=== PATIENT | male | born 1945 | race Caucasian/White ===

== ENCOUNTER 2016-03-19 14:47 | Inpatient (IN) | payer MEDICARE ==
[~2016-03-19] VITALS: Ht 170.2 cm; Wt 91.6 kg
[~2016-03-19 14:47] MED LIST: BACL10TA PO; HYDR-3580 PO; IOHEXOL 350 MG/ML 10 ML VIAL (for RAD DIAG) IV ONE; NEUR600T PO; SIMV40TA PO; TEMA15CA PO; TOPR50TA PO
[2016-03-19 14:50] VITALS: BP 150/86; PULSE 94; RESP 24; TEMP 97.9; O2SAT 87
[2016-03-19] MEDS ORDERED: RESP: ALBUTEROL 2.5 MG/IPRATROPIUM 0.5 MG NEB (SCH) INH ONE (15:00)
[2016-03-19] MEDS ORDERED: methylPREDNISolone SOD SUCC 125 MG/2 ML VIAL IVP ONE (15:00)
[2016-03-19] MEDS ORDERED: SODIUM CHLORIDE 0.9% FLUSH 5 ML FLUSH IVF PRN (15:00)
[2016-03-19] MEDS ORDERED: SIMV40TA PO (15:03)
[2016-03-19] MEDS ORDERED: TEMA30CA PO (15:03)
[2016-03-19] MEDS ORDERED: GABA600T PO (15:03)
[2016-03-19] MEDS ORDERED: LORA-373 PO (15:03)
[2016-03-19] MEDS ORDERED: HYDR-3583 PO (15:03)
[2016-03-19] MEDS ORDERED: BACL10TA PO (15:03)
[2016-03-19] MEDS ORDERED: MORPHINE PUMP (15:03)
[2016-03-19] MEDS ORDERED: METO50TA11 PO (15:03)
[2016-03-19 15:20] LABS: BLOOD GAS BASE EXCESS 3.5 mmol/L (-2-2); BLOOD GAS CARBOXYHEMOGLOBIN 2.3 % (0-4); BLOOD GAS HCO3 28 mmol/L (22-26); BLOOD GAS METHEMOGLOBIN 1.9 % (0-2); BLOOD GAS O2 HGB SATURATION 87 % (90-100); BLOOD GAS OXYGEN CONTENT 16.1 Vol % (12.0-20.0); BLOOD GAS PCO2 42 mmHg (38-42); BLOOD GAS PO2 58 mmHG (61-120); BLOOD GAS TOTAL HGB 13.2 G/DL (12.0-16.0); CRITICAL VALUE YES; DRAW SITE LT RADIAL; LITER FLOW 2 L/M; NUMBER OF ARTERIAL PUNCTURES 1; OXYGEN DEVICE NASAL CANNULA; STAT YES; TEMP CORR TO 98.6; ULNAR PULSE PRESENT
[2016-03-19] MEDS ORDERED: AZITHROMYCIN INJ 500 MG in SODIUM CHLOR 0.9% 250 ML INJ 250 ML IV STA (15:26)
[2016-03-19] MEDS ORDERED: cefTRIAXone INJ 2,000 MG in SODIUM CHLORIDE 0.9% INJ 100 ML IV STA (15:26)
--- NOTE | 2016-03-19 15:29 | PD ---
HPI Chief Complaint: Cold / Flu Symptoms Time Seen by Provider: 15:00 Travel History International Travel<30 days: No Contact w/Intl Traveler<30days: No Traveled to known affect area: No History of Present Illness HPI Patient is a 71-year-old male who presents to the emergency department for evaluation of fatigue, sore throat, cough. Patient states that his symptoms have been ongoing since . Patient denies any chest pain, shortness of breath, fever, nausea, vomiting, abdominal pain. Additionally patient reports decreased appetite. Family also states that patient's is in the hospital due to the same complaints. Patient has a past medical history of hypertension, chronic pain with a morphine pump, insomnia, hyperlipidemia, anxiety, depression. He is on furosemide home but has not been taking this medication. Patient quit smoking tobacco on he has a 10 year history of tobacco use. 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 HERNIA REP. (X2)) Body Medical Devices: MORPHINE PUMP, HARDWARE LUMBAR & CERVICAL Cholecystectomy: Yes Genitourinary Surgery: Yes (PENILE IMPLANT) Joint Replacement: Yes (NICOLE. KNEES) Pacemaker: No Tonsillectomy: Yes Other Surgery: Yes (HERNIA) Social History Alcohol Use: No Tobacco Use: Yes (QUIT A WEEK AGO ) Substance Use: No Allergies-Medications (Allergen,Severity, Reaction): Coded Allergies: No Known Allergies (Verified , 03/19/16) Reported Meds & Prescriptions Reported Meds & Active Scripts Active Reported [Morphine Pump] 15 Mg DAILY Hydrocodone-Acetaminophen 10-325 mg Tab 1 Tab PO Q6H PRN Baclofen 10 Mg Tab 10 Mg PO Q8HR PRN Temazepam 30 Mg Cap 30 Mg PO HS PRN Simvastatin 40 Mg Tab 40 Mg PO HS Gabapentin 600 Mg Tab 600 Mg PO TID Metoprolol Succinate ER 24 HR (Metoprolol Succinate) 50 Mg Tab 75 Mg PO DAILY Lorazepam 0.5 Mg Tab 0.5 Mg PO BID PRN Review of Systems Except as stated in HPI: all other systems reviewed are Neg General / Constitutional: Positive: Chills, Other (fatigue), No: Fever HENT: Positive: Sore Throat, No: Headaches, Lightheadedness, Congestion Cardiovascular: No: Chest Pain or Discomfort Respiratory: Positive: Cough, Wheezing, No: Shortness of Breath Gastrointestinal: Positive: Loss of Appetite, No: Nausea, Vomiting, Diarrhea, Abdominal Pain Musculoskeletal: No: Myalgias Neurologic: Positive: Weakness, No: Dizziness, Syncope, Focal Abnormalities Physical Exam Narrative GENERAL: Overweight, well-developed, elderly male. Resting comfortably in no acute distress. SKIN: Warm and dry. HEAD: Atraumatic. Normocephalic. EYES: Pupils equal and round. No scleral icterus. No injection or drainage. ENT: No nasal bleeding or discharge. Mucous membranes pink and moist. NECK: Trachea midline. No JVD. CARDIOVASCULAR: Regular rate and rhythm. No murmur appreciated. RESPIRATORY: No accessory muscle use. Scattered expiratory wheezing, lung sounds diminished in bases. GASTROINTESTINAL: Abdomen soft, non-tender, nondistended. Hepatic and splenic margins not palpable. MUSCULOSKELETAL: Right upper arm deformity, chronic. No clubbing. No cyanosis. No edema. NEUROLOGICAL: Awake and alert. No obvious cranial nerve deficits. Motor grossly within normal limits. Normal speech. PSYCHIATRIC: Appropriate mood and affect; insight and judgment normal. Data Data Last Documented VS Vital Signs Date Time Temp Pulse Resp B/P Pulse Ox O2 Delivery O2 Flow Rate FiO2 03/19/16 15:26 98 Nasal Cannula 2 03/19/16 14:50 97.9 94 24 150/86 Orders Complete Blood Count With Diff (03/19/16 15:00) Comprehensive Metabolic Panel (03/19/16 15:00) B-Type Natriuretic Peptide (03/19/16 15:00) D-Dimer (03/19/16 15:00) Magnesium (Mg) (03/19/16 15:00) Arterial Blood Gas (Abg) (03/19/16 15:00) Urinalysis - C+S If Indicated (03/19/16 15:00) Blood Culture (03/19/16 15:00) Iv Access Insert/Monitor (03/19/16 15:00) Electrocardiogram (03/19/16 15:00) Ecg Monitoring (03/19/16 15:00) Oxygen Administration (03/19/16 15:00) Chest, Single Ap (03/19/16 15:00) Sodium Chloride 0.9% Flush (Ns Flush) (03/19/16 15:00) Methylprednisolone So Succ Inj (Solumedr (03/19/16 15:00) Albuterol-Ipratropium Neb (Duoneb Neb) (03/19/16 15:00) Lactic Acid (03/19/16 15:00) Ceftriaxone Inj (Rocephin Inj) (03/19/16 15:26) Azithromycin Inj (Zithromax Inj) (03/19/16 15:26) Ct Pulmonary Angiogram (03/19/16 16:35) Act Partial Throm Time (Ptt) (03/19/16 17:47) Prothrombin Time / Inr (Pt) (03/19/16 17:47) Heparin Infusion EDWIN.Q1H (03/19/16 17:53) Heparin Inj (Heparin Inj) (03/19/16 18:00) Heparin Inj (Heparin Inj) (03/20/16 00:00) Heparin Inj (Heparin Inj) (03/20/16 00:00) Heparin-D5w Inj (Heparin-D5w Inj) (03/19/16 18:00) Cbc No Diff, Includes Plts (03/22/16 06:00) Act Partial Throm Time (Ptt) (03/20/16 00:53) Occult Blood (Hemoccult) Stool (03/19/16 17:53) Admit Order (Ed Use Only) (03/19/16 18:08) Labs Laboratory Tests Test 03/19/16 03/19/16 15:15 15:20 Blood Gas Puncture Site LT RADIAL Blood Gas Patient Temperature 98.6 Blood Gas HCO3 28 mmol/L Blood Gas Base Excess 3.5 mmol/L Blood Gas Oxygen Saturation 87 % Arterial Blood pH 7.43 Arterial Blood Partial 42 mmHg Pressure CO2 Arterial Blood Partial 58 mmHG Pressure O2 Arterial Blood Oxygen Content 16.1 Vol % Arterial Blood 2.3 % Carboxyhemoglobin Arterial Blood Methemoglobin 1.9 % Blood Gas Hemoglobin 13.2 G/DL Oxygen Delivery Device NASAL CANNULA Blood Gas Liter Flow 2 L/M White Blood Count 5.2 TH/MM3 Red Blood Count 5.25 MIL/MM3 Hemoglobin 13.1 GM/DL Hematocrit 39.8 % Mean Corpuscular Volume 75.7 FL Mean Corpuscular Hemoglobin 25.0 PG Mean Corpuscular Hemoglobin 33.0 % Concent Red Cell Distribution Width 18.8 % Platelet Count 176 TH/MM3 Mean Platelet Volume 7.4 FL Neutrophils (%) (Auto) 70.4 % Lymphocytes (%) (Auto) 19.4 % Monocytes (%) (Auto) 8.6 % Eosinophils (%) (Auto) 1.1 % Basophils (%) (Auto) 0.5 % Neutrophils # (Auto) 3.6 TH/MM3 Lymphocytes # (Auto) 1.0 TH/MM3 Monocytes # (Auto) 0.4 TH/MM3 Eosinophils # (Auto) 0.1 TH/MM3 Basophils # (Auto) 0.0 TH/MM3 CBC Comment DIFF FINAL Differential Comment Prothrombin Time 11.7 SEC Prothromb Time International 1.1 RATIO Ratio Activated Partial 25.6 SEC Thromboplast Time D-Dimer Quantitative (PE/DVT) 12.90 MG/L FEU Sodium Level 140 MEQ/L Potassium Level 3.6 MEQ/L Chloride Level 104 MEQ/L Carbon Dioxide Level 28.0 MEQ/L Anion Gap 8 MEQ/L Blood Urea Nitrogen 12 MG/DL Creatinine 0.74 MG/DL Estimat Glomerular Filtration 104 ML/MIN Rate Random Glucose 119 MG/DL Lactic Acid Level 1.0 mmol/L Calcium Level 8.6 MG/DL Magnesium Level 1.7 MG/DL Total Bilirubin 0.6 MG/DL Aspartate Amino Transf 31 U/L (AST/SGOT) Alanine Aminotransferase 59 U/L (ALT/SGPT) Alkaline Phosphatase 58 U/L B-Type Natriuretic Peptide 94 PG/ML Total Protein 6.8 GM/DL Albumin 3.5 GM/DL MDM Medical Decision Making Medical Screen Exam Complete: Yes Emergency Medical Condition: Yes Interpretation(s) Laboratory Tests Test 03/19/16 03/19/16 15:15 15:20 Blood Gas Puncture Site LT RADIAL Blood Gas Patient Temperature 98.6 Blood Gas HCO3 28 mmol/L Blood Gas Base Excess 3.5 mmol/L Blood Gas Oxygen Saturation 87 % Arterial Blood pH 7.43 Arterial Blood Partial 42 mmHg Pressure CO2 Arterial Blood Partial 58 mmHG Pressure O2 Arterial Blood Oxygen Content 16.1 Vol % Arterial Blood 2.3 % Carboxyhemoglobin Arterial Blood Methemoglobin 1.9 % Blood Gas Hemoglobin 13.2 G/DL Oxygen Delivery Device NASAL CANNULA Blood Gas Liter Flow 2 L/M White Blood Count 5.2 TH/MM3 Red Blood Count 5.25 MIL/MM3 Hemoglobin 13.1 GM/DL Hematocrit 39.8 % Mean Corpuscular Volume 75.7 FL Mean Corpuscular Hemoglobin 25.0 PG Mean Corpuscular Hemoglobin 33.0 % Concent Red Cell Distribution Width 18.8 % Platelet Count 176 TH/MM3 Mean Platelet Volume 7.4 FL Neutrophils (%) (Auto) 70.4 % Lymphocytes (%) (Auto) 19.4 % Monocytes (%) (Auto) 8.6 % Eosinophils (%) (Auto) 1.1 % Basophils (%) (Auto) 0.5 % Neutrophils # (Auto) 3.6 TH/MM3 Lymphocytes # (Auto) 1.0 TH/MM3 Monocytes # (Auto) 0.4 TH/MM3 Eosinophils # (Auto) 0.1 TH/MM3 Basophils # (Auto) 0.0 TH/MM3 CBC Comment DIFF FINAL Differential Comment D-Dimer Quantitative (PE/DVT) 12.90 MG/L FEU Sodium Level 140 MEQ/L Potassium Level 3.6 MEQ/L Chloride Level 104 MEQ/L Carbon Dioxide Level 28.0 MEQ/L Anion Gap 8 MEQ/L Blood Urea Nitrogen 12 MG/DL Creatinine 0.74 MG/DL Estimat Glomerular Filtration 104 ML/MIN Rate Random Glucose 119 MG/DL Lactic Acid Level 1.0 mmol/L Calcium Level 8.6 MG/DL Magnesium Level 1.7 MG/DL Total Bilirubin 0.6 MG/DL Aspartate Amino Transf 31 U/L (AST/SGOT) Alanine Aminotransferase 59 U/L (ALT/SGPT) Alkaline Phosphatase 58 U/L B-Type Natriuretic Peptide 94 PG/ML Total Protein 6.8 GM/DL Albumin 3.5 GM/DL Vital Signs Date Time Temp Pulse Resp B/P Pulse Ox O2 Delivery O2 Flow Rate FiO2 03/19/16 15:26 98 Nasal Cannula 2 03/19/16 14:50 97.9 94 24 150/86 87 Room Air Differential Diagnosis Pneumonia versus bronchitis versus COPD versus pulmonary embolism versus congestive heart failure Narrative Course Patient is a 71-year-old male who presented to emergency for evaluation of approximately 2 weeks of fatigue, sore throat, coughing. Upon initial presentation patient's saturation was 86% on room air, he was placed on 2 L nasal cannula. His vital signs are otherwise stable. Labs and imaging ordered and pending. ABG, and nebulizer, IV steroids ordered. Family at bedside. Patient placed on telemetry monitoring, continuous pulse oximetry, IV access initiated. Chest x-ray shows no acute disease EKG shows sinus rhythm with a left bundle branch block, this is stable compared to prior EKG on record. Reviewed by my attending physician. ABG shows mixed respiratory acidosis, metabolic alkalosis. Oxygen was increased to 4 L via nasal cannula. D-dimer is elevated at 12.9 CT pulmonary angiogram ordered. Chemistry is unremarkable, BNP is normal, lactic acid is normal. Coags are normal CT pulmonary pulmonary angiogram is positive for PE involving multiple segments of the right lower lobe in the anterior segment of the left upper lobe. Heparin drip orders initiated by my attending physician. Hospitalist paged for admission. Dr. Jones accepted admission. Diagnosis Primary Impression: Pulmonary embolism Qualified Code: I26.99 - Other acute pulmonary embolism without acute cor pulmonale Additional Impression: Hypoxia Condition: Stable Paulina Soria Mar 19, 2016 15:29
--- NOTE | 2016-03-19 15:35 | RADRPT ---
EXAM DATE/TIME: 03/19/2016 15:11 [facility] COMPARISON: No previous studies available for comparison. INDICATIONS : Short of Breath, Weakness. MEDICAL HISTORY : None. SURGICAL HISTORY : None. ENCOUNTER: Initial ACUITY: 1 day PAIN SCORE: 0/10 LOCATION: Bilateral chest FINDINGS: A single view of the chest demonstrates the lungs to be symmetrically aerated without evidence of mas s, infiltrate or effusion. The cardiomediastinal contours are unremarkable. Osseous structures are intact with a history of cervical fusion plate in place. Degenerative changes of the right u will guzman nt.. CONCLUSION: No acute disease. Norman Santos MD on March 19, 2016 at 15:33 Board Certified Radiologist. This report was verified electronically.
[2016-03-19 16:01] LABS: AUTOMATED NEUTROPHIL # 3.6 TH/MM3 (1.8-7.7); BASOPHIL % 0.5 % (0.0-2.0); EOSINOPHIL # 0.1 TH/MM3 (0-0.4); EOSINOPHIL % 1.1 % (0.0-4.0); HEMATOCRIT 39.8 % (39.0-51.0); LYMPH % 19.4 % (9.0-44.0); MEAN CELL VOLUME 75.7 FL (80.0-100.0); MONO % 8.6 % (0.0-8.0); NEUT % 70.4 % (16.0-70.0); PLATELET COUNT 176 TH/MM3 (150-450); RED BLOOD COUNT 5.25 MIL/MM3 (4.50-5.90); RED CELL DISTRIBUTION WIDTH 18.8 % (11.6-17.2); WHITE BLOOD COUNT 5.2 TH/MM3 (4.0-11.0)
[2016-03-19 16:03] LABS: HEMO FLAGS DIFF FINAL
[2016-03-19 16:25] LABS: ALT (GPT) 59 U/L (12-78); ANION GAP 8 MEQ/L (5-15); AST (GOT) 31 U/L (15-37); BLOOD UREA NITROGEN 12 MG/DL (7-18); CHLORIDE 104 MEQ/L (98-107); GLOMERULAR FILTRATION RATE 104 ML/MIN (>89); MAGNESIUM 1.7 MG/DL (1.5-2.5); POTASSIUM 3.6 MEQ/L (3.5-5.1); SODIUM (NA) 140 MEQ/L (136-145)
[2016-03-19 16:27] LABS: ALKALINE PHOSPHATASE 58 U/L (45-117); TOTAL BILIRUBIN ADULT 0.6 MG/DL (0.2-1.0)
--- NOTE | 2016-03-19 16:57 | PD ---
Data Data Last Documented VS Vital Signs Date Time Temp Pulse Resp B/P Pulse Ox O2 Delivery O2 Flow Rate FiO2 03/19/16 15:26 98 Nasal Cannula 2 03/19/16 14:50 97.9 94 24 150/86 Orders Complete Blood Count With Diff (03/19/16 15:00) Comprehensive Metabolic Panel (03/19/16 15:00) B-Type Natriuretic Peptide (03/19/16 15:00) D-Dimer (03/19/16 15:00) Magnesium (Mg) (03/19/16 15:00) Arterial Blood Gas (Abg) (03/19/16 15:00) Urinalysis - C+S If Indicated (03/19/16 15:00) Blood Culture (03/19/16 15:00) Iv Access Insert/Monitor (03/19/16 15:00) Electrocardiogram (03/19/16 15:00) Ecg Monitoring (03/19/16 15:00) Oxygen Administration (03/19/16 15:00) Chest, Single Ap (03/19/16 15:00) Sodium Chloride 0.9% Flush (Ns Flush) (03/19/16 15:00) Methylprednisolone So Succ Inj (Solumedr (03/19/16 15:00) Albuterol-Ipratropium Neb (Duoneb Neb) (03/19/16 15:00) Lactic Acid (03/19/16 15:00) Ceftriaxone Inj (Rocephin Inj) (03/19/16 15:26) Azithromycin Inj (Zithromax Inj) (03/19/16 15:26) Ct Pulmonary Angiogram (03/19/16 16:35) Act Partial Throm Time (Ptt) (03/19/16 17:47) Prothrombin Time / Inr (Pt) (03/19/16 17:47) Heparin Infusion EDWIN.Q1H (03/19/16 17:53) Heparin Inj (Heparin Inj) (03/19/16 18:00) Heparin Inj (Heparin Inj) (03/20/16 00:00) Heparin Inj (Heparin Inj) (03/20/16 00:00) Heparin-D5w Inj (Heparin-D5w Inj) (03/19/16 18:00) Cbc No Diff, Includes Plts (03/22/16 06:00) Act Partial Throm Time (Ptt) (03/20/16 00:53) Occult Blood (Hemoccult) Stool (03/19/16 17:53) Labs Laboratory Tests Test 03/19/16 03/19/16 15:15 15:20 Blood Gas Puncture Site LT RADIAL Blood Gas Patient Temperature 98.6 Blood Gas HCO3 28 mmol/L Blood Gas Base Excess 3.5 mmol/L Blood Gas Oxygen Saturation 87 % Arterial Blood pH 7.43 Arterial Blood Partial 42 mmHg Pressure CO2 Arterial Blood Partial 58 mmHG Pressure O2 Arterial Blood Oxygen Content 16.1 Vol % Arterial Blood 2.3 % Carboxyhemoglobin Arterial Blood Methemoglobin 1.9 % Blood Gas Hemoglobin 13.2 G/DL Oxygen Delivery Device NASAL CANNULA Blood Gas Liter Flow 2 L/M White Blood Count 5.2 TH/MM3 Red Blood Count 5.25 MIL/MM3 Hemoglobin 13.1 GM/DL Hematocrit 39.8 % Mean Corpuscular Volume 75.7 FL Mean Corpuscular Hemoglobin 25.0 PG Mean Corpuscular Hemoglobin 33.0 % Concent Red Cell Distribution Width 18.8 % Platelet Count 176 TH/MM3 Mean Platelet Volume 7.4 FL Neutrophils (%) (Auto) 70.4 % Lymphocytes (%) (Auto) 19.4 % Monocytes (%) (Auto) 8.6 % Eosinophils (%) (Auto) 1.1 % Basophils (%) (Auto) 0.5 % Neutrophils # (Auto) 3.6 TH/MM3 Lymphocytes # (Auto) 1.0 TH/MM3 Monocytes # (Auto) 0.4 TH/MM3 Eosinophils # (Auto) 0.1 TH/MM3 Basophils # (Auto) 0.0 TH/MM3 CBC Comment DIFF FINAL Differential Comment D-Dimer Quantitative (PE/DVT) 12.90 MG/L FEU Sodium Level 140 MEQ/L Potassium Level 3.6 MEQ/L Chloride Level 104 MEQ/L Carbon Dioxide Level 28.0 MEQ/L Anion Gap 8 MEQ/L Blood Urea Nitrogen 12 MG/DL Creatinine 0.74 MG/DL Estimat Glomerular Filtration 104 ML/MIN Rate Random Glucose 119 MG/DL Lactic Acid Level 1.0 mmol/L Calcium Level 8.6 MG/DL Magnesium Level 1.7 MG/DL Total Bilirubin 0.6 MG/DL Aspartate Amino Transf 31 U/L (AST/SGOT) Alanine Aminotransferase 59 U/L (ALT/SGPT) Alkaline Phosphatase 58 U/L B-Type Natriuretic Peptide 94 PG/ML Total Protein 6.8 GM/DL Albumin 3.5 GM/DL [facility] Supervised Visit with NAT: Yes Narrative Course I, Dr. Rice, have reviewed the advance practice practioner's documentation and am in agreement, met with the patient face to face, made the diagnosis, and the medical decision making was done by me. *My assessment and Findings: 71-year-old male with history of HTN, HLD, CHF here with complaint of generalized fatigue, weakness, sore throat and dry cough with shortness of breath that is been present for the last 2 weeks since . States that multiple members in his family were ill with similar symptoms, his is currently hospitalized for similar complaints. Patient has not had any chest pain or documented fevers. He does not weigh himself regularly and has not been taking his home Lasix. Patient notable hypoxia 87% on room air. He does not have any history of underlying lung pathology, is only a 10 year pack smoker, now no longer smoking. Decreased breath sounds throughout, no wheezing or rhonchi. Regular rate and rhythm. Differential includes bronchitis, pneumonia, influenza, pulmonary embolism, symptomatic anemia, sepsis. Patient was given Solu-Medrol, DuoNeb. Portal chest x-ray by my read shows no obvious infiltrate. Patient was empirically treated with Rocephin and azithromycin for possible underlying pneumonia. Laboratory workup notable for significantly elevated d-dimer and therefore CT pulmonary injury gram was obtained and showed bilateral PE. Patient was placed on heparin and will be admitted for further management. Critical Care Narrative Aggregate critical care time was 40 minutes. Time to perform other separately billable procedures was not included in the critical care time. My time did not include minutes spent treating any other patients simultaneously or on activities that did not directly contribute to the patient's treatment. The services I provided to this patient were to treat and/or prevent clinically significant deterioration that could result in: Cardiopulmonary decompensation, hypoxia, , disability I provided critical care services requiring my management, as noted below: Chart data review, documentation time, medication orders and management, vital sign assessments/reviewing monitor data, ordering and reviewing lab tests, ordering and interpreting/reviewing x-rays and diagnostic studies, care of the patient and discussion of the patient with the admitting physicians. Ivelisse Rice MD Mar 19, 2016 16:57
[2016-03-19] MEDS ORDERED: IOHEXOL 350 MG/ML 10 ML VIAL (for RAD DIAG) IV ONE (17:30)
--- NOTE | 2016-03-19 17:50 | RADRPT ---
EXAM DATE/TIME: 03/19/2016 17:30 [facility] COMPARISON: CHEST SINGLE AP, March 19, 2016, 15:11. INDICATIONS : Evaluate for emboli. IV CONTRAST: 80 cc Omnipaque 350 (iohexol) IV RADIATION DOSE: 17.61 CTDIvol (mGy) MEDICAL HISTORY : Cardiovascular disease. Hypertension. SURGICAL HISTORY : Cholecystectomy. ENCOUNTER: Initial ACUITY: 1 day PAIN SCALE: 3/10 LOCATION: Bilateral chest TECHNIQUE: Volumetric scanning of the chest was performed using a pulmonary embolism protocol MIP images were re constructed. Using automated exposure control and adjustment of the mA and/or kV according to patien t size, radiation dose was kept as low as reasonably achievable to obtain optimal diagnostic quality images. FINDINGS: PULMONARY ARTERIES: There are multiple right lower lobe segmental pulmonary artery filling defects consistent with pulmon maryan emboli. There is a question as to the anterior segment right upper lobe having a small pulmonary embolism thrombus defects.. LUNGS: There is no consolidation or pneumothorax . No concerning pulmonary nodule is visualized. PLEURAE: There is no pleural thickening or pleural effusion. MEDIASTINUM: There is good visualization of the great vessels of the middle mediastinum. No evidence of mediastin al or hilar adenopathy/mass. MUSCULOSKELETAL: Within normal limits for patient age. MISCELLANEOUS: The visualized upper abdominal organs demonstrate no acute abnormality. CONCLUSION: Positive for pulmonary embolism primarily involving multiple segments of the right lower lobe especia lly minimal area in the anterior segment of the left upper lobe Norman Santos MD on March 19, 2016 at 17:44 Board Certified Radiologist. This report was verified electronically.
[2016-03-19] MEDS ORDERED: HEPARIN SODIUM - IV 10,000 UNITS/10 ML VIAL IV ONE (18:00)
[2016-03-19 18:08] LABS: APTT (PATIENT) 25.6 SEC (24.3-30.1); INTERNATIONAL NORMALIZED RATIO 1.1 RATIO; PROTHROMBIN TIME - PATIENT 11.7 SEC (9.8-11.6)
--- NOTE | 2016-03-19 18:29 | HHI.HP ---
[facility] Primary Care Physician Nikunj Jernigan M.D. Admission Diagnosis PULMONARY EMBOLISM Diagnoses: (1) Pulmonary embolism Diagnosis: Principal (2) Hypoxia Diagnosis: Principal (3) Acute respiratory failure Diagnosis: Principal Chief Complaint: generalized weakness Travel History International Travel<30 Days: No Contact w/Intl Traveler <30 Da: No Traveled to Known Affected Are: No History of Present Illness patient is a 71 y/o male with chronic back pain who presented to ER with generalized weakness. he says that over the past few days he and his have had flu-like symptoms. he had some fever at home and feels very weak. he says that he's so weak that he can't take care of himself. he denies any sob or cough. he has some back pain. he denies any recent trauma to the legs, recent surgery or long trips.he was found hypoxemic at the time of arrival to ER. Review of Systems Constitutional: COMPLAINS OF: Fatigue, Fever, DENIES: Weight loss, Chills, Night Sweats Eyes: DENIES: Blurred vision, Diplopia, Vision loss, Double Vision Ears, nose, mouth, throat: DENIES: Tinnitus, Vertigo, Throat pain, Epistaxis Respiratory: DENIES: Apneas, Cough, Snoring, Wheezing, Hemoptysis, Sputum production, Shortness of breath Cardiovascular: DENIES: Chest pain, Palpitations, Syncope, Dyspnea on Exertion , PND, Lower Extremity Edema, Orthopnea, Claudication Gastrointestinal: DENIES: Abdominal pain, Black stools, Bloody stools, Constipation, Diarrhea, Nausea, Vomiting, Difficulty Swallowing, Anorexia Genitourinary: DENIES: Urinary frequency, Urgency, Hematuria, Dysuria Musculoskeletal: DENIES: Joint pain, Muscle aches, Stiffness, Joint Swelling Integumentary: DENIES: Rash Neurologic: DENIES: Abnormal gait, Headache, Localized weakness, Paresthesias, Seizures, Speech Problems, Tremor, Poor Balance Psychiatric: DENIES: Anxiety, Confusion, Mood changes, Depression, Hallucinations, Agitation, Suicidal Ideation, Homicidal Ideation, Delusions Past Family Social History Past Medical History chronic back pain hypertension Past Surgical History back surgeries Reported Medications [Morphine Pump] 15 Mg DAILY Hydrocodone-Acetaminophen 10-325 mg Tab 1 Tab PO Q6H PRN Baclofen 10 Mg Tab 10 Mg PO Q8HR PRN Temazepam 30 Mg Cap 30 Mg PO HS PRN Simvastatin 40 Mg Tab 40 Mg PO HS Gabapentin 600 Mg Tab 600 Mg PO TID Metoprolol Succinate ER 24 HR (Metoprolol Succinate) 50 Mg Tab 75 Mg PO DAILY Lorazepam 0.5 Mg Tab 0.5 Mg PO BID PRN Allergies: Coded Allergies: No Known Allergies (Verified , 03/19/16) Active Ordered Medications Current Medications IV Flush (NS Flush) 2 ml UNSCH PRN IVF FLUSH AFTER USING IV ACCESS; Start at 15:00 Methylprednisolone Sodium Succinate (SoluMEDROL INJ) 125 mg ONCE ONCE IVP Last administered on 03/19/16 15:58; Start 03/19/16 at 15:00; Stop 03/19/16 at 15: 03; Status DC Albuterol/ Ipratropium 1 ampule 1 ampule ONCE ONCE INH Last administered on 15:15; Start 03/19/16 at 15:00; Stop 03/19/16 at 15:03; Status DC Ceftriaxone Sodium 2000 mg/ Sodium Chloride 100 ml @ 200 mls/hr ONCE STAT IV Last administered on 03/19/16 16:15; Start 03/19/16 at 15:26; Stop 03/19/16 at 15: 55; Status DC Azithromycin/ Sodium Chloride (Zithromax Inj/ NS 250 ml Inj) 250 ml @ 250 mls/ hr ONCE STAT IV Last administered on 03/19/16 17:29; Start 03/19/16 at 15:26; Stop 03/19/16 at 16:25; Status DC Heparin Sodium (Porcine) (Heparin Inj) 8,000 units ONCE ONCE IV ; Start at 18:00; Stop 03/19/16 at 18:01; Status DC Heparin Sodium (Porcine) (Heparin Inj) 5,000 units UNSCH PRN IV APTT LESS THAN 25; Start 03/20/16 at 00:00 Heparin Sodium (Porcine) 2500 units 2,500 units UNSCH PRN IV APTT 25 TO 39; Start 03/20/16 at 00:00 Heparin Sodium/ Dextrose (Heparin-D5W Inj) 250 ml @ 0 mls/hr TITRATE IV ; Start 03/19/16 at 18:00 Family History not significant. Social History quit smoking about a month ago. lives with his . Physical Exam Vital Signs Vital Signs Date Time Temp Pulse Resp B/P Pulse Ox O2 Delivery O2 Flow Rate FiO2 03/19/16 15:26 98 Nasal Cannula 2 03/19/16 14:50 97.9 94 24 150/86 87 Room Air Physical Exam GENERAL: This is a well-nourished, well-developed patient, in no apparent distress. SKIN: No rashes, ecchymoses or lesions. Cool and dry. HEAD: Atraumatic. Normocephalic. No temporal or scalp tenderness. EYES: Pupils equal round and reactive. Extraocular motions intact. No scleral icterus. No injection or drainage. ENT: Nose without bleeding, purulent drainage or septal hematoma. Throat without erythema, tonsillar hypertrophy or exudate. Uvula midline. Airway patent. NECK: Trachea midline. No JVD or lymphadenopathy. Supple, nontender, no meningeal signs. CARDIOVASCULAR: Regular rate and rhythm without murmurs, gallops, or rubs. RESPIRATORY: Clear to auscultation. Breath sounds equal bilaterally. No wheezes , rales, or rhonchi. GASTROINTESTINAL: Abdomen soft, non-tender, nondistended. No hepato-splenomegaly , or palpable masses. No guarding. MUSCULOSKELETAL: Extremities without clubbing, cyanosis, or edema. No joint tenderness, effusion, or edema noted. No calf tenderness. Negative Homans sign bilaterally. NEUROLOGICAL: Awake and alert. Cranial nerves II through XII intact. Motor and sensory grossly within normal limits. Five out of 5 muscle strength in all muscle groups. Normal speech. Laboratory Laboratory Tests Test 03/19/16 03/19/16 15:15 15:20 Blood Gas Puncture Site LT RADIAL Blood Gas Patient Temperature 98.6 Blood Gas HCO3 28 Blood Gas Base Excess 3.5 Blood Gas Oxygen Saturation 87 Arterial Blood pH 7.43 Arterial Blood Partial 42 Pressure CO2 Arterial Blood Partial 58 Pressure O2 Arterial Blood Oxygen Content 16.1 Arterial Blood 2.3 Carboxyhemoglobin Arterial Blood Methemoglobin 1.9 Blood Gas Hemoglobin 13.2 Oxygen Delivery Device NASAL CANNULA Blood Gas Liter Flow 2 White Blood Count 5.2 Red Blood Count 5.25 Hemoglobin 13.1 Hematocrit 39.8 Mean Corpuscular Volume 75.7 Mean Corpuscular Hemoglobin 25.0 Mean Corpuscular Hemoglobin 33.0 Concent Red Cell Distribution Width 18.8 Platelet Count 176 Mean Platelet Volume 7.4 Neutrophils (%) (Auto) 70.4 Lymphocytes (%) (Auto) 19.4 Monocytes (%) (Auto) 8.6 Eosinophils (%) (Auto) 1.1 Basophils (%) (Auto) 0.5 Neutrophils # (Auto) 3.6 Lymphocytes # (Auto) 1.0 Monocytes # (Auto) 0.4 Eosinophils # (Auto) 0.1 Basophils # (Auto) 0.0 CBC Comment DIFF FINAL Differential Comment Prothrombin Time 11.7 Prothromb Time International 1.1 Ratio Activated Partial 25.6 Thromboplast Time D-Dimer Quantitative (PE/DVT) 12.90 Sodium Level 140 Potassium Level 3.6 Chloride Level 104 Carbon Dioxide Level 28.0 Anion Gap 8 Blood Urea Nitrogen 12 Creatinine 0.74 Estimat Glomerular Filtration 104 Rate Random Glucose 119 Lactic Acid Level 1.0 Calcium Level 8.6 Magnesium Level 1.7 Total Bilirubin 0.6 Aspartate Amino Transf 31 (AST/SGOT) Alanine Aminotransferase 59 (ALT/SGPT) Alkaline Phosphatase 58 B-Type Natriuretic Peptide 94 Total Protein 6.8 Albumin 3.5 Date/Time Procedure Status Source Growth 03/19/16 15:20 Aerobic Blood Culture Received Blood Peripheral Pending 03/19/16 15:20 Anaerobic Blood Culture Received Blood Peripheral Pending Result Diagram: 03/19/16 1520 03/19/16 [address] Angiography 03/19/16 1635 Signed Impressions: Service Date/Time: Saturday, March 19, 2016 17:30 - CONCLUSION: Positive for pulmonary embolism primarily involving multiple segments of the right lower lobe especially minimal area in the anterior segment of the left upper lobe Norman Santos MD Chest X-Ray 03/19/16 1500 Signed Impressions: Service Date/Time: Saturday, March 19, 2016 15:11 - CONCLUSION: No acute disease. Norman Santos MD Assessment and Plan Assessment and Plan A/P - acute hypoxemic respiratory failure due to pulmonary embolism keep on oxygen to keep O2 sat > 90%- neb treatment as needed. continue with heparin drip- consult hematology venous doppler of lower extremities. - chronic back pain/ hypertension- resume home meds- patient has morphine pump Discussed Condition With ER physician and the patient. Physician Certification 2 Midnight Certification Type: Admission for Inpatient Services Order for Inpatient Services The services are ordered in accordance with Medicare regulations or non- Medicare payer requirements, as applicable. In the case of services not specified as inpatient-only, they are appropriately provided as inpatient services in accordance with the 2-midnight benchmark. Estimated LOS (days): 2 days is the estimated time the patient will need to remain in the hospital, assuming treatment plan goals are met and no additional complications. Post-Hospital Plan: Not yet determined Problem Qualifiers (1) Pulmonary embolism: Qualified Code: I26.99 - Other acute pulmonary embolism without acute cor pulmonale Tato Solo MD Mar 19, 2016 18:29
[2016-03-19] MEDS ORDERED: LORazepam 0.5 MG TAB PO PRN (18:30)
[2016-03-19] MEDS ORDERED: ONDANSETRON HCL 4 MG/2 ML VIAL IV PUSH PRN (18:30)
[2016-03-19] MEDS ORDERED: ACETAMINOPHEN 325 MG TAB PO PRN (18:30)
[2016-03-19] MEDS ORDERED: BACLOFEN 10 MG TAB PO PRN (18:30)
[2016-03-19] MEDS ORDERED: RESP: ALBUTEROL 2.5 MG/IPRATROPIUM 0.5 MG NEB (PRN) NEB (18:30)
[2016-03-19 18:48] VITALS: BP 163/82; PULSE 84; RESP 18; O2SAT 89
[2016-03-19] MEDS: HEPARIN-D5W INJ 250 ML IV SCH (19:31)
--- NOTE | 2016-03-19 19:37 | EKG ---
Date Performed: 03/19/2016 Time Performed: 15:42:51 PTAGE: 71 years EKG: Sinus rhythm LEFT BUNDLE BRANCH BLOCK WITH SECONDARY ST/T WAVE CHANGES ABNORMAL ECG PREVIOUS TRACING : 10/19/2011 18.58 Since previous tracing, no significant change noted DOCTOR: Carlos Mcconnell Interpretating Date/Time 03/19/2016 19:36:17
[2016-03-19 20:00] VITALS: O2SAT 93
[2016-03-19] MEDS: PRAVASTATIN SOD 80 MG TAB PO SCH (20:03)
[2016-03-19 20:06] LABS: BLOOD, URINE TRACE (NEG); COMMENT (UR) CULT NOT INDICATED; CULTURE IF INDICATED CULT NOT INDICATED; GLUCOSE,URINE NEG (NEG); KETONE, URINE 40 mg/dL (NEG); MUCUS URINE FEW /lpf (OCC); NITRITE,URINE NEG (NEG); PH, URINE 6.5 (5.0-8.5); URINE COLOR YELLOW (YELLW/STRAW)
--- NOTE | 2016-03-19 21:08 | RADRPT ---
EXAM DATE/TIME: 03/19/2016 19:54 [place] COMPARISON: CT PULMONARY ANGIOGRAM, March 19, 2016, 17:30. INDICATIONS : Bilateral lower extremity swelling. MEDICAL HISTORY : Myocardial infarction. Hypercholesterolemia. Hernia, hiatal. Chronic back pain. Right upper arm contr acture. Tacharrhythmia. HTN. Arthritis. Insomnia. SURGICAL HISTORY : Tonsillectomy.Inguinal hernia repair. Cholecystectomy.Penile implant. Bilateral total knee replacemen ts. Cervical fusions x2. Right knee revision. Blood transfusions. ENCOUNTER: Initial ACUITY: 1 month PAIN SCORE: 0/10 LOCATION: Bilateral leg. TECHNIQUE: Venous ultrasound of the left and right leg was performed from the inguinal ligament to the proximal calf. Real-time, color Doppler and spectral tracing, compression and augmentation techniques were us ed. FINDINGS: RIGHT LEG: There is normal compressibility of the deep venous system from the inguinal region to the proximal ca lf. No echogenic clot is seen in the lumen of the common femoral, femoral, and popliteal veins. Ther e is occlusive DVT in the posterior tibial vein . LEFT LEG: There is normal compressibility of the deep venous system from the inguinal region to the proximal ca lf. No echogenic clot is seen in the lumen of the common femoral, femoral, popliteal, and posterior tibial veins. There is a normal response of the venous system to proximal and distal augmentation an d respiration. CONCLUSION: Occlusive DVT right posterior tibial vein. Otherwise negative Norman Santos MD on March 19, 2016 at 21:05 Board Certified Radiologist. This report was verified electronically.
[2016-03-19 22:01] VITALS: BP 178/82; PULSE 69; RESP 17; TEMP 96.8; O2SAT 95
[2016-03-20] VITALS (9 sets, daily range): BP systolic 155–198; BP diastolic 72–92; PULSE 53–71; RESP 17–18; TEMP 96.8–98.7; O2SAT 92–96
[2016-03-20] MEDS ORDERED: HEPARIN SODIUM - IV 10,000 UNITS/10 ML VIAL IV PRN ×2
[2016-03-20] MEDS ORDERED: cloNIDine HCL 0.1 MG TAB PO ONE (00:30)
[2016-03-20 03:00] LABS: APTT (PATIENT) 151.1 SEC (24.3-30.1)
[2016-03-20] MEDS ORDERED: hydrALAZINE HCL 25 MG TAB PO ONE (04:15)
[2016-03-20 06:09] LABS: APTT (PATIENT) 57.1 SEC (24.3-30.1)
[2016-03-20] MEDS ORDERED: cloNIDine HCL 0.1 MG TAB PO SCH (07:00)
[2016-03-20] MEDS: cloNIDine HCL 0.1 MG TAB PO PRN ×2 (07:00→18:25)
[2016-03-20] MEDS: METOPROLOL SUCCINATE 50 MG EXTENDED RELEASE TAB PO SCH (08:18)
[2016-03-20] MEDS: GABAPENTIN 300 MG CAP PO SCH ×3 (08:18→17:22)
--- NOTE | 2016-03-20 10:25 | HHI.PR ---
Subjective Remarks f/u; PE looks and feels more comfortable today- although on three liters of oxygen via N /C. denies pain. d/w the RN and no acute issues over night. Objective Vitals Vital Signs Date Time Temp Pulse Resp B/P Pulse Ox O2 Delivery O2 Flow Rate FiO2 03/20/16 08:20 Nasal Cannula 3.00 03/20/16 07:30 Nasal Cannula 3.00 03/20/16 06:40 65 185/92 03/20/16 04:26 97.2 71 17 183/88 93 03/20/16 00:22 96.8 67 18 186/92 92 03/19/16 22:01 96.8 69 17 178/82 95 03/19/16 20:00 93 Nasal Cannula 3.00 03/19/16 19:37 95 Nasal Cannula 5 03/19/16 18:48 84 18 163/82 89 Nasal Cannula 5 03/19/16 15:26 98 Nasal Cannula 2 03/19/16 14:50 97.9 94 24 150/86 87 Room Air I/O 03/19/16 03/19/16 03/19/16 03/20/16 03/20/16 03/20/16 07:00 15:00 23:00 07:00 15:00 23:00 Intake Total 480 ml 496 ml Output Total 200 ml Balance 480 ml 296 ml Intake Oral 480 ml 360 ml IV Total 136 ml Output Urine Total 200 ml # Voids 2 # Bowel Movements 2 0 Result Diagram: 03/19/16 1520 03/19/16 [address] Angiography 03/19/16 1635 Signed Impressions: Service Date/Time: Saturday, March 19, 2016 17:30 - CONCLUSION: Positive for pulmonary embolism primarily involving multiple segments of the right lower lobe especially minimal area in the anterior segment of the left upper lobe Norman Santos MD Chest X-Ray 03/19/16 1500 Signed Impressions: Service Date/Time: Saturday, March 19, 2016 15:11 - CONCLUSION: No acute disease. Norman Santos MD Lower Extremity Ultrasound 03/19/16 0000 Signed Impressions: Service Date/Time: Saturday, March 19, 2016 19:54 - CONCLUSION: Occlusive DVT right posterior tibial vein. Otherwise negative Norman Santos MD Objective Remarks GENERAL: This is a well-nourished, well-developed patient, in no apparent distress. CARDIOVASCULAR: Regular rate and regular rhythm without murmurs, gallops, or rubs. RESPIRATORY: Clear to auscultation. Breath sounds equal bilaterally. No wheezes , rales, or rhonchi. GASTROINTESTINAL: Abdomen soft, non-tender, nondistended. Normal, active bowel sounds MUSCULOSKELETAL: Extremities without clubbing, cyanosis, or edema. NEURO: Alert & Oriented x4 to person, place, time, situation. Moves all ext x4 Procedures none Medications and IVs Current Medications IV Flush (NS Flush) 2 ml UNSCH PRN IVF FLUSH AFTER USING IV ACCESS; Start at 15:00 Methylprednisolone Sodium Succinate (SoluMEDROL INJ) 125 mg ONCE ONCE IVP Last administered on 03/19/16 15:58; Start 03/19/16 at 15:00; Stop 03/19/16 at 15: 03; Status DC Albuterol/ Ipratropium 1 ampule 1 ampule ONCE ONCE INH Last administered on 15:15; Start 03/19/16 at 15:00; Stop 03/19/16 at 15:03; Status DC Ceftriaxone Sodium 2000 mg/ Sodium Chloride 100 ml @ 200 mls/hr ONCE STAT IV Last administered on 03/19/16 16:15; Start 03/19/16 at 15:26; Stop 03/19/16 at 15: 55; Status DC Azithromycin/ Sodium Chloride (Zithromax Inj/ NS 250 ml Inj) 250 ml @ 250 mls/ hr ONCE STAT IV Last administered on 03/19/16 17:29; Start 03/19/16 at 15:26; Stop 03/19/16 at 16:25; Status DC Heparin Sodium (Porcine) (Heparin Inj) 8,000 units ONCE ONCE IV Last administered on 03/19/16 19:29; Start 03/19/16 at 18:00; Stop 03/19/16 at 18:01; Status DC Heparin Sodium (Porcine) (Heparin Inj) 5,000 units UNSCH PRN IV APTT LESS THAN 25; Start 03/20/16 at 00:00 Heparin Sodium (Porcine) 2500 units 2,500 units UNSCH PRN IV APTT 25 TO 39; Start 03/20/16 at 00:00 Heparin Sodium/ Dextrose (Heparin-D5W Inj) 250 ml @ 0 mls/hr TITRATE IV Last administered on 03/19/16 19:31; Start 03/19/16 at 18:00 Albuterol/ Ipratropium (Duoneb Neb) 1 ampule Q6HR NEB PRN NEB SHORTNESS OF BREATH; Start 03/19/16 at 18:30 Baclofen (Lioresal) 10 mg Q8HR PRN PO MUSCLE SPASM; Start 03/19/16 at 18:30 Gabapentin (Neurontin) 600 mg TID PO Last administered on 03/20/16 08:18; Start 03/20/16 at 09:00 Lorazepam (Ativan) 0.5 mg BID PRN PO ANXIETY; Start 03/19/16 at 18:30 Metoprolol Succinate (Toprol Xl) 75 mg DAILY PO Last administered on 03/20/16 08:18; Start 03/20/16 at 09:00 Pravastatin Sodium (Pravachol) 80 mg HS PO Last administered on 03/19/16 20:03 ; Start 03/19/16 at 21:00 Ondansetron HCl (Zofran Inj) 4 mg Q8HR PRN IV PUSH NAUSEA; Start 03/19/16 at 18: 30 Acetaminophen (Tylenol) 650 mg Q4H PRN PO FEVER; Start 03/19/16 at 18:30 Clonidine (Catapres) 0.1 mg ONCE ONCE PO Last administered on 03/20/16 00:30; Start 03/20/16 at 00:30; Stop 03/20/16 at 00:31; Status DC Hydralazine HCl (Apresoline) 25 mg ONCE ONCE PO Last administered on 03/20/16 04:15; Start 03/20/16 at 04:15; Stop 03/20/16 at 04:16; Status DC Clonidine (Catapres) 0.1 mg Q6H PRN PO SBP>160, DBP>90 Last administered on 03/20 07:00; Start 03/20/16 at 07:00 Clonidine (Catapres) 0.1 mg NOW PO ; Start 03/20/16 at 07:00; Stop 03/20/16 at 09: 00; Status DC A/P Assessment and Plan A/P - acute hypoxemic respiratory failure due to pulmonary embolism will titrate down oxygen to keep O2 sat > 90%- neb treatment as needed. continue with heparin drip- awaiting hematology evaluation venous doppler of lower extremities with DVT of the right posterior tibial vein walk test before discharge. -hypertension- not well controlled- resumed metoprolol- clonidine prn will monitor and adjust the regimen as needed - chronic back pain/ hypertension- resumed home meds- patient has morphine pump Discharge Planning possible discharge within the next 24-48 hrs if stable- awaiting hematology evaluation. needs walk test before discharge. Tato Solo MD Mar 20, 2016 10:25
[2016-03-20 13:30] LABS: APTT (PATIENT) 53.7 SEC (24.3-30.1)
[2016-03-20] MEDS: HEPARIN-D5W INJ 250 ML IV SCH (13:49)
[2016-03-20] MEDS ORDERED: DO NOT ADM ANY ANTICOAGULANT DRUGS XX PRN (15:30)
[2016-03-20] MEDS: WARFARIN SOD 4 MG TAB PO SCH (15:44)
--- NOTE | 2016-03-20 15:53 | MB ---
cc: ASHUTOSH SOLO MD, RUBY ANNE E. M.D. DATE OF 1945 DATE OF SERVICE March 20, [address] Solo CHIEF COMPLAINT Dr. Solo requests consultation for Mr. Ball regarding newly diagnosed pulmonary embolism. HISTORY OF PRESENT ILLNESS Mr. Ball is a 71-year-old man with history of chronic back pain, hypertension who presented to the emergency room with significant weakness and fatigue. 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 He reports feeling flu-like symptoms after [place] and has been unwell and had increasing fatigue. He reports being fatigued being a caregiver of his , however after [place] he was even more so with the flu-like symptoms. The symptoms became progressively worse. He was spending more time in his recliner where he was in the habit of sleeping in. He apparently takes a sleeping pill before going into his recliner and remains in the same position most of the night. He had stopped taking an aspirin prophylactically. He has done so for many years and several months ago he ran out of aspirin and has not resumed his previous regimen of prophylaxis. On the day of admission he felt so worn out that he could not even move, that he asked his son to bring him into the hospital. He was brought in, was seen by Dr. Ingram on March 19, 2016. CT angiogram was ultimately performed that showed positive pulmonary embolism primarily involving multiple segments of the right lower lobe and minimal areas of anterior segment of the left upper lobe. Ultrasound of the lower extremity was also performed showed occlusive DVT in the right posterior tibial vein. There was no swelling of his legs. He broke his right elbow many years ago. He is unable to flex completely. He denies any circulation problems of his lower extremity. He has had bilateral knee replacements and redo surgery, the most recent one was by Dr. Garcia in March 21, 2012. He remembers being on anticoagulant therapy with Xarelto and tolerated that quite well. He has had skin cancers removed. He has chronic dry skin of his lower extremity. He believes he has lost some weight. His appetite had decreased since developing the flu-like symptoms. The rest of his review of systems is negative. He denies any vision changes. No headaches. No bowel changes. Denies any urinary complaints. PAST MEDICAL HISTORY Of: 1. Chronic back pain. 2. Hypertension. 3. Pulmonary embolism. 4. Microcytosis. PAST SURGICAL HISTORY 1. Bilateral knee replacements. 2. Left knee redo. 3. Back surgery. FAMILY HISTORY Significant for mother of old age at 95. Father of black lung in his 60s. SOCIAL HISTORY He quit smoking just several days ago. He lives with his for which he is the main caregiver. His is currently admitted to the hospital as well. He has a son who lives nearby and many grandchildren. ALLERGIES NO KNOWN DRUG ALLERGIES. CURRENT MEDICATIONS 1. Gabapentin. 2. Toprol. 3. Clonidine. 4. Pravachol. 5. Unfractionated Heparin. PHYSICAL EXAMINATION VITAL SIGNS: Temperature 97.5, heart rate 60, respiratory rate 18, blood pressure 173/72, saturation 94-96% on 2 liters nasal cannula. GENERAL: Mr. Ball is an elderly man who looks tired and looks his stated age. HEENT: His pupils are round, reactive to light and accommodation. Oropharynx is clear. LUNGS: Reveal occasional expiratory wheeze on the upper lung leary. CARDIOVASCULAR: Exam reveals some mild bradycardia. ABDOMEN: Benign. EXTREMITIES: Lower extremities with no edema. Bilateral knee replacement scars. Multiple dry patches of his lower extremity. Pulses are palpable. Deformity of the right elbow post fracture as a child. LABORATORY DATA Significant for hemoglobin 13.1, MCV 75.7. ASSESSMENT/PLAN Mr. Ball is a 71-year-old man with history of back pain, hyperlipidemia, hypertension admitted with a several-day increasing history of fatigue. He was found to have of bilateral pulmonary embolism and associated occlusive right posterior tibial vein DVT. I had lengthy discussion Mr. Ball in the presence of at least six of his grandchildren about his diagnosis of upper lobe pulmonary embolism. The provocation is the fact that he has been ill with an upper respiratory infection versus the flu. He has been more sedentary and sleeping in his recliner without moving. He also had stopped his aspirin prophylaxis that he has done for many years. 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 He has a various risk factors for [id number] deep vein thromboses primarily from his previous knee surgeries. He has not previously been diagnosed with a deep vein thromboses. He has no personal history of a deep vein thromboses. No family history of deep vein thromboses. He is familiar with new oral anticoagulant Xarelto. He has tolerated it well. However, he is concerned about the cost of the anticoagulant therapy. He prefers to be on Coumadin as his is currently on Coumadin and he is familiar with risk and benefits and the titration of Coumadin dose. We will consult with case management to see the cost of Xarelto. However, as per patient's request and preference to be on Coumadin, we will start him on Coumadin today. He will need to be bridged on his anticoagulant therapy with either unfractionated heparin or low-molecular weight heparin. These measures may be helpful in getting him and his help at home. Lastly, we will consult with physical therapy as he is terribly deconditioned. He has mild microcytosis, no evidence of anemia. Iron studies will be performed. Stool for hemoccult will be checked. MD DHRUV Watson/ELIZABETH /3:07 PM /3:32 PM WEN
[2016-03-20] MEDS: ENOXAPARIN SODIUM 80 MG/0.8 ML SYRINGE SQ SCH (17:22)
[2016-03-20 20:13] LABS: APTT (PATIENT) 28.8 SEC (24.3-30.1)
[2016-03-20] MEDS: PRAVASTATIN SOD 80 MG TAB PO SCH (20:49)
[2016-03-21] VITALS (9 sets, daily range): BP systolic 127–227; BP diastolic 64–98; PULSE 51–88; RESP 18–19; TEMP 95.4–99.2; O2SAT 92–98
[2016-03-21] MEDS: cloNIDine HCL 0.1 MG TAB PO PRN ×3 (05:21→23:51)
[2016-03-21] MEDS: ENOXAPARIN SODIUM 80 MG/0.8 ML SYRINGE SQ SCH ×2 (05:21→18:22)
[2016-03-21 07:08] LABS: APTT (PATIENT) 25.7 SEC (24.3-30.1); FERRITIN 24 NG/ML (26-388); INTERNATIONAL NORMALIZED RATIO 1.1 RATIO; PROTHROMBIN TIME - PATIENT 11.7 SEC (9.8-11.6); TRANSFERRIN IRON PROFILE 240 MG/DL (200-360)
[2016-03-21] MEDS: GABAPENTIN 300 MG CAP PO SCH ×3 (08:17→18:21)
[2016-03-21] MEDS: METOPROLOL SUCCINATE 50 MG EXTENDED RELEASE TAB PO SCH (08:18)
[2016-03-21] MEDS ORDERED: NIFEdipine 30 MG SUSTAINED RELEASE TAB PO ONE (08:30)
--- NOTE | 2016-03-21 08:36 | HHI.PR ---
Subjective Remarks f/u; PE in no acute distress. sob has improved. complaining of nausea but no vomiting or abdominal pain. BP noted on high side. d/w the RN and no acute issues over night. Objective Vitals Vital Signs Date Time Temp Pulse Resp B/P Pulse Ox O2 Delivery O2 Flow Rate FiO2 03/21/16 08:00 96.8 59 19 227/98 96 203/93 03/21/16 06:17 175/81 03/21/16 04:24 97.6 51 18 187/81 95 03/21/16 00:27 97.8 51 18 164/83 98 03/20/16 20:31 98.7 62 18 155/80 95 03/20/16 18:33 92 Nasal Cannula 3.00 03/20/16 16:00 97.9 53 18 198/89 94 03/20/16 12:00 97.9 60 18 157/77 92 03/20/16 10:57 Nasal Cannula 2.00 03/20/16 10:37 96 Nasal Cannula 3.00 I/O 03/20/16 03/20/16 03/20/16 03/21/16 03/21/16 03/21/16 07:00 15:00 23:00 07:00 15:00 23:00 Intake Total 496 ml 446 ml 516 ml 360 ml Output Total 200 ml 420 ml 600 ml 200 ml Balance 296 ml 26 ml -84 ml 160 ml Intake Oral 360 ml 360 ml 480 ml 360 ml IV Total 136 ml 86 ml 36 ml Output Urine Total 200 ml 420 ml 600 ml 200 ml # Voids 1 # Bowel Movements 0 0 0 0 Result Diagram: 03/19/16 1520 03/19/16 [address] Angiography 03/19/16 1635 Signed Impressions: Service Date/Time: Saturday, March 19, 2016 17:30 - CONCLUSION: Positive for pulmonary embolism primarily involving multiple segments of the right lower lobe especially minimal area in the anterior segment of the left upper lobe Norman Santos MD Chest X-Ray 03/19/16 1500 Signed Impressions: Service Date/Time: Saturday, March 19, 2016 15:11 - CONCLUSION: No acute disease. Norman Santos MD Lower Extremity Ultrasound 03/19/16 0000 Signed Impressions: Service Date/Time: Saturday, March 19, 2016 19:54 - CONCLUSION: Occlusive DVT right posterior tibial vein. Otherwise negative Norman Santos MD Objective Remarks GENERAL: This is a well-nourished, well-developed patient, in no apparent distress. CARDIOVASCULAR: Regular rate and regular rhythm without murmurs, gallops, or rubs. RESPIRATORY: Clear to auscultation. Breath sounds equal bilaterally. No wheezes , rales, or rhonchi. GASTROINTESTINAL: Abdomen soft, non-tender, nondistended. Normal, active bowel sounds MUSCULOSKELETAL: Extremities without clubbing, cyanosis, or edema. NEURO: Alert & Oriented x4 to person, place, time, situation. Moves all ext x4 Procedures none Medications and IVs Current Medications IV Flush (NS Flush) 2 ml UNSCH PRN IVF FLUSH AFTER USING IV ACCESS; Start at 15:00 Methylprednisolone Sodium Succinate (SoluMEDROL INJ) 125 mg ONCE ONCE IVP Last administered on 03/19/16 15:58; Start 03/19/16 at 15:00; Stop 03/19/16 at 15: 03; Status DC Albuterol/ Ipratropium 1 ampule 1 ampule ONCE ONCE INH Last administered on 15:15; Start 03/19/16 at 15:00; Stop 03/19/16 at 15:03; Status DC Ceftriaxone Sodium 2000 mg/ Sodium Chloride 100 ml @ 200 mls/hr ONCE STAT IV Last administered on 03/19/16 16:15; Start 03/19/16 at 15:26; Stop 03/19/16 at 15: 55; Status DC Azithromycin/ Sodium Chloride (Zithromax Inj/ NS 250 ml Inj) 250 ml @ 250 mls/ hr ONCE STAT IV Last administered on 03/19/16 17:29; Start 03/19/16 at 15:26; Stop 03/19/16 at 16:25; Status DC Heparin Sodium (Porcine) (Heparin Inj) 8,000 units ONCE ONCE IV Last administered on 03/19/16 19:29; Start 03/19/16 at 18:00; Stop 03/20/16 at 15:24; Status DC Heparin Sodium (Porcine) (Heparin Inj) 5,000 units UNSCH PRN IV APTT LESS THAN 25; Start 03/20/16 at 00:00; Stop 03/20/16 at 16:09; Status DC Heparin Sodium (Porcine) 2500 units 2,500 units UNSCH PRN IV APTT 25 TO 39; Start 03/20/16 at 00:00; Stop 03/20/16 at 16:09; Status DC Heparin Sodium/ Dextrose (Heparin-D5W Inj) 250 ml @ 0 mls/hr TITRATE IV Last administered on 03/20/16 13:49; Start 03/19/16 at 18:00; Stop 03/20/16 at 16:09; Status DC Albuterol/ Ipratropium (Duoneb Neb) 1 ampule Q6HR NEB PRN NEB SHORTNESS OF BREATH; Start 03/19/16 at 18:30 Baclofen (Lioresal) 10 mg Q8HR PRN PO MUSCLE SPASM; Start 03/19/16 at 18:30 Gabapentin (Neurontin) 600 mg TID PO Last administered on 03/21/16 08:17; Start 03/20/16 at 09:00 Lorazepam (Ativan) 0.5 mg BID PRN PO ANXIETY; Start 03/19/16 at 18:30 Metoprolol Succinate (Toprol Xl) 75 mg DAILY PO Last administered on 03/21/16 08:18; Start 03/20/16 at 09:00 Pravastatin Sodium (Pravachol) 80 mg HS PO Last administered on 03/20/16 20:49 ; Start 03/19/16 at 21:00 Ondansetron HCl (Zofran Inj) 4 mg Q8HR PRN IV PUSH NAUSEA Last administered on 03/21/16 08:19; Start 03/19/16 at 18:30 Acetaminophen (Tylenol) 650 mg Q4H PRN PO FEVER; Start 03/19/16 at 18:30 Clonidine (Catapres) 0.1 mg ONCE ONCE PO Last administered on 03/20/16 00:30; Start 03/20/16 at 00:30; Stop 03/20/16 at 00:31; Status DC Hydralazine HCl (Apresoline) 25 mg ONCE ONCE PO Last administered on 03/20/16 04:15; Start 03/20/16 at 04:15; Stop 03/20/16 at 04:16; Status DC Clonidine (Catapres) 0.1 mg Q6H PRN PO SBP>160, DBP>90 Last administered on 03/21 05:21; Start 03/20/16 at 07:00 Clonidine (Catapres) 0.1 mg NOW PO ; Start 03/20/16 at 07:00; Stop 03/20/16 at 09: 00; Status DC Warfarin Sodium (Coumadin) 4 mg DAILY@16 PO Last administered on 03/20/16 15:44 ; Start 03/20/16 at 16:00 Enoxaparin Sodium (Lovenox Inj) 80 mg Q12H SQ Last administered on 03/21/16 05: 21; Start 03/20/16 at 18:00 Miscellaneous Information ALL NURSING DEPARTME... UNSCH PRN XX SEE LABEL COMMENTS; Start 03/20/16 at 15:30; Stop 03/21/16 at 15:29 Patient Medication Teaching (Coumadin Booklet) 1 ONCE ONCE XX Last administered on 03/20/16 15:44; Start 03/20/16 at 16:00; Stop 03/20/16 at 16:09; Status DC Nifedipine 30 mg 30 mg ONCE ONCE PO ; Start 03/21/16 at 08:30; Stop 03/21/16 at 08:31; Status UNV Pharmacy Profile Note (Coumadin Consult Pharmacy) 0 ml @ 0 mls/hr UNSCH OTHER ; Start 03/21/16 at 08:30; Status UNV A/P Assessment and Plan A/P - acute hypoxemic respiratory failure due to pulmonary embolism will titrate down oxygen to keep O2 sat > 90%- neb treatment as needed. hematology consult appreciated; started on lovenox and coumadin- consulted pharmacy for PT/INR monitoring and coumadin dosing. venous doppler of lower extremities with DVT of the right posterior tibial vein walk test today. -hypertension- not well controlled- resumed metoprolol- one dose of procardia today- clonidine prn will monitor and adjust the regimen as needed - chronic back pain/ hypertension- resumed home meds- patient has morphine pump Discharge Planning possible discharge tomorrow if stable. needs walk test before discharge. Tato Solo MD Mar 21, 2016 08:36
--- NOTE | 2016-03-21 10:41 | PD.ONC.PN ---
Subjective Subjective Remarks Afebrile overnight. patient resting comfortably. He states he doesn't like the supplemental O2 but is willing to use it. Denies pain. Objective Data Date Time Temp Pulse Resp B/P Pulse Ox O2 Delivery O2 Flow Rate FiO2 03/21/16 09:05 95 Nasal Cannula 3.00 03/21/16 08:00 96.8 59 19 227/98 96 203/93 03/21/16 07:41 92 Nasal Cannula 2.00 03/21/16 06:17 175/81 03/21/16 04:24 97.6 51 18 187/81 95 03/21/16 00:27 97.8 51 18 164/83 98 03/20/16 20:31 98.7 62 18 155/80 95 03/20/16 18:33 92 Nasal Cannula 3.00 03/20/16 16:00 97.9 53 18 198/89 94 03/20/16 12:00 97.9 60 18 157/77 92 03/20/16 10:57 Nasal Cannula 2.00 03/20/16 10:37 96 Nasal Cannula 3.00 03/21/16 03/21/16 03/21/16 07:00 15:00 23:00 Intake Total 360 ml Output Total 200 ml Balance 160 ml Result Diagram: 03/19/16 1520 03/19/16 1520 Laboratory Results Laboratory Tests Test 03/20/16 03/20/16 03/21/16 12:25 19:32 05:40 Activated Partial 53.7 SEC 28.8 SEC 25.7 SEC Thromboplast Time Prothrombin Time 11.7 SEC Prothromb Time International 1.1 RATIO Ratio Iron Level 51 MCG/DL Total Iron Binding Capacity 336 MCG/DL Percent Iron Saturation 15.2 % Ferritin 24 NG/ML Culture Results Microbiology Date/Time Procedure Status Source Growth 03/19/16 15:15 Aerobic Blood Culture - Preliminary Resulted Blood Peripheral NO GROWTH IN 1 DAY 03/19/16 15:15 Anaerobic Blood Culture - Preliminary Resulted Blood Peripheral NO GROWTH IN 1 DAY 03/19/16 15:20 Aerobic Blood Culture - Preliminary Resulted Blood Peripheral NO GROWTH IN 1 DAY 03/19/16 15:20 Anaerobic Blood Culture - Preliminary Resulted Blood Peripheral NO GROWTH IN 1 DAY Administered Medications Medications (Trade) Dose Ordered Sig/Bisi Route PRN Reason Start Time Stop Time Status Last Admin Dose Admin Gabapentin (Neurontin) 600 mg TID PO 1/8/17 09:00 03/21/16 08:17 Metoprolol Succinate (Toprol Xl) 75 mg DAILY PO 03/20/16 09:00 03/21/16 08:18 Pravastatin Sodium (Pravachol) 80 mg HS PO 03/19/16 21:00 03/20/16 20:49 Ondansetron HCl (Zofran Inj) 4 mg Q8HR PRN IV PUSH NAUSEA 03/19/16 18:30 03/21/16 08:19 Clonidine (Catapres) 0.1 mg Q6H PRN PO SBP>160, DBP>90 03/20/16 07:00 03/21/16 05:21 Warfarin Sodium (Coumadin) 4 mg DAILY@16 PO 03/20/16 16:00 03/20/16 15:44 Enoxaparin Sodium (Lovenox Inj) 80 mg Q12H SQ 03/20/16 18:00 03/21/16 05:21 Objective Remarks GENERAL: Elderly male, sitting up in bed in nad. On 3L O2 via NC SKIN: Warm and dry. HEAD: Normocephalic. EYES: No injection or drainage. NECK: Supple, trachea midline. CARDIOVASCULAR: Regular rate and rhythm RESPIRATORY: diminished at bases with occasional rhonchi. GASTROINTESTINAL: Abdomen soft, non-tender, nondistended. EXTREMITIES: No cyanosis NEUROLOGICAL: No obvious focal deficit. Awake, alert, and oriented x3. Assessment/Plan Problem List: (1) Pulmonary embolism Status: Acute Plan: on Lovenox+coumadin --++bilateral pulmonary embolism and associated occlusive right posterior tibial vein DVT (2) Iron deficiency Status: Acute Plan: --start PO ferrous sulfate Assessment 71y/o male with DVT + PE. h/o back pain, hyperlipidemia, Hypertension Plan 1. continue Lovenox + coumadin 2. fs faxed to new patient referrals for clinic follow up. 3. start ferrous sulfate for iron deficiency Attending Statement The exam, history, and the medical decision-making described in the above note were completed with the assistance of the mid-level provider. I reviewed and agree with the findings presented. I attest that I had a [id number] encounter with the patient on the same day, and personally performed and documented my assessment and findings in the medical record. Pt seen and examined. Less SOB, able to walk w/ walker and PT. No bleeding. Able to give SQ injection himself. Expressed preference for Coumadin. Eating better. Problem Qualifiers (1) Pulmonary embolism: Qualified Code: I26.99 - Other acute pulmonary embolism without acute cor pulmonale Zelda Ulrich Mar 21, 2016 10:41 Sima Parker MD Mar 21, 2016 15:04
[2016-03-21] MEDS: WARFARIN SOD 4 MG TAB PO SCH (15:09)
[2016-03-21] MEDS ORDERED: COUM4TAB PO (16:36)
[2016-03-21] MEDS: FERROUS SULFATE 325 MG (65 MG ELEMENTAL IRON) TAB PO SCH (20:39)
[2016-03-21] MEDS: PRAVASTATIN SOD 80 MG TAB PO SCH (20:39)
[2016-03-22] VITALS: BP 166/78; PULSE 56; RESP 18; TEMP 98.5; O2SAT 92
[2016-03-22 01:05] VITALS: BP 149/66; PULSE 78
[2016-03-22 04:00] VITALS: BP_SYST 153; BP_SYST 163; BP_DIAS 71; PULSE 56; RESP 18; TEMP 97.1; O2SAT 97
[2016-03-22] MEDS: ENOXAPARIN SODIUM 80 MG/0.8 ML SYRINGE SQ SCH (05:26)
[2016-03-22 08:19] LABS: INTERNATIONAL NORMALIZED RATIO 1.3 RATIO; PROTHROMBIN TIME - PATIENT 14.4 SEC (9.8-11.6)
[2016-03-22 08:20] VITALS: BP 159/79; PULSE 60; RESP 16; TEMP 95.8; O2SAT 96
--- NOTE | 2016-03-22 08:35 | HHI.PR ---
Subjective Remarks in no acute distress. no new complaints. d/w the RN. Objective Vitals Vital Signs Date Time Temp Pulse Resp B/P Pulse Ox O2 Delivery O2 Flow Rate FiO2 03/22/16 04:00 97.1 56 18 153/71 97 03/22/16 01:05 78 149/66 03/22/16 00:00 98.5 56 18 166/78 92 03/21/16 20:00 99.2 86 18 130/66 92 03/21/16 20:00 92 Nasal Cannula 2.00 03/21/16 20:00 88 03/21/16 17:28 76 03/21/16 16:00 98.0 54 18 188/85 93 03/21/16 11:54 95.4 60 18 127/64 95 03/21/16 09:05 95 Nasal Cannula 3.00 I/O 03/21/16 03/21/16 03/21/16 03/22/16 03/22/16 03/22/16 07:00 15:00 23:00 07:00 15:00 23:00 Intake Total 360 ml 450 ml 480 ml 240 ml Output Total 200 ml 325 ml Balance 160 ml 450 ml 480 ml -85 ml Intake Oral 360 ml 450 ml 480 ml 240 ml Output Urine Total 200 ml 325 ml # Voids 2 1 # Bowel Movements 0 1 Result Diagram: 03/19/16 1520 03/19/16 [address] Angiography 03/19/16 1635 Signed Impressions: Service Date/Time: Saturday, March 19, 2016 17:30 - CONCLUSION: Positive for pulmonary embolism primarily involving multiple segments of the right lower lobe especially minimal area in the anterior segment of the left upper lobe Norman Santos MD Chest X-Ray 03/19/16 1500 Signed Impressions: Service Date/Time: Saturday, March 19, 2016 15:11 - CONCLUSION: No acute disease. Norman Santos MD Lower Extremity Ultrasound 03/19/16 0000 Signed Impressions: Service Date/Time: Saturday, March 19, 2016 19:54 - CONCLUSION: Occlusive DVT right posterior tibial vein. Otherwise negative Norman Santos MD Objective Remarks GENERAL: This is a well-nourished, well-developed patient, in no apparent distress. CARDIOVASCULAR: Regular rate and regular rhythm without murmurs, gallops, or rubs. RESPIRATORY: Clear to auscultation. Breath sounds equal bilaterally. No wheezes , rales, or rhonchi. GASTROINTESTINAL: Abdomen soft, non-tender, nondistended. Normal, active bowel sounds MUSCULOSKELETAL: Extremities without clubbing, cyanosis, or edema. NEURO: Alert & Oriented x4 to person, place, time, situation. Moves all ext x4 Procedures none Medications and IVs Current Medications IV Flush (NS Flush) 2 ml UNSCH PRN IVF FLUSH AFTER USING IV ACCESS; Start at 15:00 Methylprednisolone Sodium Succinate (SoluMEDROL INJ) 125 mg ONCE ONCE IVP Last administered on 03/19/16 15:58; Start 03/19/16 at 15:00; Stop 03/19/16 at 15: 03; Status DC Albuterol/ Ipratropium 1 ampule 1 ampule ONCE ONCE INH Last administered on 15:15; Start 03/19/16 at 15:00; Stop 03/19/16 at 15:03; Status DC Ceftriaxone Sodium 2000 mg/ Sodium Chloride 100 ml @ 200 mls/hr ONCE STAT IV Last administered on 03/19/16 16:15; Start 03/19/16 at 15:26; Stop 03/19/16 at 15: 55; Status DC Azithromycin/ Sodium Chloride (Zithromax Inj/ NS 250 ml Inj) 250 ml @ 250 mls/ hr ONCE STAT IV Last administered on 03/19/16 17:29; Start 03/19/16 at 15:26; Stop 03/19/16 at 16:25; Status DC Heparin Sodium (Porcine) (Heparin Inj) 8,000 units ONCE ONCE IV Last administered on 03/19/16 19:29; Start 03/19/16 at 18:00; Stop 03/20/16 at 15:24; Status DC Heparin Sodium (Porcine) (Heparin Inj) 5,000 units UNSCH PRN IV APTT LESS THAN 25; Start 03/20/16 at 00:00; Stop 03/20/16 at 16:09; Status DC Heparin Sodium (Porcine) 2500 units 2,500 units UNSCH PRN IV APTT 25 TO 39; Start 03/20/16 at 00:00; Stop 03/20/16 at 16:09; Status DC Heparin Sodium/ Dextrose (Heparin-D5W Inj) 250 ml @ 0 mls/hr TITRATE IV Last administered on 03/20/16 13:49; Start 03/19/16 at 18:00; Stop 03/20/16 at 16:09; Status DC Albuterol/ Ipratropium (Duoneb Neb) 1 ampule Q6HR NEB PRN NEB SHORTNESS OF BREATH; Start 03/19/16 at 18:30 Baclofen (Lioresal) 10 mg Q8HR PRN PO MUSCLE SPASM; Start 03/19/16 at 18:30 Gabapentin (Neurontin) 600 mg TID PO Last administered on 03/21/16 18:21; Start 03/20/16 at 09:00 Lorazepam (Ativan) 0.5 mg BID PRN PO ANXIETY Last administered on 03/21/16 22: 30; Start 03/19/16 at 18:30 Metoprolol Succinate (Toprol Xl) 75 mg DAILY PO Last administered on 03/21/16 08:18; Start 03/20/16 at 09:00 Pravastatin Sodium (Pravachol) 80 mg HS PO Last administered on 03/21/16 20:39 ; Start 03/19/16 at 21:00 Ondansetron HCl (Zofran Inj) 4 mg Q8HR PRN IV PUSH NAUSEA Last administered on 03/21/16 08:19; Start 03/19/16 at 18:30 Acetaminophen (Tylenol) 650 mg Q4H PRN PO FEVER; Start 03/19/16 at 18:30 Clonidine (Catapres) 0.1 mg ONCE ONCE PO Last administered on 03/20/16 00:30; Start 03/20/16 at 00:30; Stop 03/20/16 at 00:31; Status DC Hydralazine HCl (Apresoline) 25 mg ONCE ONCE PO Last administered on 03/20/16 04:15; Start 03/20/16 at 04:15; Stop 03/20/16 at 04:16; Status DC Clonidine (Catapres) 0.1 mg Q6H PRN PO SBP>160, DBP>90 Last administered on 03/21 23:51; Start 03/20/16 at 07:00 Clonidine (Catapres) 0.1 mg NOW PO ; Start 03/20/16 at 07:00; Stop 03/20/16 at 09: 00; Status DC Warfarin Sodium (Coumadin) 4 mg DAILY@16 PO Last administered on 03/21/16 15:09 ; Start 03/20/16 at 16:00 Enoxaparin Sodium (Lovenox Inj) 80 mg Q12H SQ Last administered on 03/22/16 05 :26; Start 03/20/16 at 18:00 Miscellaneous Information ALL NURSING DEPARTME... UNSCH PRN XX SEE LABEL COMMENTS; Start 03/20/16 at 15:30; Stop 03/21/16 at 15:29; Status DC Patient Medication Teaching (Coumadin Booklet) 1 ONCE ONCE XX Last administered on 03/20/16 15:44; Start 03/20/16 at 16:00; Stop 03/20/16 at 16:09; Status DC Nifedipine 30 mg 30 mg ONCE ONCE PO Last administered on 03/21/16 10:12; Start 03/21/16 at 08:30; Stop 03/21/16 at 08:32; Status DC Pharmacy Profile Note (Coumadin Consult Pharmacy) 0 ml @ 0 mls/hr UNSCH OTHER ; Start 03/21/16 at 08:30 Ferrous Sulfate (Ferrous Sulfate) 325 mg BID PO Last administered on 03/21/16 20:39; Start 03/21/16 at 21:00 Iohexol (Omnipaque 350 Inj) 80 ml STK-MED ONCE IV ; Start 03/19/15 at 17:30; Stop 03/19/15 at 17:31; Status Cancel Iohexol (Omnipaque 350 Inj) 80 ml STK-MED ONCE IV Last administered on 17:30; Start 03/19/16 at 17:30; Stop 03/21/16 at 15:03; Status DC A/P Assessment and Plan A/P - acute hypoxemic respiratory failure due to pulmonary embolism will titrate down oxygen to keep O2 sat > 90%- neb treatment as needed. hematology consult appreciated; started on lovenox and coumadin- will dc lovenox when INR >2. venous doppler of lower extremities with DVT of the right posterior tibial vein walk test performed and the patient needs home oxygen. -iron deficiency; will start ferrous sulfate.stool negative for blood. -hypertension- overall better controlled- resumed metoprolol- will add norvasc- clonidine prn f/u as outpatient. - chronic back pain/ hypertension- resumed home meds- patient has morphine pump Discharge Planning dc to SNF today. see med list. PT/INR monitoring as outpatient. dc lovenox when INR >2. f/u; pcp and hematology. time spent 31 min. Tato Solo MD Mar 22, 2016 08:35
--- NOTE | 2016-03-22 08:36 | HHI.DCPOC ---
Discharge Care Plan Diagnosis: (1) Acute respiratory failure (2) Pulmonary embolism (3) Iron deficiency Your Health Problems Are: Shortness of Breath Goals to Promote Your Health * To prevent worsening of your condition and complications * To maintain your health at the optimal level Directions to Meet Your Goals Take your medications as prescribed Follow your dietary instruction Follow activity as directed Keep your appointments as scheduled Take your immunizations and boosters as scheduled If your symptoms worsen call your PCP, if no PCP go to Urgent Care Center or Emergency Room Smoking is Dangerous to Your Health. Avoid second hand smoke Call the 24-hour hour crisis hotline for domestic abuse at Tato Solo MD Mar 22, 2016 08:36
[2016-03-22] MEDS ORDERED: ENOX80P SQ (08:37)
--- NOTE | 2016-03-22 08:37 | HHI.DS ---
Discharge Summary Admission Date Mar 19, 2016 at 18:10 Discharge Date: Mar 22, 2016 Admitting Diagnosis PULMONARY EMBOLISM (1) Pulmonary embolism ICD Code: I26.99 Diagnosis: Principal (2) Hypoxia ICD Code: R09.02 Diagnosis: Principal (3) Acute respiratory failure ICD Code: J96.00 Diagnosis: Principal Procedures none Brief History - From Admission patient is a 71 y/o male with chronic back pain who presented to ER with generalized weakness. he says that over the past few days he and his have had flu-like symptoms. he had some fever at home and feels very weak. he says that he's so weak that he can't take care of himself. he denies any sob or cough. he has some back pain. he denies any recent trauma to the legs, recent surgery or long trips.he was found hypoxemic at the time of arrival to ER. CBC/BMP: 03/19/16 1520 03/19/16 1520 Significant Findings Laboratory Tests Test 03/19/16 03/19/16 03/19/16 03/20/16 15:15 15:20 19:32 01:17 Blood Gas HCO3 28 mmol/L (22-26) Blood Gas Base Excess 3.5 mmol/L (-2-2) Blood Gas Oxygen Saturation 87 % (90-100) Arterial Blood pH 7.43 (7.380-7.420) Arterial Blood Partial 58 mmHG Pressure O2 (61-120) Mean Corpuscular Volume 75.7 FL (80.0-100.0) Mean Corpuscular Hemoglobin 25.0 PG (27.0-34.0) Red Cell Distribution Width 18.8 % (11.6-17.2) Neutrophils (%) (Auto) 70.4 % (16.0-70.0) Monocytes (%) (Auto) 8.6 % (0.0-8.0) Prothrombin Time 11.7 SEC (9.8-11.6) D-Dimer Quantitative (PE/DVT) 12.90 MG/L FEU (0.00-0.50) Random Glucose 119 MG/DL (74-106) Urine Specific [place] GREATER THAN 1.050 (1.002-1.035) Urine Protein 30 mg/dL (NEG-TRACE) Urine Ketones 40 mg/dL (NEG) Urine Occult Blood TRACE (NEG) Urine Mucus FEW /lpf (OCC) Activated Partial 151.1 SEC Thromboplast Time (24.3-30.1) Test 03/20/16 03/20/16 03/21/16 03/22/16 05:25 12:25 05:40 08:00 Activated Partial 57.1 SEC 53.7 SEC Thromboplast Time (24.3-30.1) (24.3-30.1) Prothrombin Time 11.7 SEC 14.4 SEC (9.8-11.6) (9.8-11.6) Iron Level 51 MCG/DL (65-175) Percent Iron Saturation 15.2 % (20-50) Ferritin 24 NG/ML (26-388) Imaging Last Impressions CT Angiography 03/19/16 1635 Signed Impressions: Service Date/Time: Saturday, March 19, 2016 17:30 - CONCLUSION: Positive for pulmonary embolism primarily involving multiple segments of the right lower lobe especially minimal area in the anterior segment of the left upper lobe Norman Santos MD Chest X-Ray 03/19/16 1500 Signed Impressions: Service Date/Time: Saturday, March 19, 2016 15:11 - CONCLUSION: No acute disease. Norman Santos MD Lower Extremity Ultrasound 03/19/16 0000 Signed Impressions: Service Date/Time: Saturday, March 19, 2016 19:54 - CONCLUSION: Occlusive DVT right posterior tibial vein. Otherwise negative Norman Santos MD PE at Discharge GENERAL: This is a well-nourished, well-developed patient, in no apparent distress. CARDIOVASCULAR: Regular rate and regular rhythm without murmurs, gallops, or rubs. RESPIRATORY: Clear to auscultation. Breath sounds equal bilaterally. No wheezes , rales, or rhonchi. GASTROINTESTINAL: Abdomen soft, non-tender, nondistended. Normal, active bowel sounds MUSCULOSKELETAL: Extremities without clubbing, cyanosis, or edema. NEURO: Alert & Oriented x4 to person, place, time, situation. Moves all ext x4 Hospital Course - acute hypoxemic respiratory failure due to pulmonary embolism will titrate down oxygen to keep O2 sat > 90%- neb treatment as needed. hematology consult appreciated; started on lovenox and coumadin- will dc lovenox when INR >2. venous doppler of lower extremities with DVT of the right posterior tibial vein walk test performed and the patient needs home oxygen. -iron deficiency; will start ferrous sulfate.stool negative for blood. -hypertension- overall better controlled- resumed metoprolol- will add norvasc- clonidine prn f/u as outpatient. - chronic back pain/ hypertension- resumed home meds- patient has morphine pump Pt Condition on Discharge: Fair Discharge Disposition: Discharge to SNF Discharge Time: > 30 minutes Discharge Instructions DIET: Follow Instructions for: Heart Healthy Diet Activities you can perform: Regular-No Restrictions Follow up Referrals: Oncology PCP Follow-up New Medications: Amlodipine (Norvasc) 5 Mg Tab 5 MG PO DAILY Blood Pressure Management #30 Ref 0 TAB Enoxaparin Inj (Lovenox Inj) 80 mg/0.8 ML Syr 80 MG SQ Q12H dc lovenox when INR > 2. PE Days 3 Ref 0 INJECTION Ferrous Sulfate (Ferrous Sulfate) 325 Mg Tab 325 MG PO BID iron supplement Days 30 Ref 0 TAB Warfarin (Coumadin) 4 Mg Tab 4 MG PO DAILY@16 PE Days 30 Ref 0 TAB Continued Medications: Baclofen (Baclofen) 10 Mg Tab 10 MG PO Q8HR PRN MUSCLE SPASM Ref 0 TAB Gabapentin (Gabapentin) 600 Mg Tab 600 MG PO TID #90 Ref 0 TAB Hydrocodone-Acetaminophen (Hydrocodone-Acetaminophen) 10-325 mg Tab 1 TAB PO Q6H PRN PAIN Ref 0 TAB Lorazepam (Lorazepam) 0.5 Mg Tab 0.5 MG PO BID PRN ANXIETY Ref 0 TAB Metoprolol Succinate ER 24 HR (Metoprolol Succinate ER 24 HR) 50 Mg Tab 75 MG PO DAILY #30 Ref 0 TAB Simvastatin (Simvastatin) 40 Mg Tab 40 MG PO HS Cholesterol Management #30 Ref 0 TAB Temazepam (Temazepam) 30 Mg Cap 30 MG PO HS PRN INSOMNIA #30 Ref 0 CAP ([Morphine Pump]) 15 MG DAILY Tato Sloo MD Mar 22, 2016 08:36
[2016-03-22] MEDS ORDERED: FERR325T PO (08:40)
[2016-03-22] MEDS ORDERED: AMLO5 PO (08:40)
[2016-03-22] MEDS ORDERED: HYDR-3583 PO (08:42)
[2016-03-22] MEDS ORDERED: LORA-373 PO (08:43)
[2016-03-22] MEDS: METOPROLOL SUCCINATE 50 MG EXTENDED RELEASE TAB PO SCH (09:39)
[2016-03-22] MEDS: GABAPENTIN 300 MG CAP PO SCH (09:39)
[2016-03-22] MEDS: FERROUS SULFATE 325 MG (65 MG ELEMENTAL IRON) TAB PO SCH (09:40)
--- NOTE | 2016-03-22 09:43 | PD.ONC.PN ---
Subjective Subjective Remarks Afebrile overnight. patient denies bleeding. He states he is tolerating the SQ injection and believes he can do it himself at home. Objective Data Date Time Temp Pulse Resp B/P Pulse Ox O2 Delivery O2 Flow Rate FiO2 03/22/16 08:20 95.8 60 16 159/79 96 03/22/16 07:44 96 Nasal Cannula 2.00 03/22/16 04:00 97.1 56 18 153/71 97 03/22/16 01:05 78 149/66 03/22/16 00:00 98.5 56 18 166/78 92 03/21/16 20:00 99.2 86 18 130/66 92 03/21/16 20:00 92 Nasal Cannula 2.00 03/21/16 20:00 88 03/21/16 17:28 76 03/21/16 16:00 98.0 54 18 188/85 93 03/21/16 11:54 95.4 60 18 127/64 95 03/22/16 03/22/16 03/22/16 07:00 15:00 23:00 Intake Total 240 ml Output Total 325 ml Balance -85 ml Result Diagram: 03/19/16 1520 03/19/16 1520 Laboratory Results Laboratory Tests Test 03/22/16 08:00 Prothrombin Time 14.4 SEC Prothromb Time International 1.3 RATIO Ratio Culture Results Microbiology Date/Time Procedure Status Source Growth 03/19/16 15:15 Aerobic Blood Culture - Preliminary Resulted Blood Peripheral NO GROWTH IN 2 DAYS 03/19/16 15:15 Anaerobic Blood Culture - Preliminary Resulted Blood Peripheral NO GROWTH IN 2 DAYS 03/19/16 15:20 Aerobic Blood Culture - Preliminary Resulted Blood Peripheral NO GROWTH IN 2 DAYS 03/19/16 15:20 Anaerobic Blood Culture - Preliminary Resulted Blood Peripheral NO GROWTH IN 2 DAYS 03/21/16 20:42 Stool Occult Blood (JOYCELYN) - Final Complete Stool Stool HEMOCCULT NEGATIVE Administered Medications Medications (Trade) Dose Ordered Sig/Bisi Route PRN Reason Start Time Stop Time Status Last Admin Dose Admin Gabapentin (Neurontin) 600 mg TID PO 03/20/16 09:00 03/21/16 18:21 Lorazepam (Ativan) 0.5 mg BID PRN PO ANXIETY 03/19/16 18:30 03/21/16 22:30 Metoprolol Succinate (Toprol Xl) 75 mg DAILY PO 03/20/16 09:00 03/21/16 08:18 Pravastatin Sodium (Pravachol) 80 mg HS PO 03/19/16 21:00 03/21/16 20:39 Ondansetron HCl (Zofran Inj) 4 mg Q8HR PRN IV PUSH NAUSEA 03/19/16 18:30 03/21/16 08:19 Clonidine (Catapres) 0.1 mg Q6H PRN PO SBP>160, DBP>90 03/20/16 07:00 03/21/16 23:51 Warfarin Sodium (Coumadin) 4 mg DAILY@16 PO 03/20/16 16:00 03/21/16 15:09 Enoxaparin Sodium (Lovenox Inj) 80 mg Q12H SQ 03/20/16 18:00 03/22/16 05:26 Ferrous Sulfate (Ferrous Sulfate) 325 mg BID PO 03/21/16 21:00 03/21/16 20:39 Objective Remarks GENERAL: Elderly male, lying in bed, sleeping on approach, but awakens as a I walk in the room. On 2L O2 via NC SKIN: Warm and dry. HEAD: Normocephalic. EYES: No injection or drainage. NECK: Supple, trachea midline. CARDIOVASCULAR: Regular rate and rhythm RESPIRATORY: diminished at bases with occasional rhonchi. GASTROINTESTINAL: Abdomen soft, non-tender, nondistended. EXTREMITIES: No cyanosis. NEUROLOGICAL: No obvious focal deficit. Awake, alert, and oriented x3. Assessment/Plan Problem List: (1) Pulmonary embolism Status: Acute Plan: on Lovenox+Coumadin --++bilateral pulmonary embolism and associated occlusive right posterior tibial vein DVT (2) Iron deficiency Status: Acute Plan: --continue PO ferrous sulfate Assessment 71y/o male with DVT + PE. h/o back pain, hyperlipidemia, Hypertension Plan 1. continue Lovenox + coumadin 2. clear for d/c Problem Qualifiers (1) Pulmonary embolism: Qualified Code: I26.99 - Other acute pulmonary embolism without acute cor pulmonale Zelda Ulrich Mar 22, 2016 09:43
== END 2016-03-22 11:32 | DRG 175 ==
LOC: NEPE 14:47 → NEDA 18:10 → N06B 22:09
PROVIDERS: ADMIT Internal Medicine; ATTEND Internal Medicine
PROC: 3E0F7GC Introduction of Other Therapeutic Substance into Respiratory Tract, Via Natural or Artificial Opening (ICD-10-PCS; principal; 2016-03-19)
DX: I26.99 Other pulmonary embolism without acute cor pulmonale (principal); J96.01 Acute respiratory failure with hypoxia; E87.4 Mixed disorder of acid-base balance; I82.441 Acute embolism and thrombosis of right tibial vein; I44.7 Left bundle-branch block, unspecified; I50.9 Heart failure, unspecified; I10 Essential (primary) hypertension; E78.5 Hyperlipidemia, unspecified; G47.00 Insomnia, unspecified; F32.9 Major depressive disorder, single episode, unspecified; F41.9 Anxiety disorder, unspecified; Z87.891 Personal history of nicotine dependence; M19.90 Unspecified osteoarthritis, unspecified site; E78.00 Pure hypercholesterolemia, unspecified; G89.21 Chronic pain due to trauma; M54.9 Dorsalgia, unspecified; K44.9 Diaphragmatic hernia without obstruction or gangrene; Z96.653 Presence of artificial knee joint, bilateral; Z85.828 Personal history of other malignant neoplasm of skin; E61.1 Iron deficiency
CPT/HCPCS: 36600; 71010; 71275; 80053; 81001; 82272; 82728; 82805; 83540; 83550; 83605; 83735; 83880; 85025; 85379; 85610; 85730; 87040; 93005; 93970; 94620; 94664; 96365; 96375; J0456; J0696; J1644; J1650; J2405; J2930; J7050; Q9967

== ENCOUNTER 2016-05-30 10:56 | Inpatient (IN) | payer MEDICARE ==
[~2016-05-30] VITALS: Ht 170.2 cm; Wt 90.9 kg
[2016-05-30] VITALS (8 sets, daily range): BP systolic 113–176; BP diastolic 53–164; PULSE 60–98; RESP 18–24; TEMP 98.2–98.5; O2SAT 92–100
[~2016-05-30 10:56] MED LIST changes: +AMLO5 PO; +COUM4TAB PO; +ENOX80P SQ; +FERR325T PO; +GABA600T PO; -HYDR-3580 PO; +HYDR-3583 PO; -IOHEXOL 350 MG/ML 10 ML VIAL (for RAD DIAG) IV ONE; +LORA-373 PO; +METO50TA11 PO; +MORPHINE PUMP; -NEUR600T PO; -TEMA15CA PO; -TOPR50TA PO
[2016-05-30] MEDS ORDERED: SODIUM CHLOR 0.9% 1000 ML INJ 1,000 ML IV SCH ×2 (11:24→15:39)
[2016-05-30] MEDS ORDERED: LISI10TA3 PO (11:25)
[2016-05-30] MEDS ORDERED: ESCI20TA PO (11:25)
[2016-05-30] MEDS ORDERED: XARE20TA PO (11:25)
[2016-05-30] MEDS ORDERED: LORA-373 PO (11:25)
[2016-05-30] MEDS ORDERED: METO50TA11 PO (11:25)
[2016-05-30] MEDS ORDERED: GABA600T PO (11:25)
[2016-05-30] MEDS ORDERED: OMEP20TA PO (11:25)
[2016-05-30] MEDS ORDERED: FE FCAP (11:26)
[2016-05-30] MEDS ORDERED: ACETAMINOPHEN 325 MG TAB PO ONE (11:30)
[2016-05-30 11:39] LABS: BLOOD GAS VENOUS BASE EXCESS -0.9 mmol/L (-2-2); BLOOD GAS VENOUS HCO3 24 mmol/L (22-26); BLOOD GAS VENOUS O2 CONTENT 15.7 Vol % (9.0-17.0); BLOOD GAS VENOUS O2 HGB SAT 91 % (70-76); BLOOD GAS VENOUS PCO2 46 mmHg (44-48); BLOOD GAS VENOUS PO2 77 mmHg (35-40); BLOOD GAS VENOUS pH 7.34 (7.360-7.400); CRITICAL VALUE NO; TEMP CORR TO 98.6
[2016-05-30 11:40] LABS: DRAW SITE CENTRAL LINE; LITER FLOW 10 L/M; STAT YES
--- NOTE | 2016-05-30 11:59 | PD ---
HPI Chief Complaint: Fall Time Seen by Provider: 11:53 Travel History International Travel<30 days: No Contact w/Intl Traveler<30days: No Traveled to known affect area: No History of Present Illness HPI 71-year-old male to presents to the ED via ambulance for evaluation of fall. Patient is not a good historian is somewhat altered. Most of the story was obtained from son who takes care of father. Per son patient was today at the house with the aids nurse and apparently he had a fall. He is not sure what happened but per aids nurse he did hit his head. Nobody actually witnessed the fall but the aids nurse found him on the floor. Per son patient has a chronic history of PE, heart disease, chronic pain with a pain pump as well as multiple narcotic medications prescribed to him. Per son patient has cyclical episodes about once a month after she goes to his doctor and gets his refill of his narcotic medications he gets very altered and sedated. Per son this happens almost like clockwork every time he does see his doctor. His been trying to have the doctor's wean him off of his medications that he is continues to be deteriorating in and being more altered. He believes that this is the cause of his fall. Patient does take blood thinners including Xarelto. Again patient is not really good historian but he is able to answer yes or no questions. When I reasked him what happened he says he tripped and fell. Whenever I ask him if he has any pain he says no. He has no obvious deformities anywhere. He does appear to be somewhat somnolent. Patient was initially found to be satting in the 80s with 4 L of oxygen and he had to be changed to a rebreather with improvement of his O2 status. On our evaluation he was found to have a fever as well. He does complain of some cough and congestion. Son is not aware of this. Some does tell me that patient has been having some issues with his abdomen and he apparently is supposed to have some sort of study which I believe is a colonoscopy but the patient has been reluctant to do it. 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 HERNIA REP. (X2)) Body Medical Devices: [place] [i,[ Cholecystectomy: Yes Genitourinary Surgery: Yes (PENILE IMPLANT) Joint Replacement: Yes (NICOLE. KNEES) Oral Surgery: Yes (T & A) Pacemaker: No Tonsillectomy: Yes Other Surgery: Yes (b/l knee replacents) Social History Alcohol Use: No Tobacco Use: Yes Substance Use: No Allergies-Medications (Allergen,Severity, Reaction): Coded Allergies: No Known Allergies (Verified , 03/19/16) Reported Meds & Prescriptions Reported Meds & Active Scripts Active Lorazepam 0.5 Mg Tab 0.5 Mg PO BID PRN Hydrocodone-Acetaminophen 10-325 mg Tab 1 Tab PO Q6H PRN Norvasc (Amlodipine Besylate) 5 Mg Tab 5 Mg PO DAILY Reported Integra (Multi-Vit/Iron-B Comp-Vit C) 62.5-62.5-40-3 mg Cap DAILY Gabapentin 600 Mg Tab 600 Mg PO TID Lisinopril 10 Mg Tab 10 Mg PO BID Escitalopram (Escitalopram Oxalate) 20 Mg Tab 20 Mg PO BID Lorazepam 0.5 Mg Tab 0.5 Mg PO BID PRN Xarelto (Rivaroxaban) 20 Mg Tab 20 Mg PO DAILY Omeprazole 20 Mg Tab 20 Mg PO DAILY Metoprolol Succinate ER 24 HR (Metoprolol Succinate) 50 Mg Tab 50 PO DAILY [Morphine Pump] 15 Mg DAILY Simvastatin 40 Mg Tab 40 Mg PO HS Gabapentin 600 Mg Tab 600 Mg PO TID Review of Systems ROS Limitations: Poor Historian General / Constitutional: Positive: Chills, No: Fever, Weight Gain, Weight Loss, Other Eyes: No: Diploplia, Blurred Vision, Photophobia, Drainage, Redness, Foreign Body Sensation, Pain, Tearing, Blind Spots, Visual changes, Blindness, Other HENT: Positive: Rhinitis, Congestion, No: Headaches, Vertigo, Lightheadedness , Sore Throat, Rhinorrhea, Nosebleed, Neck Stiffness, Neck Pain, Masses, Gingival Bleeding, Dental Difficulties, Ear Discharge, Earache, Other Cardiovascular: No: Chest Pain or Discomfort, Palpitations, Irregular Rhythm, Tachycardia, Diaphoresis, Syncope, Dyspnea on exertion, Varicosities, Edema, Cyanosis, Varicosities, Phlebitis, Claudication, Other Respiratory: Positive: Cough, Shortness of Breath, No: Wheezing, Sneezing, Orthopnea, Hemoptysis, Stridor, Night Sweats, Pleuritic Pain, Other Gastrointestinal: Positive: Abdominal Pain (per son), No: Nausea, Vomiting, Diarrhea, Hematemesis, Hematochezia, Constipation, Changes in Bowel Habits, Indigestion, Dysphagia, Loss of Appetite, Other Genitourinary: No: Urgency, Frequency, Dysuria, Nocturia, Hematuria, Decreased Urinary Output, Oliguria, Hesitancy, Dribbling, Incontinence, Pelvic Pain, Flank Pain, Dyspareunia, Discharge, Dysmenorrhea, Menorrhagia, Metorrhagia, Vaginal Bleeding, Other Musculoskeletal: No: Myalgias, Arthralgias, Limited ROM, Weakness, Cramping, Edema, Pain, Atrophy, Other Skin: No Rash, No Itching, No Dryness, No Lumps, No Hives, No Change in Pigmentation, No Change in nails, No Alopecia, No Lesions, No Breast Lumps, No Breast Tenderness, No Breast Swelling, No Other Neurologic: Positive: Change in Mentation, No: Weakness, Dizziness, Syncope, Focal Abnormalities, Coordination Problem, Tremor, Ataxia, Headache, Slurred Speech, Paresthesia, Incontinence, Seizures, Sensory Disturbance, Other Psychiatric: Positive: Substance Abuse (possibly abusing narcotics per son), No: Anxiety, Depression, Suicidal Ideations, Disorder of Thought, Mood Disorder , Homicidal Ideation, Other Endocrine: No: Heat Intolerance, Cold Intolerance, Polyuria, Polydipsia, Other Hematologic/Lymphatic: No: Easy Bruising, Lymph Node Enlargement, Other Physical Exam Narrative GENERAL: SKIN: Warm and dry. HEAD: Atraumatic. Normocephalic. EYES: Pupils equal and round 2 mm reactive to light and accommodation.. No scleral icterus. No injection or drainage. ENT: No nasal bleeding or discharge. Mucous membranes pink and moist. Tongue is midline. No uvula deviation. NECK: Trachea midline. No JVD. CARDIOVASCULAR: Regular rate and rhythm. No murmurs, S3, S4. RESPIRATORY: No accessory muscle use. Clear to auscultation. Breath sounds equal bilaterally. GASTROINTESTINAL: Abdomen soft, non-tender, nondistended. Hepatic and splenic margins not palpable. MUSCULOSKELETAL: Extremities without clubbing, cyanosis, or edema. No obvious deformities. Full range of motion of the upper and lower extremities bilaterally with no obvious deformity. 2+ pulses bilaterally. No obvious lumbar, thoracic, cervical spine tenderness to palpation but patient does have multiple scars on his back from multiple surgeries. She also was found to have what appears to be a pain pump on the right lower quadrant of the abdomen. NEUROLOGICAL: Awake and alert. No obvious cranial nerve deficits. Motor grossly within normal limits. Five out of 5 muscle strength in the arms and legs. Normal speech. PSYCHIATRIC: Appropriate mood and affect; insight and judgment normal. Data Data Last Documented VS Vital Signs Date Time Temp Pulse Resp B/P Pulse Ox O2 Delivery O2 Flow Rate FiO2 05/30/16 15:02 98.5 64 24 130/60 99 Aerosol Mask 10 Orders Electrocardiogram (05/30/16 11:24) Complete Blood Count With Diff (05/30/16 11:24) Comprehensive Metabolic Panel (05/30/16 11:24) Troponin I (05/30/16 11:24) Prothrombin Time / Inr (Pt) (05/30/16 11:24) Act Partial Throm Time (Ptt) (05/30/16 11:24) Blood Culture (05/30/16 11:24) Lipase (05/30/16 11:24) Urinalysis - C+S If Indicated (05/30/16 11:24) Magnesium (Mg) (05/30/16 11:24) Thyroid Stimulating Hormone (05/30/16 11:24) Chest, Single Ap (05/30/16 11:24) Iv Access Insert/Monitor (05/30/16 11:24) Ecg Monitoring (05/30/16 11:24) Oximetry (05/30/16 11:24) Ct Brain W/O Iv Contrast(Rout) (05/30/16 ) Lactic Acid (05/30/16 11:24) Acetaminophen (Tylenol) (05/30/16 11:30) Ct Cerv Spine W/O Contrast (05/30/16 ) Sodium Chlor 0.9% 1000 Ml Inj (Ns 1000 M (05/30/16 11:24) Blood Gas Venous (Vbg) (05/30/16 11:27) B-Type Natriuretic Peptide (05/30/16 12:16) Cefepime Inj (Maxipime Inj) (05/30/16 12:30) Azithromycin Inj (Zithromax Inj) (05/30/16 12:30) Influenzae A/B Antigen (05/30/16 13:04) Cath For Specimen (05/30/16 13:05) Ct Abd/Pel W/O Iv Contrast (05/30/16 ) Labs Laboratory Tests Test 05/30/16 05/30/16 11:30 11:35 Blood Gas Puncture Site CENTRAL LINE Blood Gas Patient Temperature 98.6 Venous Blood pH 7.34 Venous Blood Partial Pressure 46 mmHg CO2 Venous Blood Partial Pressure 77 mmHg O2 Venous Blood HCO3 24 mmol/L Venous Blood Oxygen Saturation 91 % Venous Blood Oxygen Content 15.7 Vol % Venous Blood Base Excess -0.9 mmol/L Oxygen Delivery Device Partial Rebreather Blood Gas Liter Flow 10 L/M White Blood Count 12.2 TH/MM3 Red Blood Count 4.47 MIL/MM3 Hemoglobin 12.3 GM/DL Hematocrit 37.5 % Mean Corpuscular Volume 83.8 FL Mean Corpuscular Hemoglobin 27.6 PG Mean Corpuscular Hemoglobin 32.9 % Concent Red Cell Distribution Width 19.9 % Platelet Count 274 TH/MM3 Mean Platelet Volume 7.2 FL Neutrophils (%) (Auto) 90.3 % Lymphocytes (%) (Auto) 4.6 % Monocytes (%) (Auto) 4.6 % Eosinophils (%) (Auto) 0.1 % Basophils (%) (Auto) 0.4 % Neutrophils # (Auto) 11.0 TH/MM3 Lymphocytes # (Auto) 0.6 TH/MM3 Monocytes # (Auto) 0.6 TH/MM3 Eosinophils # (Auto) 0.0 TH/MM3 Basophils # (Auto) 0.0 TH/MM3 CBC Comment DIFF FINAL Differential Comment Prothrombin Time 11.8 SEC Prothromb Time International 1.1 RATIO Ratio Activated Partial 26.1 SEC Thromboplast Time Sodium Level 137 MEQ/L Potassium Level 4.2 MEQ/L Chloride Level 102 MEQ/L Carbon Dioxide Level 25.9 MEQ/L Anion Gap 9 MEQ/L Blood Urea Nitrogen 28 MG/DL Creatinine 1.66 MG/DL Estimat Glomerular Filtration 41 ML/MIN Rate Random Glucose 135 MG/DL Lactic Acid Level 0.9 mmol/L Calcium Level 8.5 MG/DL Magnesium Level 2.1 MG/DL Total Bilirubin 0.6 MG/DL Aspartate Amino Transf 13 U/L (AST/SGOT) Alanine Aminotransferase 14 U/L (ALT/SGPT) Alkaline Phosphatase 58 U/L Troponin I LESS THAN 0.02 NG/ML B-Type Natriuretic Peptide 80 PG/ML Total Protein 7.0 GM/DL Albumin 3.4 GM/DL Lipase 82 U/L Thyroid Stimulating Hormone 0.456 uIU/ML 3rd Gen [facility] Medical Decision Making Medical Screen Exam Complete: Yes Emergency Medical Condition: Yes Medical Record Reviewed: Yes Interpretation(s) EKG shows sinus rhythm with LBBB. This appears to be unchanged from his EKG from March done at this facility. Read by me and attending. CBC & BMP Diagram 05/30/16 11:35 LFTs within normal limits. BNP within normal limits. Lactic acid within normal limits. PT and PTT within normal limits. Differential Diagnosis Sepsis versus syncope versus fall versus head injury versus bleeding versus altered mental status versus narcotic abuse Narrative Course 71-year-old male that presents to the ED for evaluation of fall. Patient was properly examined and was found to have signs and symptoms consistent with appears to be fall and altered mental status. Possible sepsis as well. Labs and imaging ordered. Labs and imaging showed Diagnosis Primary Impression: Altered mental status Qualified Code: R40.0 - Somnolence Additional Impressions: Fall Qualified Code: W19.XXXA - Fall, initial encounter Acute kidney injury Hayes Lund May 30, 2016 11:59
[2016-05-30 12:10] LABS: BASOPHIL % 0.4 % (0.0-2.0); EOSINOPHIL % 0.1 % (0.0-4.0); HEMATOCRIT 37.5 % (39.0-51.0); HEMO FLAGS DIFF FINAL; LYMPH % 4.6 % (9.0-44.0); LYMPHOCYTE # 0.6 TH/MM3 (1.0-4.8); MEAN CELL VOLUME 83.8 FL (80.0-100.0); MEAN CORPUSCULAR HEMOGLOBIN 27.6 PG (27.0-34.0); MEAN CORPUSCULAR HGB CONC 32.9 % (32.0-36.0); MONO % 4.6 % (0.0-8.0); NEUT % 90.3 % (16.0-70.0); PLATELET COUNT 274 TH/MM3 (150-450); RED BLOOD COUNT 4.47 MIL/MM3 (4.50-5.90); RED CELL DISTRIBUTION WIDTH 19.9 % (11.6-17.2); WHITE BLOOD COUNT 12.2 TH/MM3 (4.0-11.0)
[2016-05-30 12:22] LABS: APTT (PATIENT) 26.1 SEC (24.3-30.1); INTERNATIONAL NORMALIZED RATIO 1.1 RATIO; PROTHROMBIN TIME - PATIENT 11.8 SEC (9.8-11.6)
[2016-05-30] MEDS ORDERED: AZITHROMYCIN INJ 500 MG in SODIUM CHLOR 0.9% 250 ML INJ 250 ML IV ONE (12:30)
[2016-05-30] MEDS ORDERED: CEFEPIME INJ 1,000 MG in SODIUM CHLORIDE 0.9% INJ 100 ML IV ONE (12:30)
--- NOTE | 2016-05-30 12:31 | RADRPT ---
EXAM DATE/TIME: 05/30/2016 11:40 [facility] COMPARISON: CHEST SINGLE AP, March 19, 2016, 15:11. INDICATIONS : Shortness of breath. MEDICAL HISTORY : Cardiovascular disease. Hypertension. SURGICAL HISTORY : Cholecystectomy. ENCOUNTER: Initial ACUITY: 1 day PAIN SCORE: Non-responsive. LOCATION: Bilateral chest FINDINGS: A single view of the chest demonstrates hypoinflation with no acute infiltrate or effusion. Heart siz e is normal. Anterior fixation of the lower cervical spine with degenerative changes of the right melissa ulder and dorsal spine. CONCLUSION: Hypoinflation with no acute cardiopulmonary process. Miguel Morrissey MD on May 30, 2016 at 12:29 Board Certified Radiologist. This report was verified electronically.
[2016-05-30 12:39] LABS: ANION GAP 9 MEQ/L (5-15); AST (GOT) 13 U/L (15-37); BICARBONATE 25.9 MEQ/L (21.0-32.0); BLOOD UREA NITROGEN 28 MG/DL (7-18); CHLORIDE 102 MEQ/L (98-107); GLOMERULAR FILTRATION RATE 41 ML/MIN (>89); MAGNESIUM 2.1 MG/DL (1.5-2.5); POTASSIUM 4.2 MEQ/L (3.5-5.1); SODIUM (NA) 137 MEQ/L (136-145)
[2016-05-30 12:51] LABS: ALKALINE PHOSPHATASE 58 U/L (45-117); ALT (GPT) 14 U/L (12-78); TOTAL BILIRUBIN ADULT 0.6 MG/DL (0.2-1.0)
--- NOTE | 2016-05-30 14:17 | EKG ---
Date Performed: 05/30/2016 Time Performed: 11:11:53 PTAGE: 71 years EKG: Sinus rhythm LEFT BUNDLE BRANCH BLOCK ABNORMAL ECG NO PREVIOUS TRACING DOCTOR: Kody Montalvo Interpretating Date/Time 05/30/2016 14:15:48
--- NOTE | 2016-05-30 14:58 | RADRPT ---
EXAM DATE/TIME: 05/30/2016 14:04 [facility] COMPARISON: CT BRAIN W/O CONTRAST, December 25, 2013, 18:47. INDICATIONS : Trauma; pain after fall. RADIATION DOSE: 69.15 CTDIvol (mGy) MEDICAL HISTORY : Carcinoma, not otherwise specified. Hypertension. SURGICAL HISTORY : None. ENCOUNTER: Initial ACUITY: 1 day PAIN SCALE: 4/10 LOCATION: cranial TECHNIQUE: Multiple contiguous axial images were obtained of the head. Using automated exposure control and adj ustment of the mA and/or kV according to patient size, radiation dose was kept as low as reasonably a chievable to obtain optimal diagnostic quality images. FINDINGS: There is no evidence of intracranial hemorrhage or mass. There is nothing to suggest acute infarction . There is mild white matter hypodensity in the periventricular regions which has progressed slightly since the comparison exam, likely microvascular ischemic in etiology. The ventricles remain symmetri c and normal. The extracranial structures are benign and intact. CONCLUSION: No acute intracranial injury Nicho Andrews MD on May 30, 2016 at 14:16 Board Certified Radiologist. This report was verified electronically.
[2016-05-30 15:41] LABS: BLOOD, URINE NEG (NEG); COMMENT (UR) CULT NOT INDICATED; CULTURE IF INDICATED CULT NOT INDICATED; GLUCOSE,URINE NEG (NEG); HYALINE CAST, URINE 6 /lpf (RARE); KETONE, URINE NEG (NEG); MUCUS URINE FEW /lpf (OCC); NITRITE,URINE NEG (NEG); PH, URINE 5.5 (5.0-8.5); URINE COLOR YELLOW (YELLW/STRAW)
--- NOTE | 2016-05-30 15:42 | RADRPT ---
EXAM DATE/TIME: 05/30/2016 14:06 [facility] COMPARISON: CHEST SINGLE AP, May 30, 2016, 11:40. INDICATIONS : Trauma; pain after fall. ORAL CONTRAST: No oral contrast ingested. RADIATION DOSE: 15.14 CTDIvol (mGy) MEDICAL HISTORY : Cardiovascular disease. Carcinoma, not otherwise specified. SURGICAL HISTORY : Fusion, lumbar. Hernia repair. ENCOUNTER: Initial ACUITY: 1 day PAIN SCALE: 4/10 LOCATION: Bilateral abdomen. TECHNIQUE: Volumetric scanning of the abdomen and pelvis was performed. Using automated exposure control and ad justment of the mA and/or kV according to patient size, radiation dose was kept as low as reasonably achievable to obtain optimal diagnostic quality images. FINDINGS: LOWER LUNGS: Patchy bibasilar airspace disease may be atelectatic in nature. LIVER: Homogeneous density without lesion. There is no dilation of the biliary tree. Patient is status post cholecystectomy. SPLEEN: Normal size without lesion. PANCREAS: Within normal limits. KIDNEYS: Normal in size and shape. There is no mass, stone, or hydronephrosis. ADRENAL GLANDS: Within normal limits. VASCULAR: There is no aortic aneurysm. BOWEL/MESENTERY: Diverticular disease of the sigmoid without diverticulitis. ABDOMINAL WALL: Within normal limits. There is laxity and diastases of the rectus abdominis aponeurosis without shantal hernia RETROPERITONEUM: There is no lymphadenopathy. BLADDER: No wall thickening or mass. REPRODUCTIVE: Penile prosthesis with the hydrolics traversing the left inguinal region.. INGUINAL: Small right hiatal hernia which only contains fat. Hydrolics to the penile prostheses traverse the le ft inguinal region. There is some adjacent fluid. MUSCULOSKELETAL: Posterior fixation of the lumbar spine with bony donor graft from the ilii bilaterally. Hematoma over the proximal right femur adjacent to the tendon of the gluteus carol ann muscle. CONCLUSION: 1. Bibasilar patchy airspace disease. This is probably atelectatic although early infiltrate cannot b e excluded. 2. Large, 7.4 x 2.7 cm hematoma adjacent to the right proximal femur and tendon of the gluteus maximu s. No associated fracture 3. Mechanical and bony fixation of the lumbar spine with bony donor graft from the ilii bilaterally. 4. Diverticular disease of the sigmoid without diverticulitis. Miguel Morrissey MD on May 30, 2016 at 15:31 Board Certified Radiologist. This report was verified electronically.
--- NOTE | 2016-05-30 15:56 | RADRPT ---
EXAM DATE/TIME: 05/30/2016 14:04 [facility] COMPARISON: CT CERVICAL SPINE W/O CONTRAST, December 25, 2013, 20:40. INDICATIONS : Trauma; pain after fall. RADIATION DOSE: 39.89 CTDIvol (mGy) MEDICAL HISTORY : None SURGICAL HISTORY : Fusion, cervical. ENCOUNTER: Initial ACUITY: 1 day PAIN SCALE: 4/10 LOCATION: Bilateral neck TECHNIQUE: Volumetric scanning of the cervical spine was performed. Multiplanar reconstructions i n the sagittal, coronal and oblique axial planes were performed. Using automated exposure control a nd adjustment of the mA and/or kV according to patient size, radiation dose was kept as low as reason ably achievable to obtain optimal diagnostic quality images. 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 There is no displacement, however. Anterior fixation is seen at C6-7. Multilevel deg enerative disc disease with some loss of disc height at just about every cervical level. No acute fr acture. Spinal canal appears to be adequate throughout. Detailed axial images as follows: . C2-C3: The bony spinal canal is normal in size. No evidence of disc bulge or herniation. The neura l foramina are bilaterally patent. C3-C4: Bilateral facet hypertrophy. There is some encroachment on the left neural foramina. The sp inal canal and right neural foramina are adequate. C4-C5: Bilateral facet hypertrophy. Spinal canal and neural foramina remain patent, however. C5-C6: The bony spinal canal is normal in size. No evidence of disc bulge or herniation. The neura l foramina are bilaterally patent. C6-C7: Anterior fixation. Spinal canal and neural foramina are patent. C7-T1: The bony spinal canal is normal in size. No evidence of disc bulge or herniation. The neura l foramina are bilaterally patent. CONCLUSION: 1. 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 2. Anterior fixation at C6-7 with bony fusion at C5-6. This is stable. 3. Facet hypertrophy bilaterally at C3-4 and C4-5. Spinal canal is adequate throughout. No acute fr acture. Miguel Morrissey MD on May 30, 2016 at 15:15 Board Certified Radiologist. This report was verified electronically.
--- NOTE | 2016-05-30 16:21 | PD ---
Physical Exam Date Seen by Provider: May 30, 2016 Time Seen by Provider: 12:00 Narrative I, Dr. Carlson, have reviewed the advance practice practitioner's documentation and am in agreement, met with the patient face to face, made the diagnosis, and the medical decision making was done by me. *My assessment and Findings:Patient seen and evaluated with PA, please see PA for further details. Patient here with disorientation, fall, found on the ground by commissioned fire officer. On evaluation, he has notable pulmonary right crackles and coarse breath sounds. Cardiac exam is unremarkable. He is able to move all 4 extremities but is fairly disoriented in the ER. Fevers of 101. IV antibiotics were initiated after cultures were drawn. EKG did not show any significant acute dysrhythmias. Laboratory Tests Test 05/30/16 05/30/16 05/30/16 11:30 11:35 15:00 Venous Blood pH 7.34 (7.360-7.400) Venous Blood Partial Pressure 77 mmHg (35-40) O2 Venous Blood Oxygen Saturation 91 % (70-76) White Blood Count 12.2 TH/MM3 (4.0-11.0) Red Blood Count 4.47 MIL/MM3 (4.50-5.90) Hemoglobin 12.3 GM/DL (13.0-17.0) Hematocrit 37.5 % (39.0-51.0) Red Cell Distribution Width 19.9 % (11.6-17.2) Neutrophils (%) (Auto) 90.3 % (16.0-70.0) Lymphocytes (%) (Auto) 4.6 % (9.0-44.0) Neutrophils # (Auto) 11.0 TH/MM3 (1.8-7.7) Lymphocytes # (Auto) 0.6 TH/MM3 (1.0-4.8) Prothrombin Time 11.8 SEC (9.8-11.6) Blood Urea Nitrogen 28 MG/DL (7-18) Creatinine 1.66 MG/DL (0.60-1.30) Estimat Glomerular Filtration 41 ML/MIN (>89) Rate Random Glucose 135 MG/DL (74-106) Aspartate Amino Transf 13 U/L (15-37) (AST/SGOT) Troponin I LESS THAN 0.02 NG/ML (0.02-0.05) Urine Mucus FEW /lpf (OCC) Last 24 hours Impressions Chest X-Ray 05/30/16 1124 Signed Impressions: Service Date/Time: Monday, May 30, 2016 11:40 - CONCLUSION: Hypoinflation with no acute cardiopulmonary process. Miguel Morrissey MD Head CT 05/30/16 0000 Signed Impressions: Service Date/Time: Monday, May 30, 2016 14:04 - CONCLUSION: No acute intracranial injury Nicho Andrews MD Abdomen/Pelvis CT 05/30/16 0000 Signed Impressions: Service Date/Time: Monday, May 30, 2016 14:06 - CONCLUSION: 1. Bibasilar patchy airspace disease. This is probably atelectatic although early infiltrate cannot be excluded. 2. Large, 7.4 x 2.7 cm hematoma adjacent to the right proximal femur and tendon of the gluteus carol ann. No associated fracture 3. Mechanical and bony fixation of the lumbar spine with bony donor graft from the ilii bilaterally. 4. Diverticular disease of the sigmoid without diverticulitis. Miguel Morrissey MD Lab work does show some leukocytosis and the CAT scan shows some signs of early infiltrate in the lungs. CT of the brain did not reveal any signs of acute processes. 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 This is seen on a prior study as well. A do not think that this is acute. However, c-collar had been placed. At this point, my plan would be to admit the patient for further treatment of pneumonia. Case is discussed with Dr. Fontanez for admission. Data Data Last Documented VS Vital Signs Date Time Temp Pulse Resp B/P Pulse Ox O2 Delivery O2 Flow Rate FiO2 05/30/16 15:50 64 24 113/53 100 Room Air 05/30/16 15:02 98.5 10 Orders Electrocardiogram (05/30/16 11:24) Complete Blood Count With Diff (05/30/16 11:24) Comprehensive Metabolic Panel (05/30/16 11:24) Troponin I (05/30/16 11:24) Prothrombin Time / Inr (Pt) (05/30/16 11:24) Act Partial Throm Time (Ptt) (05/30/16 11:24) Blood Culture (05/30/16 11:24) Lipase (05/30/16 11:24) Urinalysis - C+S If Indicated (05/30/16 11:24) Magnesium (Mg) (05/30/16 11:24) Thyroid Stimulating Hormone (05/30/16 11:24) Chest, Single Ap (05/30/16 11:24) Iv Access Insert/Monitor (05/30/16 11:24) Ecg Monitoring (05/30/16 11:24) Oximetry (05/30/16 11:24) Ct Brain W/O Iv Contrast(Rout) (05/30/16 ) Lactic Acid (05/30/16 11:24) Acetaminophen (Tylenol) (05/30/16 11:30) Ct Cerv Spine W/O Contrast (05/30/16 ) Sodium Chlor 0.9% 1000 Ml Inj (Ns 1000 M (05/30/16 11:24) Blood Gas Venous (Vbg) (05/30/16 11:27) B-Type Natriuretic Peptide (05/30/16 12:16) Cefepime Inj (Maxipime Inj) (05/30/16 12:30) Azithromycin Inj (Zithromax Inj) (05/30/16 12:30) Influenzae A/B Antigen (05/30/16 13:04) Cath For Specimen (05/30/16 13:05) Ct Abd/Pel W/O Iv Contrast (05/30/16 ) Sodium Chlor 0.9% 1000 Ml Inj (Ns 1000 M (05/30/16 15:39) Labs Laboratory Tests Test 05/30/16 05/30/16 05/30/16 11:30 11:35 15:00 Blood Gas Puncture Site CENTRAL LINE Blood Gas Patient Temperature 98.6 Venous Blood pH 7.34 Venous Blood Partial Pressure 46 mmHg CO2 Venous Blood Partial Pressure 77 mmHg O2 Venous Blood HCO3 24 mmol/L Venous Blood Oxygen Saturation 91 % Venous Blood Oxygen Content 15.7 Vol % Venous Blood Base Excess -0.9 mmol/L Oxygen Delivery Device Partial Rebreather Blood Gas Liter Flow 10 L/M White Blood Count 12.2 TH/MM3 Red Blood Count 4.47 MIL/MM3 Hemoglobin 12.3 GM/DL Hematocrit 37.5 % Mean Corpuscular Volume 83.8 FL Mean Corpuscular Hemoglobin 27.6 PG Mean Corpuscular Hemoglobin 32.9 % Concent Red Cell Distribution Width 19.9 % Platelet Count 274 TH/MM3 Mean Platelet Volume 7.2 FL Neutrophils (%) (Auto) 90.3 % Lymphocytes (%) (Auto) 4.6 % Monocytes (%) (Auto) 4.6 % Eosinophils (%) (Auto) 0.1 % Basophils (%) (Auto) 0.4 % Neutrophils # (Auto) 11.0 TH/MM3 Lymphocytes # (Auto) 0.6 TH/MM3 Monocytes # (Auto) 0.6 TH/MM3 Eosinophils # (Auto) 0.0 TH/MM3 Basophils # (Auto) 0.0 TH/MM3 CBC Comment DIFF FINAL Differential Comment Prothrombin Time 11.8 SEC Prothromb Time International 1.1 RATIO Ratio Activated Partial 26.1 SEC Thromboplast Time Sodium Level 137 MEQ/L Potassium Level 4.2 MEQ/L Chloride Level 102 MEQ/L Carbon Dioxide Level 25.9 MEQ/L Anion Gap 9 MEQ/L Blood Urea Nitrogen 28 MG/DL Creatinine 1.66 MG/DL Estimat Glomerular Filtration 41 ML/MIN Rate Random Glucose 135 MG/DL Lactic Acid Level 0.9 mmol/L Calcium Level 8.5 MG/DL Magnesium Level 2.1 MG/DL Total Bilirubin 0.6 MG/DL Aspartate Amino Transf 13 U/L (AST/SGOT) Alanine Aminotransferase 14 U/L (ALT/SGPT) Alkaline Phosphatase 58 U/L Troponin I LESS THAN 0.02 NG/ML B-Type Natriuretic Peptide 80 PG/ML Total Protein 7.0 GM/DL Albumin 3.4 GM/DL Lipase 82 U/L Thyroid Stimulating Hormone 0.456 uIU/ML 3rd Gen Urine Color YELLOW Urine Turbidity CLEAR Urine pH 5.5 Urine Specific [place] 1.018 Urine Protein TRACE mg/dL Urine Glucose (UA) NEG mg/dL Urine Ketones NEG mg/dL Urine Occult Blood NEG Urine Nitrite NEG Urine Bilirubin NEG Urine Urobilinogen LESS THAN 2.0 MG/DL Urine Leukocyte Esterase NEG Urine RBC 1 /hpf Urine WBC LESS THAN 1 /hpf Urine Hyaline Casts 6 /lpf Urine Mucus FEW /lpf Microscopic Urinalysis Comment CULT NOT INDICATED MDM Medical Record Reviewed: Yes Supervised Visit with NAT: Yes Diagnosis Primary Impression: Altered mental status Qualified Code: R40.0 - Somnolence Additional Impressions: Acute kidney injury Fall Qualified Code: W19.XXXA - Fall, initial encounter Pneumonia Admitting Information Admitting Physician Requests: Admit Nghia Carlson MD May 30, 2016 16:21
--- NOTE | 2016-05-30 17:35 | HHI.HP ---
HPI Service [facility] Primary Care Physician Nikunj Jernigan M.D. Admission Diagnosis altered mental status, pneumonia, fall Diagnoses: Chief Complaint: Congestion, pneumonia, status post all Travel History International Travel<30 Days: No Contact w/Intl Traveler <30 Da: No Traveled to Known Affected Are: No Sepsis Criteria SIRS Criteria (2 or more): WBC > 19478, < 4000 or > 10% bands History of Present Illness Patient is a 71-year-old white male with primary medical history PE, HTN, hiatal hernia, chronic pain with pain pump who came into the hospital via ambulance status post fall at home. Son at the bedside, helping with obtaining most of the information. 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 He was found on the floor. Reported that he hit his head on the counter and landed on his right side. Patient had history of PE and was admitted to this hospital last March he was discharged home with Coumadin but will switch over by his finishing inspector to Xarelto. He has been taking Xarelto 20 mg daily. As per his son, due to his chronic pain he goes to his doctor and gets his refill of narcotic medications were in it alters him and sedates him. Believing that this is the cause of his fall. Patient is able to respond to most questions, carry out conversation, and able to follow commands. Patient also states that he started smoking 10 years ago about a pack per day. States that he's been having congestion that has been worsening with increasing cough and sputum production for about 2 days. Complains of chest pain every time he coughs rated as 1/10, sharp, nonradiating, aggravated by coughing, relieved by rest. Reproducible by pressing midsternal and right side area. States he's been eating well. He denies fevers, chills, nausea, vomiting, diarrhea. He denies dysuria, hematuria, abdominal pain and cramping. EKG reviewed sinus rhythm at 69 with left bundle branch Labs reviewed. Leukocytosis 12.2, mild normochromic normocytic anemia 12.3/37.5 , CMP showed elevated BUN 28, creatinine 1.66, EGFR 41, random glucose 135. Within normal lactic acid. First troponin less than 0.02. BNP 80. CT of the head shows no acute intracranial injury. Cervical CT showed 1. 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 2. Anterior fixation at C6 to C7 with 20 fusion at C5 to C6. This is stable. 3. Facet hypertrophy bilateral at C3 to 4 and C4 to 5. Spinal canal is adequate throughout. No acute fracture. CT of the abdomen and pelvis 1. Bibasilar patchy airspace disease. This is probably atelectasis although early infiltrate excluded. 2. Large, 7.4 x 2.7 cm hematoma adjacent to the right proximal femur and tendon of the gluteus carol ann. No associated fracture. 3. Mechanical ammonia fixation of the lumbar spine with bony donor graft from the heel bilaterally. 4. diverticular disease of the sigmoid without diverticulitis. Chest x-ray showed hypoinflation with no acute cardiopulmonary process. Review of Systems ROS Limitations: Poor Historian Except as stated in HPI: all other systems reviewed are Neg Past Family Social History Past Medical History Pulmonary embolism Chronic pain with pain pump DVT right posterior tibial vein HTN Hiatal hernia Insomnia Arthritis Depression Past Surgical History Penile implant Left inguinal hernia repair 2 Cholecystectomy Bilateral knee replacements Tonsillectomy Pain pump in insertion Back surgeries Cervical surgeries Reported Medications Lorazepam 0.5 Mg Tab 0.5 Mg PO BID PRN Hydrocodone-Acetaminophen 10-325 mg Tab 1 Tab PO Q6H PRN Norvasc (Amlodipine Besylate) 5 Mg Tab 5 Mg PO DAILY Reported Integra (Multi-Vit/Iron-B Comp-Vit C) 62.5-62.5-40-3 mg Cap DAILY Gabapentin 600 Mg Tab 600 Mg PO TID Lisinopril 10 Mg Tab 10 Mg PO BID Escitalopram (Escitalopram Oxalate) 20 Mg Tab 20 Mg PO BID Lorazepam 0.5 Mg Tab 0.5 Mg PO BID PRN Xarelto (Rivaroxaban) 20 Mg Tab 20 Mg PO DAILY Omeprazole 20 Mg Tab 20 Mg PO DAILY Metoprolol Succinate ER 24 HR (Metoprolol Succinate) 50 Mg Tab 50 PO DAILY [Morphine Pump] 15 Mg DAILY Simvastatin 40 Mg Tab 40 Mg PO HS Gabapentin 600 Mg Tab 600 Mg PO TID Allergies: Coded Allergies: No Known Allergies (Verified , 1/7/17) Family History Denies any significant family medical history. Mother lived to be 95, father at the age of 57 secondary to black lung. Social History Denies alcohol use Current day smoker 1 pack per day, started smoking 10 years ago Denies illicit drug use Physical Exam Vital Signs Vital Signs Date Time Temp Pulse Resp B/P Pulse Ox O2 Delivery O2 Flow Rate FiO2 05/30/16 15:50 64 24 113/53 100 Room Air 05/30/16 15:02 98.5 64 24 130/60 99 Aerosol Mask 10 05/30/16 13:22 98.2 157/164 05/30/16 12:16 98 Aerosol Mask 10 05/30/16 12:08 98 Aerosol Mask 10 05/30/16 11:00 67 20 122/59 92 Physical Exam GENERAL: This is a well-nourished, well-developed patient, in no apparent distress. SKIN: Ecchymosis right upper arm, right thigh-near pelvis area hematoma. Right forehead erythema. HEAD: Normocephalic. Right side scalp tenderness. EYES: Pupils equal round and reactive. Extraocular motions intact. No scleral icterus. No injection or drainage. ENT: Nose without bleeding. Throat without erythema. Uvula midline. Airway patent. Dry oral mucosa. NECK: Trachea midline. C-collar in place. CARDIOVASCULAR: Regular rate and rhythm 3/6 systolic murmur, gallops, or rubs. RESPIRATORY: Rhonchi bilaterally. Moderate air entry. GASTROINTESTINAL: Abdomen soft, non-tender, nondistended. Hypoactive bowel sounds. Right lower quadrant pain pump in place. MUSCULOSKELETAL: Extremities without clubbing, cyanosis, or edema. Bilateral pedal pulses +2. Limited right lower extremity motion secondary to pain. NEUROLOGICAL: Awake and alert. Oriented to place, person. Follows commands. Motor and sensory grossly within normal limits. Normal speech. Laboratory Laboratory Tests Test 05/30/16 05/30/16 05/30/16 11:30 11:35 15:00 Blood Gas Puncture Site CENTRAL LINE Blood Gas Patient Temperature 98.6 Venous Blood pH 7.34 Venous Blood Partial Pressure 46 CO2 Venous Blood Partial Pressure 77 O2 Venous Blood HCO3 24 Venous Blood Oxygen Saturation 91 Venous Blood Oxygen Content 15.7 Venous Blood Base Excess -0.9 Oxygen Delivery Device Partial Rebreather Blood Gas Liter Flow 10 White Blood Count 12.2 Red Blood Count 4.47 Hemoglobin 12.3 Hematocrit 37.5 Mean Corpuscular Volume 83.8 Mean Corpuscular Hemoglobin 27.6 Mean Corpuscular Hemoglobin 32.9 Concent Red Cell Distribution Width 19.9 Platelet Count 274 Mean Platelet Volume 7.2 Neutrophils (%) (Auto) 90.3 Lymphocytes (%) (Auto) 4.6 Monocytes (%) (Auto) 4.6 Eosinophils (%) (Auto) 0.1 Basophils (%) (Auto) 0.4 Neutrophils # (Auto) 11.0 Lymphocytes # (Auto) 0.6 Monocytes # (Auto) 0.6 Eosinophils # (Auto) 0.0 Basophils # (Auto) 0.0 CBC Comment DIFF FINAL Differential Comment Prothrombin Time 11.8 Prothromb Time International 1.1 Ratio Activated Partial 26.1 Thromboplast Time Sodium Level 137 Potassium Level 4.2 Chloride Level 102 Carbon Dioxide Level 25.9 Anion Gap 9 Blood Urea Nitrogen 28 Creatinine 1.66 Estimat Glomerular Filtration 41 Rate Random Glucose 135 Lactic Acid Level 0.9 Calcium Level 8.5 Magnesium Level 2.1 Total Bilirubin 0.6 Aspartate Amino Transf 13 (AST/SGOT) Alanine Aminotransferase 14 (ALT/SGPT) Alkaline Phosphatase 58 Troponin I LESS THAN 0.02 B-Type Natriuretic Peptide 80 Total Protein 7.0 Albumin 3.4 Lipase 82 Thyroid Stimulating Hormone 0.456 3rd Gen Urine Color YELLOW Urine Turbidity CLEAR Urine pH 5.5 Urine Specific [place] 1.018 Urine Protein TRACE Urine Glucose (UA) NEG Urine Ketones NEG Urine Occult Blood NEG Urine Nitrite NEG Urine Bilirubin NEG Urine Urobilinogen LESS THAN 2.0 Urine Leukocyte Esterase NEG Urine RBC 1 Urine WBC LESS THAN 1 Urine Hyaline Casts 6 Urine Mucus FEW Microscopic Urinalysis Comment CULT NOT INDICATED Date/Time Procedure Status Source Growth 05/30/16 15:00 Influenza Types A,B Antigen (JOYCELYN) - Final Complete Nasal Washing NEGATIVE FOR FLU A AND B ANTIGEN.... 05/30/16 12:15 Aerobic Blood Culture Received Blood Peripheral Pending 05/30/16 12:15 Anaerobic Blood Culture Received Blood Peripheral Pending Result Diagram: 05/30/16 1135 05/30/16 1135 Imaging Last Impressions Chest X-Ray 05/30/16 1124 Signed Impressions: Service Date/Time: Monday, May 30, 2016 11:40 - CONCLUSION: Hypoinflation with no acute cardiopulmonary process. Miguel Morrissey MD Head CT 05/30/16 0000 Signed Impressions: Service Date/Time: Monday, May 30, 2016 14:04 - CONCLUSION: No acute intracranial injury Nicho Andrews MD Abdomen/Pelvis CT 05/30/16 0000 Signed Impressions: Service Date/Time: Monday, May 30, 2016 14:06 - CONCLUSION: 1. Bibasilar patchy airspace disease. This is probably atelectatic although early infiltrate cannot be excluded. 2. Large, 7.4 x 2.7 cm hematoma adjacent to the right proximal femur and tendon of the gluteus carol ann. No associated fracture 3. Mechanical and bony fixation of the lumbar spine with bony donor graft from the ilii bilaterally. 4. Diverticular disease of the sigmoid without diverticulitis. Miguel Morrissey MD Assessment and Plan Problem List: (1) Fall ICD Code: W19.XXXA Status: Acute (2) Altered mental status ICD Code: R41.82 Status: Acute (3) Pneumonia ICD Code: J18.9 Status: Acute (4) Acute kidney injury ICD Code: N17.9 Status: Acute (5) Pulmonary embolism ICD Code: I26.99 Status: Acute Assessment and Plan Patient is a 71-year-old white male with primary medical history PE, HTN, hiatal hernia, chronic pain with pain pump who came into the hospital via ambulance status post fall at home. Patient had history of PE and was admitted to this hospital last March. He has been taking Xarelto 20 mg daily. He also has been having worsening cough x2 days, with sputum production. EKG reviewed sinus rhythm at 69 with left bundle branch Labs reviewed. Leukocytosis 12.2, mild normochromic normocytic anemia 12.3/37.5 , CMP showed elevated BUN 28, creatinine 1.66, EGFR 41, random glucose 135. Within normal lactic acid. First troponin less than 0.02. BNP 80. S/P fall, weakness C2 fracture Right proximal femur Large, 7.4 x 2.7 cm hematoma adjacent to the right proximal femur and tendon of the gluteus carol ann - Cervical CT showed 1. 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 2. Anterior fixation at C6 to C7 with 20 fusion at C5 to C6. This is stable. 3. Facet hypertrophy bilateral at C3 to 4 and C4 to 5. Spinal canal is adequate throughout. No acute fracture. - Maintain C-collar - Monitor Hematoma. - Trend H&H - PT eval and treat - Consult neuro surgery. Pneumonia, community acquired, possible S. pneumonia - Chest x-ray showed hypoinflation with no acute cardiopulmonary process. - CT of the abdomen and pelvis 1. Bibasilar patchy airspace disease. This is probably atelectasis although early infiltrate excluded. 2. Large, 7.4 x 2.7 cm hematoma adjacent to the right proximal femur and tendon of the gluteus carol ann. No associated fracture. 3. Mechanical ammonia fixation of the lumbar spine with bony donor graft from the heel bilaterally. 4. diverticular disease of the sigmoid without diverticulitis. - In the ED patient was given cefepime 1 g, Zithromax 500 mg - Azithromycin and ceftriaxone IV for now - Duonebs scheduled and PRN - O2 nc PRN Pulmonary Embolism - on xarelto at home. pt. took xarelto today. - CT of the head shows no acute intracranial injury. - Will monitor H&H and will restart if no active bleeding or other contraindication is noted. - Monitor respiratory status AK I - IV fluid hydration. Avoid nephrotoxins. Monitor BMP, check marcio. Tobacco use - counseled. Nicotine patch Iron deficiency anemia, normocytic normochromic - Monitor H&H. Iron profile. Iron supplements continue. - As per family patient is due for colonoscopy outpatient secondary to his anemia. HTN - continue home meds - Monitor BP DVT prop - had taken xarelto dose today. Will consider restarting xarelto if H& H is stable and no active bleeding is noted. Written by Basilio Hu, on behalf of Dr. Fontanez on 05/30/16 at 17:33. Code Status Full Code Discussed Condition With Patient, son, nursing, ED attending Physician Certification 2 Midnight Certification Type: Admission for Inpatient Services Order for Inpatient Services The services are ordered in accordance with Medicare regulations or non- Medicare payer requirements, as applicable. In the case of services not specified as inpatient-only, they are appropriately provided as inpatient services in accordance with the 2-midnight benchmark. Estimated LOS (days): 2 days is the estimated time the patient will need to remain in the hospital, assuming treatment plan goals are met and no additional complications. Post-Hospital Plan: Not yet determined Notes: The exam, history, and the medical decision-making described in the above note were completed with the assistance of the mid-level provider. I reviewed and agree with the findings presented. I attest that I had a [id number] encounter with the patient on the same day, and personally performed and documented my assessment and findings in the medical record. patient stated that he has been increasing his pain medication. Patient also said that he has been lumbar sedated because of that. Gen NAD CV RRR. no r/m/g Resp CTA B/L Pneumonia Altered mental status most likely secondary to increase in narcotics. hematoma 2nd to trauma Dr. Unger is his pain management physician needs to f/u. will try calling him tomorrow in regards to this. Will treat can inquire pneumonia with Rocephin and azithromycin. We'll continue to monitor clinically. We'll monitor H&H secondary to hematoma. If hemoglobin is stable we will restart xarelto. Problem Qualifiers (1) Fall: Qualified Code: W19.XXXA - Fall, initial encounter (2) Altered mental status: Qualified Code: R40.0 - Somnolence Basilio Andrews May 30, 2016 17:35 Kelly Fontanez MD May 30, 2016 18:30
[2016-05-30] MEDS ORDERED: SODIUM CHLORIDE 0.9% FLUSH 5 ML FLUSH FLUSH PRN (17:45)
[2016-05-30] MEDS ORDERED: ONDANSETRON HCL 4 MG/2 ML VIAL IVP PRN (17:45)
[2016-05-30] MEDS ORDERED: MAGNESIUM HYDROXIDE SUSP 30 ML CUP PO PRN (17:45)
[2016-05-30] MEDS ORDERED: BISACODYL 10 MG SUPP PR PRN (17:45)
[2016-05-30] MEDS ORDERED: NALOXONE HCL 0.4 MG/ML AMP IV PRN (17:45)
[2016-05-30] MEDS: cefTRIAXone INJ 1,000 MG in SODIUM CHLORIDE 0.9% INJ 100 ML IV SCH (19:56)
[2016-05-30] MEDS: SODIUM CHLOR 0.9% 1000 ML INJ 1,000 ML IV SCH (19:56)
[2016-05-30] MEDS ORDERED: NON-FORMULARY DRUG (Simvastatin 40 MG) PO SCH (21:00)
[2016-05-30] MEDS: REMOVE OLD NICODERM (NICOTINE) PATCH TD SCH (21:00)
[2016-05-30] MEDS: SODIUM CHLORIDE 0.9% FLUSH 5 ML FLUSH FLUSH SCH (21:00)
--- NOTE | 2016-05-30 21:34 | PD.CONS ---
History of Present Illness Service Neurosurgery Consult Requested By Emergency room Reason for Consult C2 fracture Primary Care Physician Nikunj Jernigan M.D. 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 No definite seizure or loss of consciousness. No emesis. Patient on Xarelto following pulmonary embolus. Review of Systems Unable to obtain pertinent review of systems from the patient Past Family Social History Allergies: Coded Allergies: No Known Allergies (Verified , 03/19/16) Past Medical History Unable to obtain past medical history from the patient. According to his records he has a recent pulmonary embolus, on anticoagulation. Hypertension Depression Chronic pain syndrome Past Surgical History Placement of pain drug pump Bilateral knee arthroplasty Previous cervical and lumbar spine surgeries-chronic back pain Cholecystectomy Inguinal hernia repair Tonsillectomy Reported Medications Reported Meds & Active Scripts Active Lorazepam 0.5 Mg Tab 0.5 Mg PO BID PRN Hydrocodone-Acetaminophen 10-325 mg Tab 1 Tab PO Q6H PRN Norvasc (Amlodipine Besylate) 5 Mg Tab 5 Mg PO DAILY Reported Integra (Multi-Vit/Iron-B Comp-Vit C) 62.5-62.5-40-3 mg Cap DAILY Gabapentin 600 Mg Tab 600 Mg PO TID Lisinopril 10 Mg Tab 10 Mg PO BID Escitalopram (Escitalopram Oxalate) 20 Mg Tab 20 Mg PO BID Lorazepam 0.5 Mg Tab 0.5 Mg PO BID PRN Xarelto (Rivaroxaban) 20 Mg Tab 20 Mg PO DAILY Omeprazole 20 Mg Tab 20 Mg PO DAILY Metoprolol Succinate ER 24 HR (Metoprolol Succinate) 50 Mg Tab 50 PO DAILY [Morphine Pump] 15 Mg DAILY Simvastatin 40 Mg Tab 40 Mg PO HS Gabapentin 600 Mg Tab 600 Mg PO TID Family History Negative neurologic disorders Social History Smokes 1 pack cigarettes a day. No definite alcohol use Physical Exam Vital Signs Vital Signs Date Time Temp Pulse Resp B/P Pulse Ox O2 Delivery O2 Flow Rate FiO2 05/30/16 19:10 82 18 149/76 98 Room Air 05/30/16 18:17 60 22 157/69 96 Nasal Cannula 4 05/30/16 15:50 64 24 113/53 100 Room Air 05/30/16 15:02 98.5 64 24 130/60 99 Aerosol Mask 10 3/20/17 13:22 98.2 157/164 05/30/16 12:16 98 Aerosol Mask 10 05/30/16 12:08 98 Aerosol Mask 10 05/30/16 11:00 67 20 122/59 92 Physical Exam GENERAL: Mildly obese gentleman examined in the emergency room. Somewhat disheveled appearance. Agitated. SKIN: Numerous areas of contusion and ecchymosis throughout the upper and lower extremities HEAD: Atraumatic. Normocephalic. No temporal or scalp tenderness. EYES: Pupils equal round and reactive. Extraocular motions intact. No scleral icterus. No injection or drainage. ENT: No definite scleral icterus. NECK: Moves his neck well. He is in a cervical collar no obvious neck tenderness. CARDIOVASCULAR: He is agitated and will not allow examination of his heart and lungs RESPIRATORY: Unable to examine due to agitation. GASTROINTESTINAL: Abdomen soft, non-tender, mildly distended MUSCULOSKELETAL: No long bone or joint deformity noted in the extremities NEUROLOGICAL: He is awake and alert Speech is reasonably clear He does not follow commands well. He is quite agitated and belligerent. He is using a lot of profanity. He is yelling out for "Mario" and having a conversation with this person who is not in the room. When I attempt to examine him thoroughly, he is yelling "get out" He appears to be moving all extremities with good strength He will not respond to questions in regard to his sensation in the extremities. Absent Cindi's response No ankle clonus Laboratory Laboratory Tests Test 05/30/16 05/30/16 05/30/16 11:30 11:35 15:00 Blood Gas Puncture Site CENTRAL LINE Blood Gas Patient Temperature 98.6 Venous Blood pH 7.34 Venous Blood Partial Pressure 46 CO2 Venous Blood Partial Pressure 77 O2 Venous Blood HCO3 24 Venous Blood Oxygen Saturation 91 Venous Blood Oxygen Content 15.7 Venous Blood Base Excess -0.9 Oxygen Delivery Device Partial Rebreather Blood Gas Liter Flow 10 White Blood Count 12.2 Red Blood Count 4.47 Hemoglobin 12.3 Hematocrit 37.5 Mean Corpuscular Volume 83.8 Mean Corpuscular Hemoglobin 27.6 Mean Corpuscular Hemoglobin 32.9 Concent Red Cell Distribution Width 19.9 Platelet Count 274 Mean Platelet Volume 7.2 Neutrophils (%) (Auto) 90.3 Lymphocytes (%) (Auto) 4.6 Monocytes (%) (Auto) 4.6 Eosinophils (%) (Auto) 0.1 Basophils (%) (Auto) 0.4 Neutrophils # (Auto) 11.0 Lymphocytes # (Auto) 0.6 Monocytes # (Auto) 0.6 Eosinophils # (Auto) 0.0 Basophils # (Auto) 0.0 CBC Comment DIFF FINAL Differential Comment Prothrombin Time 11.8 Prothromb Time International 1.1 Ratio Activated Partial 26.1 Thromboplast Time Sodium Level 137 Potassium Level 4.2 Chloride Level 102 Carbon Dioxide Level 25.9 Anion Gap 9 Blood Urea Nitrogen 28 Creatinine 1.66 Estimat Glomerular Filtration 41 Rate Random Glucose 135 Lactic Acid Level 0.9 Calcium Level 8.5 Magnesium Level 2.1 Total Bilirubin 0.6 Aspartate Amino Transf 13 (AST/SGOT) Alanine Aminotransferase 14 (ALT/SGPT) Alkaline Phosphatase 58 Troponin I LESS THAN 0.02 B-Type Natriuretic Peptide 80 Total Protein 7.0 Albumin 3.4 Lipase 82 Thyroid Stimulating Hormone 0.456 3rd Gen Urine Color YELLOW Urine Turbidity CLEAR Urine pH 5.5 Urine Specific [place] 1.018 Urine Protein TRACE Urine Glucose (UA) NEG Urine Ketones NEG Urine Occult Blood NEG Urine Nitrite NEG Urine Bilirubin NEG Urine Urobilinogen LESS THAN 2.0 Urine Leukocyte Esterase NEG Urine RBC 1 Urine WBC LESS THAN 1 Urine Hyaline Casts 6 Urine Mucus FEW Microscopic Urinalysis Comment CULT NOT INDICATED Date/Time Procedure Status Source Growth 05/30/16 15:00 Influenza Types A,B Antigen (JOYCELYN) - Final Complete Nasal Washing NEGATIVE FOR FLU A AND B ANTIGEN.... 05/30/16 12:15 Aerobic Blood Culture Received Blood Peripheral Pending 05/30/16 12:15 Anaerobic Blood Culture Received Blood Peripheral Pending Result Diagram: 05/30/16 1135 05/30/16 1135 Imaging 05/30/2016 CT scan head and cervical spine images reviewed by the undersigned. No definite evidence of acute findings on head CT. Review of the patient's cervical spine CT and comparison with a prior study from 2013 reveals a relatively stable chronic C2 fracture without subluxation. There appears to be further osteophyte formation along the fracture site compared to the 2014 scan. No evidence of significant canal stenosis Chest X-Ray 05/30/16 1124 Signed Impressions: Service Date/Time: Monday, May 30, 2016 11:40 - CONCLUSION: Hypoinflation with no acute cardiopulmonary process. Miguel Morrissey MD Head CT 05/30/16 0000 Signed Impressions: Service Date/Time: Monday, May 30, 2016 14:04 - CONCLUSION: No acute intracranial injury Nicho Andrews MD Cervical Spine CT 05/30/16 0000 Signed Impressions: Service Date/Time: Monday, May 30, 2016 14:04 - CONCLUSION: 1. 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 2. Anterior fixation at C6-7 with bony fusion at C5-6. This is stable. 3. Facet hypertrophy bilaterally at C3-4 and C4-5. Spinal canal is adequate throughout. No acute fracture. Miguel Morrissey MD Abdomen/Pelvis CT 05/30/16 0000 Signed Impressions: Service Date/Time: Monday, May 30, 2016 14:06 - CONCLUSION: 1. Bibasilar patchy airspace disease. This is probably atelectatic although early infiltrate cannot be excluded. 2. Large, 7.4 x 2.7 cm hematoma adjacent to the right proximal femur and tendon of the gluteus carol ann. No associated fracture 3. Mechanical and bony fixation of the lumbar spine with bony donor graft from the ilii bilaterally. 4. Diverticular disease of the sigmoid without diverticulitis. Miguel Morrissey MD Assessment and Plan Assessment and Plan Impression: 1. 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 Relatively stable compared to prior study from 2013 2. Altered mental status. Review the patient's chart indicates that he does have significant changes in his mental status depending on his drug pump refills. It is questionable whether his present mental status is typical for him. Plan: The cervical collar may be discontinued. No intervention planned for the C2 fracture. Records will need to be obtained from interventional pain management to check the status of his drug pump and necessary refills. Alcides Benitez MD May 30, 2016 21:34
[2016-05-30] MEDS: NICOTINE 21 MG/24 HR PATCH TD SCH (22:02)
[2016-05-30] MEDS: GABAPENTIN 300 MG CAP PO SCH (22:02)
[2016-05-30] MEDS: PRAVASTATIN SOD 80 MG TAB PO SCH (22:03)
[2016-05-30] MEDS: ESCITALOPRAM OXALATE 20 MG TAB PO SCH (22:03)
[2016-05-30] MEDS: LISINOPRIL 10 MG TAB PO SCH (22:03)
[2016-05-31] VITALS (8 sets, daily range): BP systolic 151–181; BP diastolic 71–97; PULSE 100–113; RESP 18–21; TEMP 98.5–99.8; O2SAT 91–97
[2016-05-31] MEDS: SODIUM CHLOR 0.9% 1000 ML INJ 1,000 ML IV SCH (03:35)
[2016-05-31 07:08] LABS: AUTOMATED NEUTROPHIL # 6.1 TH/MM3 (1.8-7.7); BASOPHIL % 0.5 % (0.0-2.0); HEMATOCRIT 26.6 % (39.0-51.0); HEMO FLAGS DIFF FINAL; LYMPH % 13.5 % (9.0-44.0); MEAN CELL VOLUME 83.4 FL (80.0-100.0); MEAN CORPUSCULAR HEMOGLOBIN 27.8 PG (27.0-34.0); MEAN CORPUSCULAR HGB CONC 33.4 % (32.0-36.0); MONO % 5.4 % (0.0-8.0); NEUT % 80.6 % (16.0-70.0); PLATELET COUNT 207 TH/MM3 (150-450); RED CELL DISTRIBUTION WIDTH 19.6 % (11.6-17.2); WHITE BLOOD COUNT 7.5 TH/MM3 (4.0-11.0)
[2016-05-31 07:40] LABS: ALKALINE PHOSPHATASE 44 U/L (45-117); ALT (GPT) 15 U/L (12-78); ANION GAP 9 MEQ/L (5-15); AST (GOT) 21 U/L (15-37); BLOOD UREA NITROGEN 18 MG/DL (7-18); CHLORIDE 109 MEQ/L (98-107); GLOMERULAR FILTRATION RATE 115 ML/MIN (>89); POTASSIUM 3.9 MEQ/L (3.5-5.1); SODIUM (NA) 140 MEQ/L (136-145); TOTAL BILIRUBIN ADULT 0.6 MG/DL (0.2-1.0)
[2016-05-31] MEDS: RESP: ALBUTEROL 2.5 MG/IPRATROPIUM 0.5 MG NEB (SCH) NEB ×4 (08:11→20:33)
[2016-05-31] MEDS ORDERED: NON-FORMULARY DRUG (Omeprazole 20 MG) PO SCH (09:00)
[2016-05-31] MEDS: AZITHROMYCIN INJ 250 MG in SODIUM CHLOR 0.9% 250 ML INJ 250 ML IV SCH (09:00)
[2016-05-31] MEDS: SODIUM CHLORIDE 0.9% FLUSH 5 ML FLUSH FLUSH SCH ×2 (09:00→22:17)
[2016-05-31] MEDS: FERROUS SULFATE 325 MG (65 MG ELEMENTAL IRON) TAB PO SCH (09:15)
[2016-05-31] MEDS: PANTOPRAZOLE SOD 20 MG DELAYED RELEASE TAB PO SCH (09:15)
[2016-05-31] MEDS: LISINOPRIL 10 MG TAB PO SCH ×2 (09:16→22:19)
[2016-05-31] MEDS: NICOTINE 21 MG/24 HR PATCH TD SCH (09:16)
[2016-05-31] MEDS: GABAPENTIN 300 MG CAP PO SCH ×3 (09:16→17:17)
[2016-05-31] MEDS: ESCITALOPRAM OXALATE 20 MG TAB PO SCH ×2 (09:16→22:17)
--- NOTE | 2016-05-31 14:26 | HHI.PR ---
Subjective Remarks f/u for AMS, fall, pneumonia and hematoma patient had no complaints. He denied any SOB or cough. Patient was able to tell me his full name, location and date. As our interview progress he stated to say statement that made it sound like he was paranoid. He stated that the nurses about trying to poison him and that they are in the hallway talking about what dose of medication they want to give him. He stated that they hide some oh his xarelto in the ceiling of the lights. He removed 2 IVFs. when I asked him why he stated the nurses are trying to poison him. The son who is at the bedside told me outside of the room that his dad is hallucinating and this is definitely not his baseline. nurse also stated patient is very paranoid right now. Objective Vitals Vital Signs Date Time Temp Pulse Resp B/P Pulse Ox O2 Delivery O2 Flow Rate FiO2 05/31/16 12:00 98.5 102 18 155/97 95 05/31/16 08:00 98.9 100 21 178/90 92 05/31/16 04:00 100 20 181/82 93 05/30/16 23:34 98.4 98 18 176/80 100 Room Air 05/30/16 19:10 82 18 149/76 98 Room Air 05/30/16 18:17 60 22 157/69 96 Nasal Cannula 4 05/30/16 15:50 64 24 113/53 100 Room Air 05/30/16 15:02 98.5 64 24 130/60 99 Aerosol Mask 10 I/O 05/30/16 05/30/16 05/30/16 05/31/16 05/31/16 05/31/16 07:00 15:00 23:00 07:00 15:00 23:00 Intake Total 480 ml Output Total 600 ml Balance -120 ml Intake Oral 480 ml Output Urine Total 600 ml Result Diagram: 05/31/1635 05/31/16634 Objective Remarks GENERAL: in NAD CARDIOVASCULAR: Regular rate and rhythm without murmurs, gallops, or rubs. RESPIRATORY: Breath sounds equal bilaterally. No accessory muscle use. GASTROINTESTINAL: Abdomen soft, non-tender, nondistended. MUSCULOSKELETAL: right lateral thigh hematoma seem like same size. BACK: Nontender without obvious deformity. No CVA tenderness. Medications and IVs Current Medications Acetaminophen 650 mg 650 mg ONCE ONCE PO Last administered on 05/30/16 11:56 ; Start 05/30/16 at 11:30; Stop 05/30/16 at 11:31; Status DC Sodium Chloride 1,000 ml @ 1,000 mls/hr Q1H IV Last administered on 05/30/16 11:53; Start 05/30/16 at 11:24; Stop 05/30/16 at 12:23; Status DC Cefepime HCl 1000 mg/Sodium Chloride 100 ml @ 200 mls/hr ONCE ONCE IV Last administered on 05/30/16 12:59; Start 05/30/16 at 12:30; Stop 05/30/16 at 12:59 ; Status DC Azithromycin 500 mg/Sodium Chloride 250 ml @ 250 mls/hr ONCE ONCE IV Last administered on 05/30/16 12:30; Start 05/30/16 at 12:30; Stop 05/30/16 at 13:29 ; Status DC Sodium Chloride 1,000 ml @ 1,000 mls/hr Q1H IV Last administered on 05/30/16 18:11; Start 05/30/16 at 15:39; Stop 05/30/16 at 16:38; Status DC Sodium Chloride (NS 1000 ml Inj) 1,000 ml @ 100 mls/hr Q10H IV Last administered on 05/30/16 19:56; Start 05/30/16 at 17:35 IV Flush (NS Flush) 2 ml UNSCH PRN FLUSH FLUSH AFTER USING IV ACCESS; Start at 17:45 IV Flush (NS Flush) 2 ml BID FLUSH ; Start 05/30/16 at 21:00 Acetaminophen (Tylenol) 650 mg Q4H PRN PO TEMP > 100.4; Start 05/30/16 at 17:45 Ondansetron HCl (Zofran Inj) 4 mg Q6H PRN IVP NAUSEA OR VOMITING; Start at 17:45 Bisacodyl (Dulcolax Supp) 10 mg DAILY PRN DE CONSTIPATION; Start 05/30/16 at 17 :45 Magnesium Hydroxide (Milk Of Magnesia Liq) 30 ml Q12H PRN PO CONSTIPATION; Start 05/30/16 at 17:45 Naloxone HCl 0.4 mg 0.4 mg UNSCH PRN IV SEE LABEL COMMENTS; Start 05/30/16 at 17:45 Azithromycin 250 mg/Sodium Chloride 250 ml @ 250 mls/hr Q24H IV ; Start at 09:00; Stop 06/04/16 at 08:59 Ceftriaxone Sodium/Sodium Chloride (Rocephin Inj/NS Inj) 100 ml @ 200 mls/hr Q24H IV Last administered on 05/30/16 19:56; Start 05/30/16 at 20:00 Albuterol/ Ipratropium (Duoneb Neb) 1 ampule Q6HR WHILE AWAKE NEB NEB Last administered on 05/31/16 12:31; Start 05/30/16 at 20:00 Albuterol/ Ipratropium (Duoneb Neb) 1 ampule Q4HR NEB PRN NEB SOB/ wheezing; Start 05/30/16 at 17:45 Nicotine (Habitrol 21 Mg Patch.24 Hr) 1 patch DAILY TD Last administered on 09:16; Start 05/30/16 at 17:45 Escitalopram Oxalate (Lexapro) 20 mg BID PO Last administered on 05/31/16 09: 16; Start 05/30/16 at 21:00 Gabapentin (Neurontin) 600 mg TID PO Last administered on 05/31/16 09:16; Start 05/30/16 at 18:00 Lisinopril (Prinivil) 10 mg BID PO Last administered on 05/31/16 09:16; Start 05/30/16 at 21:00 Non-Formulary Medication 20 mg DAILY PO ; Start 05/31/16 at 09:00; Status UNV Non-Formulary Medication 40 mg HS PO CM; Start 05/30/16 at 21:00; Status UNV Ferrous Sulfate (Ferrous Sulfate) 325 mg DAILY PO Last administered on 09:15; Start 05/31/16 at 09:00 Miscellaneous Information 1 HS TD ; Start 05/30/16 at 21:00 Pantoprazole Sodium (Protonix) 20 mg DAILY PO Last administered on 05/31/16 09 :15; Start 05/31/16 at 09:00 Pravastatin Sodium (Pravachol) 80 mg HS PO Last administered on 05/30/16 22:03 ; Start 05/30/16 at 21:00 A/P Problem List: (1) Fall ICD Code: W19.XXXA Status: Acute (2) Altered mental status ICD Code: R41.82 Status: Acute (3) Pneumonia ICD Code: J18.9 Status: Acute (4) Acute kidney injury ICD Code: N17.9 Status: Acute (5) Pulmonary embolism ICD Code: I26.99 Status: Acute Assessment and Plan Patient is a 71-year-old white male with primary medical history PE, HTN, hiatal hernia, chronic pain with pain pump who came into the hospital via ambulance status post fall at home. Patient had history of PE and was admitted to this hospital last March. He has been taking Xarelto 20 mg daily. He also has been having worsening cough x2 days, with sputum production. metabolic encephalopathy -patient is paranoid now. most likely due to illness and overdose on narcotics. he is able to tell me his name, location and date, but thinks staff wants to poison him. Per son Jai this is not his baseline. will consult Psychiatrist more for capacity. -continue to monitor and avoid narcotics. chronic pain syndrome -patient shows signs of addiction and is taking more of his pain medication than prescribed. -i d/w with Dr. Thomas over the phone in regards to my concern and he stated he will address this is wean patient off. he also request his son attend next appointment. i spoke to Doug son and he stated he will attend his appointment. S/P fall, weakness C2 fracture - Cervical CT showed 1. 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 2. Anterior fixation at C6 to C7 with 20 fusion at C5 to C6. This is stable. 3. Facet hypertrophy bilateral at C3 to 4 and C4 to 5. Spinal canal is adequate throughout. No acute fracture. - NSG consulted and stated can d/c collar. Right proximal femur Large, 7.4 x 2.7 cm hematoma adjacent to the right proximal femur and tendon of the gluteus carol ann -stable. continue to monitor with H/H. H is decreasing. will continue to trend and get another Hemoglobin today. Anemia -this has been chronic but has worsen with drop in 2 units. most likely due to a combination of hematoma and dilutional since patient was dehydrated. -continue to trend. Pneumonia, community acquired, possible S. pneumonia - Chest x-ray showed hypoinflation with no acute cardiopulmonary process. - CT of the abdomen and pelvis 1. Bibasilar patchy airspace disease. This is probably atelectasis although early infiltrate excluded. 2. Large, 7.4 x 2.7 cm hematoma adjacent to the right proximal femur and tendon of the gluteus carol ann. No associated fracture. 3. Mechanical ammonia fixation of the lumbar spine with bony donor graft from the heel bilaterally. 4. diverticular disease of the sigmoid without diverticulitis. - In the ED patient was given cefepime 1 g, Zithromax 500 mg - Azithromycin and ceftriaxone IV for now - Duonebs scheduled and PRN - O2 nc PRN Pulmonary Embolism - on xarelto at home. - CT of the head shows no acute intracranial injury. - patient has hematoma and H is trending down. Will consult watch parts grinder for further recommendation. -xarelto held but if H is stable will need to resume. MAGGY -RESOLVED. -due to dehydration. Tobacco use - counseled. Nicotine patch HTN - continue home meds - Monitor BP DVT prop -xarelto is held due to bleeding. if H is stable will restart. Discharge Planning d/w patient, son Jai at bedside and doug over the phone in regards to diagnosis, management, and prognosis. they understood. Problem Qualifiers (1) Fall: Qualified Code: W19.XXXA - Fall, initial encounter (2) Altered mental status: Qualified Code: R40.0 - Somnolence Kelly Fontanez MD May 31, 2016 14:26
--- NOTE | 2016-05-31 15:44 | PD.CONS ---
Provisional Diagnosis Admission Date May 30, 2016 at 16:17 [place] I. delirium due to underline medical conditions, [place] II. deferred [place] III. HTN, MAGGY, pneumonia, PE, [place] IV. suspected opioids use disorder [place] V. 55 History of Present Illness Service Psychiatry Consult Requested By Primary Care Physician Nkiunj Jernigan M.D. HPI The patient is a 71-year-old man, domiciled with , psychiatric history of depression, no previous hospitalizations, no previous suicidal attempts, he is on Lexapro 20 mg prescribed by PCP, medical history PE, HTN, hiatal hernia, chronic pain with pain pump who came into the hospital via ambulance status post fall at home. Patient had history of PE and was admitted to this hospital last March. He has been taking Xarelto 20 mg daily. He also has been having worsening cough x2 days, with sputum production. On hospital patient has been treated for metabolic encephalopathy was probably related with overdose of narcotics and underlying medical conditions, C2 fracture, NSG consulted and stated can d/c collar. Right proximal femur Large, stable. Anemia. Pneumonia, community acquired, possible S. pneumonia, In the ED patient was given cefepime 1 g, Zithromax 500 mg, Azithromycin and ceftriaxone IV for now, also MAGGY. Patient continues to be confused and psychotic, consulted to psychiatry to assess decision-making capacity. On significant evaluation patient is found calm, poorly cooperative due to the level of confusion. Patient is irritable, visibly guarded and paranoid, he says that he doesn't know me so "why should I told to you?". He says that the reason he is here is due to a fall, but he doesn't know where he is, he doesn't know the day, it is unclear in 1977. He does not remember the circumstances around his fall. Patient is unable to list his multiple medical conditions. He does reports "shitty mood", his affect is very irritable, he denies suicidal or homicidal ideation, he denies visual and auditory hallucinations. At times he becomes very confused and tangential, but redirectable. Patient denies the use of illicit drugs and alcohol. Collateral information from nursing charge, he states that the patient has been internally stimulated, disorganized, talking to himself, having visual hallucinations, but no agitation or aggressive behavior observed at this moment. Possible collateral information from his , Shavonne Allen, who clarifies that her doesn't have any previous psychiatric history other than a recent diagnoses of depression. She says that he has been treated for depression by her regular doctor, but he doesn't have any suicidal attempt, no previous hospitalizations, he does not use any drugs, alcohol. She clarifies that in case of the patient is unable to take decisions for himself she is the health care by proxy. Review of Systems Constitutional: DENIES: Diaphoretic episodes, Fatigue, Fever, Weight gain, Weight loss, Chills, Dizziness, Change in appetite, Night Sweats Endocrine: DENIES: Heat/cold intolerance, Polydipsia, Polyuria, Polyphagia Eyes: DENIES: Blurred vision, Diplopia, Eye inflammation, Eye pain, Vision loss , Photosensitivity, Double Vision Ears, nose, mouth, throat: DENIES: Tinnitus, Hearing loss, Vertigo, Nasal discharge, Oral lesions, Throat pain, Hoarseness, Ear Pain, Running Nose, Epistaxis, Sinus Pain, Toothache, Odynophagia Respiratory: DENIES: Apneas, Cough, Snoring, Wheezing, Hemoptysis, Sputum production, Shortness of breath Cardiovascular: DENIES: Chest pain, Palpitations, Syncope, Dyspnea on Exertion , PND, Lower Extremity Edema, Orthopnea, Claudication Genitourinary: DENIES: Sexual dysfunction, Urinary frequency, Urinary incontinence, Urgency, Hematuria, Dysuria, Nocturia, Penile Discharge, Testicular Pain, Testicular Swelling Musculoskeletal: DENIES: Joint pain, Muscle aches, Stiffness, Joint Swelling, Back pain, Neck pain Integumentary: DENIES: Abnormal pigmentation, Nail changes, Pruritus, Rash Hematologic/lymphatic: DENIES: Bruising, Lymphadenopathy Immunologic/allergic: DENIES: Eczema, Urticaria Neurologic: DENIES: Abnormal gait, Headache, Localized weakness, Paresthesias, Seizures, Speech Problems, Tremor, Poor Balance Psychiatric: COMPLAINS OF: Confusion, DENIES: Anxiety, Mood changes, Depression, Hallucinations, Agitation, Suicidal Ideation, Homicidal Ideation, Delusions Past Family Social History Coded Allergies: No Known Allergies (Verified , 03/19/16) Active Scripts Lorazepam 0.5 Mg Tab0.5 Mg PO BID PRN (ANXIETY) #14 TAB Ref 0 Prov:Tato Solo MD 03/22/16 Hydrocodone-Acetaminophen 10-325 mg Tab1 Tab PO Q6H PRN (PAIN) #14 TAB Ref 0 Prov:Tato Solo MD 03/22/16 Amlodipine (Norvasc)5 Mg Tab5 Mg PO DAILY #30 TAB Ref 0 Prov:Tato Solo MD 03/22/16 Reported Medications Multi-Vit/Iron-B Comp-Vit C (Integra)62.5-62.5-40-3 mg Cap Daily 05/30/16 Gabapentin 600 Mg [id number] Mg PO TID #90 TAB Ref 0 05/30/16 Lisinopril 10 Mg Tab10 Mg PO BID #30 TAB Ref 0 05/30/16 Escitalopram 20 Mg Tab20 Mg PO BID #30 TAB Ref 0 05/30/16 Lorazepam 0.5 Mg Tab0.5 Mg PO BID PRN (ANXIETY) Ref 0 05/30/16 Rivaroxaban (Xarelto)20 Mg Tab20 Mg PO DAILY Ref 0 05/30/16 Omeprazole 20 Mg Tab20 Mg PO DAILY #30 TAB Ref 0 05/30/16 Metoprolol Succinate ER 24 HR 50 Mg Tab50 PO DAILY #30 TAB Ref 0 05/30/16 [Morphine Pump] No Conflict Check15 Mg DAILY 03/19/16 Simvastatin 40 Mg Tab40 Mg PO HS #30 TAB Ref 0 03/19/16 Gabapentin 600 Mg [id number] Mg PO TID #90 TAB Ref 0 03/19/16 Discontinued Reported Medications Baclofen 10 Mg Tab10 Mg PO Q8HR PRN (MUSCLE SPASM) Ref 0 03/19/16 Metoprolol Succinate ER 24 HR 50 Mg Tab75 Mg PO DAILY #30 TAB Ref 0 03/19/16 Discontinued Scripts Ferrous Sulfate 325 Mg [id number] Mg PO BID 30 Days Ref 0 Prov:Tato Solo MD 03/22/16 Enoxaparin Inj (Lovenox Inj)80 mg/0.8 ML Syr80 Mg SQ Q12H 3 Days Ref 0 dc lovenox when INR > 2. Prov:Tato Solo MD 03/22/16 Warfarin (Coumadin)4 Mg Tab4 Mg PO DAILY@16 30 Days Ref 0 Prov:Tato Solo MD 03/21/16 Current Medications Medications (Trade) Dose Ordered Sig/Bisi Route Start Time Stop Time Status Last Admin (NS 1000 ml Inj) 1,000 ml @ 100 mls/hr Q10H IV 05/30/16 17:35 05/30/16 19:56 (NS Flush) 2 ml UNSCH PRN FLUSH 05/30/16 17:45 (NS Flush) 2 ml BID FLUSH 05/30/16 21:00 (Tylenol) 650 mg Q4H PRN PO 05/30/16 17:45 (Zofran Inj) 4 mg Q6H PRN IVP 05/30/16 17:45 (Dulcolax Supp) 10 mg DAILY PRN OK 05/30/16 17:45 (Milk Of Magnmacy Liq) 30 ml Q12H PRN PO 05/30/16 17:45 Naloxone HCl 0.4 mg 0.4 mg UNSCH PRN IV 05/30/16 17:45 Azithromycin 250 mg/Sodium Chloride 250 ml @ 250 mls/hr Q24H IV 05/31/16 09:00 06/04/16 08:59 (Rocephin Inj/NS Inj) 100 ml @ 200 mls/hr Q24H IV 05/30/16 20:00 05/30/16 19:56 (Habitrol 21 Mg Patch.24 Hr) 1 patch DAILY TD 05/30/16 17:45 05/31/16 09:16 (Lexapro) 20 mg BID PO 05/30/16 21:00 05/31/16 09:16 (Neurontin) 600 mg TID PO 05/30/16 18:00 05/31/16 14:15 (Prinivil) 10 mg BID PO 05/30/16 21:00 05/31/16 09:16 (Ferrous Sulfate) 325 mg DAILY PO 05/31/16 09:00 05/31/16 09:15 Miscellaneous Information 1 HS TD 05/30/16 21:00 (Protonix) 20 mg DAILY PO 05/31/16 09:00 05/31/16 09:15 (Pravachol) 80 mg HS PO 05/30/16 21:00 05/30/16 22:03 Family History Denies Social History Patient was born and raised in [place], he lives with his in [place] , he has 3 adult kids, is retired, his highest level of education is some college Physical Exam Vital Signs Vital Signs Date Time Temp Pulse Resp B/P Pulse Ox O2 Delivery O2 Flow Rate FiO2 05/31/16 12:00 98.5 102 18 155/97 95 05/30/16 23:34 Room Air 05/30/16 18:17 4 Mental Status Examination Appearance Elderly man, age appearing, hospital [facility], good hygiene, calm, superficially cooperative, guarded Speech: Hesitant Orientation: Person Memory: Impaired (describe) Thought Process: Loose Association Thought Content: Bizarre thinking Suicidal Ideation: No Previous Suicide Attempts: No Homicidal Ideation: No Previous Homicide Attempts: No Insight: Poor Affect: Irritable Mood: Irritable Motor Activity: Normal gait Assessment & Plan Problem List: (1) Delirium due to another medical condition Assessment & Plan: Significant evaluation patient is found paranoid, confused, disorganized, tangential. Unable to provide much significant information for the psychiatric assessment. He denies visual and auditory hallucinations, he denies suicidal or homicidal ideation. No agitation, no aggressive behavior has been reported, but internal stimulation, disorganization and visual hallucinations are described by nurse in charge. Changes in mental status accompanied by new onset psychosis are most probably secondary to underlying medical conditions, and narcotics intoxication. We prescribed 25 mg of Seroquel twice a day to help with the psychotic symptoms. He can continue Lexapro 20 mg for depression. Since patient oriented, unable to express a clear choice, to list his multiple medical conditions, unable to verbalize alternative treatments and consequences of his actions, he definitely doesn't have decision-making capacity to participate his discharge plan or refuse medications at this moment. Health care by proxy, who is his , should be the person appointed to make this decisions for the patient. Consult appreciated. ICD Code: F05 Assessment & Plan Estimated LOS: Rajeev Irwin MD May 31, 2016 15:44
[2016-05-31] MEDS: ACETAMINOPHEN 325 MG TAB PO PRN (17:18)
[2016-05-31] MEDS ORDERED: ACETAMINOPHEN 325 MG TAB PO PRN ×2 (18:00→22:45)
[2016-05-31] MEDS ORDERED: RIVAROXABAN 20 MG TAB PO SCH (18:00)
[2016-05-31] MEDS ORDERED: diphenhydrAMINE HCL 25 MG CAP PO PRN ×2 (18:00→22:45)
[2016-05-31 19:34] LABS: INTERNATIONAL NORMALIZED RATIO 1.1 RATIO; PROTHROMBIN TIME - PATIENT 12.1 SEC (9.8-11.6)
[2016-05-31] MEDS: REMOVE OLD NICODERM (NICOTINE) PATCH TD SCH (21:00)
--- NOTE | 2016-05-31 21:17 | HHI.NSPN ---
History Chief Complaint: back pain Interval History 71-year-old male fell at home, brought to the emergency room for evaluation with initial CT scan head negative for acute intracranial changes. CT scan cervical spine positive for C2 fracture, no significant change compared to prior study from 2014. System Review Comments No headache or blurred vision or diplopia. Mild neck pain Mild low back pain Exam Results Vital Signs Date Time Temp Pulse Resp B/P Pulse Ox O2 Delivery O2 Flow Rate FiO2 05/31/16 20:36 93 21 05/31/16 20:00 99.3 104 20 162/80 05/30/16 23:34 Room Air 05/30/16 18:17 4 Physical Examination Respirations are clear, nonlabored Abdomen soft, nontender Pulse regular He is much more calm and cooperative versus 05/30/2016 initial evaluation. He answers simple questions appropriately. Follow simple commands with some difficulty. Seems to lack overall judgment and insight. Extraocular movements intact Facial motor movement symmetric Visual leary to confrontation intact Sensation intact light touch all extremities Strength normal bilateral hand intrinsics. Strength normal major flexion and extension groups lower extremities Cindi's response absent bilateral No ankle clonus Lab, Micro, Other Results Last Impressions Chest X-Ray 05/30/16 1124 Signed Impressions: Service Date/Time: Monday, May 30, 2016 11:40 - CONCLUSION: Hypoinflation with no acute cardiopulmonary process. Miguel Morrissey MD Head CT 05/30/16 0000 Signed Impressions: Service Date/Time: Monday, May 30, 2016 14:04 - CONCLUSION: No acute intracranial injury Nicho Andrews MD Cervical Spine CT 05/30/16 0000 Signed Impressions: Service Date/Time: Monday, May 30, 2016 14:04 - CONCLUSION: 1. 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 2. Anterior fixation at C6-7 with bony fusion at C5-6. This is stable. 3. Facet hypertrophy bilaterally at C3-4 and C4-5. Spinal canal is adequate throughout. No acute fracture. Miguel Morrissey MD Abdomen/Pelvis CT 05/30/16 0000 Signed Impressions: Service Date/Time: Monday, May 30, 2016 14:06 - CONCLUSION: 1. Bibasilar patchy airspace disease. This is probably atelectatic although early infiltrate cannot be excluded. 2. Large, 7.4 x 2.7 cm hematoma adjacent to the right proximal femur and tendon of the gluteus carol ann. No associated fracture 3. Mechanical and bony fixation of the lumbar spine with bony donor graft from the ilii bilaterally. 4. Diverticular disease of the sigmoid without diverticulitis. Miguel Morrissey MD Laboratory Tests Test 05/31/16 05/31/16 05/31/16 06:35 15:22 19:14 White Blood Count 7.5 TH/MM3 Red Blood Count 3.20 MIL/MM3 Hemoglobin 8.9 GM/DL 9.1 GM/DL Hematocrit 26.6 % Mean Corpuscular Volume 83.4 FL Mean Corpuscular Hemoglobin 27.8 PG Mean Corpuscular Hemoglobin 33.4 % Concent Red Cell Distribution Width 19.6 % Platelet Count 207 TH/MM3 Mean Platelet Volume 7.6 FL Neutrophils (%) (Auto) 80.6 % Lymphocytes (%) (Auto) 13.5 % Monocytes (%) (Auto) 5.4 % Eosinophils (%) (Auto) 0.0 % Basophils (%) (Auto) 0.5 % Neutrophils # (Auto) 6.1 TH/MM3 Lymphocytes # (Auto) 1.0 TH/MM3 Monocytes # (Auto) 0.4 TH/MM3 Eosinophils # (Auto) 0.0 TH/MM3 Basophils # (Auto) 0.0 TH/MM3 CBC Comment DIFF FINAL Differential Comment Sodium Level 140 MEQ/L Potassium Level 3.9 MEQ/L Chloride Level 109 MEQ/L Carbon Dioxide Level 22.0 MEQ/L Anion Gap 9 MEQ/L Blood Urea Nitrogen 18 MG/DL Creatinine 0.68 MG/DL Estimat Glomerular Filtration 115 ML/MIN Rate Random Glucose 107 MG/DL Calcium Level 8.4 MG/DL Total Bilirubin 0.6 MG/DL Aspartate Amino Transf 21 U/L (AST/SGOT) Alanine Aminotransferase 15 U/L (ALT/SGPT) Alkaline Phosphatase 44 U/L Total Protein 5.9 GM/DL Albumin 2.8 GM/DL Prothrombin Time 12.1 SEC Prothromb Time International 1.1 RATIO Ratio Activated Partial 32.0 SEC Thromboplast Time Medical Decision Making Impression and Plan Impression: 1. Nondisplaced type II C2 fracture. Chronic and unchanged compared to prior study of 2013 2. Psychosis-delirium. Improved. Plan: Findings were discussed with the patient He has a history of chronic neck pain since a cervical fracture a few years ago. He appears neurologically stable at the present time. No definite new acute cervical spine injury. Psychiatry evaluation and recommendations noted. Mental status improved compared to 05/30/2016 Patient may mobilize out of bed as tolerated from a neurosurgical standpoint. No further neurosurgical intervention indicated at this time. Alcides Benitez MD May 31, 2016 21:17
[2016-05-31] MEDS: PRAVASTATIN SOD 80 MG TAB PO SCH (22:17)
[2016-05-31] MEDS: cefTRIAXone INJ 1,000 MG in SODIUM CHLORIDE 0.9% INJ 100 ML IV SCH (22:17)
--- NOTE | 2016-05-31 22:27 | MB ---
cc: KELLY HERNANDEZ MD, RUBY ANNE E. M.D. Oncology new patient consultative summary DATE OF CONSULTATION 05/31/2016 DATE OF [address] Kelly Hernandez CHIEF COMPLAINT Dr. Hernandez requested consultation for Mr. Ball status post fall while on anticoagulant therapy with Xarelto. HISTORY OF PRESENT ILLNESS Mr. Ball is a 71-year-old man with history of chronic back pain, hypertension, pulmonary embolism, right lower extremity deep venous thrombosis as well known from a prior consultation. He was seen on March 20, 2016 was during his admission for generalized weakness and a new findings of deep vein thromboses and pulmonary embolism. During that admission he was started on anticoagulant therapy with low-molecular weight heparin, bridged to a therapeutic INR. He was aware of new oral anticoagulant but preferred to be on Coumadin given that his was already on Coumadin. He is familiar with the anticoagulant therapy with Coumadin. He apparently was switched to anticoagulant therapy with Xarelto by his primary physician. It is not clear when this occurred. He was discharged from the hospital on March 22, 2016. He was admitted on 05/30/2016 after a fall. Mr. Ball could not give details regarding the fall. On the day of the consultation he was noted to have delirium from underlying medical condition. He was seen by psychiatry. He was noted to be paranoid, confused, disorganized and tangential. He was awake and cooperative during the consultation. He corrected me regarding the pronunciation of his name. He seems to recall a previous meeting during his hospitalization in March 2016. We discussed his confusion. He states merely that he did not trust the psychiatrist. He complains currently of the pain associated with his hematoma status post his fall. He admits to being on a lot of pain medicine and believes that is the reason that he became woozy resulting in the fall. He is unable to give more specific details. He reports that his last dose of Xarelto was on the day of presentation. He was found at admission to have a hematoma 7.4 x 2.7 cm adjacent to the right proximal femur. On examination his hematoma is significantly enlarged hematoma described on the imaging study. He has significant swelling in the right thigh, ecchymoses. He is also noted to have a decrease in hemoglobin presumably from bleeding into the hematoma. His anticoagulant therapy have been held due to the hematoma. His course is complicated by a nonacute fracture of C2. Neurosurgery was consulted. He was treated conservatively. There are some early infiltrates in the lung for which he is started on antibiotic therapy. On admission his hemoglobin is 4.3. His hemoglobin decreased to 8.9 on the second day and appears to stabilize at hemoglobin 9.1 hemoglobin at this afternoon. He denies any other bleeding. He had renal insufficiency which corrected with IV fluid hydration. His liver functions were normal. His iron studies are difficult to interpret. Ferritin is decreased as well as the iron saturation consistent both with anemia of chronic disease as well as iron deficiency. REVIEW OF SYSTEMS His review of systems was limited given the patient's altered state. PAST MEDICAL HISTORY 1. Right deep vein thromboses and pulmonary embolism. 2. Chronic back pain. 3. Hypertension. 4. Hiatal hernia. 5. Insomnia. 6. Arthritis. 7. Depression. PAST SURGICAL HISTORY 1. Penile implant. 2. Left inguinal hernia repair. 3. Cholecystectomy. 4. Bilateral knee replacements. 5. Tonsillectomy. 6. Pain pump insertion. 7. Back surgery. 8. Cervical surgery. FAMILY HISTORY Mother old age at 95. Father of black lung in his 60s. SOCIAL HISTORY He quit smoking several years ago. He is . 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 He has eight grandchildren altogether, two live in [place]. ALLERGIES NO KNOWN DRUG ALLERGIES. CURRENT MEDICATIONS 1. Seroquel. 2. Rivaroxaban on hold. 3. Azithromycin. 4. Ferrous sulfate. 5. Protonix. 6. Lexapro. 7. Prinivil. 8. Pravachol. 9. Ceftriaxone. 10. Neurontin. 11. Tylenol. 12. Nicotine patch. PHYSICAL EXAMINATION VITAL SIGNS: Temperature 99.3, heart rate 104, respiratory 20, blood pressure 162/80, saturation 91-95%. GENERAL: Mr. Ball is an elderly well-developed man. He is awake, alert, oriented, conversing. He answers questions. HEENT: His pupils are small and reactive. Oropharynx is clear. NECK: Supple. LUNGS: Clear to auscultation. CARDIOVASCULAR: Exam reveals a tachycardia. ABDOMEN: Benign. EXTREMITIES: Lower extremity with no edema. Good pulses. There is right thigh ecchymosis hematoma laterally. Significant larger than 7 cm. LABORATORY DATA Hemoglobin of 9.1. BUN of 18, creatinine 0.68. ASSESSMENT AND PLAN Mr. Ball is a 71-year-old man with multiple medical problems. He is admitted after a fall while on anticoagulant therapy with Xarelto. He has sustained injury and developed confusion. He seems to have delirium which is being treated by psychiatry at present. Hematology/Oncology is consulted for the interruption of anticoagulation. He has developed a hematoma with prolonged PT on admission. His PT/PTT were prolonged on repeat examination. His hemoglobin is decreased consistent with bleeding into his hematoma. We had a lengthy discussion about the residual effect of his last dose of rivaroxaban which was on the day of his presentation. He sustained a fall and subsequent hematoma formation. In light of his bleeding into the hematoma result in decrease in hemoglobin, his anticoagulant therapy is held. We discussed the use of FFP to enhance his hemostasis. Ice is offered to the hematoma. There is no reversal agent for the new oral anticoagulants. The effect I anticipate to be waning. We hope that FFP would provide enough coagulation factor to assist in containing the hematoma in the his right upper thigh. It appears to be significantly larger when he initially presented. It is significant size. He is also quite uncomfortable with the hematoma. We discussed the risk of holding his anticoagulant therapy in light of the hematoma. We are unable to anticoagulate in light of acute bleeding. We will need to ensure that bleeding into the hematoma has resolved before anticoagulant therapy could be resumed. Fortunately he has at least had eight weeks of continued anticoagulant therapy. He was started on anticoagulation on admission. He was switched at some point to new oral anticoagulant by his primary physician. He was doing well until the above fall. Mr. Ball's questions were answered to his satisfaction. He was agreeable with the FFP infusion. We will repeat coags in the morning. We will monitor the size clinically of his hematoma. His rivaroxaban is held. MD DHRUV Watson/ELIZABETH /9:09 PM /9:58 PM WEN
[2016-06-01] VITALS (8 sets, daily range): BP systolic 129–171; BP diastolic 62–89; PULSE 63–111; RESP 18–21; TEMP 96.8–99.8; O2SAT 91–98
[2016-06-01] MEDS: ACETAMINOPHEN 325 MG TAB PO PRN ×2 (05:58→21:27)
[2016-06-01] MEDS: RESP: ALBUTEROL 2.5 MG/IPRATROPIUM 0.5 MG NEB (SCH) NEB ×4 (08:00→19:25)
[2016-06-01] MEDS: SODIUM CHLORIDE 0.9% FLUSH 5 ML FLUSH FLUSH SCH ×2 (09:00→21:25)
[2016-06-01] MEDS: NICOTINE 21 MG/24 HR PATCH TD SCH (09:34)
[2016-06-01] MEDS: REMOVE OLD NICODERM (NICOTINE) PATCH TD SCH (09:34)
[2016-06-01] MEDS: GABAPENTIN 300 MG CAP PO SCH ×3 (09:36→18:34)
[2016-06-01] MEDS: FERROUS SULFATE 325 MG (65 MG ELEMENTAL IRON) TAB PO SCH (09:36)
[2016-06-01] MEDS: ESCITALOPRAM OXALATE 20 MG TAB PO SCH ×2 (09:36→21:26)
[2016-06-01] MEDS: PANTOPRAZOLE SOD 20 MG DELAYED RELEASE TAB PO SCH (09:36)
[2016-06-01] MEDS: QUEtiapine FUMARATE 25 MG TAB PO SCH ×2 (09:36→12:48)
[2016-06-01] MEDS: LISINOPRIL 10 MG TAB PO SCH ×2 (09:36→21:26)
[2016-06-01] MEDS: AZITHROMYCIN INJ 250 MG in SODIUM CHLOR 0.9% 250 ML INJ 250 ML IV SCH (09:39)
--- NOTE | 2016-06-01 10:15 | PD.ONC.PN ---
Subjective Subjective Remarks Afebrile overnight. Patient had some oozing from blood blisters on right thigh overnight. He has received 3 units FFP and is about to receive the fourth. Objective Data Date Time Temp Pulse Resp B/P Pulse Ox O2 Delivery O2 Flow Rate FiO2 06/01/16 08:00 96.8 71 21 171/74 97 06/01/16 04:00 99.6 103 18 167/89 91 06/01/16 00:00 99.8 111 20 156/71 92 05/31/16 23:53 99.8 112 151/71 97 05/31/16 22:00 103 05/31/16 20:36 93 21 05/31/16 20:00 99.3 104 20 162/80 91 05/31/16 16:00 99.7 113 20 166/80 92 05/31/16 12:00 98.5 102 18 155/97 95 06/01/16 06/01/16 06/01/16 07:00 15:00 23:00 Output Total 1800 ml Balance -1800 ml Result Diagram: 05/31/16 1522 05/31/16 0635 Laboratory Results Laboratory Tests Test 05/31/16 05/31/16 05/31/16 15:22 19:14 19:48 Hemoglobin 9.1 GM/DL Prothrombin Time 12.1 SEC Prothromb Time International 1.1 RATIO Ratio Activated Partial 32.0 SEC Thromboplast Time Blood Bank Comment Culture Results Microbiology Date/Time Procedure Status Source Growth 05/30/16 12:10 Aerobic Blood Culture - Preliminary Resulted Blood Peripheral NO GROWTH IN 1 DAY 05/30/16 12:10 Anaerobic Blood Culture - Preliminary Resulted Blood Peripheral NO GROWTH IN 1 DAY 05/30/16 12:15 Aerobic Blood Culture - Preliminary Resulted Blood Peripheral NO GROWTH IN 1 DAY 05/30/16 12:15 Anaerobic Blood Culture - Preliminary Resulted Blood Peripheral NO GROWTH IN 1 DAY 05/30/16 15:00 Influenza Types A,B Antigen (JOYCELYN) - Final Complete Nasal Washing NEGATIVE FOR FLU A AND B ANTIGEN.... Administered Medications Medications (Trade) Dose Ordered Sig/Bisi Route PRN Reason Start Time Stop Time Status Last Admin Dose Admin IV Flush (NS Flush) 2 ml BID FLUSH 05/30/16 21:00 05/31/16 22:17 Acetaminophen 650 mg 650 mg Q4H PRN PO TEMP > 100.4 05/30/16 17:45 06/01/16 05:58 Azithromycin 250 mg/Sodium Chloride 250 ml @ 250 mls/hr Q24H IV 05/31/16 09:00 06/04/16 08:59 06/01/16 09:39 Ceftriaxone Sodium/Sodium Chloride (Rocephin Inj/NS Inj) 100 ml @ 200 mls/hr Q24H IV 05/30/16 20:00 05/31/16 22:17 Nicotine (Habitrol 21 Mg Patch.24 Hr) 1 patch DAILY TD 05/30/16 17:45 06/01/16 09:34 Escitalopram Oxalate (Lexapro) 20 mg BID PO 05/30/16 21:00 06/01/16 09:36 Gabapentin (Neurontin) 600 mg TID PO 05/30/16 18:00 06/01/16 09:36 Lisinopril (Prinivil) 10 mg BID PO 05/30/16 21:00 06/01/16 09:36 Ferrous Sulfate (Ferrous Sulfate) 325 mg DAILY PO 05/31/16 09:00 06/01/16 09:36 Miscellaneous Information 1 HS TD 05/30/16 21:00 06/01/16 09:34 Pantoprazole Sodium (Protonix) 20 mg DAILY PO 05/31/16 09:00 06/01/16 09:36 Pravastatin Sodium (Pravachol) 80 mg HS PO 05/30/16 21:00 05/31/16 22:17 Quetiapine Fumarate (SEROquel) 25 mg BID@09,12 PO 06/01/16 09:00 06/01/16 09:36 Objective Remarks GENERAL: Elderly male, lying supine in bed in [facility]. SKIN: Warm and dry. HEAD: Normocephalic. EYES: No injection or drainage. NECK: Supple, trachea midline CARDIOVASCULAR: Regular rate and rhythm RESPIRATORY: Breath sounds equal bilaterally. No accessory muscle use. GASTROINTESTINAL: Abdomen soft, non-tender, nondistended. 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 bandage over hematoma, right thigh has some blood seepage on it, but is not soaked through. NEUROLOGICAL: awake and alert, normal speech. Assessment/Plan Problem List: (1) Hematoma of thigh Status: Acute Plan: --given 4 units FFP, coags to be checked after last unit given this afternoon. --hematoma 7.4 x 2.7 cm adjacent to the right proximal femur. (2) History of DVT (deep vein thrombosis) Status: Acute Plan: --was on xarelto prior to admission ----will need to ensure that bleeding into the hematoma has resolved before anticoagulant therapy could be resumed. Assessment 71y/o with hematoma vs DVT/PE. Patient admitted s/p fall while on xarelto. history of chronic back pain, hypertension, pulmonary embolism, right lower extremity deep venous thrombosis Plan 1. monitor CBC, coags 2. give fourth unit FFP today Attending Statement The exam, history, and the medical decision-making described in the above note were completed with the assistance of the mid-level provider. I reviewed and agree with the findings presented. I attest that I had a [id number] encounter with the patient on the same day, and personally performed and documented my assessment and findings in the medical record. Pt seen and examine with his nurse. Nursing has been diligently placing ice. Noted some bleeding from the denuded skin. Discussed continue 4U FFP. Noted it's been 2 days since last dose of Xarelto, hopefully effect of anticoagulant will resolved completely. In the meantime, anticoagulant therapy held. c/o heart burn, offered tums. Problem Qualifiers (1) Hematoma of thigh: Qualified Code: S70.11XD - Hematoma of thigh, right, subsequent encounter Zelda Ulrich Jun 01, 2016 10:15 Sima Parker MD Jun 01, 2016 18:44
--- NOTE | 2016-06-01 15:42 | HHI.PR ---
Subjective Remarks f/u for metabolic encephalopathy, PE, hematoma, PNA and anemia. patient has no complaints. He stated breathing improve. continues to have productive cough but that has improved too. remains afebrile. he stated that nurse are giving medication and wont tell him what is his. he also told me that nurses are using codes to talk. patient able to tell me name, location and date. Objective Vitals Vital Signs Date Time Temp Pulse Resp B/P Pulse Ox O2 Delivery O2 Flow Rate FiO2 06/01/16 12:46 98.0 70 19 139/65 96 06/01/16 12:00 98.9 63 20 137/62 95 06/01/16 08:00 96.8 71 21 171/74 97 06/01/16 04:00 99.6 103 18 167/89 91 06/01/16 00:00 99.8 111 20 156/71 92 05/31/16 23:53 99.8 112 151/71 97 05/31/16 22:00 103 05/31/16 20:36 93 21 05/31/16 20:00 99.3 104 20 162/80 91 05/31/16 16:00 99.7 113 20 166/80 92 I/O 05/31/16 05/31/16 05/31/16 06/01/16 06/01/16 06/01/16 07:00 15:00 23:00 07:00 15:00 23:00 Intake Total 480 ml Output Total 600 ml 1800 ml Balance -120 ml -1800 ml Intake Oral 480 ml Output Urine Total 600 ml 1800 ml Result Diagram: 05/31/16 1522 05/31/16 0635 Objective Remarks GENERAL: in NAD CARDIOVASCULAR: Regular rate and rhythm without murmurs, gallops, or rubs. RESPIRATORY: Breath sounds equal bilaterally. No accessory muscle use. GASTROINTESTINAL: Abdomen soft, non-tender, nondistended. MUSCULOSKELETAL: right lateral thigh hematoma seem like same size. BACK: Nontender without obvious deformity. No CVA tenderness. Medications and IVs Current Medications Acetaminophen 650 mg 650 mg ONCE ONCE PO Last administered on 05/30/16 11:56 ; Start 05/30/16 at 11:30; Stop 05/30/16 at 11:31; Status DC Sodium Chloride 1,000 ml @ 1,000 mls/hr Q1H IV Last administered on 05/30/16 11:53; Start 05/30/16 at 11:24; Stop 05/30/16 at 12:23; Status DC Cefepime HCl 1000 mg/Sodium Chloride 100 ml @ 200 mls/hr ONCE ONCE IV Last administered on 05/30/16 12:59; Start 05/30/16 at 12:30; Stop 05/30/16 at 12:59 ; Status DC Azithromycin 500 mg/Sodium Chloride 250 ml @ 250 mls/hr ONCE ONCE IV Last administered on 05/30/16 12:30; Start 05/30/16 at 12:30; Stop 05/30/16 at 13:29 ; Status DC Sodium Chloride 1,000 ml @ 1,000 mls/hr Q1H IV Last administered on 05/30/16 18:11; Start 05/30/16 at 15:39; Stop 05/30/16 at 16:38; Status DC Sodium Chloride (NS 1000 ml Inj) 1,000 ml @ 100 mls/hr Q10H IV Last administered on 05/30/16 19:56; Start 05/30/16 at 17:35; Stop 05/31/16 at 18:03 ; Status DC IV Flush (NS Flush) 2 ml UNSCH PRN FLUSH FLUSH AFTER USING IV ACCESS; Start at 17:45 IV Flush (NS Flush) 2 ml BID FLUSH Last administered on 05/31/16 22:17; Start 05/30/16 at 21:00 Acetaminophen (Tylenol) 650 mg Q4H PRN PO TEMP > 100.4 Last administered on 05:58; Start 05/30/16 at 17:45 Ondansetron HCl (Zofran Inj) 4 mg Q6H PRN IVP NAUSEA OR VOMITING; Start at 17:45 Bisacodyl (Dulcolax Supp) 10 mg DAILY PRN HI CONSTIPATION; Start 05/30/16 at 17 :45 Magnesium Hydroxide (Milk Of Magnesia Liq) 30 ml Q12H PRN PO CONSTIPATION; Start 05/30/16 at 17:45 Naloxone HCl 0.4 mg 0.4 mg UNSCH PRN IV SEE LABEL COMMENTS; Start 05/30/16 at 17:45 Azithromycin 250 mg/Sodium Chloride 250 ml @ 250 mls/hr Q24H IV Last administered on 06/01/16 09:39; Start 05/31/16 at 09:00; Stop 06/04/16 at 08:59 Ceftriaxone Sodium/Sodium Chloride (Rocephin Inj/NS Inj) 100 ml @ 200 mls/hr Q24H IV Last administered on 05/31/16 22:17; Start 05/30/16 at 20:00 Albuterol/ Ipratropium (Duoneb Neb) 1 ampule Q6HR WHILE AWAKE NEB NEB Last administered on 05/31/16 12:31; Start 05/30/16 at 20:00 Albuterol/ Ipratropium (Duoneb Neb) 1 ampule Q4HR NEB PRN NEB SOB/ wheezing; Start 05/30/16 at 17:45 Nicotine (Habitrol 21 Mg Patch.24 Hr) 1 patch DAILY TD Last administered on 09:34; Start 05/30/16 at 17:45 Escitalopram Oxalate (Lexapro) 20 mg BID PO Last administered on 06/01/16 09: 36; Start 05/30/16 at 21:00 Gabapentin (Neurontin) 600 mg TID PO Last administered on 06/01/16 12:48; Start 05/30/16 at 18:00 Lisinopril (Prinivil) 10 mg BID PO Last administered on 06/01/16 09:36; Start 05/30/16 at 21:00 Non-Formulary Medication 20 mg DAILY PO ; Start 05/31/16 at 09:00; Status UNV Non-Formulary Medication 40 mg HS PO CM; Start 05/30/16 at 21:00; Status UNV Ferrous Sulfate (Ferrous Sulfate) 325 mg DAILY PO Last administered on 09:36; Start 05/31/16 at 09:00 Miscellaneous Information 1 HS TD Last administered on 06/01/16 09:34; Start 05/30/16 at 21:00 Pantoprazole Sodium (Protonix) 20 mg DAILY PO Last administered on 06/01/16 09 :36; Start 05/31/16 at 09:00 Pravastatin Sodium (Pravachol) 80 mg HS PO Last administered on 05/31/16 22:17 ; Start 05/30/16 at 21:00 Quetiapine Fumarate (SEROquel) 25 mg BID@09,12 PO Last administered on t 12:48; Start 06/01/16 at 09:00 Rivaroxaban (Xarelto) 20 mg DAILY PO ; Start 05/31/16 at 18:00; Status Cancel Acetaminophen (Tylenol) 650 mg Q4H PRN PO SEE LABEL COMMENTS; Start 05/31/16 at 18:00; Stop 05/31/16 at 22:01; Status DC Diphenhydramine HCl (Benadryl) 25 mg Q4H PRN PO SEE LABEL COMMENTS; Start 05/31 at 18:00; Stop 05/31/16 at 22:01; Status DC Diphenhydramine HCl (Benadryl) 25 mg Q4H PRN PO SEE LABEL COMMENTS Last administered on 05/31/16t 23:59; Start 05/31/16 at 22:45; Stop 06/01/16 at 02:46 ; Status DC Acetaminophen (Tylenol) 650 mg Q4H PRN PO SEE LABEL COMMENTS; Start 05/31/16 at 22:45; Stop 06/01/16 at 02:46; Status DC A/P Problem List: (1) Fall ICD Code: W19.XXXA Status: Acute (2) Altered mental status ICD Code: R41.82 Status: Acute (3) Pneumonia ICD Code: J18.9 Status: Acute (4) Acute kidney injury ICD Code: N17.9 Status: Acute (5) Pulmonary embolism ICD Code: I26.99 Status: Acute Assessment and Plan Patient is a 71-year-old white male with primary medical history PE, HTN, hiatal hernia, chronic pain with pain pump who came into the hospital via ambulance status post fall at home. Patient had history of PE and was admitted to this hospital last March. He has been taking Xarelto 20 mg daily. He also has been having worsening cough x2 days, with sputum production. metabolic encephalopathy -continues to be paranoid but improve. most likely due to illness and overdose on narcotics. he is able to tell me his name, location and date, -Psych consulted and started seroquel 25 mg PO BID. chronic pain syndrome -patient shows signs of addiction and is taking more of his pain medication than prescribed. -i d/w with Dr. Thomas over the phone in regards to my concern and he stated he will address this and will wean patient off. he also request his son attend next appointment. i spoke to Cameron the son and he stated he will attend his appointment. S/P fall, weakness C2 fracture - Cervical CT showed 1. 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 2. Anterior fixation at C6 to C7 with 20 fusion at C5 to C6. This is stable. 3. Facet hypertrophy bilateral at C3 to 4 and C4 to 5. Spinal canal is adequate throughout. No acute fracture. - NSG consulted and stated can d/c collar. Right proximal femur Large, 7.4 x 2.7 cm hematoma adjacent to the right proximal femur and tendon of the gluteus carol ann -increased in sized but softer. hemoglobin stable. -slot key person on board. patient give FFP and xarelto held. continue to monitor H/H. Anemia -this has been chronic but has worsen with drop in 2 units. most likely due to a combination of hematoma and dilutional since patient was dehydrated. -continue to trend. see treatment as above. Pneumonia, community acquired, possible S. pneumonia - Chest x-ray showed hypoinflation with no acute cardiopulmonary process. - CT of the abdomen and pelvis 1. Bibasilar patchy airspace disease. This is probably atelectasis although early infiltrate excluded. 2. Large, 7.4 x 2.7 cm hematoma adjacent to the right proximal femur and tendon of the gluteus carol ann. No associated fracture. 3. Mechanical ammonia fixation of the lumbar spine with bony donor graft from the heel bilaterally. 4. diverticular disease of the sigmoid without diverticulitis. - In the ED patient was given cefepime 1 g, Zithromax 500 mg - Azithromycin and ceftriaxone IV for now - Duonebs scheduled and PRN - O2 nc PRN Pulmonary Embolism - on xarelto at home. - CT of the head shows no acute intracranial injury. - patient has hematoma. -per Human Resources Recruiter continue to hold xarelto and once stable can restart xarelto. MAGGY -RESOLVED. -due to dehydration. Tobacco use - counseled. Nicotine patch HTN - continue home meds - Monitor BP DVT prop -xarelto is held due to bleeding. Discharge Planning patient continues to be delirious and need to monitor closely. probably will required a few more days in hospital depending on clinical course. Problem Qualifiers (1) Fall: Qualified Code: W19.XXXA - Fall, initial encounter (2) Altered mental status: Qualified Code: R40.0 - Somnolence Kelly Fontanez MD Jun 01, 2016 15:42
[2016-06-01 18:40] LABS: HEMATOCRIT 22.2 % (39.0-51.0); MEAN CELL VOLUME 83.7 FL (80.0-100.0); MEAN CORPUSCULAR HEMOGLOBIN 27.8 PG (27.0-34.0); MEAN CORPUSCULAR HGB CONC 33.2 % (32.0-36.0); PLATELET COUNT 197 TH/MM3 (150-450); RED BLOOD COUNT 2.65 MIL/MM3 (4.50-5.90); RED CELL DISTRIBUTION WIDTH 19.2 % (11.6-17.2); REVIEW FLAG FINAL; WHITE BLOOD COUNT 5.3 TH/MM3 (4.0-11.0)
[2016-06-01] MEDS ORDERED: ACETAMINOPHEN 325 MG TAB PO PRN (18:45)
[2016-06-01] MEDS ORDERED: diphenhydrAMINE HCL 25 MG CAP PO PRN (18:45)
[2016-06-01 18:51] LABS: BICARBONATE 28.5 MEQ/L (21.0-32.0); MAGNESIUM 1.8 MG/DL (1.5-2.5); POTASSIUM 3.4 MEQ/L (3.5-5.1)
[2016-06-01] MEDS ORDERED: CALCIUM CARBONATE 500 MG CHEWABLE TAB CHEW ONE (19:00)
[2016-06-01 19:23] LABS: APTT (PATIENT) 26.1 SEC (24.3-30.1); PROTHROMBIN TIME - PATIENT 11.3 SEC (9.8-11.6)
[2016-06-01] MEDS: cefTRIAXone INJ 1,000 MG in SODIUM CHLORIDE 0.9% INJ 100 ML IV SCH (21:25)
[2016-06-01] MEDS: PRAVASTATIN SOD 80 MG TAB PO SCH (21:26)
[2016-06-02] VITALS (20 sets, daily range): BP systolic 127–189; BP diastolic 61–93; PULSE 57–116; RESP 18–20; TEMP 97.5–100.8; O2SAT 93–99
[2016-06-02] MEDS: NICOTINE 21 MG/24 HR PATCH TD SCH (07:59)
[2016-06-02] MEDS ORDERED: SODIUM CHLOR 0.9% 250 ML INJ 250 ML IV ONE (08:00)
[2016-06-02] MEDS: ESCITALOPRAM OXALATE 20 MG TAB PO SCH ×2 (08:00→21:11)
[2016-06-02] MEDS: GABAPENTIN 300 MG CAP PO SCH ×3 (08:01→18:18)
[2016-06-02] MEDS: LISINOPRIL 10 MG TAB PO SCH ×2 (08:01→21:11)
[2016-06-02] MEDS: QUEtiapine FUMARATE 25 MG TAB PO SCH ×2 (08:01→12:31)
[2016-06-02] MEDS: PANTOPRAZOLE SOD 20 MG DELAYED RELEASE TAB PO SCH (08:01)
[2016-06-02] MEDS: FERROUS SULFATE 325 MG (65 MG ELEMENTAL IRON) TAB PO SCH (08:01)
[2016-06-02] MEDS: AZITHROMYCIN INJ 250 MG in SODIUM CHLOR 0.9% 250 ML INJ 250 ML IV SCH (08:04)
[2016-06-02] MEDS: SODIUM CHLORIDE 0.9% FLUSH 5 ML FLUSH FLUSH SCH ×2 (09:00→21:00)
[2016-06-02 09:10] LABS: AUTOMATED NEUTROPHIL # 3.4 TH/MM3 (1.8-7.7); BASOPHIL % 0.9 % (0.0-2.0); EOSINOPHIL # 0.1 TH/MM3 (0-0.4); EOSINOPHIL % 1.7 % (0.0-4.0); HEMATOCRIT 21.1 % (39.0-51.0); HEMO FLAGS DIFF FINAL; LYMPH % 20.4 % (9.0-44.0); MEAN CELL VOLUME 83.5 FL (80.0-100.0); MEAN CORPUSCULAR HEMOGLOBIN 28.4 PG (27.0-34.0); MONO % 6.6 % (0.0-8.0); NEUT % 70.4 % (16.0-70.0); PLATELET COUNT 183 TH/MM3 (150-450); RED BLOOD COUNT 2.53 MIL/MM3 (4.50-5.90); RED CELL DISTRIBUTION WIDTH 19.2 % (11.6-17.2); WHITE BLOOD COUNT 4.9 TH/MM3 (4.0-11.0)
[2016-06-02] MEDS: RESP: ALBUTEROL 2.5 MG/IPRATROPIUM 0.5 MG NEB (SCH) NEB ×3 (09:57→19:54)
--- NOTE | 2016-06-02 11:11 | PD.ONC.PN ---
Subjective Subjective Remarks Afebrile overnight. Patient continues to have some mild oozing from right hip hematoma blood blister. He denies pain. He is tolerating FFP infusions. Objective Data Date Time Temp Pulse Resp B/P Pulse Ox O2 Delivery O2 Flow Rate FiO2 06/02/16 09:59 98 21 06/02/16 08:35 97.8 57 18 188/72 94 06/02/16 04:07 64 136/93 99 06/02/16 04:00 97.5 98 18 134/79 98 06/02/16 03:55 98.3 69 20 165/74 94 06/02/16 01:20 99.5 65 161/72 94 06/02/16 01:00 99.3 66 155/67 98 06/02/16 00:43 99.0 61 20 167/69 94 06/02/16 00:00 99.0 61 20 167/69 94 06/01/16 19:30 99.7 83 20 144/65 92 06/01/16 19:25 98 21 06/01/16 16:00 98.0 69 19 129/69 98 06/01/16 16:00 98.6 66 20 138/65 97 06/01/16 12:46 98.0 70 19 139/65 96 06/01/16 12:00 98.9 63 20 137/62 95 06/02/16 06/02/16 06/02/16 07:00 15:00 23:00 Output Total 475 ml Balance -475 ml Result Diagram: 06/02/16 0740 06/01/16 1829 Laboratory Results Laboratory Tests Test 06/01/16 06/01/16 06/02/16 06/02/16 18:29 19:08 07:40 10:19 White Blood Count 5.3 TH/MM3 4.9 TH/MM3 Red Blood Count 2.65 MIL/MM3 2.53 MIL/MM3 Hemoglobin 7.4 GM/DL 7.2 GM/DL Hematocrit 22.2 % 21.1 % Mean Corpuscular Volume 83.7 FL 83.5 FL Mean Corpuscular Hemoglobin 27.8 PG 28.4 PG Mean Corpuscular Hemoglobin 33.2 % 34.0 % Concent Red Cell Distribution Width 19.2 % 19.2 % Platelet Count 197 TH/MM3 183 TH/MM3 Mean Platelet Volume 6.9 FL 7.3 FL Prothrombin Time 11.3 SEC Prothromb Time International 1.0 RATIO Ratio Activated Partial 26.1 SEC Thromboplast Time Fibrinogen 428 mg/dL Sodium Level 138 MEQ/L Potassium Level 3.4 MEQ/L Chloride Level 103 MEQ/L Carbon Dioxide Level 28.5 MEQ/L Anion Gap 7 MEQ/L Blood Urea Nitrogen 9 MG/DL Creatinine 0.63 MG/DL Estimat Glomerular Filtration 125 ML/MIN Rate Random Glucose 90 MG/DL Calcium Level 7.8 MG/DL Magnesium Level 1.8 MG/DL Blood Bank Comment Neutrophils (%) (Auto) 70.4 % Lymphocytes (%) (Auto) 20.4 % Monocytes (%) (Auto) 6.6 % Eosinophils (%) (Auto) 1.7 % Basophils (%) (Auto) 0.9 % Neutrophils # (Auto) 3.4 TH/MM3 Lymphocytes # (Auto) 1.0 TH/MM3 Monocytes # (Auto) 0.3 TH/MM3 Eosinophils # (Auto) 0.1 TH/MM3 Basophils # (Auto) 0.0 TH/MM3 CBC Comment DIFF FINAL Differential Comment Blood Type A POSITIVE Culture Results Microbiology Date/Time Procedure Status Source Growth 05/30/16 12:10 Aerobic Blood Culture - Preliminary Resulted Blood Peripheral NO GROWTH IN 2 DAYS 05/30/16 12:10 Anaerobic Blood Culture - Preliminary Resulted Blood Peripheral NO GROWTH IN 2 DAYS 05/30/16 12:15 Aerobic Blood Culture - Preliminary Resulted Blood Peripheral NO GROWTH IN 2 DAYS 05/30/16 12:15 Anaerobic Blood Culture - Preliminary Resulted Blood Peripheral NO GROWTH IN 2 DAYS 05/30/16 15:00 Influenza Types A,B Antigen (JOYCELYN) - Final Complete Nasal Washing NEGATIVE FOR FLU A AND B ANTIGEN.... Administered Medications Medications (Trade) Dose Ordered Sig/Bisi Route PRN Reason Start Time Stop Time Status Last Admin Dose Admin IV Flush (NS Flush) 2 ml BID FLUSH 05/30/16 21:00 06/01/16 21:25 Acetaminophen 650 mg 650 mg Q4H PRN PO TEMP > 100.4 05/30/16 17:45 06/01/16 21:27 Azithromycin 250 mg/Sodium Chloride 250 ml @ 250 mls/hr Q24H IV 05/31/16 09:00 06/04/16 08:59 06/02/16 08:04 Ceftriaxone Sodium/Sodium Chloride (Rocephin Inj/NS Inj) 100 ml @ 200 mls/hr Q24H IV 05/30/16 20:00 06/01/16 21:25 Nicotine (Habitrol 21 Mg Patch.24 Hr) 1 patch DAILY TD 05/30/16 17:45 06/02/16 07:59 Escitalopram Oxalate (Lexapro) 20 mg BID PO 05/30/16 21:00 06/02/16 08:00 Gabapentin (Neurontin) 600 mg TID PO 05/30/16 18:00 06/02/16 08:01 Lisinopril (Prinivil) 10 mg BID PO 05/30/16 21:00 06/02/16 08:01 Ferrous Sulfate (Ferrous Sulfate) 325 mg DAILY PO 05/31/16 09:00 06/02/16 08:01 Miscellaneous Information 1 HS TD 05/30/16 21:00 06/01/16 09:34 Pantoprazole Sodium (Protonix) 20 mg DAILY PO 05/31/16 09:00 06/02/16 08:01 Pravastatin Sodium (Pravachol) 80 mg HS PO 05/30/16 21:00 06/01/16 21:26 Quetiapine Fumarate (SEROquel) 25 mg BID@09,12 PO 06/01/16 09:00 06/02/16 08:01 Objective Remarks GENERAL: Pleasant elderly male, sitting up in bed in [facility]. SKIN: Warm and dry. HEAD: Normocephalic. EYES: No injection or drainage. NECK: Supple, trachea midline CARDIOVASCULAR: Regular rate and rhythm RESPIRATORY: Breath sounds equal bilaterally. No accessory muscle use. GASTROINTESTINAL: Abdomen soft, non-tender, nondistended. 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 extensive right thigh hematoma extending from anterior to posterior thigh. along the lateral thigh there is a bandage with small amount of blood seepage NEUROLOGICAL: awake and alert, normal speech. Assessment/Plan Problem List: (1) Hematoma of thigh Status: Acute Plan: 06/02: 4 additional units FFP today, + 1 unit pRBC --s/p units FFP, coags to be checked after last unit given this afternoon. --hematoma 7.4 x 2.7 cm adjacent to the right proximal femur. (2) History of DVT (deep vein thrombosis) Status: Acute Plan: --was on xarelto prior to admission ----will need to ensure that bleeding into the hematoma has resolved before anticoagulant therapy could be resumed. Assessment 71y/o with hematoma vs DVT/PE. Patient admitted s/p fall while on xarelto. history of chronic back pain, hypertension, pulmonary embolism, right lower extremity deep venous thrombosis Plan 1. monitor CBC, coags 2. 4 additional units FFP today + 1 unit pRBC Attending Statement The exam, history, and the medical decision-making described in the above note were completed with the assistance of the mid-level provider. I reviewed and agree with the findings presented. I attest that I had a [id number] encounter with the patient on the same day, and personally performed and documented my assessment and findings in the medical record. Son at bedside, discussed goal of FFP. Hematoma appear stable. Bleeding limited to small area of skin breakdown. s/p transfusion to support hgb. Anticipate effect of Xarelto to wane with each passing day. Still unable to resume anticoagulation inlight of large R thigh hematoma. Pt AOx3 but has confusion, confirmed with nursing. Problem Qualifiers (1) Hematoma of thigh: Qualified Code: S70.11XD - Hematoma of thigh, right, subsequent encounter Zelda Ulrich Jun 02, 2016 11:11 Sima Parker MD Jun 02, 2016 17:55
--- NOTE | 2016-06-02 14:23 | HHI.PR ---
Subjective Remarks f/u for hematoma, PNA and AMS Patient denied any SOB but stated he continues to have cough. he stated that he was told by 4 nurse last night he had a pelvic fracture. Per nurse patient is hallucinating still. Objective Vitals Vital Signs Date Time Temp Pulse Resp B/P Pulse Ox O2 Delivery O2 Flow Rate FiO2 06/02/16 12:00 99.7 73 18 189/76 94 06/02/16 11:00 98.3 76 19 127/61 98 06/02/16 10:42 98.1 72 18 132/69 98 06/02/16 09:59 98 21 06/02/16 08:35 97.8 57 18 188/72 94 06/02/16 04:07 64 136/93 99 06/02/16 04:00 97.5 98 18 134/79 98 06/02/16 03:55 98.3 69 20 165/74 94 06/02/16 01:20 99.5 65 161/72 94 06/02/16 01:00 99.3 66 155/67 98 06/02/16 00:43 99.0 61 20 167/69 94 06/02/16 00:00 99.0 61 20 167/69 94 06/01/16 19:30 99.7 83 20 144/65 92 06/01/16 19:25 98 21 06/01/16 16:00 98.0 69 19 129/69 98 06/01/16 16:00 98.6 66 20 138/65 97 I/O 06/01/16 06/01/16 06/01/16 06/02/16 06/02/16 06/02/16 07:00 15:00 23:00 07:00 15:00 23:00 Intake Total 240 ml Output Total 1800 ml 1050 ml 475 ml Balance -1800 ml -810 ml -475 ml Intake Oral 240 ml Output Urine Total 1800 ml 1050 ml 475 ml # Voids 1 # Bowel Movements 1 1 Result Diagram: 06/02/16 0740 06/01/16 1829 Objective Remarks GENERAL: in NAD CARDIOVASCULAR: Regular rate and rhythm without murmurs, gallops, or rubs. RESPIRATORY: Breath sounds equal bilaterally. No accessory muscle use. GASTROINTESTINAL: Abdomen soft, non-tender, nondistended. MUSCULOSKELETAL: right lateral thigh hematoma increased in size with mild oozing. BACK: Nontender without obvious deformity. No CVA tenderness. Medications and IVs Current Medications Acetaminophen 650 mg 650 mg ONCE ONCE PO Last administered on 05/30/16 11:56 ; Start 05/30/16 at 11:30; Stop 05/30/16 at 11:31; Status DC Sodium Chloride 1,000 ml @ 1,000 mls/hr Q1H IV Last administered on 05/30/16 11:53; Start 05/30/16 at 11:24; Stop 05/30/16 at 12:23; Status DC Cefepime HCl 1000 mg/Sodium Chloride 100 ml @ 200 mls/hr ONCE ONCE IV Last administered on 05/30/16 12:59; Start 05/30/16 at 12:30; Stop 05/30/16 at 12:59 ; Status DC Azithromycin 500 mg/Sodium Chloride 250 ml @ 250 mls/hr ONCE ONCE IV Last administered on 05/30/16 12:30; Start 05/30/16 at 12:30; Stop 05/30/16 at 13:29 ; Status DC Sodium Chloride 1,000 ml @ 1,000 mls/hr Q1H IV Last administered on 05/30/16 18:11; Start 05/30/16 at 15:39; Stop 05/30/16 at 16:38; Status DC Sodium Chloride (NS 1000 ml Inj) 1,000 ml @ 100 mls/hr Q10H IV Last administered on 05/30/16 19:56; Start 05/30/16 at 17:35; Stop 05/31/16 at 18:03 ; Status DC IV Flush (NS Flush) 2 ml UNSCH PRN FLUSH FLUSH AFTER USING IV ACCESS; Start at 17:45 IV Flush (NS Flush) 2 ml BID FLUSH Last administered on 06/01/16 21:25; Start 05/30/16 at 21:00 Acetaminophen (Tylenol) 650 mg Q4H PRN PO TEMP > 100.4 Last administered on 21:27; Start 05/30/16 at 17:45 Ondansetron HCl (Zofran Inj) 4 mg Q6H PRN IVP NAUSEA OR VOMITING Last administered on 06/02/16 12:33; Start 05/30/16 at 17:45 Bisacodyl (Dulcolax Supp) 10 mg DAILY PRN LA CONSTIPATION; Start 05/30/16 at 17 :45 Magnesium Hydroxide (Milk Of Magnmacy Liq) 30 ml Q12H PRN PO CONSTIPATION; Start 05/30/16 at 17:45 Naloxone HCl 0.4 mg 0.4 mg UNSCH PRN IV SEE LABEL COMMENTS; Start 05/30/16 at 17:45 Azithromycin 250 mg/Sodium Chloride 250 ml @ 250 mls/hr Q24H IV Last administered on 06/02/16 08:04; Start 05/31/16 at 09:00; Stop 06/04/16 at 08:59 Ceftriaxone Sodium/Sodium Chloride (Rocephin Inj/NS Inj) 100 ml @ 200 mls/hr Q24H IV Last administered on 06/01/16 21:25; Start 05/30/16 at 20:00 Albuterol/ Ipratropium (Duoneb Neb) 1 ampule Q6HR WHILE AWAKE NEB NEB Last administered on 06/02/16 13:36; Start 05/30/16 at 20:00 Albuterol/ Ipratropium (Duoneb Neb) 1 ampule Q4HR NEB PRN NEB SOB/ wheezing; Start 05/30/16 at 17:45 Nicotine (Habitrol 21 Mg Patch.24 Hr) 1 patch DAILY TD Last administered on 07:59; Start 05/30/16 at 17:45 Escitalopram Oxalate (Lexapro) 20 mg BID PO Last administered on 06/02/16 08: 00; Start 05/30/16 at 21:00 Gabapentin (Neurontin) 600 mg TID PO Last administered on 06/02/16 12:31; Start 05/30/16 at 18:00 Lisinopril (Prinivil) 10 mg BID PO Last administered on 06/02/16 08:01; Start 05/30/16 at 21:00 Non-Formulary Medication 20 mg DAILY PO ; Start 05/31/16 at 09:00; Status UNV Non-Formulary Medication 40 mg HS PO CM; Start 05/30/16 at 21:00; Status UNV Ferrous Sulfate (Ferrous Sulfate) 325 mg DAILY PO Last administered on 08:01; Start 05/31/16 at 09:00 Miscellaneous Information 1 HS TD Last administered on 06/01/16 09:34; Start 05/30/16 at 21:00 Pantoprazole Sodium (Protonix) 20 mg DAILY PO Last administered on 06/02/16 08 :01; Start 05/31/16 at 09:00 Pravastatin Sodium (Pravachol) 80 mg HS PO Last administered on 06/01/16 21:26 ; Start 05/30/16 at 21:00 Quetiapine Fumarate (SEROquel) 25 mg BID@09,12 PO Last administered on 12:31; Start 06/01/16 at 09:00 Rivaroxaban (Xarelto) 20 mg DAILY PO ; Start 05/31/16 at 18:00; Status Cancel Acetaminophen (Tylenol) 650 mg Q4H PRN PO SEE LABEL COMMENTS; Start 05/31/16 at 18:00; Stop 05/31/16 at 22:01; Status DC Diphenhydramine HCl (Benadryl) 25 mg Q4H PRN PO SEE LABEL COMMENTS; Start 05/31 at 18:00; Stop 05/31/16 at 22:01; Status DC Diphenhydramine HCl (Benadryl) 25 mg Q4H PRN PO SEE LABEL COMMENTS Last administered on 05/31/16 23:59; Start 05/31/16 at 22:45; Stop 06/01/16 at 02:46 ; Status DC Acetaminophen (Tylenol) 650 mg Q4H PRN PO SEE LABEL COMMENTS; Start 05/31/16 at 22:45; Stop 06/01/16 at 02:46; Status DC Acetaminophen (Tylenol) 650 mg Q4H PRN PO SEE LABEL COMMENTS; Start 06/01/16 at 18:45; Stop 06/01/16 at 22:46; Status DC Diphenhydramine HCl (Benadryl) 25 mg Q4H PRN PO SEE LABEL COMMENTS; Start 06/01 at 18:45; Stop 06/01/16 at 22:46; Status DC Calcium Carbonate 500 mg 500 mg ONCE ONCE CHEW Last administered on 06/01/16 21:25; Start 06/01/16 at 19:00; Stop 06/01/16 at 19:01; Status DC Sodium Chloride (NS 250 ml Inj) 250 ml @ 15 mls/hr ONCE ONCE IV Last administered on 06/02/16t 08:00; Start 06/02/16 at 08:00; Stop 06/03/16 at 00:39 A/P Problem List: (1) Fall ICD Code: W19.XXXA Status: Acute (2) Altered mental status ICD Code: R41.82 Status: Acute (3) Pneumonia ICD Code: J18.9 Status: Acute (4) Acute kidney injury ICD Code: N17.9 Status: Acute (5) Pulmonary embolism ICD Code: I26.99 Status: Acute Assessment and Plan Patient is a 71-year-old white male with primary medical history PE, HTN, hiatal hernia, chronic pain with pain pump who came into the hospital via ambulance status post fall at home. Patient had history of PE and was admitted to this hospital last March. He has been taking Xarelto 20 mg daily. He also has been having worsening cough x2 days, with sputum production. Right proximal femur Large, 7.4 x 2.7 cm hematoma adjacent to the right proximal femur and tendon of the gluteus carol ann -increased in sized but softer. hemoglobin decreasing. 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 patient give more FFP today and PRBC. xarelto held. continue to monitor H/H. Acute on chronic anemia -this has been chronic but has worsen due to hematoma. -continue to trend. see treatment as above. metabolic encephalopathy -continues to be paranoid but improve. most likely due to illness and overdose on narcotics. he is able to tell me his name, location and date, -Psych consulted and started seroquel 25 mg PO BID. chronic pain syndrome -patient shows signs of addiction and is taking more of his pain medication than prescribed. -i d/w with Dr. Thomas over the phone in regards to my concern and he stated he will address this and will wean patient off. he also request his son attend next appointment. i spoke to Cameron the son and he stated he will attend his appointment. S/P fall, weakness C2 fracture - Cervical CT showed 1. 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 2. Anterior fixation at C6 to C7 with 20 fusion at C5 to C6. This is stable. 3. Facet hypertrophy bilateral at C3 to 4 and C4 to 5. Spinal canal is adequate throughout. No acute fracture. - NSG consulted and stated can d/c collar. Pneumonia, community acquired, possible S. pneumonia - Chest x-ray showed hypoinflation with no acute cardiopulmonary process. - CT of the abdomen and pelvis 1. Bibasilar patchy airspace disease. This is probably atelectasis although early infiltrate excluded. 2. Large, 7.4 x 2.7 cm hematoma adjacent to the right proximal femur and tendon of the gluteus carol ann. No associated fracture. 3. Mechanical ammonia fixation of the lumbar spine with bony donor graft from the heel bilaterally. 4. diverticular disease of the sigmoid without diverticulitis. - In the ED patient was given cefepime 1 g, Zithromax 500 mg - Azithromycin and ceftriaxone IV for now - Duonebs scheduled and PRN - O2 nc PRN Pulmonary Embolism - on xarelto at home. - CT of the head shows no acute intracranial injury. - patient has hematoma. 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 MAGGY -RESOLVED. -due to dehydration. Tobacco use - counseled. Nicotine patch HTN - continue home meds - Monitor BP DVT prop -xarelto is held due to bleeding. Discharge Planning patient continues to be delirious and need to monitor closely. his H/H is also dropping. probably will required a few more days in hospital depending on clinical course. Problem Qualifiers (1) Fall: Qualified Code: W19.XXXA - Fall, initial encounter (2) Altered mental status: Qualified Code: R40.0 - Somnolence Kelly Fontanez MD Jun 02, 2016 14:23
[2016-06-02 15:30] LABS: MEAN CELL VOLUME 83.9 FL (80.0-100.0); MEAN CORPUSCULAR HEMOGLOBIN 28.5 PG (27.0-34.0); PLATELET COUNT 198 TH/MM3 (150-450); RED CELL DISTRIBUTION WIDTH 18.9 % (11.6-17.2); REVIEW FLAG FINAL; WHITE BLOOD COUNT 5.2 TH/MM3 (4.0-11.0)
[2016-06-02 15:54] LABS: ALT (GPT) 16 U/L (12-78); ANION GAP 10 MEQ/L (5-15); AST (GOT) 16 U/L (15-37); BICARBONATE 25.1 MEQ/L (21.0-32.0); BLOOD UREA NITROGEN 7 MG/DL (7-18); CHLORIDE 104 MEQ/L (98-107); GLOMERULAR FILTRATION RATE 135 ML/MIN (>89); POTASSIUM 3.4 MEQ/L (3.5-5.1); SODIUM (NA) 139 MEQ/L (136-145)
[2016-06-02 15:58] LABS: ALKALINE PHOSPHATASE 46 U/L (45-117); TOTAL BILIRUBIN ADULT 0.7 MG/DL (0.2-1.0)
[2016-06-02] MEDS: ACETAMINOPHEN 325 MG TAB PO PRN (18:18)
[2016-06-02] MEDS: REMOVE OLD NICODERM (NICOTINE) PATCH TD SCH (21:00)
[2016-06-02] MEDS: PRAVASTATIN SOD 80 MG TAB PO SCH (21:11)
[2016-06-02] MEDS: cefTRIAXone INJ 1,000 MG in SODIUM CHLORIDE 0.9% INJ 100 ML IV SCH (21:11)
[2016-06-03] VITALS (8 sets, daily range): BP systolic 134–189; BP diastolic 67–91; PULSE 59–101; RESP 18–24; TEMP 97.1–98.7; O2SAT 94–98
[2016-06-03 07:17] LABS: AUTOMATED NEUTROPHIL # 4.4 TH/MM3 (1.8-7.7); BASOPHIL % 0.8 % (0.0-2.0); EOSINOPHIL # 0.1 TH/MM3 (0-0.4); EOSINOPHIL % 1.4 % (0.0-4.0); HEMATOCRIT 24.6 % (39.0-51.0); HEMO FLAGS DIFF FINAL; LYMPHOCYTE # 0.7 TH/MM3 (1.0-4.8); MEAN CELL VOLUME 82.9 FL (80.0-100.0); MEAN CORPUSCULAR HEMOGLOBIN 28.3 PG (27.0-34.0); MEAN CORPUSCULAR HGB CONC 34.2 % (32.0-36.0); NEUT % 76.8 % (16.0-70.0); PLATELET COUNT 201 TH/MM3 (150-450); RED BLOOD COUNT 2.97 MIL/MM3 (4.50-5.90); RED CELL DISTRIBUTION WIDTH 19.7 % (11.6-17.2); WHITE BLOOD COUNT 5.7 TH/MM3 (4.0-11.0)
[2016-06-03 07:42] LABS: BICARBONATE 26.4 MEQ/L (21.0-32.0); POTASSIUM 3.5 MEQ/L (3.5-5.1)
[2016-06-03] MEDS: SODIUM CHLORIDE 0.9% FLUSH 5 ML FLUSH FLUSH SCH ×2 (09:00→22:06)
[2016-06-03] MEDS: FERROUS SULFATE 325 MG (65 MG ELEMENTAL IRON) TAB PO SCH (09:00)
[2016-06-03] MEDS: RESP: ALBUTEROL 2.5 MG/IPRATROPIUM 0.5 MG NEB (SCH) NEB ×3 (09:14→19:48)
[2016-06-03] MEDS: ESCITALOPRAM OXALATE 20 MG TAB PO SCH ×2 (09:19→22:05)
[2016-06-03] MEDS: QUEtiapine FUMARATE 25 MG TAB PO SCH ×2 (09:19→12:51)
[2016-06-03] MEDS: PANTOPRAZOLE SOD 20 MG DELAYED RELEASE TAB PO SCH (09:19)
[2016-06-03] MEDS: AZITHROMYCIN INJ 250 MG in SODIUM CHLOR 0.9% 250 ML INJ 250 ML IV SCH (09:19)
[2016-06-03] MEDS: GABAPENTIN 300 MG CAP PO SCH ×3 (09:19→17:24)
[2016-06-03] MEDS: LISINOPRIL 10 MG TAB PO SCH ×2 (09:19→22:05)
[2016-06-03] MEDS: NICOTINE 21 MG/24 HR PATCH TD SCH (09:19)
--- NOTE | 2016-06-03 10:53 | PD.ONC.PN ---
Subjective Subjective Remarks Afebrile overnight. Patient resting comfortably. still having some oozing from right hip. per nurse, the bandage has needed to be changed only per shift now. Remains delirious. no bleeding elsewhere. Objective Data Date Time Temp Pulse Resp B/P Pulse Ox O2 Delivery O2 Flow Rate FiO2 06/03/16 09:16 97 21 06/03/16 08:40 98.6 81 18 189/91 96 06/03/16 06:14 97.1 84 22 175/83 94 06/02/16 23:10 98.8 73 18 185/76 97 06/02/16 23:00 98.9 63 18 170/79 96 06/02/16 22:56 98.7 77 18 188/80 99 06/02/16 20:12 99.5 116 18 152/77 97 06/02/16 20:00 89 06/02/16 16:05 99.7 92 18 178/79 98 06/02/16 16:00 100.8 95 18 179/77 93 06/02/16 15:40 98.8 92 19 172/78 98 06/02/16 12:00 99.7 73 18 189/76 94 06/02/16 11:00 98.3 76 19 127/61 98 Result Diagram: 06/03/16 0638 06/03/16 0638 Laboratory Results Laboratory Tests Test 06/02/16 06/03/16 14:44 06:38 White Blood Count 5.2 TH/MM3 5.7 TH/MM3 Red Blood Count 2.50 MIL/MM3 2.97 MIL/MM3 Hemoglobin 7.1 GM/DL 8.4 GM/DL Hematocrit 21.0 % 24.6 % Mean Corpuscular Volume 83.9 FL 82.9 FL Mean Corpuscular Hemoglobin 28.5 PG 28.3 PG Mean Corpuscular Hemoglobin 34.0 % 34.2 % Concent Red Cell Distribution Width 18.9 % 19.7 % Platelet Count 198 TH/MM3 201 TH/MM3 Mean Platelet Volume 7.3 FL 7.1 FL Sodium Level 139 MEQ/L 136 MEQ/L Potassium Level 3.4 MEQ/L 3.5 MEQ/L Chloride Level 104 MEQ/L 102 MEQ/L Carbon Dioxide Level 25.1 MEQ/L 26.4 MEQ/L Anion Gap 10 MEQ/L 8 MEQ/L Blood Urea Nitrogen 7 MG/DL 8 MG/DL Creatinine 0.59 MG/DL 0.68 MG/DL Estimat Glomerular Filtration 135 ML/MIN 115 ML/MIN Rate Random Glucose 107 MG/DL 116 MG/DL Calcium Level 9.1 MG/DL 9.1 MG/DL Total Bilirubin 0.7 MG/DL Aspartate Amino Transf 16 U/L (AST/SGOT) Alanine Aminotransferase 16 U/L (ALT/SGPT) Alkaline Phosphatase 46 U/L Total Protein 6.8 GM/DL Albumin 3.3 GM/DL Neutrophils (%) (Auto) 76.8 % Lymphocytes (%) (Auto) 13.0 % Monocytes (%) (Auto) 8.0 % Eosinophils (%) (Auto) 1.4 % Basophils (%) (Auto) 0.8 % Neutrophils # (Auto) 4.4 TH/MM3 Lymphocytes # (Auto) 0.7 TH/MM3 Monocytes # (Auto) 0.5 TH/MM3 Eosinophils # (Auto) 0.1 TH/MM3 Basophils # (Auto) 0.0 TH/MM3 CBC Comment DIFF FINAL Differential Comment Administered Medications Medications (Trade) Dose Ordered Sig/Bisi Route PRN Reason Start Time Stop Time Status Last Admin Dose Admin IV Flush (NS Flush) 2 ml BID FLUSH 05/30/16 21:00 06/03/16 09:00 Acetaminophen (Tylenol) 650 mg Q4H PRN PO TEMP > 100.4 05/30/16 17:45 06/02/16 18:18 Ondansetron HCl 4 mg 4 mg Q6H PRN IVP NAUSEA OR VOMITING 05/30/16 17:45 06/02/16 12:33 Azithromycin 250 mg/Sodium Chloride 250 ml @ 250 mls/hr Q24H IV 05/31/16 09:00 06/04/16 08:59 06/03/16 09:19 Ceftriaxone Sodium/Sodium Chloride (Rocephin Inj/NS Inj) 100 ml @ 200 mls/hr Q24H IV 05/30/16 20:00 06/02/16 21:11 Nicotine (Habitrol 21 Mg Patch.24 Hr) 1 patch DAILY TD 05/30/16 17:45 06/03/16 09:19 Escitalopram Oxalate (Lexapro) 20 mg BID PO 05/30/16 21:00 06/03/16 09:19 Gabapentin (Neurontin) 600 mg TID PO 05/30/16 18:00 06/03/16 09:19 Lisinopril (Prinivil) 10 mg BID PO 05/30/16 21:00 06/03/16 09:19 Ferrous Sulfate (Ferrous Sulfate) 325 mg DAILY PO 05/31/16 09:00 06/03/16 09:00 Miscellaneous Information 1 HS TD 05/30/16 21:00 06/02/16 21:00 Pantoprazole Sodium (Protonix) 20 mg DAILY PO 05/31/16 09:00 06/03/16 09:19 Pravastatin Sodium (Pravachol) 80 mg HS PO 05/30/16 21:00 06/02/16 21:11 Quetiapine Fumarate (SEROquel) 25 mg BID@, PO 06/01/16 09:00 06/03/16 09:19 Objective Remarks GENERAL: Confused elderly male, sitting up in chair in nad. SKIN: Warm and dry. HEAD: Normocephalic. EYES: No injection or drainage. NECK: Supple, trachea midline CARDIOVASCULAR: Regular rate and rhythm RESPIRATORY: Breath sounds equal bilaterally. No accessory muscle use. GASTROINTESTINAL: Abdomen soft, non-tender, nondistended. EXTREMITIES: No cyanosis. right thigh hematoma with clean bandage in place. NEUROLOGICAL: awake and alert, normal speech. moving all extremities. Assessment/Plan Problem List: (1) Hematoma of thigh Status: Acute Plan: --s/p 8 units FFP --hematoma 7.4 x 2.7 cm adjacent to the right proximal femur. (2) History of DVT (deep vein thrombosis) Status: Acute Plan: --was on xarelto prior to admission ----will need to ensure that bleeding into the hematoma has resolved before anticoagulant therapy could be resumed. Assessment 71y/o with hematoma vs DVT/PE. Patient admitted s/p fall while on xarelto. history of chronic back pain, hypertension, pulmonary embolism, right lower extremity deep venous thrombosis Plan 1. monitor CBC, coags 2. no need for transfusion today. Attending Statement The exam, history, and the medical decision-making described in the above note were completed with the assistance of the mid-level provider. I reviewed and agree with the findings presented. I attest that I had a [id number] encounter with the patient on the same day, and personally performed and documented my assessment and findings in the medical record. Pt seen and examined. Confused with tangential thoughts. Difficulty explaining a TV show he saw with white boats, which he attributes to have caused him to be agitated. Hematoma improving with slight decrease swelling. Noted still blood tinge gown and sheets. Hgb stable. Hold off on transfusion FFP. Unable to start anticoagulation concern for rebleed of very large hematoma. Pt with competing needs. Follow clinically. Problem Qualifiers (1) Hematoma of thigh: Qualified Code: S70.11XD - Hematoma of thigh, right, subsequent encounter Zelda Ulrich Jun 03, 2016 10:53 Sima Parker MD Jun 03, 2016 22:24
[2016-06-03] MEDS ORDERED: METOPROLOL TARTRATE 25 MG TAB PO ONE (12:45)
[2016-06-03] MEDS ORDERED: PILL SPLITTER OTHER PRN (12:45)
[2016-06-03] MEDS: REMOVE OLD NICODERM (NICOTINE) PATCH TD SCH (21:00)
[2016-06-03] MEDS: METOPROLOL TARTRATE 25 MG TAB PO SCH (22:05)
[2016-06-03] MEDS: PRAVASTATIN SOD 80 MG TAB PO SCH (22:05)
[2016-06-03] MEDS: cefTRIAXone INJ 1,000 MG in SODIUM CHLORIDE 0.9% INJ 100 ML IV SCH (22:06)
--- NOTE | 2016-06-03 23:45 | HHI.PR ---
Subjective Remarks Patient seen this morning around 11:30 AM. He is sitting up in chair sleeping. Wakes up for exam. Denies any chest pain or shortness of breath. He reports pain is controlled. He is convinced that somebody told him his hip was fractured. Objective Vital Signs Date Time Temp Pulse Resp B/P Pulse Ox O2 Delivery O2 Flow Rate FiO2 06/03/16 20:00 98.6 59 24 134/67 96 06/03/16 19:48 98 21 06/03/16 16:00 98.7 81 18 159/88 96 06/03/16 12:42 98.3 101 18 178/83 96 06/03/16 09:16 97 21 06/03/16 08:40 98.6 81 18 189/91 96 06/03/16 06:14 97.1 84 22 175/83 94 I/O 06/02/16 06/02/16 06/02/16 06/03/16 06/03/16 06/03/16 07:00 15:00 23:00 07:00 15:00 23:00 Intake Total 480 ml 300 ml 1080 ml Output Total 475 ml 600 ml 400 ml 850 ml 100 ml Balance -475 ml -120 ml -400 ml -550 ml 980 ml Intake Oral 480 ml 1080 ml FFP 300 ml Output Urine Total 475 ml 600 ml 400 ml 850 ml 100 ml # Voids 1 3 # Bowel Movements 2 1 2 Result Diagram: 06/03/1638 06/03/16637 Objective Remarks GENERAL: patient sitting up in chair. Sleeping, wakes up for exam. Alert and oriented 3. Slightly confused however SKIN: Warm and dry. HEAD: Normocephalic. EYES: No scleral icterus. No injection or drainage. NECK: Supple, trachea midline. No JVD or lymphadenopathy. CARDIOVASCULAR: Regular rate and rhythm without murmurs, gallops, or rubs. RESPIRATORY: Breath sounds equal bilaterally. No accessory muscle use. GASTROINTESTINAL: Abdomen soft, non-tender, nondistended. MUSCULOSKELETAL: No cyanosis, or edema. patient does have large hematoma right lateral hip, with shallow ulcerations without signs of infection. BACK: Nontender without obvious deformity. No CVA tenderness. A/P Assessment and Plan Patient is a 71-year-old white male with primary medical history PE, HTN, hiatal hernia, chronic pain with pain pump who came into the hospital via ambulance status post fall at home. Patient had history of PE and was admitted to this hospital last March. He has been taking Xarelto 20 mg daily. He also has been having worsening cough x2 days, with sputum production. //Right proximal femur Large, 7.4 x 2.7 cm hematoma adjacent to the right proximal femur and tendon of the gluteus carol ann -increased in sized but softer. hemoglobin decreasing. -Hematology following. Appreciate assistance. He will improved after transfusion. Monitor. //Acute on chronic anemia -this has been chronic but has worsen due to hematoma. -continue to trend. see treatment as above. -Hemoglobin improved after transfusion. Continue monitor and transfuse as necessary. //metabolic encephalopathy -continues to be convinced that his hip is fractured. -Most likely due to illness and overdose on narcotics. -Patient still oriented 3, however with delusions. -Psych consulted and started seroquel 25 mg PO BID. -Reorient and reeducate as necessary. Appreciate psychiatry assistance. //chronic pain syndrome -patient shows signs of addiction and is taking more of his pain medication than prescribed. -As per previous provider "i d/w with Dr. Thomas over the phone in regards to my concern and he stated he will address this and will wean patient off. he also request his son attend next appointment. i spoke to Cameron the son and he stated he will attend his appointment." -Continue to avoid overtreating pain. //S/P fall, weakness //C2 fracture. False. - Cervical CT showed 1. 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 2. Anterior fixation at C6 to C7 with 20 fusion at C5 to C6. This is stable. 3. Facet hypertrophy bilateral at C3 to 4 and C4 to 5. Spinal canal is adequate throughout. No acute fracture. - NSG consulted and stated can d/c collar. Appears on old imaging. In 2013 //Pneumonia, community acquired, possible S. pneumonia - Chest x-ray showed hypoinflation with no acute cardiopulmonary process. - CT of the abdomen and pelvis 1. Bibasilar patchy airspace disease. This is probably //atelectasis although early infiltrate excluded. 2. Large, 7.4 x 2.7 cm hematoma adjacent to the right proximal femur and tendon of the gluteus carol ann. No associated fracture. 3. Mechanical ammonia fixation of the lumbar spine with bony donor graft from the heel bilaterally. 4. diverticular disease of the sigmoid without diverticulitis. - In the ED patient was given cefepime 1 g, Zithromax 500 mg - Azithromycin and ceftriaxone IV for now - Duonebs scheduled and PRN - O2 nc PRN //Pulmonary Embolism - on xarelto at home. - CT of the head shows no acute intracranial injury. - patient has hematoma. -per Guest History Clerk continue to hold xarelto and once stable can restart xarelto. //MAGGY -RESOLVED. -due to dehydration. //Tobacco use - counseled. Nicotine patch //HTN - continue home meds - Monitor BP //DVT prop -xarelto is held due to bleeding. Discharge Planning if hemoglobin remains stable and patient is cleared by hematology, can discharged to SNF. Ever Allen MD Jun 03, 2016 23:45
[2016-06-04] VITALS (15 sets, daily range): BP systolic 107–205; BP diastolic 76–104; PULSE 75–121; RESP 18–26; TEMP 94–99; O2SAT 61–98
[2016-06-04] MEDS: RESP: ALBUTEROL 2.5 MG/IPRATROPIUM 0.5 MG NEB (PRN) NEB (00:59)
[2016-06-04] MEDS ORDERED: POTASSIUM CHLORIDE 20 MEQ CONTROLLED RELEASE TAB PO ONE (01:15)
[2016-06-04] MEDS ORDERED: FUROSEMIDE 20 MG/2 ML VIAL IV PUSH ONE (01:15)
--- NOTE | 2016-06-04 01:29 | HHI.PR ---
Addendum to Inpatient Note Addendum Reason: Additional Documentation Additional Information S: Residents received call from call center at 12:55am regarding a HaliCAT. When resident team arrived in the room, patient was receiving nebulizer treatment, and nurse was on the phone with MONOGRAM OPERATOR from primary [facility] team. Resident team was informed that Chong was called for low pulse ox to 61% and hypertension to systolic blood pressure of 205. Patient is a 71-year-old man with a history of delirium who was admitted for fall and altered mental status. Patient seemed angry, paranoid, delirious. Patient denied any chest pain, shortness of breath, abdominal pain. O: Vitals per nurse report: Vitals at 00:45 temperature of 97.5, respiratory rate of 24, pulse of 121, blood pressure of 205-0104, pulse ox of 61% Vitals at 00:55: Respiratory rate is 24, pulse 114, blood pressure 181/92, pulse ox of 94% on 6 L/min O2 Vitals when we entered the room just after 1 AM: Pulse ox of 97% while patient receiving nebulizer treatment, pulse of 113, blood pressure 163/95 Gen.: Patient sitting up in bed receiving nebulizer treatment, awake and alert, seemed angry and tried to throw his T-piece at us HEENT: Moist mucous membranes (patient spat at us) Cardiovascular: Tachycardic rate Respiratory: Diffuse wheezes, more expiratory than inspiratory, more left side than right side Extremities: Warm and well-perfused, no redness, swelling, pain to palpation of calf muscles A/P: Patient is 71-year-old man who had a HaliCAT called for low pulse ox of 61 % and hypertension to systolic blood pressure of 205. Pulse ox and blood pressure had normalized with breathing treatment by the time residents entered patient room. Nurse was on the phone with [facility] MONOGRAM OPERATOR, who recommended plan. Resident team agreed with plan as below: ABG Chest x-ray Continue DuoNeb's Lasix with potassium repletion Karlo Torrez MD R1 Jun 04, 2016 01:29
[2016-06-04 01:32] LABS: BLOOD GAS BASE EXCESS -0.9 mmol/L (-2-2); BLOOD GAS CARBOXYHEMOGLOBIN 1.9 % (0-4); BLOOD GAS HCO3 23 mmol/L (22-26); BLOOD GAS METHEMOGLOBIN 0.7 % (0-2); BLOOD GAS O2 HGB SATURATION 92 % (90-100); BLOOD GAS PCO2 39 mmHg (38-42); BLOOD GAS PO2 77 mmHg (61-120); TEMP CORR TO 98.6
[2016-06-04 01:33] LABS: CRITICAL VALUE NO; DRAW SITE LT RADIAL; LITER FLOW 4 L/M; NUMBER OF ARTERIAL PUNCTURES 1; OXYGEN DEVICE NASAL CANNULA; STAT YES; ULNAR PULSE PRESENT
--- NOTE | 2016-06-04 01:36 | RADRPT ---
EXAM DATE/TIME: 06/04/2016 01:16 [facility] COMPARISON: CHEST SINGLE AP, May 30, 2016, 11:40. INDICATIONS : Congestion. Cough. MEDICAL HISTORY : None. SURGICAL HISTORY : Fusion, cervical. Fusion, lumbar. ENCOUNTER: Initial ACUITY: 1 day PAIN SCORE: 7/10 LOCATION: Bilateral chest FINDINGS: A single view of the chest demonstrates the lungs to be symmetrically aerated without evidence of mas s, infiltrate or effusion. The cardiomediastinal contours are unremarkable. Osseous structures are intact. Orthopedic hardware involving the base of the cervical spine as well as the thoracolumbar ravin ction. CONCLUSION: No acute disease. Jacob Schaffer Jr., MD on June 04, 2016 at 1:34 Board Certified Radiologist. This report was verified electronically.
[2016-06-04] MEDS ORDERED: methylPREDNISolone SOD SUCC 125 MG/2 ML VIAL IV PUSH ONE (02:30)
--- NOTE | 2016-06-04 02:49 | HHI.PR ---
Addendum to Inpatient Note Addendum Reason: Additional Documentation Additional Information Mr. Ball is a 71 y/o male with a history of right proximal femur 7.4 x 2.7 cm hematoma, pneumonia, and DVT/PE with Xarelto currently on hold for hematoma. LANNY was called at around 0100. On routine midnight assessment, the patient was found to have an oxygen saturation of 61% prompting the [facility]/rapid response team activation. The patient was given duonebulizer and oxygen was increased to 6 liters via nasal cannula with improvement in saturation immediately to 94% and then 96%. LANNY RN and nursing report patient's lungs sound congested. I ordered Lasix 20 mg IVP with potassium replacement (K+ 3.5 on am labs) Stat ABGs were within normal parameters on 4 liters of supplemental oxygen. Stat CXR was negative for acute disease. I saw the patient in his room. He denies chest pain and tells me he doesn't feel like he is having any problem breathing. He does report feeling fatigued and tired. Respiratory rate 20 - 24 with no accessory muscle use. He has diffuse expiratory wheezes throughout lung leary. Will treat for COPD exacerbation (reported recent 10 year history of smoking 1 PPD to admission hospitalist DALJIT). He is already on IV azithromycin and Ceftriaxone for pneumonia. Will add one time Solumedrol IV 125 mg and then 40 mg IV q6h, duonebs q6h ATC and titrated oxygen for lowest amount to maintain oxygen saturation > 92%. Further management deferred to daytime attending. Laquita Milner Jun 04, 2016 02:49
[2016-06-04 06:15] LABS: AUTOMATED NEUTROPHIL # 6.4 TH/MM3 (1.8-7.7); BASOPHIL % 0.4 % (0.0-2.0); EOSINOPHIL % 0.2 % (0.0-4.0); HEMATOCRIT 30.3 % (39.0-51.0); HEMO FLAGS DIFF FINAL; LYMPH % 9.4 % (9.0-44.0); LYMPHOCYTE # 0.7 TH/MM3 (1.0-4.8); MEAN CELL VOLUME 83.6 FL (80.0-100.0); MEAN CORPUSCULAR HEMOGLOBIN 27.7 PG (27.0-34.0); MEAN CORPUSCULAR HGB CONC 33.1 % (32.0-36.0); MONO % 4.3 % (0.0-8.0); NEUT % 85.7 % (16.0-70.0); PLATELET COUNT 254 TH/MM3 (150-450); RED BLOOD COUNT 3.62 MIL/MM3 (4.50-5.90); RED CELL DISTRIBUTION WIDTH 19.7 % (11.6-17.2); WHITE BLOOD COUNT 7.4 TH/MM3 (4.0-11.0)
[2016-06-04 06:48] LABS: BICARBONATE 26.6 MEQ/L (21.0-32.0); POTASSIUM 4.2 MEQ/L (3.5-5.1)
[2016-06-04] MEDS: RESP: ALBUTEROL 2.5 MG/IPRATROPIUM 0.5 MG NEB (SCH) NEB ×3 (09:04→20:27)
[2016-06-04] MEDS: GABAPENTIN 300 MG CAP PO SCH ×3 (09:41→17:25)
[2016-06-04] MEDS: FERROUS SULFATE 325 MG (65 MG ELEMENTAL IRON) TAB PO SCH (09:42)
[2016-06-04] MEDS: PANTOPRAZOLE SOD 20 MG DELAYED RELEASE TAB PO SCH (09:42)
[2016-06-04] MEDS: ESCITALOPRAM OXALATE 20 MG TAB PO SCH ×2 (09:42→21:26)
[2016-06-04] MEDS: QUEtiapine FUMARATE 25 MG TAB PO SCH ×2 (09:42→13:11)
[2016-06-04] MEDS: LISINOPRIL 10 MG TAB PO SCH ×2 (09:42→21:25)
[2016-06-04] MEDS: REMOVE OLD NICODERM (NICOTINE) PATCH TD SCH (09:42)
[2016-06-04] MEDS: NICOTINE 21 MG/24 HR PATCH TD SCH (09:42)
[2016-06-04] MEDS: METOPROLOL TARTRATE 25 MG TAB PO SCH ×2 (09:43→21:25)
[2016-06-04] MEDS: SODIUM CHLORIDE 0.9% FLUSH 5 ML FLUSH FLUSH SCH ×2 (09:43→21:25)
[2016-06-04] MEDS: methylPREDNISolone SOD SUCC 40 MG/1 ML VIAL IV PUSH SCH ×3 (09:43→21:25)
--- NOTE | 2016-06-04 12:26 | HHI.PR ---
Subjective Remarks Patient seen this morning around 10 AM. Says he is feeling all right. Denies any chest pain or shortness of breath. He says he does not quite know what happened last night, that people woke him up and were giving him treatments. She does say that his believes he has sleep apnea, but he has had this looked into. Events of overnight noted. Around 1 AM patient's oxygen saturation noted to be 61%. ABG acceptable, breathing treatments given. Chest x-ray with no acute disease. Again, patient says his believes he has sleep apnea. He shouldn't does note that he has been using Afrin either brand or generic since 1968, had not been using it here. He has it today Objective Vital Signs Date Time Temp Pulse Resp B/P Pulse Ox O2 Delivery O2 Flow Rate FiO2 06/04/16 09:05 93 Nasal Cannula 4.00 06/04/16 08:00 94.0 117 20 158/97 98 06/04/16 04:00 97.4 75 20 107/76 96 06/04/16 01:43 97 4.00 06/04/16 01:03 112 20 163/95 95 06/04/16 01:00 96 Nasal Cannula 6.00 06/04/16 00:55 117 24 181/92 94 06/04/16 00:45 97.5 121 24 205/104 61 06/04/16 00:00 99.0 103 26 171/94 93 06/03/16 20:00 88 06/03/16 20:00 98.6 59 24 134/67 96 06/03/16 19:48 98 21 06/03/16 17:45 88 06/03/16 16:00 98.7 81 18 159/88 96 06/03/16 12:42 98.3 101 18 178/83 96 I/O 06/03/16 06/03/16 06/03/16 06/04/16 06/04/16 06/04/16 07:00 15:00 23:00 07:00 15:00 23:00 Intake Total 300 ml 1080 ml Output Total 850 ml 100 ml 750 ml Balance -550 ml 980 ml -750 ml Intake Oral 1080 ml FFP 300 ml Output Urine Total 850 ml 100 ml 750 ml # Voids 3 # Bowel Movements 1 2 Result Diagram: 06/04/16 0536 06/04/16 0536 Objective Remarks GENERAL: patient sitting up in chair. Awake. Alert and oriented 3. Patient still confused. Says he does not know what exactly happened last night. SKIN: Warm and dry. HEAD: Normocephalic. EYES: No scleral icterus. No injection or drainage. NECK: Supple, trachea midline. No JVD. CARDIOVASCULAR: Regular rate and rhythm without murmurs, gallops, or rubs. RESPIRATORY: Breath sounds equal bilaterally. No accessory muscle use. GASTROINTESTINAL: Abdomen soft, non-tender, nondistended. MUSCULOSKELETAL: No cyanosis, or edema. patient does have large hematoma right lateral hip, with shallow ulcerations without signs of infection. Unchanged. BACK: Nontender without obvious deformity. No CVA tenderness. A/P Assessment and Plan Patient is a 71-year-old white male with primary medical history PE, HTN, hiatal hernia, chronic pain with pain pump who came into the hospital via ambulance status post fall at home. Patient had history of PE and was admitted to this hospital last March. He has been taking Xarelto 20 mg daily. He also has been having worsening cough x2 days, with sputum production. //Right proximal femur Large, 7.4 x 2.7 cm hematoma adjacent to the right proximal femur and tendon of the gluteus carol ann -increased in sized but softer. hemoglobin decreasing. -Hematology following. Appreciate assistance. Hemoglobin improved after transfusion. Monitor. //Acute on chronic anemia -this has been chronic but has worsen due to hematoma. -continue to trend. see treatment as above. -Hemoglobin improved after transfusion. Continue monitor and transfuse as necessary. //metabolic encephalopathy -continues to be convinced that his hip is fractured. -Most likely due to illness and overdose on narcotics. -Patient still oriented 3, however with delusions. -Psych consulted and started seroquel 25 mg PO BID. -Reorient and reeducate as necessary. Appreciate psychiatry assistance. = Stable. Probably exacerbated by sleep apnea. //Suspected sleep apnea 06/04. Around 1 AM patient's oxygen saturation noted to be 61%. ABG acceptable , breathing treatments given. Chest x-ray with no acute disease. -Patient reports believes he has sleep apnea but has not been tested. -06/04. We will start on CPAP at night for suspected sleep apnea. //chronic pain syndrome -patient shows signs of addiction and is taking more of his pain medication than prescribed. -As per previous provider "i d/w with Dr. Thomas over the phone in regards to my concern and he stated he will address this and will wean patient off. he also request his son attend next appointment. i spoke to Cameron the son and he stated he will attend his appointment." -Continue to avoid overtreating pain. //S/P fall, weakness //C2 fracture. False. - Cervical CT showed 1. 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 2. Anterior fixation at C6 to C7 with 20 fusion at C5 to C6. This is stable. 3. Facet hypertrophy bilateral at C3 to 4 and C4 to 5. Spinal canal is adequate throughout. No acute fracture. - NSG consulted and stated can d/c collar. Appears on old imaging. In 2013 //Pneumonia, community acquired, possible S. pneumonia - Chest x-ray showed hypoinflation with no acute cardiopulmonary process. - CT of the abdomen and pelvis 1. Bibasilar patchy airspace disease. This is probably //atelectasis although early infiltrate excluded. 2. Large, 7.4 x 2.7 cm hematoma adjacent to the right proximal femur and tendon of the gluteus carol ann. No associated fracture. 3. Mechanical ammonia fixation of the lumbar spine with bony donor graft from the heel bilaterally. 4. diverticular disease of the sigmoid without diverticulitis. - In the ED patient was given cefepime 1 g, Zithromax 500 mg - Azithromycin and ceftriaxone IV for now - Duonebs scheduled and PRN - O2 nc PRN //Pulmonary Embolism - on xarelto at home. - CT of the head shows no acute intracranial injury. - patient has hematoma. -per Denture Waxer continue to hold xarelto and once stable can restart xarelto. //MAGGY -RESOLVED. -due to dehydration. //Tobacco use - counseled. Nicotine patch //HTN - continue home meds - Monitor BP //DVT prop -xarelto is held due to bleeding. Discharge Planning Patient cleared by hematology. -Patient did have halicat Overnight. Trying CPAP. -If stable by tomorrow, can discharged to SNF. Ever Allen MD Jun 04, 2016 12:26
--- NOTE | 2016-06-04 14:16 | PD.ONC.PN ---
Subjective Subjective Remarks patient cheerful and feels that the hematoma is flatter. Objective Data Date Time Temp Pulse Resp B/P Pulse Ox O2 Delivery O2 Flow Rate FiO2 06/04/16 12:00 97.8 96 18 166/98 97 06/04/16 09:05 93 Nasal Cannula 4.00 06/04/16 08:00 94.0 117 20 158/97 98 06/04/16 07:00 81 06/04/16 04:00 97.4 75 20 107/76 96 06/04/16 01:43 97 4.00 06/04/16 01:03 112 20 163/95 95 06/04/16 01:00 96 Nasal Cannula 6.00 06/04/16 00:55 117 24 181/92 94 06/04/16 00:45 97.5 121 24 205/104 61 06/04/16 00:00 99.0 103 26 171/94 93 06/03/16 20:00 88 06/03/16 20:00 98.6 59 24 134/67 96 06/03/16 19:48 98 21 06/03/16 17:45 88 06/03/16 16:00 98.7 81 18 159/88 96 Result Diagram: 06/04/16 0536 06/04/16 0536 Laboratory Results Laboratory Tests Test 06/04/16 06/04/16 01:23 05:36 Blood Gas Puncture Site LT RADIAL Blood Gas Patient Temperature 98.6 Blood Gas HCO3 23 mmol/L Blood Gas Base Excess -0.9 mmol/L Blood Gas Oxygen Saturation 92 % Arterial Blood pH 7.40 Arterial Blood Partial 39 mmHg Pressure CO2 Arterial Blood Partial 77 mmHg Pressure O2 Arterial Blood Oxygen Content 13.0 Vol % Arterial Blood 1.9 % Carboxyhemoglobin Arterial Blood Methemoglobin 0.7 % Blood Gas Hemoglobin 10.0 G/DL Oxygen Delivery Device NASAL CANNULA Blood Gas Liter Flow 4 L/M White Blood Count 7.4 TH/MM3 Red Blood Count 3.62 MIL/MM3 Hemoglobin 10.0 GM/DL Hematocrit 30.3 % Mean Corpuscular Volume 83.6 FL Mean Corpuscular Hemoglobin 27.7 PG Mean Corpuscular Hemoglobin 33.1 % Concent Red Cell Distribution Width 19.7 % Platelet Count 254 TH/MM3 Mean Platelet Volume 7.1 FL Neutrophils (%) (Auto) 85.7 % Lymphocytes (%) (Auto) 9.4 % Monocytes (%) (Auto) 4.3 % Eosinophils (%) (Auto) 0.2 % Basophils (%) (Auto) 0.4 % Neutrophils # (Auto) 6.4 TH/MM3 Lymphocytes # (Auto) 0.7 TH/MM3 Monocytes # (Auto) 0.3 TH/MM3 Eosinophils # (Auto) 0.0 TH/MM3 Basophils # (Auto) 0.0 TH/MM3 CBC Comment DIFF FINAL Differential Comment Sodium Level 137 MEQ/L Potassium Level 4.2 MEQ/L Chloride Level 102 MEQ/L Carbon Dioxide Level 26.6 MEQ/L Anion Gap 8 MEQ/L Blood Urea Nitrogen 13 MG/DL Creatinine 0.75 MG/DL Estimat Glomerular Filtration 102 ML/MIN Rate Random Glucose 127 MG/DL Calcium Level 9.4 MG/DL Imaging Studies Last 24 hours Impressions Chest X-Ray 06/04/16 0000 Signed Impressions: Service Date/Time: Saturday, June 04, 2016 01:16 - CONCLUSION: No acute disease. Jacob Schaffer Jr., MD Administered Medications Medications (Trade) Dose Ordered Sig/Bisi Route PRN Reason Start Time Stop Time Status Last Admin Dose Admin IV Flush (NS Flush) 2 ml BID FLUSH 05/30/16 21:00 06/04/16 09:43 Acetaminophen (Tylenol) 650 mg Q4H PRN PO TEMP > 100.4 05/30/16 17:45 06/02/16 18:18 Ondansetron HCl 4 mg 4 mg Q6H PRN IVP NAUSEA OR VOMITING 05/30/16 17:45 06/02/16 12:33 Ceftriaxone Sodium/Sodium Chloride (Rocephin Inj/NS Inj) 100 ml @ 200 mls/hr Q24H IV 05/30/16 20:00 06/03/16 22:06 Nicotine (Habitrol 21 Mg Patch.24 Hr) 1 patch DAILY TD 05/30/16 17:45 06/04/16 09:42 Escitalopram Oxalate (Lexapro) 20 mg BID PO 05/30/16 21:00 06/04/16 09:42 Gabapentin (Neurontin) 600 mg TID PO 05/30/16 18:00 06/04/16 13:11 Lisinopril (Prinivil) 10 mg BID PO 05/30/16 21:00 06/04/16 09:42 Ferrous Sulfate (Ferrous Sulfate) 325 mg DAILY PO 05/31/16 09:00 06/04/16 09:42 Miscellaneous Information 1 HS TD 05/30/16 21:00 06/04/16 09:42 Pantoprazole Sodium (Protonix) 20 mg DAILY PO 05/31/16 09:00 06/04/16 09:42 Pravastatin Sodium (Pravachol) 80 mg HS PO 05/30/16 21:00 06/03/16 22:05 Quetiapine Fumarate (SEROquel) 25 mg BID@09,12 PO 06/01/16 09:00 06/04/16 13:11 Metoprolol Tartrate (Lopressor) 12.5 mg Q12HR PO 06/03/16 21:00 06/04/16 09:43 Methylprednisolone Sodium Succinate (SoluMEDROL INJ) 40 mg Q6H IV PUSH 06/04/16 09:00 06/04/16 09:43 Objective Remarks GENERAL: Well-nourished, well-developed patient. SKIN: Warm and dry. HEAD: Normocephalic. EYES: No scleral icterus. No injection or drainage. NECK: Supple, trachea midline. No JVD or lymphadenopathy. LYMPHATIC: No adenopathy. CARDIOVASCULAR: Regular rate and rhythm without murmurs. RESPIRATORY: Breath sounds equal bilaterally. No accessory muscle use. GASTROINTESTINAL: Abdomen soft, non-tender, nondistended. EXTREMITIES: large hematoma thigh hip area. non tender. PSYCHIATRIC: Appropriate mood and affect; insight and judgment normal. Assessment/Plan Assessment 1: H/H/ stable and in fact increase significantly after 1 unit of packed cells given recently. no new bleeding and the anticoagulation from the xarelto gone after 3 days. At this point nothing to do. Once hematoma has resolved can address options to include no further anticoagulation, aspirin, or reduced dose of xarelto or apixiaban. Decisions to be made later. 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 Plan 1. monitor CBC, coags 2. no need for transfusion today. Mirza De Luna MD Jun 04, 2016 14:16
[2016-06-04] MEDS: cefTRIAXone INJ 1,000 MG in SODIUM CHLORIDE 0.9% INJ 100 ML IV SCH (21:24)
[2016-06-04] MEDS: PRAVASTATIN SOD 80 MG TAB PO SCH (21:25)
[2016-06-05] VITALS (11 sets, daily range): BP systolic 132–180; BP diastolic 74–98; PULSE 81–108; RESP 16–22; TEMP 97.2–98.2; O2SAT 93–99
[2016-06-05] MEDS: methylPREDNISolone SOD SUCC 40 MG/1 ML VIAL IV PUSH SCH ×3 (03:00→15:53)
[2016-06-05] MEDS: GABAPENTIN 300 MG CAP PO SCH ×3 (08:25→18:18)
[2016-06-05] MEDS: ESCITALOPRAM OXALATE 20 MG TAB PO SCH ×2 (08:25→21:08)
[2016-06-05] MEDS: PANTOPRAZOLE SOD 20 MG DELAYED RELEASE TAB PO SCH (08:25)
[2016-06-05] MEDS: FERROUS SULFATE 325 MG (65 MG ELEMENTAL IRON) TAB PO SCH (08:25)
[2016-06-05] MEDS: NICOTINE 21 MG/24 HR PATCH TD SCH (08:26)
[2016-06-05] MEDS: LISINOPRIL 10 MG TAB PO SCH ×2 (08:26→21:08)
[2016-06-05] MEDS: QUEtiapine FUMARATE 25 MG TAB PO SCH ×2 (08:26→12:05)
[2016-06-05] MEDS: METOPROLOL TARTRATE 25 MG TAB PO SCH ×2 (08:26→21:08)
[2016-06-05] MEDS: SODIUM CHLORIDE 0.9% FLUSH 5 ML FLUSH FLUSH SCH ×2 (08:27→21:08)
[2016-06-05] MEDS: RESP: ALBUTEROL 2.5 MG/IPRATROPIUM 0.5 MG NEB (SCH) NEB ×2 (08:38→14:36)
--- NOTE | 2016-06-05 16:34 | HHI.PYPN ---
Subjective Remarks Patient see for psychiatric reevaluation, he is found calm, cooperative and pleasant, he is accompanied by his son, patient reports good, mood, states he is feeling much better and ready to take a determination with his opiates abuse. He says he is going to communicate his PCP everything about his addiction so he can monitor and control his prescriptions. Patient denies depression, anxiety, santa and perceptual disturbances at this time. He says there have been occasions he has seen a farm and animals in the window, also people coming inside his room, "But I know is just visions, no real". At this moment patient is fully oriented X3, Language, repetition, recent and immediate recall, abstraction, executive function seems to be intact. No agitation or aggressive behavior observed. Son confirms patient is now at baseline. Nurse in charge, Elba, expresses son concerns about internal preoccupations and sporadic visual hallucinations. Review of Systems Constitutional: DENIES: Diaphoretic episodes, Fatigue, Fever, Weight gain, Weight loss, Chills, Dizziness, Change in appetite, Night Sweats Endocrine: DENIES: Heat/cold intolerance, Polydipsia, Polyuria, Polyphagia Eyes: DENIES: Blurred vision, Diplopia, Eye inflammation, Eye pain, Vision loss , Photosensitivity, Double Vision Ears, nose, mouth, throat: DENIES: Tinnitus, Hearing loss, Vertigo, Nasal discharge, Oral lesions, Throat pain, Hoarseness, Ear Pain, Running Nose, Epistaxis, Sinus Pain, Toothache, Odynophagia Respiratory: DENIES: Apneas, Cough, Snoring, Wheezing, Hemoptysis, Sputum production, Shortness of breath Cardiovascular: DENIES: Chest pain, Palpitations, Syncope, Dyspnea on Exertion , PND, Lower Extremity Edema, Orthopnea, Claudication Gastrointestinal: DENIES: Abdominal pain, Black stools, Bloody stools, Constipation, Diarrhea, Nausea, Vomiting, Difficulty Swallowing, Anorexia Musculoskeletal: DENIES: Joint pain, Muscle aches, Stiffness, Joint Swelling, Back pain, Neck pain Integumentary: DENIES: Abnormal pigmentation, Nail changes, Pruritus, Rash Hematologic/lymphatic: DENIES: Bruising, Lymphadenopathy Immunologic/allergic: DENIES: Eczema, Urticaria Neurologic: DENIES: Abnormal gait, Headache, Localized weakness, Paresthesias, Seizures, Speech Problems, Tremor, Poor Balance Psychiatric: COMPLAINS OF: Hallucinations, DENIES: Anxiety, Confusion, Mood changes, Depression, Agitation, Suicidal Ideation, Homicidal Ideation, Delusions Objective Alert: Yes [place]: Person, Place, Date, Situation Mood: Calm Affect: Euthymic Memory Intact: Recent, Remote Hallucinations: Visual (episodic, seeing people and animal out of the window) Delusions: No Delusion Type: Other (None) Suicidal: Ideation (He denies ) Homicidal: Ideation (He denies ) Insight/Judgement good Vitals/IOs Vital Signs Date Time Temp Pulse Resp B/P Pulse Ox O2 Delivery O2 Flow Rate FiO2 06/05/16 15:10 100 06/05/16 12:00 97.2 18 142/82 96 06/05/16 08:39 Nasal Cannula 2.00 06/03/16 19:48 21 Intake and Output 06/04/16 06/04/16 06/05/16 08:00 16:00 00:00 Intake Total 40 ml Output Total 875 ml Balance -835 ml Assessment & Plan Problem List: (1) Delirium due to another medical condition Assessment & Plan: No acute psychosis, depression, agitation or aggressive behavior at this moment. Patient is fully oriented. Continue Seroquel 25 mg bid. ICD Code: F05 Assessment & Plan Estimated LOS: days Justification for Cont. Inpt. Does not neet impatient psychiatric admission Rajeev Lyle MD Jun 05, 2016 16:34
[2016-06-05] MEDS: REMOVE OLD NICODERM (NICOTINE) PATCH TD SCH (21:00)
[2016-06-05] MEDS ORDERED: LORazepam 2 MG/ML VIAL IV ONE (21:00)
[2016-06-05] MEDS ORDERED: HALOPERIDOL LACTATE 5 MG/ML AMP IV ONE (21:00)
[2016-06-05] MEDS: PRAVASTATIN SOD 80 MG TAB PO SCH (21:08)
[2016-06-05] MEDS: cefTRIAXone INJ 1,000 MG in SODIUM CHLORIDE 0.9% INJ 100 ML IV SCH (21:08)
[2016-06-05] MEDS: RESP: ALBUTEROL 2.5 MG/IPRATROPIUM 0.5 MG NEB (PRN) NEB (21:34)
[2016-06-06 05:39] VITALS: O2SAT 98
[2016-06-06] MEDS ORDERED: HALOPERIDOL LACTATE 5 MG/ML AMP IM PRN (07:45)
--- NOTE | 2016-06-06 08:04 | HHI.PYPN ---
Subjective Remarks Patient seen today for follow up in the [facility] patient seen today for psychiatric reevaluation in the morning, breathing with difficulties with CPAP, patient seemed to be sleepy, fatigue, distant, patient is oriented 3, calm, cooperative , no agitation or aggressive behavior observed. However, patient endorses visual hallucinations of people coming inside his room at night, is difficult for him to differentiate from reality and not feel scared and anxious about it. Last night nurse in charge called me because patient was agitated, very anxious, guarded, talking to him self and non existent people around the room, no following verbal redirection and filially needing rapid tranquilization with Haldol 2 mg and Ativan 2mg. Review of Systems Other Marked SOB, Other than that no significant changes since yesterday. Objective Alert: Yes [place]: Person, Place, Date, Situation Mood: Anxious Affect: Restricted Memory Intact: Recent, Remote Hallucinations: Visual (episodic, seeing people and animal out of the window) Delusions: No Delusion Type: Other (None) Suicidal: Ideation (He denies ) Homicidal: Ideation (He denies ) Insight/Judgement Fair Vitals/IOs Vital Signs Date Time Temp Pulse Resp B/P Pulse Ox O2 Delivery O2 Flow Rate FiO2 06/06/16 05:39 98 30 06/05/16 20:00 97.9 100 22 137/82 06/05/16 08:39 Nasal Cannula 2.00 Intake and Output 06/05/16 06/05/16 06/05/16 07:59 15:59 23:59 Intake Total 480 ml 210 ml Output Total 350 ml Balance -350 ml 480 ml 210 ml Assessment & Plan Problem List: (1) Delirium due to another medical condition Assessment & Plan: Patient presenting episodic psychosis consisting in visual hallucinations, paranoia, agitation and disorganized behavior. Difficult to manage in the floor, as per nurses. Will increase Seroquel to 50 mg twice a day , also will order Haldol 2 mg IM/IV every 8 hours when necessary aggressive behavior and agitation. Will recommend admission in the med psych unit. ICD Code: F05 Assessment & Plan Estimated LOS: days Justification for Cont. Inpt. Patient would benefit of psychiatric admission in MEd/psy unit to continue medical treatment and monitoring behavior, mood and psychosis Rajeev Lyle MD Jun 06, 2016 08:04
[2016-06-06 08:40] VITALS: O2SAT 97
[2016-06-06 08:54] VITALS: BP 155/70; PULSE 59; RESP 20; TEMP 97.2; O2SAT 96
--- NOTE | 2016-06-06 08:58 | HHI.PR ---
Subjective Remarks Late entry. note entered previously, however apparently did not save. Date of service 06/05/16. Patient seen in the morning, walking around. Reports hearing voices, however acknowledges that they are not there. He says he hears family, however they are not there. Discussed with nursing. Discontinue steroids. Decrease sedating medications. Patient will be moved to room close to nursing station. Objective Vital Signs Date Time Temp Pulse Resp B/P Pulse Ox O2 Delivery O2 Flow Rate FiO2 06/06/16 08:40 97 06/06/16 05:39 98 30 06/05/16 21:50 98 30 06/05/16 21:35 93 06/05/16 20:00 97.9 100 22 137/82 96 06/05/16 16:00 97.7 84 19 132/74 95 06/05/16 15:10 100 06/05/16 15:09 100 06/05/16 12:00 97.2 81 18 142/82 96 I/O 06/05/16 06/05/16 06/05/16 06/06/16 06/06/16 06/06/16 07:00 15:00 23:00 07:00 15:00 23:00 Intake Total 480 ml 210 ml 105 ml Output Total 350 ml Balance -350 ml 480 ml 210 ml 105 ml Intake Oral 480 ml 210 ml IV Total 105 ml Output Urine Total 350 ml # Voids 2 2 0 # Bowel Movements 0 0 0 0 Result Diagram: 06/04/16 0536 06/04/16 0536 Objective Remarks GENERAL: patient walking around outside room, subsequently sitting up in chair. Awake. Alert and oriented 3. Patient hearing voices, family. however goes to look, says no one is there SKIN: Warm and dry. HEAD: Normocephalic. EYES: No scleral icterus. No injection or drainage. NECK: Supple, trachea midline. No JVD. CARDIOVASCULAR: Regular rate and rhythm without murmurs, gallops, or rubs. RESPIRATORY: Breath sounds equal bilaterally. No accessory muscle use. GASTROINTESTINAL: Abdomen soft, non-tender, nondistended. MUSCULOSKELETAL: No cyanosis, or edema. patient does have large hematoma right lateral hip, with shallow ulcerations without signs of infection. Unchanged. BACK: Nontender without obvious deformity. No CVA tenderness. A/P Assessment and Plan Patient is a 71-year-old white male with primary medical history PE, HTN, hiatal hernia, chronic pain with pain pump who came into the hospital via ambulance status post fall at home. Patient had history of PE and was admitted to this hospital last March. He has been taking Xarelto 20 mg daily. He also has been having worsening cough x2 days, with sputum production. //Right proximal femur Large, 7.4 x 2.7 cm hematoma adjacent to the right proximal femur and tendon of the gluteus carol ann -increased in sized but softer. hemoglobin decreasing. -Hematology following. Appreciate assistance. Hemoglobin improved after transfusion. Monitor. //Acute on chronic anemia -this has been chronic but has worsen due to hematoma. -continue to trend. see treatment as above. -Hemoglobin improved after transfusion. Continue monitor and transfuse as necessary. //metabolic encephalopathy -continues to be convinced that his hip is fractured. -Most likely due to illness and overdose on narcotics. -Patient still oriented 3, however with delusions. -Psych consulted and started seroquel 25 mg PO BID. -Reorient and reeducate as necessary. Appreciate psychiatry assistance. = Stable. Probably exacerbated by sleep apnea. //Suspected sleep apnea 06/04. Around 1 AM patient's oxygen saturation noted to be 61%. ABG acceptable , breathing treatments given. Chest x-ray with no acute disease. -Patient reports believes he has sleep apnea but has not been tested. -06/04. We will start on CPAP at night for suspected sleep apnea. //chronic pain syndrome -patient shows signs of addiction and is taking more of his pain medication than prescribed. -As per previous provider "i d/w with Dr. Thomas over the phone in regards to my concern and he stated he will address this and will wean patient off. he also request his son attend next appointment. i spoke to Cameron the son and he stated he will attend his appointment." -Continue to avoid overtreating pain. //S/P fall, weakness //C2 fracture. False. - Cervical CT showed 1. 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 2. Anterior fixation at C6 to C7 with 20 fusion at C5 to C6. This is stable. 3. Facet hypertrophy bilateral at C3 to 4 and C4 to 5. Spinal canal is adequate throughout. No acute fracture. - NSG consulted and stated can d/c collar. Appears on old imaging. In 2014 //Pneumonia, community acquired, possible S. pneumonia - Chest x-ray showed hypoinflation with no acute cardiopulmonary process. - CT of the abdomen and pelvis 1. Bibasilar patchy airspace disease. This is probably //atelectasis although early infiltrate excluded. 2. Large, 7.4 x 2.7 cm hematoma adjacent to the right proximal femur and tendon of the gluteus carol ann. No associated fracture. 3. Mechanical ammonia fixation of the lumbar spine with bony donor graft from the heel bilaterally. 4. diverticular disease of the sigmoid without diverticulitis. - In the ED patient was given cefepime 1 g, Zithromax 500 mg - Azithromycin and ceftriaxone IV for now - Duonebs scheduled and PRN - O2 nc PRN //Pulmonary Embolism - on xarelto at home. - CT of the head shows no acute intracranial injury. - patient has hematoma. 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 //MAGGY -RESOLVED. -due to dehydration. //Tobacco use - counseled. Nicotine patch //HTN - continue home meds - Monitor BP //hospital-induced delirium, with auditory hallucinations -possibly exacerbated by steroids. We'll discontinue. Continue reorientation by nursing. Have asked nursing to request family come to accompany patient. //DVT prop -xarelto is held due to bleeding. Discharge Planning Patient cleared by hematology. -patient with auditory hallucinations. Will stop steroids. -If stable by tomorrow, can discharged to SNF. Ever Allen MD Jun 06, 2016 08:58
[2016-06-06] MEDS: METOPROLOL TARTRATE 25 MG TAB PO SCH ×2 (09:00→20:56)
[2016-06-06] MEDS: SODIUM CHLORIDE 0.9% FLUSH 5 ML FLUSH FLUSH SCH ×2 (09:13→20:58)
[2016-06-06] MEDS: ESCITALOPRAM OXALATE 20 MG TAB PO SCH ×2 (09:13→20:57)
[2016-06-06] MEDS: LISINOPRIL 10 MG TAB PO SCH ×2 (09:14→20:57)
[2016-06-06] MEDS: FERROUS SULFATE 325 MG (65 MG ELEMENTAL IRON) TAB PO SCH (09:14)
[2016-06-06] MEDS: PANTOPRAZOLE SOD 20 MG DELAYED RELEASE TAB PO SCH (09:14)
[2016-06-06] MEDS: GABAPENTIN 300 MG CAP PO SCH ×3 (09:14→16:24)
[2016-06-06] MEDS: QUEtiapine FUMARATE 25 MG TAB PO SCH ×2 (09:14→11:42)
[2016-06-06] MEDS: NICOTINE 21 MG/24 HR PATCH TD SCH (09:15)
[2016-06-06 09:50] LABS: BLOOD GAS BASE EXCESS 2.1 mmol/L (-2-2); BLOOD GAS CARBOXYHEMOGLOBIN 2.2 % (0-4); BLOOD GAS HCO3 26 mmol/L (22-26); BLOOD GAS METHEMOGLOBIN 0.6 % (0-2); BLOOD GAS O2 HGB SATURATION 90 % (90-100); BLOOD GAS OXYGEN CONTENT 11.8 Vol % (12.0-20.0); BLOOD GAS PCO2 38 mmHg (38-42); BLOOD GAS PO2 65 mmHg (61-120); BLOOD GAS TOTAL HGB 9.3 G/DL (12.0-16.0); CRITICAL VALUE NO; DRAW SITE LT RADIAL; NUMBER OF ARTERIAL PUNCTURES 1; OXYGEN DEVICE RA; STAT NO; TEMP CORR TO 98.6; ULNAR PULSE Y
[2016-06-06 10:18] LABS: AUTOMATED NEUTROPHIL # 4.4 TH/MM3 (1.8-7.7); BASOPHIL % 0.3 % (0.0-2.0); EOSINOPHIL % 0.1 % (0.0-4.0); HEMATOCRIT 24.9 % (39.0-51.0); HEMO FLAGS DIFF FINAL; LYMPH % 21.2 % (9.0-44.0); LYMPHOCYTE # 1.3 TH/MM3 (1.0-4.8); MEAN CELL VOLUME 83.6 FL (80.0-100.0); MEAN CORPUSCULAR HEMOGLOBIN 28.3 PG (27.0-34.0); MEAN CORPUSCULAR HGB CONC 33.8 % (32.0-36.0); MONO % 7.9 % (0.0-8.0); NEUT % 70.5 % (16.0-70.0); PLATELET COUNT 241 TH/MM3 (150-450); RED BLOOD COUNT 2.98 MIL/MM3 (4.50-5.90); RED CELL DISTRIBUTION WIDTH 19.2 % (11.6-17.2); WHITE BLOOD COUNT 6.2 TH/MM3 (4.0-11.0)
[2016-06-06 10:35] LABS: ALKALINE PHOSPHATASE 38 U/L (45-117); ALT (GPT) 20 U/L (12-78); ANION GAP 8 MEQ/L (5-15); AST (GOT) 15 U/L (15-37); BICARBONATE 28.1 MEQ/L (21.0-32.0); BLOOD UREA NITROGEN 22 MG/DL (7-18); CHLORIDE 101 MEQ/L (98-107); GLOMERULAR FILTRATION RATE 117 ML/MIN (>89); POTASSIUM 3.7 MEQ/L (3.5-5.1); SODIUM (NA) 137 MEQ/L (136-145); TOTAL BILIRUBIN ADULT 0.7 MG/DL (0.2-1.0)
--- NOTE | 2016-06-06 10:47 | PD.ONC.PN ---
Subjective Subjective Remarks Afebrile overnight. Continues to have some oozing from right hip hematoma. Objective Data Date Time Temp Pulse Resp B/P Pulse Ox O2 Delivery O2 Flow Rate FiO2 06/06/16 08:54 97.2 59 20 155/70 96 06/06/16 08:40 97 06/06/16 05:39 98 30 06/05/16 21:50 98 30 06/05/16 21:35 93 06/05/16 20:00 97.9 100 22 137/82 96 06/05/16 16:00 97.7 84 19 132/74 95 06/05/16 15:10 100 06/05/16 15:09 100 06/05/16 12:00 97.2 81 18 142/82 96 06/06/16 06/06/16 06/06/16 07:00 15:00 23:00 Intake Total 105 ml Output Total 150 ml Balance 105 ml -150 ml Result Diagram: 06/06/16 1000 06/06/16 1000 Laboratory Results Laboratory Tests Test 06/06/16 06/06/16 00:00 10:00 Blood Gas Puncture Site LT RADIAL Blood Gas Patient Temperature 98.6 Blood Gas HCO3 26 mmol/L Blood Gas Base Excess 2.1 mmol/L Blood Gas Oxygen Saturation 90 % Arterial Blood pH 7.45 Arterial Blood Partial 38 mmHg Pressure CO2 Arterial Blood Partial 65 mmHg Pressure O2 Arterial Blood Oxygen Content 11.8 Vol % Arterial Blood 2.2 % Carboxyhemoglobin Arterial Blood Methemoglobin 0.6 % Blood Gas Hemoglobin 9.3 G/DL Oxygen Delivery Device RA White Blood Count 6.2 TH/MM3 Red Blood Count 2.98 MIL/MM3 Hemoglobin 8.4 GM/DL Hematocrit 24.9 % Mean Corpuscular Volume 83.6 FL Mean Corpuscular Hemoglobin 28.3 PG Mean Corpuscular Hemoglobin 33.8 % Concent Red Cell Distribution Width 19.2 % Platelet Count 241 TH/MM3 Mean Platelet Volume 6.9 FL Neutrophils (%) (Auto) 70.5 % Lymphocytes (%) (Auto) 21.2 % Monocytes (%) (Auto) 7.9 % Eosinophils (%) (Auto) 0.1 % Basophils (%) (Auto) 0.3 % Neutrophils # (Auto) 4.4 TH/MM3 Lymphocytes # (Auto) 1.3 TH/MM3 Monocytes # (Auto) 0.5 TH/MM3 Eosinophils # (Auto) 0.0 TH/MM3 Basophils # (Auto) 0.0 TH/MM3 CBC Comment DIFF FINAL Differential Comment Sodium Level 137 MEQ/L Potassium Level 3.7 MEQ/L Chloride Level 101 MEQ/L Carbon Dioxide Level 28.1 MEQ/L Anion Gap 8 MEQ/L Blood Urea Nitrogen 22 MG/DL Creatinine 0.67 MG/DL Estimat Glomerular Filtration 117 ML/MIN Rate Random Glucose 88 MG/DL Calcium Level 8.7 MG/DL Total Bilirubin 0.7 MG/DL Aspartate Amino Transf 15 U/L (AST/SGOT) Alanine Aminotransferase 20 U/L (ALT/SGPT) Alkaline Phosphatase 38 U/L Ammonia 34 MCMOL/L Total Protein 6.3 GM/DL Albumin 3.1 GM/DL Administered Medications Medications (Trade) Dose Ordered Sig/Bisi Route PRN Reason Start Time Stop Time Status Last Admin Dose Admin IV Flush (NS Flush) 2 ml BID FLUSH 05/30/16 21:00 06/06/16 09:13 Acetaminophen (Tylenol) 650 mg Q4H PRN PO TEMP > 100.4 05/30/16 17:45 06/02/16 18:18 Ondansetron HCl 4 mg 4 mg Q6H PRN IVP NAUSEA OR VOMITING 05/30/16 17:45 06/02/16 12:33 Ceftriaxone Sodium/Sodium Chloride (Rocephin Inj/NS Inj) 100 ml @ 200 mls/hr Q24H IV 05/30/16 20:00 06/05/16 21:08 Nicotine (Habitrol 21 Mg Patch.24 Hr) 1 patch DAILY TD 05/30/16 17:45 06/06/16 09:15 Escitalopram Oxalate (Lexapro) 20 mg BID PO 05/30/16 21:00 06/06/16 09:13 Gabapentin (Neurontin) 600 mg TID PO 05/30/16 18:00 06/06/16 09:14 Lisinopril (Prinivil) 10 mg BID PO 05/30/16 21:00 06/06/16 09:14 Ferrous Sulfate (Ferrous Sulfate) 325 mg DAILY PO 05/31/16 09:00 06/06/16 09:14 Miscellaneous Information 1 HS TD 05/30/16 21:00 06/05/16 21:00 Pantoprazole Sodium (Protonix) 20 mg DAILY PO 05/31/16 09:00 06/06/16 09:14 Pravastatin Sodium (Pravachol) 80 mg HS PO 05/30/16 21:00 06/05/16 21:08 Metoprolol Tartrate (Lopressor) 12.5 mg Q12HR PO 06/03/16 21:00 06/05/16 21:08 Quetiapine Fumarate (SEROquel) 50 mg BID@09,12 PO 06/06/16 09:00 06/06/16 09:14 Objective Remarks GENERAL: Elderly male, lying supine in bed in nad SKIN: Warm and dry. HEAD: Normocephalic. EYES: No injection or drainage. NECK: Supple, trachea midline CARDIOVASCULAR: Regular rate and rhythm RESPIRATORY: Breath sounds equal bilaterally. No accessory muscle use. GASTROINTESTINAL: Abdomen soft, non-tender, nondistended. EXTREMITIES: No cyanosis. hematoma right thigh with bandage over oozing blood blister. NEUROLOGICAL: awake and alert, normal speech. moving all extremities. Assessment/Plan Problem List: (1) Hematoma of thigh Status: Acute Plan: --s/p 8 units FFP --hematoma 7.4 x 2.7 cm adjacent to the right proximal femur. (2) History of DVT (deep vein thrombosis) Status: Acute Plan: --was on xarelto prior to admission ----will need to ensure that bleeding into the hematoma has resolved before anticoagulant therapy could be resumed. Assessment 1: H/H/ stable and in fact increase significantly after 1 unit of packed cells given recently. no new bleeding and the anticoagulation from the xarelto gone after 3 days. At this point nothing to do. Once hematoma has resolved can address options to include no further anticoagulation, aspirin, or reduced dose of xarelto or apixiaban. Decisions to be made later. 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 Plan 1. monitor hematoma, CBC 2. no need for transfusion today. Attending Statement The exam, history, and the medical decision-making described in the above note were completed with the assistance of the mid-level provider. I reviewed and agree with the findings presented. I attest that I had a [id number] encounter with the patient on the same day, and personally performed and documented my assessment and findings in the medical record. Pt seen and examined. R thigh hematoma improving, less tight. Noted small area of open skin with bleeding, dressing changed, pressure placed. Pt doing well, no confusion today, bright and stronger, eager to go back home to take care of . Family told him about his confusion, he believes that has now resolved completely. Advised to fu w/ Dr. Jernigan his PCP after DC home. He has appt with Dr. Blake, securities supervisor already set up in July. Defer starting anticoagulation as has a risk for bleeding with skin abrasion- needs to scab over to stop bleeding. Hematoma needs to resolve. No recurrence of DVT while off anticoagulation. Problem Qualifiers (1) Hematoma of thigh: Qualified Code: S70.11XD - Hematoma of thigh, right, subsequent encounter Zelda Ulrich Jun 06, 2016 10:46 Sima Parker MD Jun 06, 2016 19:50
[2016-06-06 12:00] VITALS: BP 141/81; PULSE 74; RESP 20; TEMP 97.1; O2SAT 96
--- NOTE | 2016-06-06 13:02 | HHI.PR ---
Subjective Remarks pt seen at 11. sleeping, wakes for exam. much more brittani per nursing. receive haldol IM x1. Objective Vital Signs Date Time Temp Pulse Resp B/P Pulse Ox O2 Delivery O2 Flow Rate FiO2 06/06/16 12:00 97.1 74 20 141/81 96 06/06/16 08:54 97.2 59 20 155/70 96 06/06/16 08:40 97 06/06/16 05:39 98 30 06/05/16 21:50 98 30 06/05/16 21:35 93 06/05/16 20:00 97.9 100 22 137/82 96 06/05/16 16:00 97.7 84 19 132/74 95 06/05/16 15:10 100 06/05/16 15:09 100 I/O 06/05/16 06/05/16 06/05/16 06/06/16 06/06/16 06/06/16 07:00 15:00 23:00 07:00 15:00 23:00 Intake Total 480 ml 210 ml 105 ml Output Total 350 ml 150 ml Balance -350 ml 480 ml 210 ml 105 ml -150 ml Intake Oral 480 ml 210 ml IV Total 105 ml Output Urine Total 350 ml 150 ml # Voids 2 2 0 # Bowel Movements 0 0 0 0 Result Diagram: 06/06/16 1000 06/06/16 1000 Objective Remarks GENERAL: Patient sleeping, wakes up for exam. Somnolent, however wakes up alert , still oriented 3. She denies hearing voices. SKIN: Warm and dry. HEAD: Normocephalic. EYES: No scleral icterus. No injection or drainage. NECK: Supple, trachea midline. No JVD. CARDIOVASCULAR: Regular rate and rhythm without murmurs, gallops, or rubs. RESPIRATORY: Breath sounds equal bilaterally. No accessory muscle use. GASTROINTESTINAL: Abdomen soft, non-tender, nondistended. MUSCULOSKELETAL: No cyanosis, or edema. patient does have large hematoma right lateral hip, with shallow ulcerations without signs of infection. Unchanged. BACK: Nontender without obvious deformity. No CVA tenderness. A/P Assessment and Plan 06/06 //Hospital-induced delirium, agitation. Improved off of steroids, on Seroquel. Suspect agitation, audatory hallucinations were exacerbated by steroids. dcd steroids 06/05. haldol im x1= very sedated--cont seroquel. appreciate psych assist //Hematoma //History of pulmonary embolism --HG slight decrease. cont to hold anticoagulation. appreciate heme assist. Patient is a 71-year-old white male with primary medical history PE, HTN, hiatal hernia, chronic pain with pain pump who came into the hospital via ambulance status post fall at home. Patient had history of PE and was admitted to this hospital last March. He has been taking Xarelto 20 mg daily. He also has been having worsening cough x2 days, with sputum production. //Right proximal femur Large, 7.4 x 2.7 cm hematoma adjacent to the right proximal femur and tendon of the gluteus carol ann -increased in sized but softer. hemoglobin decreasing. -Hematology following. Appreciate assistance. Hemoglobin improved after transfusion. Monitor. //Acute on chronic anemia -this has been chronic but has worsen due to hematoma. -continue to trend. see treatment as above. -Hemoglobin improved after transfusion. Continue monitor and transfuse as necessary. //metabolic encephalopathy -continues to be convinced that his hip is fractured. -Most likely due to illness and overdose on narcotics. -Patient still oriented 3, however with delusions. -Psych consulted and started seroquel 25 mg PO BID. -Reorient and reeducate as necessary. Appreciate psychiatry assistance. = Will exacerbate his hospitalization, sleep apnea, steroids. Avoid sedating medications. Continue Seroquel. //Suspected sleep apnea 06/04. Around 1 AM patient's oxygen saturation noted to be 61%. ABG acceptable , breathing treatments given. Chest x-ray with no acute disease. -Patient reports believes he has sleep apnea but has not been tested. -06/04. We will start on CPAP at night for suspected sleep apnea. = Patient refuses CPAP. We'll avoid oversedation. //chronic pain syndrome -patient shows signs of addiction and is taking more of his pain medication than prescribed. -As per previous provider "i d/w with Dr. Thomas over the phone in regards to my concern and he stated he will address this and will wean patient off. he also request his son attend next appointment. i spoke to Cameron the son and he stated he will attend his appointment." -Continue to avoid overtreating pain. //S/P fall, weakness //C2 fracture. False. - Cervical CT showed 1. 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 2. Anterior fixation at C6 to C7 with 20 fusion at C5 to C6. This is stable. 3. Facet hypertrophy bilateral at C3 to 4 and C4 to 5. Spinal canal is adequate throughout. No acute fracture. - NSG consulted and stated can d/c collar. Appears on old imaging. In 2013 //Pneumonia, community acquired, possible S. pneumonia - Chest x-ray showed hypoinflation with no acute cardiopulmonary process. - CT of the abdomen and pelvis 1. Bibasilar patchy airspace disease. This is probably //atelectasis although early infiltrate excluded. 2. Large, 7.4 x 2.7 cm hematoma adjacent to the right proximal femur and tendon of the gluteus carol ann. No associated fracture. 3. Mechanical ammonia fixation of the lumbar spine with bony donor graft from the heel bilaterally. 4. diverticular disease of the sigmoid without diverticulitis. - In the ED patient was given cefepime 1 g, Zithromax 500 mg - Azithromycin and ceftriaxone IV for now - Duonebs scheduled and PRN - O2 nc PRN //Pulmonary Embolism - on xarelto at home. - CT of the head shows no acute intracranial injury. - patient has hematoma. 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 //MAGGY -RESOLVED. -due to dehydration. //Tobacco use - counseled. Nicotine patch //HTN - continue home meds - Monitor BP //hospital-induced delirium, with auditory hallucinations -06/05 possibly exacerbated by steroids. We'll discontinue. -06/06. Improved on Seroquel, off steroids. Discontinue Haldol. Continue Seroquel. Continue to monitor. //DVT prop -xarelto is held due to bleeding. Discharge Planning Appreciate hematology assistance. -patient with auditory hallucinations. Will stop steroids. -If stable by tomorrow, can discharged to SNF. Ever Allen MD Jun 06, 2016 13:02
[2016-06-06 16:15] VITALS: BP 129/67; PULSE 106; RESP 18; TEMP 98; O2SAT 96
[2016-06-06] MEDS: PRAVASTATIN SOD 80 MG TAB PO SCH (20:57)
[2016-06-06] MEDS: REMOVE OLD NICODERM (NICOTINE) PATCH TD SCH (20:58)
[2016-06-06] MEDS: cefTRIAXone INJ 1,000 MG in SODIUM CHLORIDE 0.9% INJ 100 ML IV SCH (20:59)
[2016-06-06 21:13] VITALS: BP 150/88; PULSE 106; RESP 17; TEMP 97; O2SAT 97
[2016-06-07] VITALS (8 sets, daily range): BP systolic 133–155; BP diastolic 70–78; PULSE 59–92; RESP 17–20; TEMP 95.8–98.1; O2SAT 93–99
[2016-06-07] MEDS: LISINOPRIL 10 MG TAB PO SCH ×2 (08:59→22:19)
[2016-06-07] MEDS: FERROUS SULFATE 325 MG (65 MG ELEMENTAL IRON) TAB PO SCH (08:59)
[2016-06-07] MEDS: SODIUM CHLORIDE 0.9% FLUSH 5 ML FLUSH FLUSH SCH ×2 (08:59→22:20)
[2016-06-07] MEDS: QUEtiapine FUMARATE 25 MG TAB PO SCH (08:59)
[2016-06-07] MEDS: GABAPENTIN 300 MG CAP PO SCH ×3 (09:00→16:50)
[2016-06-07] MEDS: METOPROLOL TARTRATE 25 MG TAB PO SCH ×2 (09:00→22:19)
[2016-06-07] MEDS: ESCITALOPRAM OXALATE 20 MG TAB PO SCH ×2 (09:00→22:18)
[2016-06-07] MEDS: PANTOPRAZOLE SOD 20 MG DELAYED RELEASE TAB PO SCH (09:00)
[2016-06-07] MEDS: NICOTINE 21 MG/24 HR PATCH TD SCH (09:01)
--- NOTE | 2016-06-07 10:45 | PD.ONC.PN ---
Subjective Subjective Remarks Afebrile overnight. patient continues to have some oozing from right thigh. Endorses minimal pain. Objective Data Date Time Temp Pulse Resp B/P Pulse Ox O2 Delivery O2 Flow Rate FiO2 06/07/16 09:33 95 Nasal Cannula 2.00 06/07/16 08:17 97.4 59 18 147/73 93 06/07/16 00:32 97.6 70 17 149/78 99 06/06/16 21:13 97.0 106 17 150/88 97 06/06/16 16:15 98.0 106 18 129/67 96 06/06/16 12:00 97.1 74 20 141/81 96 06/07/16 06/07/16 06/07/16 07:00 15:00 23:00 Intake Total 640 ml Output Total 0 ml Balance 640 ml Result Diagram: 06/06/16 1000 06/06/16 1000 Administered Medications Medications (Trade) Dose Ordered Sig/Bisi Route PRN Reason Start Time Stop Time Status Last Admin Dose Admin IV Flush (NS Flush) 2 ml BID FLUSH 05/30/16 21:00 06/07/16 08:59 Acetaminophen (Tylenol) 650 mg Q4H PRN PO TEMP > 100.4 05/30/16 17:45 06/02/16 18:18 Ondansetron HCl 4 mg 4 mg Q6H PRN IVP NAUSEA OR VOMITING 05/30/16 17:45 06/02/16 12:33 Ceftriaxone Sodium/Sodium Chloride (Rocephin Inj/NS Inj) 100 ml @ 200 mls/hr Q24H IV 05/30/16 20:00 06/06/16 20:59 Nicotine (Habitrol 21 Mg Patch.24 Hr) 1 patch DAILY TD 05/30/16 17:45 06/07/16 09:01 Escitalopram Oxalate (Lexapro) 20 mg BID PO 05/30/16 21:00 06/07/16 09:00 Gabapentin (Neurontin) 600 mg TID PO 05/30/16 18:00 06/07/16 09:00 Lisinopril (Prinivil) 10 mg BID PO 05/30/16 21:00 06/07/16 08:59 Ferrous Sulfate (Ferrous Sulfate) 325 mg DAILY PO 05/31/16 09:00 06/07/16 08:59 Miscellaneous Information 1 HS TD 05/30/16 21:00 06/06/16 20:58 Pantoprazole Sodium (Protonix) 20 mg DAILY PO 05/31/16 09:00 06/07/16 09:00 Pravastatin Sodium (Pravachol) 80 mg HS PO 05/30/16 21:00 06/06/16 20:57 Metoprolol Tartrate (Lopressor) 12.5 mg Q12HR PO 06/03/16 21:00 06/06/16 20:56 Quetiapine Fumarate (SEROquel) 50 mg BID@09,12 PO 06/06/16 09:00 06/07/16 08:59 Objective Remarks GENERAL: Elderly male, resting in bed in nad. SKIN: Warm and dry. HEAD: Normocephalic. EYES: No injection or drainage. NECK: Supple, trachea midline CARDIOVASCULAR: +S1/S2 RESPIRATORY: anterior leary clear GASTROINTESTINAL: Abdomen soft, non-tender, nondistended. EXTREMITIES: No cyanosis. ecchymoses + hematoma stretching along lateral right thigh with bandage with small amount of blood seepage NEUROLOGICAL: awake and alert, normal speech. Assessment/Plan Problem List: (1) Hematoma of thigh Status: Acute Plan: --s/p 8 units FFP --hematoma 7.4 x 2.7 cm adjacent to the right proximal femur. (2) History of DVT (deep vein thrombosis) Status: Acute Plan: --was on xarelto prior to admission ----will need to ensure that bleeding into the hematoma has resolved before anticoagulant therapy could be resumed. Assessment 1: H/H/ stable and in fact increase significantly after 1 unit of packed cells given recently. no new bleeding and the anticoagulation from the xarelto gone after 3 days. At this point nothing to do. Once hematoma has resolved can address options to include no further anticoagulation, aspirin, or reduced dose of xarelto or apixiaban. Decisions to be made later. I am not sure why the large doses of steroids at this point and wonder if we can begin to decrease the steroids to avoid prison complications. Plan 1. monitor hematoma 2. await CBC today 3. hold AC until resolution of hematoma Attending Statement Discussed above. Cont to hold anticoagulation due to oozing R thigh hematoma. Problem Qualifiers (1) Hematoma of thigh: Qualified Code: S70.11XD - Hematoma of thigh, right, subsequent encounter Zelda Ulrich Jun 07, 2016 10:44 Sima Parker MD Jun 07, 2016 18:14
[2016-06-07 11:59] LABS: AUTOMATED NEUTROPHIL # 2.9 TH/MM3 (1.8-7.7); BASOPHIL % 0.9 % (0.0-2.0); EOSINOPHIL # 0.2 TH/MM3 (0-0.4); EOSINOPHIL % 3.5 % (0.0-4.0); HEMATOCRIT 29.2 % (39.0-51.0); HEMO FLAGS DIFF FINAL; LYMPH % 23.3 % (9.0-44.0); LYMPHOCYTE # 1.1 TH/MM3 (1.0-4.8); MEAN CELL VOLUME 84.5 FL (80.0-100.0); MEAN CORPUSCULAR HEMOGLOBIN 27.7 PG (27.0-34.0); MEAN CORPUSCULAR HGB CONC 32.8 % (32.0-36.0); MONO % 11.4 % (0.0-8.0); NEUT % 60.9 % (16.0-70.0); PLATELET COUNT 269 TH/MM3 (150-450); RED BLOOD COUNT 3.46 MIL/MM3 (4.50-5.90); RED CELL DISTRIBUTION WIDTH 19.4 % (11.6-17.2); WHITE BLOOD COUNT 4.7 TH/MM3 (4.0-11.0)
--- NOTE | 2016-06-07 12:13 | HHI.PYPN ---
Subjective Remarks Patient seen for psychiatric reevaluation today, patient was found in his bed, calm, cooperative and pleasant, patient says that he is happy with the results of his hospitalization, reports good mood, denies anhedonia, denies hopelessness , denies worthlessness, denies suicidal ideation, however he continued to have problems sleeping at night, periods of agitation, visual hallucinations of people coming inside his room. Patient had to be medicated with Haldol 2 mg IM stat yesterday, nurse in charge reports patient continues to be internally preoccupied at night, with what seems to be like manic episode. Review of Systems Constitutional: DENIES: Diaphoretic episodes, Fatigue, Fever, Weight gain, Weight loss, Chills, Dizziness, Change in appetite, Night Sweats Endocrine: DENIES: Heat/cold intolerance, Polydipsia, Polyuria, Polyphagia Eyes: DENIES: Blurred vision, Diplopia, Eye inflammation, Eye pain, Vision loss , Photosensitivity, Double Vision Ears, nose, mouth, throat: DENIES: Tinnitus, Hearing loss, Vertigo, Nasal discharge, Oral lesions, Throat pain, Hoarseness, Ear Pain, Running Nose, Epistaxis, Sinus Pain, Toothache, Odynophagia Respiratory: DENIES: Apneas, Cough, Snoring, Wheezing, Hemoptysis, Sputum production, Shortness of breath Cardiovascular: DENIES: Chest pain, Palpitations, Syncope, Dyspnea on Exertion , PND, Lower Extremity Edema, Orthopnea, Claudication Gastrointestinal: DENIES: Abdominal pain, Black stools, Bloody stools, Constipation, Diarrhea, Nausea, Vomiting, Difficulty Swallowing, Anorexia Musculoskeletal: DENIES: Joint pain, Muscle aches, Stiffness, Joint Swelling, Back pain, Neck pain Integumentary: DENIES: Abnormal pigmentation, Nail changes, Pruritus, Rash Hematologic/lymphatic: DENIES: Bruising, Lymphadenopathy Psychiatric: COMPLAINS OF: Hallucinations Objective Alert: Yes [place]: Person, Place, Date, Situation Mood: Anxious Affect: Restricted Memory Intact: Recent, Remote Hallucinations: Visual (episodic, seeing people and animal out of the window) Delusions: No Delusion Type: Other (None) Suicidal: Ideation (He denies ) Homicidal: Ideation (He denies ) Insight/Judgement Fair Labs Test 06/07/16 11:17 White Blood Count 4.7 TH/MM3 Red Blood Count 3.46 MIL/MM3 Hemoglobin 9.6 GM/DL Hematocrit 29.2 % Mean Corpuscular Volume 84.5 FL Mean Corpuscular Hemoglobin 27.7 PG Mean Corpuscular Hemoglobin 32.8 % Concent Red Cell Distribution Width 19.4 % Platelet Count 269 TH/MM3 Mean Platelet Volume 7.3 FL Neutrophils (%) (Auto) 60.9 % Lymphocytes (%) (Auto) 23.3 % Monocytes (%) (Auto) 11.4 % Eosinophils (%) (Auto) 3.5 % Basophils (%) (Auto) 0.9 % Neutrophils # (Auto) 2.9 TH/MM3 Lymphocytes # (Auto) 1.1 TH/MM3 Monocytes # (Auto) 0.5 TH/MM3 Eosinophils # (Auto) 0.2 TH/MM3 Basophils # (Auto) 0.0 TH/MM3 CBC Comment DIFF FINAL Differential Comment Vitals/IOs Vital Signs Date Time Temp Pulse Resp B/P Pulse Ox O2 Delivery O2 Flow Rate FiO2 06/07/16 09:33 95 Nasal Cannula 2.00 06/07/16 08:17 97.4 59 18 147/73 06/06/16 05:39 30 Intake and Output 06/06/16 06/06/16 06/07/16 08:00 16:00 00:00 Intake Total 105 ml 720 ml Output Total 150 ml Balance 105 ml 570 ml Assessment & Plan Problem List: (1) Delirium due to another medical condition ICD Code: F05 (2) Unspecified psychosis Assessment & Plan: Patient continued to endorse nighttime visual hallucinations and agitation. As per nurses patient is usually fine during the day, but at night difficult to manage in the floor, with "manic-like episode". We transferred the patient to the med psych unit to continue his medical care and monitoring of behavior and hallucinations. Will discontinue the morning dose of Seroquel and increase Seroquel at bedtime to 100 mg. Will order Haldol 2 mg IV every 8 hours when necessary agitation and aggressive behavior. ICD Code: F29 Assessment & Plan Estimated LOS: days Justification for Cont. Inpt. Patient needs psychiatric admission for stabilization of psychosis and agitation Rajeev Lyle MD Jun 07, 2016 12:13
--- NOTE | 2016-06-07 16:28 | HHI.PR ---
Subjective Remarks f/u for hematoma and delirium. Patient is AAO 3. He has no complaints. Patient stated he is ready to go home. Patient, that he is walking area in which she did show me that he is able to walk to bathroom with no difficulty. Patient stated that he is unsure if the hematoma grew or not. He has no complaints. Patient very anxious to go home. Objective Vitals Vital Signs Date Time Temp Pulse Resp B/P Pulse Ox O2 Delivery O2 Flow Rate FiO2 06/07/16 10:00 95.8 68 18 155/70 93 06/07/16 09:33 95 Nasal Cannula 2.00 06/07/16 08:17 97.4 59 18 147/73 93 06/07/16 00:32 97.6 70 17 149/78 99 06/06/16 21:13 97.0 106 17 150/88 97 I/O 06/06/16 06/06/16 06/06/16 06/07/16 06/07/16 06/07/16 07:00 15:00 23:00 07:00 15:00 23:00 Intake Total 105 ml 720 ml 640 ml Output Total 150 ml 0 ml Balance 105 ml 570 ml 640 ml Intake Oral 720 ml 640 ml IV Total 105 ml Output Urine Total 150 ml 0 ml # Voids 0 2 2 # Bowel Movements 0 0 Result Diagram: 06/07/16 1117 06/06/16 1000 Objective Remarks GENERAL: in NAD CARDIOVASCULAR: Regular rate and rhythm without murmurs, gallops, or rubs. RESPIRATORY: Breath sounds equal bilaterally. No accessory muscle use. GASTROINTESTINAL: Abdomen soft, non-tender, nondistended. MUSCULOSKELETAL: right lateral thigh hematoma with ecchymosis. BACK: Nontender without obvious deformity. No CVA tenderness. Medications and IVs Current Medications Acetaminophen 650 mg 650 mg ONCE ONCE PO Last administered on 05/30/16 11:56 ; Start 05/30/16 at 11:30; Stop 05/30/16 at 11:31; Status DC Sodium Chloride 1,000 ml @ 1,000 mls/hr Q1H IV Last administered on 05/30/16 11:53; Start 05/30/16 at 11:24; Stop 05/30/16 at 12:23; Status DC Cefepime HCl 1000 mg/Sodium Chloride 100 ml @ 200 mls/hr ONCE ONCE IV Last administered on 05/30/16 12:59; Start 05/30/16 at 12:30; Stop 05/30/16 at 12:59 ; Status DC Azithromycin 500 mg/Sodium Chloride 250 ml @ 250 mls/hr ONCE ONCE IV Last administered on 05/30/16 12:30; Start 05/30/16 at 12:30; Stop 05/30/16 at 13:29 ; Status DC Sodium Chloride 1,000 ml @ 1,000 mls/hr Q1H IV Last administered on 05/30/16 18:11; Start 05/30/16 at 15:39; Stop 05/30/16 at 16:38; Status DC Sodium Chloride (NS 1000 ml Inj) 1,000 ml @ 100 mls/hr Q10H IV Last administered on 05/30/16 19:56; Start 05/30/16 at 17:35; Stop 05/31/16 at 18:03 ; Status DC IV Flush (NS Flush) 2 ml UNSCH PRN FLUSH FLUSH AFTER USING IV ACCESS; Start at 17:45 IV Flush (NS Flush) 2 ml BID FLUSH Last administered on 06/07/16 08:59; Start 05/30/16 at 21:00 Acetaminophen (Tylenol) 650 mg Q4H PRN PO TEMP > 100.4 Last administered on 18:18; Start 05/30/16 at 17:45 Ondansetron HCl (Zofran Inj) 4 mg Q6H PRN IVP NAUSEA OR VOMITING Last administered on 06/02/16 12:33; Start 05/30/16 at 17:45 Bisacodyl (Dulcolax Supp) 10 mg DAILY PRN [place] CONSTIPATION; Start 05/30/16 at 17 :45 Magnesium Hydroxide (Milk Of Magnesia Liq) 30 ml Q12H PRN PO CONSTIPATION; Start 05/30/16 at 17:45 Naloxone HCl 0.4 mg 0.4 mg UNSCH PRN IV SEE LABEL COMMENTS; Start 05/30/16 at 17:45 Azithromycin 250 mg/Sodium Chloride 250 ml @ 250 mls/hr Q24H IV Last administered on 06/03/16 09:19; Start 05/31/16 at 09:00; Stop 06/04/16 at 08:59 ; Status DC Ceftriaxone Sodium/Sodium Chloride (Rocephin Inj/NS Inj) 100 ml @ 200 mls/hr Q24H IV Last administered on 06/06/16 20:59; Start 05/30/16 at 20:00 Albuterol/ Ipratropium (Duoneb Neb) 1 ampule Q6HR WHILE AWAKE NEB NEB Last administered on 06/03/16 19:48; Start 05/30/16 at 20:00; Stop 06/03/16 at 20:00 ; Status DC Albuterol/ Ipratropium (Duoneb Neb) 1 ampule Q4HR NEB PRN NEB SOB/ wheezing Last administered on 06/05/16 21:34; Start 05/30/16 at 17:45 Nicotine (Habitrol 21 Mg Patch.24 Hr) 1 patch DAILY TD Last administered on 09:01; Start 05/30/16 at 17:45 Escitalopram Oxalate (Lexapro) 20 mg BID PO Last administered on 06/07/16 09: 00; Start 05/30/16 at 21:00 Gabapentin (Neurontin) 600 mg TID PO Last administered on 06/07/16 12:21; Start 05/30/16 at 18:00 Lisinopril (Prinivil) 10 mg BID PO Last administered on 06/07/16 08:59; Start 05/30/16 at 21:00 Non-Formulary Medication 20 mg DAILY PO ; Start 05/31/16 at 09:00; Status UNV Non-Formulary Medication 40 mg HS PO CM; Start 05/30/16 at 21:00; Status UNV Ferrous Sulfate (Ferrous Sulfate) 325 mg DAILY PO Last administered on 08:59; Start 05/31/16 at 09:00 Miscellaneous Information 1 HS TD Last administered on 06/06/16 20:58; Start 05/30/16 at 21:00 Pantoprazole Sodium (Protonix) 20 mg DAILY PO Last administered on 06/07/16 09 :00; Start 05/31/16 at 09:00 Pravastatin Sodium (Pravachol) 80 mg HS PO Last administered on 06/06/16 20:57 ; Start 05/30/16 at 21:00 Quetiapine Fumarate (SEROquel) 25 mg BID@09,12 PO Last administered on 12:05; Start 06/01/16 at 09:00; Stop 06/06/16 at 07:47; Status DC Rivaroxaban (Xarelto) 20 mg DAILY PO ; Start 05/31/16 at 18:00; Status Cancel Acetaminophen (Tylenol) 650 mg Q4H PRN PO SEE LABEL COMMENTS; Start 05/31/16 at 18:00; Stop 05/31/16 at 22:01; Status DC Diphenhydramine HCl (Benadryl) 25 mg Q4H PRN PO SEE LABEL COMMENTS; Start 05/31 at 18:00; Stop 05/31/16 at 22:01; Status DC Diphenhydramine HCl (Benadryl) 25 mg Q4H PRN PO SEE LABEL COMMENTS Last administered on 05/31/16 23:59; Start 05/31/16 at 22:45; Stop 06/01/16 at 02:46 ; Status DC Acetaminophen (Tylenol) 650 mg Q4H PRN PO SEE LABEL COMMENTS; Start 05/31/16 at 22:45; Stop 06/01/16 at 02:46; Status DC Acetaminophen (Tylenol) 650 mg Q4H PRN PO SEE LABEL COMMENTS; Start 06/01/16 at 18:45; Stop 06/01/16 at 22:46; Status DC Diphenhydramine HCl (Benadryl) 25 mg Q4H PRN PO SEE LABEL COMMENTS; Start 06/01 at 18:45; Stop 06/01/16 at 22:46; Status DC Calcium Carbonate 500 mg 500 mg ONCE ONCE CHEW Last administered on 06/01/16 21:25; Start 06/01/16 at 19:00; Stop 06/01/16 at 19:01; Status DC Sodium Chloride (NS 250 ml Inj) 250 ml @ 15 mls/hr ONCE ONCE IV Last administered on 06/02/16 08:00; Start 06/02/16 at 08:00; Stop 06/03/16 at 00:39 ; Status DC Metoprolol Tartrate (Lopressor) 12.5 mg Q12HR PO Last administered on 20:56; Start 06/03/16 at 21:00 Metoprolol Tartrate (Lopressor) 12.5 mg ONCE ONCE PO Last administered on 06/03 12:52; Start 06/03/16 at 12:45; Stop 06/03/16 at 12:46; Status DC Miscellaneous (Pill Splitter) 1 ea UNSCH PRN OTHER SEE LABEL COMMENTS; Start at 12:45 Furosemide (Lasix Inj) 20 mg ONCE ONCE IV PUSH Last administered on 06/04/16 01:16; Start 06/04/16 at 01:15; Stop 06/04/16 at 01:16; Status DC Potassium Chloride (KCl) 20 meq ONCE ONCE PO Last administered on 06/04/16 01 :16; Start 06/04/16 at 01:15; Stop 06/04/16 at 01:16; Status DC Albuterol/ Ipratropium (Duoneb Neb) 1 ampule Q6HR WHILE AWAKE NEB NEB Last administered on 06/05/16 14:36; Start 06/04/16 at 08:00; Stop 06/05/16 at 16:09 ; Status DC Methylprednisolone Sodium Succinate (SoluMEDROL INJ) 125 mg ONCE ONCE IV PUSH Last administered on 06/04/16 02:35; Start 06/04/16 at 02:30; Stop 06/04/16 at 02:31; Status DC Methylprednisolone Sodium Succinate (SoluMEDROL INJ) 40 mg Q6H IV PUSH Last administered on 06/05/16 08:27; Start 06/04/16 at 09:00; Stop 06/05/16 at 16:09 ; Status DC Haloperidol Lactate (Haldol Inj) 2 mg NOW ONCE IV Last administered on 21:07; Start 06/05/16 at 21:00; Stop 06/05/16 at 21:01; Status DC Lorazepam (Ativan Inj) 2 mg NOW ONCE IV Last administered on 06/05/16 21:07; Start 06/05/16 at 21:00; Stop 06/05/16 at 21:01; Status DC Quetiapine Fumarate (SEROquel) 50 mg BID@09,12 PO Last administered on 08:59; Start 06/06/16 at 09:00; Stop 06/07/16 at 12:05; Status DC Haloperidol Lactate (Haldol Inj) 2 mg Q8H PRN IM aggre/agitation ; Start at 07:45; Stop 06/06/16 at 12:39; Status DC Quetiapine Fumarate (SEROquel) 100 mg HS PO ; Start 06/07/16 at 21:00 A/P Problem List: (1) Fall ICD Code: W19.XXXA Status: Acute (2) Altered mental status ICD Code: R41.82 Status: Acute (3) Pneumonia ICD Code: J18.9 Status: Acute (4) Acute kidney injury ICD Code: N17.9 Status: Acute (5) Pulmonary embolism ICD Code: I26.99 Status: Acute Assessment and Plan Patient is a 71-year-old white male with primary medical history PE, HTN, hiatal hernia, chronic pain with pain pump who came into the hospital via ambulance status post fall at home. Patient had history of PE and was admitted to this hospital last March. He has been taking Xarelto 20 mg daily. He also has been having worsening cough x2 days, with sputum production. //Right proximal femur Large, 7.4 x 2.7 cm hematoma adjacent to the right proximal femur and tendon of the gluteus carol ann -increased in sized but softer. hemoglobin stable. -Hematology following. Appreciate assistance. Hemoglobin improved after transfusion. Monitor. //Acute on chronic anemia -this has been chronic but has worsen due to hematoma. -continue to trend. see treatment as above. -Hemoglobin improved after transfusion. Continue monitor and transfuse as necessary. //metabolic encephalopathy -IMPROVED. -Most likely due to illness and overdose on narcotics. -Psych consulted and started seroquel 25 mg PO BID. -exacerbate his hospitalization, sleep apnea, steroids. Avoid sedating medications. Continue Seroquel. //Suspected sleep apnea 06/04. Around 1 AM patient's oxygen saturation noted to be 61%. ABG acceptable , breathing treatments given. Chest x-ray with no acute disease. -Patient reports believes he has sleep apnea but has not been tested. -06/04. We will start on CPAP at night for suspected sleep apnea. = Patient refuses CPAP. We'll avoid oversedation. //chronic pain syndrome -patient shows signs of addiction and is taking more of his pain medication than prescribed. -As per previous provider "i d/w with Dr. Thomas over the phone in regards to my concern and he stated he will address this and will wean patient off. he also request his son attend next appointment. i spoke to Cameron the son and he stated he will attend his appointment." -Continue to avoid overtreating pain. //S/P fall, weakness //C2 fracture. False. - Cervical CT showed 1. 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 2. Anterior fixation at C6 to C7 with 20 fusion at C5 to C6. This is stable. 3. Facet hypertrophy bilateral at C3 to 4 and C4 to 5. Spinal canal is adequate throughout. No acute fracture. - NSG consulted and stated can d/c collar. Appears on old imaging. In 2013 //Pneumonia, community acquired, possible S. pneumonia - Chest x-ray showed hypoinflation with no acute cardiopulmonary process. - CT of the abdomen and pelvis 1. Bibasilar patchy airspace disease. This is probably //atelectasis although early infiltrate excluded. 2. Large, 7.4 x 2.7 cm hematoma adjacent to the right proximal femur and tendon of the gluteus carol ann. No associated fracture. 3. Mechanical ammonia fixation of the lumbar spine with bony donor graft from the heel bilaterally. 4. diverticular disease of the sigmoid without diverticulitis. - In the ED patient was given cefepime 1 g, Zithromax 500 mg - Azithromycin and ceftriaxone IV for now - Duonebs scheduled and PRN - O2 nc PRN //Pulmonary Embolism - on xarelto at home. - CT of the head shows no acute intracranial injury. - patient has hematoma. -per Launchman continue to hold xarelto and once stable can restart xarelto. //MAGGY -RESOLVED. -due to dehydration. //Tobacco use - counseled. Nicotine patch //HTN - continue home meds - Monitor BP //hospital-induced delirium, with auditory hallucinations -06/05 possibly exacerbated by steroids. We'll discontinue. -06/06. Improved on Seroquel, off steroids. Discontinue Haldol. Continue Seroquel. Continue to monitor. //DVT prop -xarelto is held due to bleeding. Discharge Planning once cleared by demand planning analyst patient can be discharged to home. Launchman wants to continue to monitor hemoglobin. Problem Qualifiers (1) Fall: Qualified Code: W19.XXXA - Fall, initial encounter (2) Altered mental status: Qualified Code: R40.0 - Somnolence Kelly Fontanez MD Jun 07, 2016 16:28
[2016-06-07] MEDS: REMOVE OLD NICODERM (NICOTINE) PATCH TD SCH (21:00)
[2016-06-07] MEDS ORDERED: QUEtiapine FUMARATE 100 MG TAB PO SCH (21:00)
[2016-06-07] MEDS: PRAVASTATIN SOD 80 MG TAB PO SCH (22:18)
[2016-06-07] MEDS: cefTRIAXone INJ 1,000 MG in SODIUM CHLORIDE 0.9% INJ 100 ML IV SCH (22:22)
[2016-06-08 00:14] VITALS: BP 135/74; PULSE 88; RESP 20; TEMP 98.7; O2SAT 99
[2016-06-08 07:30] LABS: AUTOMATED NEUTROPHIL # 2.3 TH/MM3 (1.8-7.7); BASOPHIL % 0.9 % (0.0-2.0); EOSINOPHIL # 0.3 TH/MM3 (0-0.4); EOSINOPHIL % 5.5 % (0.0-4.0); HEMATOCRIT 27.8 % (39.0-51.0); HEMO FLAGS DIFF FINAL; LYMPH % 35.4 % (9.0-44.0); LYMPHOCYTE # 1.7 TH/MM3 (1.0-4.8); MEAN CELL VOLUME 84.3 FL (80.0-100.0); MEAN CORPUSCULAR HEMOGLOBIN 29.2 PG (27.0-34.0); MEAN CORPUSCULAR HGB CONC 34.7 % (32.0-36.0); NEUT % 48.2 % (16.0-70.0); PLATELET COUNT 284 TH/MM3 (150-450); RED CELL DISTRIBUTION WIDTH 19.6 % (11.6-17.2); WHITE BLOOD COUNT 4.7 TH/MM3 (4.0-11.0)
[2016-06-08 08:00] VITALS: BP 142/69; PULSE 63; RESP 20; TEMP 97.2; O2SAT 95
[2016-06-08] MEDS: SODIUM CHLORIDE 0.9% FLUSH 5 ML FLUSH FLUSH SCH (09:48)
[2016-06-08] MEDS: PANTOPRAZOLE SOD 20 MG DELAYED RELEASE TAB PO SCH (09:48)
[2016-06-08] MEDS: ESCITALOPRAM OXALATE 20 MG TAB PO SCH (09:48)
[2016-06-08] MEDS: LISINOPRIL 10 MG TAB PO SCH (09:49)
[2016-06-08] MEDS: FERROUS SULFATE 325 MG (65 MG ELEMENTAL IRON) TAB PO SCH (09:49)
[2016-06-08] MEDS: NICOTINE 21 MG/24 HR PATCH TD SCH (09:49)
[2016-06-08] MEDS: METOPROLOL TARTRATE 25 MG TAB PO SCH (09:49)
[2016-06-08] MEDS: GABAPENTIN 300 MG CAP PO SCH ×3 (09:49→17:11)
[2016-06-08] MEDS ORDERED: METO25TA3 PO (10:06)
[2016-06-08] MEDS ORDERED: LEVA750T PO (10:06)
[2016-06-08] MEDS ORDERED: FERR325T PO (10:06)
[2016-06-08] MEDS ORDERED: QUET1TAB8 PO (10:06)
[2016-06-08] MEDS ORDERED: NICO21DI2 TD (10:06)
--- NOTE | 2016-06-08 10:06 | HHI.DS ---
Discharge Summary Admission Date May 30, 2016 at 16:17 Discharge Date: Jun 08, 2016 Admitting Diagnosis altered mental status, pneumonia, fall (1) Fall ICD Code: W19.XXXA Diagnosis: Principal (2) Altered mental status ICD Code: R41.82 Diagnosis: Principal (3) Pneumonia ICD Code: J18.9 Diagnosis: Principal (4) Acute kidney injury ICD Code: N17.9 Diagnosis: Principal (5) Pulmonary embolism ICD Code: I26.99 Diagnosis: Secondary Procedures none Brief History - From Admission Patient is a 71-year-old white male with primary medical history PE, HTN, hiatal hernia, chronic pain with pain pump who came into the hospital via ambulance status post fall at home. Son at the bedside, helping with obtaining most of the information. 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 He was found on the floor. Reported that he hit his head on the counter and landed on his right side. Patient had history of PE and was admitted to this hospital last March he was discharged home with Coumadin but will switch over by his strap machine operator to Xarelto. He has been taking Xarelto 20 mg daily. As per his son, due to his chronic pain he goes to his doctor and gets his refill of narcotic medications were in it alters him and sedates him. Believing that this is the cause of his fall. Patient is able to respond to most questions, carry out conversation, and able to follow commands. Patient also states that he started smoking 10 years ago about a pack per day. States that he's been having congestion that has been worsening with increasing cough and sputum production for about 2 days. Complains of chest pain every time he coughs rated as 1/10, sharp, nonradiating, aggravated by coughing, relieved by rest. Reproducible by pressing midsternal and right side area. States he's been eating well. He denies fevers, chills, nausea, vomiting, diarrhea. He denies dysuria, hematuria, abdominal pain and cramping. EKG reviewed sinus rhythm at 69 with left bundle branch Labs reviewed. Leukocytosis 12.2, mild normochromic normocytic anemia 12.3/37.5 , CMP showed elevated BUN 28, creatinine 1.66, EGFR 41, random glucose 135. Within normal lactic acid. First troponin less than 0.02. BNP 80. CT of the head shows no acute intracranial injury. Cervical CT showed 1. 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 2. Anterior fixation at C6 to C7 with 20 fusion at C5 to C6. This is stable. 3. Facet hypertrophy bilateral at C3 to 4 and C4 to 5. Spinal canal is adequate throughout. No acute fracture. CT of the abdomen and pelvis 1. Bibasilar patchy airspace disease. This is probably atelectasis although early infiltrate excluded. 2. Large, 7.4 x 2.7 cm hematoma adjacent to the right proximal femur and tendon of the gluteus carol ann. No associated fracture. 3. Mechanical ammonia fixation of the lumbar spine with bony donor graft from the heel bilaterally. 4. diverticular disease of the sigmoid without diverticulitis. Chest x-ray showed hypoinflation with no acute cardiopulmonary process. CBC/BMP: 06/08/16 0641 06/06/16 1000 Significant Findings Laboratory Tests Test 06/06/16 06/06/16 06/07/16 06/08/16 09:40 10:00 11:17 06:41 Blood Gas Base Excess 2.1 mmol/L (-2-2) Arterial Blood pH 7.45 (7.380-7.420) Arterial Blood Oxygen Content 11.8 Vol % (12.0-20.0) Blood Gas Hemoglobin 9.3 G/DL (12.0-16.0) Red Blood Count 2.98 MIL/MM3 3.46 MIL/MM3 3.30 MIL/MM3 (4.50-5.90) (4.50-5.90) (4.50-5.90) Hemoglobin 8.4 GM/DL 9.6 GM/DL 9.6 GM/DL (13.0-17.0) (13.0-17.0) (13.0-17.0) Hematocrit 24.9 % 29.2 % 27.8 % (39.0-51.0) (39.0-51.0) (39.0-51.0) Red Cell Distribution Width 19.2 % 19.4 % 19.6 % (11.6-17.2) (11.6-17.2) (11.6-17.2) Mean Platelet Volume 6.9 FL (7.0-11.0) Neutrophils (%) (Auto) 70.5 % (16.0-70.0) Blood Urea Nitrogen 22 MG/DL (7-18) Alkaline Phosphatase 38 U/L (45-117) Ammonia 34 MCMOL/L (11-32) Total Protein 6.3 GM/DL (6.4-8.2) Albumin 3.1 GM/DL (3.4-5.0) Monocytes (%) (Auto) 11.4 % 10.0 % (0.0-8.0) (0.0-8.0) Eosinophils (%) (Auto) 5.5 % (0.0-4.0) Imaging Last Impressions Chest X-Ray 06/04/16 0000 Signed Impressions: Service Date/Time: Saturday, June 04, 2016 01:16 - CONCLUSION: No acute disease. Jacob Schaffer Jr., MD Head CT 05/30/16 0000 Signed Impressions: Service Date/Time: Monday, May 30, 2016 14:04 - CONCLUSION: No acute intracranial injury Nicho Andrews MD Cervical Spine CT 05/30/16 0000 Signed Impressions: Service Date/Time: Monday, May 30, 2016 14:04 - CONCLUSION: 1. 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 2. Anterior fixation at C6-7 with bony fusion at C5-6. This is stable. 3. Facet hypertrophy bilaterally at C3-4 and C4-5. Spinal canal is adequate throughout. No acute fracture. Miguel Morrissey MD Abdomen/Pelvis CT 05/30/16 0000 Signed Impressions: Service Date/Time: Monday, May 30, 2016 14:06 - CONCLUSION: 1. Bibasilar patchy airspace disease. This is probably atelectatic although early infiltrate cannot be excluded. 2. Large, 7.4 x 2.7 cm hematoma adjacent to the right proximal femur and tendon of the gluteus carol ann. No associated fracture 3. Mechanical and bony fixation of the lumbar spine with bony donor graft from the ilii bilaterally. 4. Diverticular disease of the sigmoid without diverticulitis. Miguel Morrissey MD PE at Discharge GENERAL: in NAD CARDIOVASCULAR: Regular rate and rhythm without murmurs, gallops, or rubs. RESPIRATORY: Breath sounds equal bilaterally. No accessory muscle use. GASTROINTESTINAL: Abdomen soft, non-tender, nondistended. MUSCULOSKELETAL: right lateral thigh hematoma with ecchymosis. BACK: Nontender without obvious deformity. No CVA tenderness. Hospital Course Patient is a 71-year-old white male with primary medical history PE, HTN, hiatal hernia, chronic pain with pain pump who came into the hospital via ambulance status post fall at home. Patient had history of PE and was admitted to this hospital last March. He has been taking Xarelto 20 mg daily. He also has been having worsening cough x2 days, with sputum production. //Right proximal femur Large, 7.4 x 2.7 cm hematoma adjacent to the right proximal femur and tendon of the gluteus carol ann -initially hematoma continue to grow throughout most of the hospital course and was oozing blood. -hemoglobin stable did stabilized. -Hematology consulted and was following. //Acute on chronic anemia -this has been chronic but has worsen due to hematoma. -continue to trend. see treatment as above. -Hemoglobin improved after transfusion. Continue monitor and transfuse as necessary. //metabolic encephalopathy -IMPROVED. -Most likely due to illness and overdose on narcotics. -Psych consulted and started seroquel which was increased to 100 mg HS. -exacerbate his hospitalization, sleep apnea, steroids. Avoid sedating medications. Continue Seroquel. -Psych wants to monitor in med-psych since patient has episodes of hallucination/agitation at night. //Suspected sleep apnea 06/04. Around 1 AM patient's oxygen saturation noted to be 61%. ABG acceptable , breathing treatments given. Chest x-ray with no acute disease. -Patient reports believes he has sleep apnea but has not been tested. -06/04. We will start on CPAP at night for suspected sleep apnea. = Patient refuses CPAP. Avoided oversedation. chronic pain syndrome -patient shows signs of addiction and is taking more of his pain medication than prescribed. -As per chris "i d/w with Dr. Thomas over the phone in regards to my concern and he stated he will address this and will wean patient off. he also request his son attend next appointment. i spoke to Cameron the son and he stated he will attend his appointment." -Continue to avoid overtreating pain. S/P fall, weakness C2 fracture. False. - Cervical CT showed 1. 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 2. Anterior fixation at C6 to C7 with 20 fusion at C5 to C6. This is stable. 3. Facet hypertrophy bilateral at C3 to 4 and C4 to 5. Spinal canal is adequate throughout. No acute fracture. - NSG consulted and stated can d/c collar. Appears on old imaging. In 2013 /Pneumonia, community acquired, possible S. pneumonia - Chest x-ray showed hypoinflation with no acute cardiopulmonary process. - CT of the abdomen and pelvis 1. Bibasilar patchy airspace disease. This is probably //atelectasis although early infiltrate excluded. 2. Large, 7.4 x 2.7 cm hematoma adjacent to the right proximal femur and tendon of the gluteus carol ann. No associated fracture. 3. Mechanical ammonia fixation of the lumbar spine with bony donor graft from the heel bilaterally. 4. diverticular disease of the sigmoid without diverticulitis. - In the ED patient was given cefepime 1 g, Zithromax 500 mg - Azithromycin and ceftriaxone IV for now - Duonebs scheduled and PRN - O2 nc PRN //Pulmonary Embolism - on xarelto at home. - CT of the head shows no acute intracranial injury. - patient has hematoma. -per Eyeglass Inspector continue to hold xarelto and once stable can restart xarelto. was not restarted when he was discharge to med-psych. //MAGGY -RESOLVED. -due to dehydration. //Tobacco use - counseled. Nicotine patch //HTN - continue home meds - Monitor BP //hospital-induced delirium, with auditory hallucinations -06/05 possibly exacerbated by steroids. We'll discontinue. -06/06. Improved on Seroquel, off steroids. Discontinue Haldol. Continue Seroquel. Continue to monitor. //DVT prop -xarelto is held due to bleeding. Pt Condition on Discharge: Stable Discharge Disposition: Disc to Psych Care Fac Discharge Time: <= 30 minutes Discharge Instructions DIET: Follow Instructions for: Heart Healthy Diet Activities you can perform: Regular-No Restrictions Follow up Referrals: Pain Management - 1 Week PCP Follow-up - 1 Week New Medications: Levofloxacin (Levaquin) 750 Mg Tab 750 MG PO DAILY Infection #3 Ref 0 TAB Ferrous Sulfate (Ferrous Sulfate) 325 Mg Tab 325 MG PO DAILY anemia #60 Ref 0 TAB Metoprolol Tartrate (Metoprolol Tartrate) 25 Mg Tab 12.5 MG PO Q12HR blood pressure #30 Ref 0 TAB Nicotine Patch (Nicotine Patch) 21 Mg/24 Hr Patch 1 PATCH TD DAILY tobacco cessation Days 15 Ref 0 PATCH Quetiapine (Quetiapine) 100 Mg Tab 100 MG PO HS agitation #60 Ref 0 TAB Continued Medications: Escitalopram (Escitalopram) 20 Mg Tab 20 MG PO BID #30 Ref 0 TAB Gabapentin (Gabapentin) 600 Mg Tab 600 MG PO TID #90 Ref 0 TAB Lisinopril (Lisinopril) 10 Mg Tab 10 MG PO BID #30 Ref 0 TAB Multi-Vit/Iron-B Comp-Vit C (Integra) 62.5-62.5-40-3 mg Cap DAILY Omeprazole (Omeprazole) 20 Mg Tab 20 MG PO DAILY #30 Ref 0 TAB Simvastatin (Simvastatin) 40 Mg Tab 40 MG PO HS Cholesterol Management #30 Ref 0 TAB Discontinued Medications: Amlodipine (Norvasc) 5 Mg Tab 5 MG PO DAILY Blood Pressure Management #30 Ref 0 TAB Gabapentin (Gabapentin) 600 Mg Tab 600 MG PO TID #90 Ref 0 TAB Hydrocodone-Acetaminophen (Hydrocodone-Acetaminophen) 10-325 mg Tab 1 TAB PO Q6H PRN PAIN #14 Ref 0 TAB Lorazepam (Lorazepam) 0.5 Mg Tab 0.5 MG PO BID PRN ANXIETY #14 Ref 0 TAB Lorazepam (Lorazepam) 0.5 Mg Tab 0.5 MG PO BID PRN ANXIETY Ref 0 TAB Metoprolol Succinate ER 24 HR (Metoprolol Succinate ER 24 HR) 50 Mg Tab 50 PO DAILY #30 Ref 0 TAB Rivaroxaban (Xarelto) 20 Mg Tab 20 MG PO DAILY Blood Clot Prevention Ref 0 TAB ([Morphine Pump]) 15 MG DAILY Kelly Fontanez MD Jun 08, 2016 10:06
[2016-06-08 11:49] VITALS: O2SAT 96
[2016-06-08 12:00] VITALS: BP 159/80; PULSE 72; RESP 18; TEMP 98.5; O2SAT 98
--- NOTE | 2016-06-08 14:53 | PD.ONC.PN ---
Subjective Subjective Remarks Afebrile overnight. Pt sitting up in chair eating lunch on approach. He has no complaints. He is asking when he might be discharged. Objective Data Date Time Temp Pulse Resp B/P Pulse Ox O2 Delivery O2 Flow Rate FiO2 06/08/16 12:00 98.5 72 18 159/80 98 06/08/16 11:49 96 Nasal Cannula 21 06/08/16 08:00 97.2 63 20 142/69 95 06/08/16 00:14 98.7 88 20 135/74 99 06/07/16 22:37 96 21 06/07/16 20:00 98.1 92 20 148/76 96 06/07/16 17:03 96.9 71 17 133/78 94 06/08/16 06/08/16 06/08/16 07:00 15:00 23:00 Intake Total 0 ml Balance 0 ml Result Diagram: 06/08/16 0641 06/06/16 1000 Laboratory Results Laboratory Tests Test 06/08/16 06:41 White Blood Count 4.7 TH/MM3 Red Blood Count 3.30 MIL/MM3 Hemoglobin 9.6 GM/DL Hematocrit 27.8 % Mean Corpuscular Volume 84.3 FL Mean Corpuscular Hemoglobin 29.2 PG Mean Corpuscular Hemoglobin 34.7 % Concent Red Cell Distribution Width 19.6 % Platelet Count 284 TH/MM3 Mean Platelet Volume 7.2 FL Neutrophils (%) (Auto) 48.2 % Lymphocytes (%) (Auto) 35.4 % Monocytes (%) (Auto) 10.0 % Eosinophils (%) (Auto) 5.5 % Basophils (%) (Auto) 0.9 % Neutrophils # (Auto) 2.3 TH/MM3 Lymphocytes # (Auto) 1.7 TH/MM3 Monocytes # (Auto) 0.5 TH/MM3 Eosinophils # (Auto) 0.3 TH/MM3 Basophils # (Auto) 0.0 TH/MM3 CBC Comment DIFF FINAL Differential Comment Administered Medications Medications (Trade) Dose Ordered Sig/Bisi Route PRN Reason Start Time Stop Time Status Last Admin Dose Admin IV Flush (NS Flush) 2 ml BID FLUSH 05/30/16 21:00 06/08/16 09:48 Acetaminophen (Tylenol) 650 mg Q4H PRN PO TEMP > 100.4 05/30/16 17:45 06/02/16 18:18 Ondansetron HCl 4 mg 4 mg Q6H PRN IVP NAUSEA OR VOMITING 05/30/16 17:45 06/02/16 12:33 Ceftriaxone Sodium/Sodium Chloride (Rocephin Inj/NS Inj) 100 ml @ 200 mls/hr Q24H IV 05/30/16 20:00 06/07/16 22:22 Nicotine (Habitrol 21 Mg Patch.24 Hr) 1 patch DAILY TD 05/30/16 17:45 06/08/16 09:49 Escitalopram Oxalate (Lexapro) 20 mg BID PO 05/30/16 21:00 06/08/16 09:48 Gabapentin (Neurontin) 600 mg TID PO 05/30/16 18:00 06/08/16 12:31 Lisinopril (Prinivil) 10 mg BID PO 05/30/16 21:00 06/08/16 09:49 Ferrous Sulfate (Ferrous Sulfate) 325 mg DAILY PO 05/31/16 09:00 06/08/16 09:49 Miscellaneous Information 1 HS TD 05/30/16 21:00 06/07/16 21:00 Pantoprazole Sodium (Protonix) 20 mg DAILY PO 05/31/16 09:00 06/08/16 09:48 Pravastatin Sodium (Pravachol) 80 mg HS PO 05/30/16 21:00 06/07/16 22:18 Metoprolol Tartrate (Lopressor) 12.5 mg Q12HR PO 06/03/16 21:00 06/08/16 09:49 Quetiapine Fumarate (SEROquel) 100 mg HS PO 06/07/16 21:00 06/07/16 22:19 Objective Remarks GENERAL: Elderly male, sitting up in chair at bedside eating breakfast in nad. SKIN: Warm and dry. HEAD: Normocephalic. EYES: No injection or drainage. NECK: Supple, trachea midline CARDIOVASCULAR: +S1/S2 RESPIRATORY: Lungs clear posteriorly. GASTROINTESTINAL: Abdomen soft, non-tender, nondistended. EXTREMITIES: No cyanosis. Ecchymoses with hematoma to lateral R thigh. Dressing in place. Some seepage noted. NEUROLOGICAL: Awake and alert, normal speech. Assessment/Plan Problem List: (1) Hematoma of thigh Status: Acute Plan: -- Dressing in place with seepage; no date. Difficult to ascertain when placed. (2) History of DVT (deep vein thrombosis) Status: Acute Plan: --was on xarelto prior to admission ----will need to ensure that bleeding into the hematoma has resolved before anticoagulant therapy could be resumed. Assessment 71 y/o male on Xarelto admitted after a fall now with a large lateral R thigh hematoma. Plan 1. Mild oozing noted to dressing covering hematoma. 2. Spoke with RN, new dressing to be placed. Will monitor. Possibly start anticoagulant tomorrow if no oozing. 3. Labs stable. 4. Supportive care. Problem Qualifiers (1) Hematoma of thigh: Qualified Code: S70.11XD - Hematoma of thigh, right, subsequent encounter Yessenia Perez Jun 08, 2016 14:52
--- NOTE | 2016-06-08 15:53 | HHI.PR ---
Subjective Remarks f/u for hematoma and AMS. patient has no complaints. He is asking to go home. Denied any SOB or pain. Objective Vitals Vital Signs Date Time Temp Pulse Resp B/P Pulse Ox O2 Delivery O2 Flow Rate FiO2 06/08/16 12:00 98.5 72 18 159/80 98 06/08/16 11:49 96 Nasal Cannula 21 06/08/16 08:00 97.2 63 20 142/69 95 06/08/16 00:14 98.7 88 20 135/74 99 06/07/16 22:37 96 21 06/07/16 20:00 98.1 92 20 148/76 96 06/07/16 17:03 96.9 71 17 133/78 94 I/O 06/07/16 06/07/16 06/07/16 06/08/16 06/08/16 06/08/16 07:00 15:00 23:00 07:00 15:00 23:00 Intake Total 640 ml 720 ml 0 ml 600 ml Output Total 0 ml Balance 640 ml 720 ml 0 ml 600 ml Intake Oral 640 ml 720 ml 0 ml 600 ml Output Urine Total 0 ml # Voids 2 1 1 4 # Bowel Movements 0 2 0 0 Result Diagram: 06/08/16 0641 06/06/16 1000 Objective Remarks GENERAL: in NAD CARDIOVASCULAR: Regular rate and rhythm without murmurs, gallops, or rubs. RESPIRATORY: Breath sounds equal bilaterally. No accessory muscle use. GASTROINTESTINAL: Abdomen soft, non-tender, nondistended. MUSCULOSKELETAL: right lateral thigh hematoma with ecchymosis. BACK: Nontender without obvious deformity. No CVA tenderness. Medications and IVs Current Medications Acetaminophen 650 mg 650 mg ONCE ONCE PO Last administered on 05/30/16 11:56 ; Start 05/30/16 at 11:30; Stop 05/30/16 at 11:31; Status DC Sodium Chloride 1,000 ml @ 1,000 mls/hr Q1H IV Last administered on 05/30/16 11:53; Start 05/30/16 at 11:24; Stop 05/30/16 at 12:23; Status DC Cefepime HCl 1000 mg/Sodium Chloride 100 ml @ 200 mls/hr ONCE ONCE IV Last administered on 05/30/16 12:59; Start 05/30/16 at 12:30; Stop 05/30/16 at 12:59 ; Status DC Azithromycin 500 mg/Sodium Chloride 250 ml @ 250 mls/hr ONCE ONCE IV Last administered on 05/30/16 12:30; Start 05/30/16 at 12:30; Stop 05/30/16 at 13:29 ; Status DC Sodium Chloride 1,000 ml @ 1,000 mls/hr Q1H IV Last administered on 05/30/16 18:11; Start 05/30/16 at 15:39; Stop 05/30/16 at 16:38; Status DC Sodium Chloride (NS 1000 ml Inj) 1,000 ml @ 100 mls/hr Q10H IV Last administered on 05/30/16 19:56; Start 05/30/16 at 17:35; Stop 05/31/16 at 18:03 ; Status DC IV Flush (NS Flush) 2 ml UNSCH PRN FLUSH FLUSH AFTER USING IV ACCESS; Start at 17:45 IV Flush (NS Flush) 2 ml BID FLUSH Last administered on 06/08/16 09:48; Start 05/30/16 at 21:00 Acetaminophen (Tylenol) 650 mg Q4H PRN PO TEMP > 100.4 Last administered on 18:18; Start 05/30/16 at 17:45 Ondansetron HCl (Zofran Inj) 4 mg Q6H PRN IVP NAUSEA OR VOMITING Last administered on 06/02/16 12:33; Start 05/30/16 at 17:45 Bisacodyl (Dulcolax Supp) 10 mg DAILY PRN [place] CONSTIPATION; Start 05/30/16 at 17 :45 Magnesium Hydroxide (Milk Of Magnesia Liq) 30 ml Q12H PRN PO CONSTIPATION; Start 05/30/16 at 17:45 Naloxone HCl 0.4 mg 0.4 mg UNSCH PRN IV SEE LABEL COMMENTS; Start 05/30/16 at 17:45 Azithromycin 250 mg/Sodium Chloride 250 ml @ 250 mls/hr Q24H IV Last administered on 06/03/16 09:19; Start 05/31/16 at 09:00; Stop 06/04/16 at 08:59 ; Status DC Ceftriaxone Sodium/Sodium Chloride (Rocephin Inj/NS Inj) 100 ml @ 200 mls/hr Q24H IV Last administered on 06/07/16 22:22; Start 05/30/16 at 20:00 Albuterol/ Ipratropium (Duoneb Neb) 1 ampule Q6HR WHILE AWAKE NEB NEB Last administered on 06/03/16 19:48; Start 05/30/16 at 20:00; Stop 06/03/16 at 20:00 ; Status DC Albuterol/ Ipratropium (Duoneb Neb) 1 ampule Q4HR NEB PRN NEB SOB/ wheezing Last administered on 06/05/16 21:34; Start 05/30/16 at 17:45 Nicotine (Habitrol 21 Mg Patch.24 Hr) 1 patch DAILY TD Last administered on 09:49; Start 05/30/16 at 17:45 Escitalopram Oxalate (Lexapro) 20 mg BID PO Last administered on 06/08/16 09: 48; Start 05/30/16 at 21:00 Gabapentin (Neurontin) 600 mg TID PO Last administered on 06/08/16 12:31; Start 05/30/16 at 18:00 Lisinopril (Prinivil) 10 mg BID PO Last administered on 06/08/16 09:49; Start 05/30/16 at 21:00 Non-Formulary Medication 20 mg DAILY PO ; Start 05/31/16 at 09:00; Status UNV Non-Formulary Medication 40 mg HS PO CM; Start 05/30/16 at 21:00; Status UNV Ferrous Sulfate (Ferrous Sulfate) 325 mg DAILY PO Last administered on 09:49; Start 05/31/16 at 09:00 Miscellaneous Information 1 HS TD Last administered on 06/07/16 21:00; Start 05/30/16 at 21:00 Pantoprazole Sodium (Protonix) 20 mg DAILY PO Last administered on 06/08/16 09 :48; Start 05/31/16 at 09:00 Pravastatin Sodium (Pravachol) 80 mg HS PO Last administered on 06/07/16 22:18 ; Start 05/30/16 at 21:00 Quetiapine Fumarate (SEROquel) 25 mg BID@,12 PO Last administered on 12:05; Start 06/01/16 at 09:00; Stop 06/06/16 at 07:47; Status DC Rivaroxaban (Xarelto) 20 mg DAILY PO ; Start 05/31/16 at 18:00; Status Cancel Acetaminophen (Tylenol) 650 mg Q4H PRN PO SEE LABEL COMMENTS; Start 05/31/16 at 18:00; Stop 05/31/16 at 22:01; Status DC Diphenhydramine HCl (Benadryl) 25 mg Q4H PRN PO SEE LABEL COMMENTS; Start 05/31 at 18:00; Stop 05/31/16 at 22:01; Status DC Diphenhydramine HCl (Benadryl) 25 mg Q4H PRN PO SEE LABEL COMMENTS Last administered on 05/31/16 23:59; Start 05/31/16 at 22:45; Stop 06/01/16 at 02:46 ; Status DC Acetaminophen (Tylenol) 650 mg Q4H PRN PO SEE LABEL COMMENTS; Start 05/31/16 at 22:45; Stop 06/01/16 at 02:46; Status DC Acetaminophen (Tylenol) 650 mg Q4H PRN PO SEE LABEL COMMENTS; Start 06/01/16 at 18:45; Stop 06/01/16 at 22:46; Status DC Diphenhydramine HCl (Benadryl) 25 mg Q4H PRN PO SEE LABEL COMMENTS; Start 06/01 at 18:45; Stop 06/01/16 at 22:46; Status DC Calcium Carbonate 500 mg 500 mg ONCE ONCE CHEW Last administered on 06/01/16 21:25; Start 06/01/16 at 19:00; Stop 06/01/16 at 19:01; Status DC Sodium Chloride (NS 250 ml Inj) 250 ml @ 15 mls/hr ONCE ONCE IV Last administered on 06/02/16 08:00; Start 06/02/16 at 08:00; Stop 06/03/16 at 00:39 ; Status DC Metoprolol Tartrate (Lopressor) 12.5 mg Q12HR PO Last administered on 09:49; Start 06/03/16 at 21:00 Metoprolol Tartrate (Lopressor) 12.5 mg ONCE ONCE PO Last administered on 06/03 12:52; Start 06/03/16 at 12:45; Stop 06/03/16 at 12:46; Status DC Miscellaneous (Pill Splitter) 1 ea UNSCH PRN OTHER SEE LABEL COMMENTS; Start at 12:45 Furosemide (Lasix Inj) 20 mg ONCE ONCE IV PUSH Last administered on 06/04/16 01:16; Start 06/04/16 at 01:15; Stop 06/04/16 at 01:16; Status DC Potassium Chloride (KCl) 20 meq ONCE ONCE PO Last administered on 06/04/16 01 :16; Start 06/04/16 at 01:15; Stop 06/04/16 at 01:16; Status DC Albuterol/ Ipratropium (Duoneb Neb) 1 ampule Q6HR WHILE AWAKE NEB NEB Last administered on 06/05/16 14:36; Start 06/04/16 at 08:00; Stop 06/05/16 at 16:09 ; Status DC Methylprednisolone Sodium Succinate (SoluMEDROL INJ) 125 mg ONCE ONCE IV PUSH Last administered on 06/04/16 02:35; Start 06/04/16 at 02:30; Stop 06/04/16 at 02:31; Status DC Methylprednisolone Sodium Succinate (SoluMEDROL INJ) 40 mg Q6H IV PUSH Last administered on 06/05/16 08:27; Start 06/04/16 at 09:00; Stop 06/05/16 at 16:09 ; Status DC Haloperidol Lactate (Haldol Inj) 2 mg NOW ONCE IV Last administered on 21:07; Start 06/05/16 at 21:00; Stop 06/05/16 at 21:01; Status DC Lorazepam (Ativan Inj) 2 mg NOW ONCE IV Last administered on 06/05/16 21:07; Start 06/05/16 at 21:00; Stop 06/05/16 at 21:01; Status DC Quetiapine Fumarate (SEROquel) 50 mg BID@09,12 PO Last administered on 08:59; Start 06/06/16 at 09:00; Stop 06/07/16 at 12:05; Status DC Haloperidol Lactate (Haldol Inj) 2 mg Q8H PRN IM aggre/agitation ; Start at 07:45; Stop 06/06/16 at 12:39; Status DC Quetiapine Fumarate (SEROquel) 100 mg HS PO Last administered on 06/07/16t 22: 19; Start 06/07/16 at 21:00 A/P Problem List: (1) Fall ICD Code: W19.XXXA Status: Acute (2) Altered mental status ICD Code: R41.82 Status: Acute (3) Pneumonia ICD Code: J18.9 Status: Acute (4) Acute kidney injury ICD Code: N17.9 Status: Acute (5) Pulmonary embolism ICD Code: I26.99 Status: Acute Assessment and Plan Patient is a 71-year-old white male with primary medical history PE, HTN, hiatal hernia, chronic pain with pain pump who came into the hospital via ambulance status post fall at home. Patient had history of PE and was admitted to this hospital last March. He has been taking Xarelto 20 mg daily. He also has been having worsening cough x2 days, with sputum production. //Right proximal femur Large, 7.4 x 2.7 cm hematoma adjacent to the right proximal femur and tendon of the gluteus carol ann -seems to be stable in size. hemoglobin stable. -Hematology following. Appreciate assistance. Hemoglobin improved after transfusion. Monitor. //Acute on chronic anemia -this has been chronic but has worsen due to hematoma. -continue to trend. see treatment as above. -Hemoglobin improved after transfusion. Continue monitor and transfuse as necessary. //metabolic encephalopathy -IMPROVED. -Most likely due to illness and overdose on narcotics. -Psych consulted and started seroquel 100 mg HS. -exacerbate his hospitalization, sleep apnea, steroids. Avoid sedating medications. Continue Seroquel. -Psych wants to monitor in med-psych since patient has episodes of hallucination/agitation at night. //Suspected sleep apnea 06/04. Around 1 AM patient's oxygen saturation noted to be 61%. ABG acceptable , breathing treatments given. Chest x-ray with no acute disease. -Patient reports believes he has sleep apnea but has not been tested. -06/04. We will start on CPAP at night for suspected sleep apnea. = Patient refuses CPAP. We'll avoid oversedation. chronic pain syndrome -patient shows signs of addiction and is taking more of his pain medication than prescribed. -As per previous provider "i d/w with Dr. Thomas over the phone in regards to my concern and he stated he will address this and will wean patient off. he also request his son attend next appointment. i spoke to Cameron the son and he stated he will attend his appointment." -Continue to avoid overtreating pain. S/P fall, weakness C2 fracture. False. - Cervical CT showed 1. 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 2. Anterior fixation at C6 to C7 with 20 fusion at C5 to C6. This is stable. 3. Facet hypertrophy bilateral at C3 to 4 and C4 to 5. Spinal canal is adequate throughout. No acute fracture. - NSG consulted and stated can d/c collar. Appears on old imaging. In 2013 /Pneumonia, community acquired, possible S. pneumonia - Chest x-ray showed hypoinflation with no acute cardiopulmonary process. - CT of the abdomen and pelvis 1. Bibasilar patchy airspace disease. This is probably //atelectasis although early infiltrate excluded. 2. Large, 7.4 x 2.7 cm hematoma adjacent to the right proximal femur and tendon of the gluteus carol ann. No associated fracture. 3. Mechanical ammonia fixation of the lumbar spine with bony donor graft from the heel bilaterally. 4. diverticular disease of the sigmoid without diverticulitis. - In the ED patient was given cefepime 1 g, Zithromax 500 mg - Azithromycin and ceftriaxone IV for now - Duonebs scheduled and PRN - O2 nc PRN //Pulmonary Embolism - on xarelto at home. - CT of the head shows no acute intracranial injury. - patient has hematoma. 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 possible start tomorrow. //MAGGY -RESOLVED. -due to dehydration. //Tobacco use - counseled. Nicotine patch //HTN - continue home meds - Monitor BP //hospital-induced delirium, with auditory hallucinations -06/05 possibly exacerbated by steroids. We'll discontinue. -06/06. Improved on Seroquel, off steroids. Discontinue Haldol. Continue Seroquel. Continue to monitor. //DVT prop -xarelto is held due to bleeding. Discharge Planning patient d/c to med-psych. Per heme maybe start xarelto tomorrow. Problem Qualifiers (1) Fall: Qualified Code: W19.XXXA - Fall, initial encounter (2) Altered mental status: Qualified Code: R40.0 - Somnolence Kelly Fontanez MD Jun 08, 2016 15:53
[2016-06-08 16:00] VITALS: BP 156/91; PULSE 76; RESP 22; TEMP 98.1; O2SAT 100
== END 2016-06-08 17:51 | DRG 917 ==
LOC: NEPE 10:56 → NEDA 16:17 → NEDH 20:55 → N05B 05-31 00:30
PROVIDERS: ADMIT Family Medicine; ATTEND Family Medicine
PROC: 30233K1 Transfusion of Nonautologous Frozen Plasma into Peripheral Vein, Percutaneous Approach (ICD-10-PCS; principal; 2016-05-31)
PROC: 30233N1 Transfusion of Nonautologous Red Blood Cells into Peripheral Vein, Percutaneous Approach (ICD-10-PCS; 2016-06-02)
DX: T40.601A Poisoning by unspecified narcotics, accidental (unintentional), initial encounter (principal); J18.9 Pneumonia, unspecified organism; G93.41 Metabolic encephalopathy; N17.9 Acute kidney failure, unspecified; F05 Delirium due to known physiological condition; D63.8 Anemia in other chronic diseases classified elsewhere; D50.9 Iron deficiency anemia, unspecified; E86.0 Dehydration; S70.11XA Contusion of right thigh, initial encounter; W19.XXXA Unspecified fall, initial encounter; S12.101K Unspecified nondisplaced fracture of second cervical vertebra, subsequent encounter for fracture with nonunion; J44.1 Chronic obstructive pulmonary disease with (acute) exacerbation; F17.210 Nicotine dependence, cigarettes, uncomplicated; G89.4 Chronic pain syndrome; Z79.891 Long term (current) use of opiate analgesic; I10 Essential (primary) hypertension; F32.9 Major depressive disorder, single episode, unspecified; K44.9 Diaphragmatic hernia without obstruction or gangrene; Z86.711 Personal history of pulmonary embolism; Z79.02 Long term (current) use of antithrombotics/antiplatelets; Z86.718 Personal history of other venous thrombosis and embolism; Z96.653 Presence of artificial knee joint, bilateral; Z96.89 Presence of other specified functional implants; Y92.009 Unspecified place in unspecified non-institutional (private) residence as the place of occurrence of the external cause
CPT/HCPCS: 36430; 36600; 70450; 71010; 72125; 74176; 76937; 80048; 80053; 81001; 82140; 82805; 83605; 83690; 83735; 83880; 84443; 84484; 85018; 85025; 85027; 85384; 85610; 85730; 86850; 86900; 86901; 86920; 86927; 87040; 87804; 93005; 94003; 94640; 94664; 96361; 96365; 96368; J0456; J0692; J0696; J1630; J1940; J2060; J2405; J2920; J2930; J7030; J7050; L0150; P9016; P9017

== ENCOUNTER 2016-06-08 18:02 | Inpatient (IN) | payer MEDICARE ==
[~2016-06-08 18:02] MED LIST changes: -BACL10TA PO; -COUM4TAB PO; -ENOX80P SQ; +ESCI20TA PO; +FE FCAP; +LEVA750T PO; +LISI10TA3 PO; +METO25TA3 PO; +NICO21DI2 TD; +OMEP20TA PO; +QUET1TAB8 PO; +XARE20TA PO
[2016-06-08] MEDS ORDERED: SODIUM CHLORIDE FLUSH PRN IV FLUSH (18:45)
[2016-06-08] MEDS ORDERED: MAGNESIUM HYDROXIDE SUSP 30 ML CUP PO PRN (18:45)
[2016-06-08] MEDS ORDERED: LORazepam 0.5 MG TAB age > 65 yrs PO PRN (18:45)
[2016-06-08] MEDS ORDERED: LORazepam 2 MG/ML VIAL - age > 65 yrs IM PRN (18:45)
[2016-06-08] MEDS ORDERED: RESP: ALBUTEROL 2.5 MG/IPRATROPIUM 0.5 MG NEB (PRN) NEB (18:45)
[2016-06-08] MEDS ORDERED: ACETAMINOPHEN 325 MG TAB PO PRN (18:45)
[2016-06-08] MEDS ORDERED: ALUMINUM/MAGNESIUM/SIMETH 30 ML CUP PO PRN (18:45)
[2016-06-08 18:48] VITALS: BP 195/91; PULSE 90; RESP 18; TEMP 98.1; O2SAT 97
[2016-06-08] MEDS ORDERED: cloNIDine HCL 0.1 MG TAB PO PRN (19:15)
[2016-06-08] MEDS ORDERED: QUEtiapine FUMARATE 100 MG TAB PO SCH (21:00)
--- NOTE | 2016-06-08 21:13 | PD.CONS ---
HPI Service [facility] Consult Requested By Dr. Lyle Reason for Consult Medical management Primary Care Physician Nikunj Jernigan M.D. Diagnoses: History of Present Illness Consult requested for medical management of a 71 y/o male with a history of DVT , PE, HTN, and sleep apnea who was recently admitted on 05/30/16 and discharged on 06/08/16. Patient suffered a fall at home while taking xeralto and developed a hematoma on his right hip, and was also diagnosed with community acquired pneumonia. During the course of his hospital stay he developed visual hallucinations and was seen by psychiatry. Psychiatry recommended transfer to the medical psych unit for further care. Upon examination today patient states he feels much better and is not hearing any voices. He is very eager to go home. He denies any chest pain, sob, fever or chills. He does complain of muscle cramps is multiple different locations, bilateral chest and abdomen. He describes the pain as a instant dull pain that goes a way. He said he has had the aches for a long time, and they come and go in different locations. No associated symptoms noted. Review of Systems Constitutional: DENIES: Fever, Chills Ears, nose, mouth, throat: DENIES: Throat pain Respiratory: DENIES: Cough, Sputum production, Shortness of breath Cardiovascular: DENIES: Chest pain Gastrointestinal: DENIES: Constipation, Diarrhea, Nausea, Vomiting Genitourinary: DENIES: Hematuria, Dysuria Musculoskeletal: COMPLAINS OF: Muscle aches, DENIES: Back pain, Neck pain Integumentary: DENIES: Rash Hematologic/lymphatic: DENIES: Lymphadenopathy Immunologic/allergic: DENIES: Urticaria Neurologic: DENIES: Headache Past Family Social History Allergies: Coded Allergies: No Known Allergies (Verified , 03/19/16) Past Medical History Pulmonary embolism Chronic pain with pain pump DVT right posterior tibial vein HTN Hiatal hernia Insomnia Arthritis Depression Past Surgical History Penile implant Left inguinal hernia repair 2 Cholecystectomy Bilateral knee replacements Tonsillectomy Pain pump in insertion Back surgeries Cervical surgeries Reported Medications Reported Meds & Active Scripts Active Levaquin (Levofloxacin) 750 Mg Tab 750 Mg PO DAILY Ferrous Sulfate 325 Mg Tab 325 Mg PO DAILY Quetiapine (Quetiapine Fumarate) 100 Mg Tab 100 Mg PO HS Nicotine Patch (Nicotine) 21 Mg/24 Hr Patch 1 Patch TD DAILY 15 Days Metoprolol Tartrate 25 Mg Tab 12.5 Mg PO Q12HR Reported Integra (Multi-Vit/Iron-B Comp-Vit C) 62.5-62.5-40-3 mg Cap DAILY Gabapentin 600 Mg Tab 600 Mg PO TID Lisinopril 10 Mg Tab 10 Mg PO BID Escitalopram (Escitalopram Oxalate) 20 Mg Tab 20 Mg PO BID Omeprazole 20 Mg Tab 20 Mg PO DAILY Simvastatin 40 Mg Tab 40 Mg PO HS Active Ordered Medications Current Medications Medications (Trade) Dose Ordered Sig/Bisi Route Start Time Stop Time Status Last Admin (Ativan) 0.5 mg Q12H PRN PO 06/08/16 18:45 (Ativan Inj) 0.5 mg Q12H PRN IM 06/08/16 18:45 (Tylenol) 650 mg Q4H PRN PO 06/08/16 18:45 (Milk Of Magnesia Liq) 30 ml DAILY PRN PO 06/08/16 18:45 (Mag-Al Plus Susp Liq) 30 ml Q6H PRN PO 06/08/16 18:45 (Habitrol 21 Mg Patch.24 Hr) 1 patch DAILY T-DERMAL 06/09/16 09:00 (SEROquel) 100 mg HS PO 06/08/16 21:00 (Lopressor) 12.5 mg Q12H PO 06/08/16 21:00 (Ferrous Sulfate) 325 mg DAILY PO 06/09/16 09:00 Miscellaneous Information 1 HS T-DERMAL 06/09/16 21:00 (Protonix) 20 mg DAILY PO 06/09/16 09:00 (Lexapro) 20 mg DAILY PO 06/09/16 09:00 (Prinivil) 10 mg BID PO 06/08/16 21:00 (Pravachol) 80 mg HS PO 06/08/16 21:00 Gabapentin 600 mg 600 mg TID PO 06/09/16 09:00 (Rocephin Inj/NS Inj) 100 ml @ 200 mls/hr Q24H IV 06/08/16 21:00 (NS Flush) 2 ml UNSCH PRN IV FLUSH 06/08/16 18:45 (Catapres) 0.1 mg Q6H PRN PO 06/08/16 19:15 Family History Denies any significant family medical history. Mother lived to be 95, father at the age of 57 secondary to black lung. Social History Denies alcohol use Current day smoker 1 pack per day, started smoking 10 years ago Denies illicit drug use Physical Exam Vital Signs Vital Signs Date Time Temp Pulse Resp B/P Pulse Ox O2 Delivery O2 Flow Rate FiO2 06/08/16 18:48 98.1 90 18 195/91 97 Physical Exam GENERAL: This is a well-nourished, well-developed patient, in no apparent distress. SKIN: No rashes, ecchymoses or lesions. Cool and dry. HEAD: Atraumatic. Normocephalic. No temporal or scalp tenderness. EYES: Pupils equal round and reactive. Extraocular motions intact. No scleral icterus. No injection or drainage. ENT: Nose without bleeding, purulent drainage or septal hematoma. Throat without erythema, tonsillar hypertrophy or exudate. Uvula midline. Airway patent. NECK: Trachea midline. No JVD or lymphadenopathy. Supple, nontender, no meningeal signs. CARDIOVASCULAR: Regular rate and rhythm without murmurs, gallops, or rubs. RESPIRATORY: Clear to auscultation. Breath sounds equal bilaterally. No wheezes , rales, or rhonchi. GASTROINTESTINAL: Abdomen soft, non-tender, nondistended. No hepato-splenomegaly , or palpable masses. No guarding. MUSCULOSKELETAL: Large hematoma on right hip, with abrasion covered with gauze, no redness. Extremities without clubbing, cyanosis, or edema. No joint tenderness, effusion, or edema noted. No calf tenderness. Negative Homans sign bilaterally. NEUROLOGICAL: Awake and alert. Motor and sensory grossly within normal limits. Normal speech. Assessment and Plan Problem List: (1) Delirium due to another medical condition ICD Code: F05 Status: Acute (2) Hematoma of thigh ICD Code: S70.10XA Status: Acute (3) Muscle ache ICD Code: M79.1 Status: Acute Assessment and Plan Consult requested for medical management of a 71 y/o male with a history of DVT , PE, HTN, and sleep apnea who was recently admitted on 05/30/16 and discharged on 06/08/16. Patient suffered a fall at home while taking xeralto and developed a hematoma on his right hip, and was also diagnosed with community acquired pneumonia. During the course of his hospital stay he developed visual hallucinations and was seen by psychiatry. Psychiatry recommended transfer to the medical psych unit for further care. Delirium, acute -Managed by psych Hematoma of right thigh -Continue to monitor for increase in size -Continue to hold Xarelto -Change dressing daily Muscle aches -Check labs, potassium, calcium and mag HTN, chronic -Cont home medications metoprolol, and lisinopril -Clonidine prn -Monitor vitals DVT prophylaxis: Encourage ambulation H will continue to follow and manage appropriately. Written by DALJIT Pulido acting as scribe for Dr. Allen on 06/08/16 at 2035. All or portions of this note were transcribed by scribe [DALJIT Pulido,]. I, Dr. Ever Allen personally performed the history, physical exam, and medical decision making; and confirmed the accuracy of the information in the transcribed note. Authenticated by Dr. Ever Allen on 06/10/16 at 12:33. Discussed Condition With Patient and RN Dariela Bergman Jun 08, 2016 21:13 Ever Allen MD Jun 10, 2016 12:32
[2016-06-08] MEDS: cefTRIAXone 1,000 MG/NS 100 ML IV SCH ×2 (21:16)
[2016-06-08] MEDS: PRAVASTATIN SOD 80 MG TAB PO SCH (21:17)
[2016-06-08] MEDS: LISINOPRIL 10 MG TAB PO SCH (21:17)
[2016-06-08] MEDS: METOPROLOL TARTRATE 25 MG TAB PO SCH (21:17)
[2016-06-09 05:59] VITALS: BP 170/73; PULSE 55; RESP 16; TEMP 97.6; O2SAT 97
[2016-06-09 07:51] LABS: ALT (GPT) 19 U/L (12-78); ANION GAP 6 MEQ/L (5-15); AST (GOT) 14 U/L (15-37); BICARBONATE 29.1 MEQ/L (21.0-32.0); BLOOD UREA NITROGEN 13 MG/DL (7-18); CHLORIDE 105 MEQ/L (98-107); GLOMERULAR FILTRATION RATE 115 ML/MIN (>89); MAGNESIUM 2.2 MG/DL (1.5-2.5); SODIUM (NA) 140 MEQ/L (136-145)
[2016-06-09 07:53] LABS: ALKALINE PHOSPHATASE 42 U/L (45-117); TOTAL BILIRUBIN ADULT 0.6 MG/DL (0.2-1.0)
[2016-06-09 07:57] LABS: AUTOMATED NEUTROPHIL # 2.5 TH/MM3 (1.8-7.7); BASOPHIL % 0.9 % (0.0-2.0); EOSINOPHIL # 0.3 TH/MM3 (0-0.4); EOSINOPHIL % 6.3 % (0.0-4.0); HEMATOCRIT 28.6 % (39.0-51.0); HEMO FLAGS DIFF FINAL; LYMPH % 32.3 % (9.0-44.0); LYMPHOCYTE # 1.6 TH/MM3 (1.0-4.8); MEAN CELL VOLUME 85.6 FL (80.0-100.0); MEAN CORPUSCULAR HEMOGLOBIN 28.7 PG (27.0-34.0); MEAN CORPUSCULAR HGB CONC 33.5 % (32.0-36.0); MONO % 8.3 % (0.0-8.0); NEUT % 52.2 % (16.0-70.0); PLATELET COUNT 287 TH/MM3 (150-450); RED BLOOD COUNT 3.34 MIL/MM3 (4.50-5.90); RED CELL DISTRIBUTION WIDTH 19.3 % (11.6-17.2); WHITE BLOOD COUNT 4.9 TH/MM3 (4.0-11.0)
[2016-06-09] MEDS: METOPROLOL TARTRATE 25 MG TAB PO SCH ×2 (09:03→20:14)
[2016-06-09] MEDS: FERROUS SULFATE 325 MG (65 MG ELEMENTAL IRON) TAB PO SCH (09:03)
[2016-06-09] MEDS: PANTOPRAZOLE SOD 20 MG DELAYED RELEASE TAB PO SCH (09:03)
[2016-06-09] MEDS: GABAPENTIN 300 MG CAP PO SCH ×3 (09:03→18:15)
[2016-06-09] MEDS: ESCITALOPRAM OXALATE 20 MG TAB PO SCH (09:03)
[2016-06-09] MEDS: LISINOPRIL 10 MG TAB PO SCH ×2 (09:03→20:14)
[2016-06-09] MEDS: NICOTINE 21 MG/24 HR PATCH T-DERMAL SCH (09:04)
--- NOTE | 2016-06-09 13:59 | HHI.PR ---
Subjective Remarks Follow-up visit DVT/PE, hypertension, chronic pain, hallucinations, history status post fall and altered mental status possibly secondary to pain medication use and pain pump use. Patient seen today. Reports he is doing well. States that he just wants to be lazy and lay in bed in the morning but he will get up and sit in the chair later. Denies pain and discomfort. Denies SOB/ dyspnea. Denies chest pain, palpitations, headaches, dizziness. Denies fevers, chills, n/v/d. Objective Vitals Vital Signs Date Time Temp Pulse Resp B/P Pulse Ox O2 Delivery O2 Flow Rate FiO2 06/09/16 05:59 97.6 55 16 170/73 97 06/08/16 18:48 98.1 90 18 195/91 97 I/O 06/08/16 06/08/16 06/08/16 06/09/16 06/09/16 06/09/16 07:00 15:00 23:00 07:00 15:00 23:00 Intake Total 840 ml 360 ml Balance 840 ml 360 ml Intake Oral 840 ml 360 ml # Voids 2 Result Diagram: 06/09/1648 06/09/16 0648 Objective Remarks GENERAL: This is a well-nourished, well-developed patient, in no apparent distress. HEENT: Normocephalic. Pupils equal round and reactive. Nose without bleeding. Airway patent. NECK: Trachea midline. No JVD. Supple. CARDIOVASCULAR: Regular rate and rhythm systolic grade 3/6 murmurs, gallops, or rubs. RESPIRATORY: Clear to auscultation. Breath sounds equal bilaterally. No wheezes , rales, or rhonchi. GASTROINTESTINAL: Abdomen soft, non-tender, nondistended. Bowel Sounds normoactive x4. MUSCULOSKELETAL: Extremities without clubbing, cyanosis, or edema. NEUROLOGICAL: Awake and alert. RUIZ. Normal speech. A/P Problem List: (1) Delirium due to another medical condition ICD Code: F05 Status: Acute (2) Hematoma of thigh ICD Code: S70.10XA Status: Acute (3) Muscle ache ICD Code: M79.1 Status: Acute Assessment and Plan Patient is a 71-year-old male with primary medical history of DVT, PE on Xarelto, hypertension, and sleep apnea who came in to [facility] secondary to altered mental status, status post fall at home. Patient was admitted with right hip hematoma, community-acquired pneumonia, and evaluated for his C2 fracture which was stable and chronic. During his course of hospital stay he developed visual hallucinations. He is now admitted to medical psych unit for further evaluation. Consulted for medical management. Acute delirium versus psychosis - Management by psychiatry team Hematoma of the right thigh - Continue to monitor size - Previously on Xarelto secondary to PE/DVT will hold Xarelto for now - Dressing changes daily History of PE/ DVT - Previously on Xarelto.CT of the head shows no acute intracranial injury. - Hematology previously following patient. Recommend bleeding from the hematoma must result before anticoagulation therapy can be resumed Chronic pain - Patient has pain pump and is being followed by pain management. - Patient shows signs of addiction and is taking more of his pain medication than prescribed prior to hospitalization. - Previous inpatient provider, Dr. Fontanez spoke with pain management doctor Dr. Thomas regarding concern of overmedication and addiction. will address and wean off patient on his pain medication. He also requested his son to attend the next appointment. -Continue to avoid overtreating pain. Acute on chronic anemia - Has worsened secondary to hematoma. - Patient has received blood transfusion in inpatient - Continue to monitor H&H Status post fall, weakness - C2 fracture stable appeared on the films in 2013 as per neurosurgery - PT/OT to evaluate and treat HTN - Continue with home meds - Monitor BP trend History of community-acquired pneumonia - Completed antibiotic dose of azithromycin and ceftriaxone - DuoNeb's when necessary Obstructive sleep apnea - May use O2 at night. Patient has been refusing CPAP at night in inpatient. DVT prop Xarelto held due to hematoma. Encourage ambulation with PT. Discussed with patient, nursing Written by Basilio uH, acting as scribe for Dr. Martin on 06/09/16 at 13: 57. All or portions of this note were transcribed by scribe [ Basilio Hu]. I, Dr. Luis Enrique Martin personally performed the history, physical exam, and medical decision making; and confirmed the accuracy of the information in the transcribed note. Authenticated by Dr. Luis Enrique Martin on 06/09/16 at 14:02. Basilio Andrews Jun 09, 2016 13:58 Luis Enrique Martin MD Jun 09, 2016 14:02
[2016-06-09] MEDS ORDERED: PILL SPLITTER OTHER PRN (15:30)
--- NOTE | 2016-06-09 15:33 | HHI.HP ---
Provisional Diagnosis Admission Date Jun 08, 2016 at 18:02 [place] I. Unspecified psychosis, R/O delirium due to underlying medical condition, r/O brief psychotic episode [place] II. Deferred Certification of Person's Competence To Provide Express and Informed Consent I have personally examined Lui Ball , a person being served at [facility] on, Jun 09, 2016 15:22. Express and informed consent means consent voluntarily given in writing, by a competent person, after sufficient explanation and disclosure of the subject matter involved to enable the person to make a knowing and willful decision without any element of force, fraud, deceit, duress, or other form of constraint or coercion. This person is 18 years of age or older, is not now known to be incompetent to consent to treatment with a guardian advocate, and does not have a health care surrogate or proxy currently making medical treatment decisions. I have found this person to be one of the following: [X] Competent to provide express and informed consent, as defined above, for voluntary admission to this facility and is competent to provide express and informed consent for treatment. He/she has the consistent capacity to make well reasoned, willful, and knowing decisions concerning his or her medical or mental health treatment. The person fully and consistently understands the purpose of the admission for examination/placement and is fully capable of personally exercising all rights assured under [place] Incompetent to provide express and informed consent to voluntary admission, and this is incompetent to provide express and informed consent to treatment. The person must be transferred to involuntary status and a petition for a guardian advocate filed with the Circuit Court. [] Refusing to provide express and informed consent to voluntary admission but is competent to provide express and informed consent for treatment. The person must be discharged or transferred to involuntary status. Form shall be completed within 24 hours of a person's arrival at the receiving facility and filed in the clinical record of each person: 1. Admitted on a voluntary basis 2. Permitted to provide express and informed consent to his/her own treatment 3. Allowed to transfer from involuntary to voluntary status 4. Prior to permitting a person to consent to his or her own treatment after having been previously found incompetent to consent to treatment. History of Present Illness Capacity: Has Capacity HPI 05/31/2016 The patient is a 71-year-old man, domiciled with , psychiatric history of depression, no previous hospitalizations, no previous suicidal attempts, he is on Lexapro 20 mg prescribed by PCP, medical history PE , HTN, hiatal hernia, chronic pain with pain pump who came into the hospital via ambulance status post fall at home. Patient had history of PE and was admitted to this hospital last March. He has been taking Xarelto 20 mg daily. He also has been having worsening cough x2 days, with sputum production. On hospital patient has been treated for metabolic encephalopathy was probably related with overdose of narcotics and underlying medical conditions, C2 fracture, NSG consulted and stated can d/c collar. Right proximal femur Large, stable. Anemia. Pneumonia, community acquired, possible S. pneumonia, In the ED patient was given cefepime 1 g, Zithromax 500 mg, Azithromycin and ceftriaxone IV for now, also MAGGY. Patient continues to be confused and psychotic, consulted to psychiatry to assess decision-making capacity. On significant evaluation patient is found calm, poorly cooperative due to the level of confusion. Patient is irritable, visibly guarded and paranoid, he says that he doesn't know me so "why should I told to you?". He says that the reason he is here is due to a fall, but he doesn't know where he is, he doesn't know the day , it is unclear in 1977. He does not remember the circumstances around his fall. Patient is unable to list his multiple medical conditions. He does reports "shitty mood", his affect is very irritable, he denies suicidal or homicidal ideation, he denies visual and auditory hallucinations. At times he becomes very confused and tangential, but redirectable. Patient denies the use of illicit drugs and alcohol. Collateral information from nursing charge, he states that the patient has been internally stimulated, disorganized, talking to himself, having visual hallucinations, but no agitation or aggressive behavior observed at this moment. Possible collateral information from his , Shavonne Allen, who clarifies that her doesn't have any previous psychiatric history other than a recent diagnoses of depression. She says that he has been treated for depression by her regular doctor, but he doesn't have any suicidal attempt, no previous hospitalizations, he does not use any drugs, alcohol. She clarifies that in case of the patient is unable to take decisions for himself she is the health care by proxy. 06/06/2016 Patient see for psychiatric reevaluation, he is found calm, cooperative and pleasant, he is accompanied by his son, patient reports good, mood, states he is feeling much better and ready to take a determination with his opiates abuse. He says he is going to communicate his PCP everything about his addiction so he can monitor and control his prescriptions. Patient denies depression, anxiety, santa and perceptual disturbances at this time. He says there have been occasions he has seen a farm and animals in the window, also people coming inside his room, "But I know is just visions, no real". At this moment patient is fully oriented X3, Language, repetition, recent and immediate recall, abstraction, executive function seems to be intact. No agitation or aggressive behavior observed. Son confirms patient is now at baseline. Nurse in charge, Elba, expresses son concerns about internal preoccupations and sporadic visual hallucinations 06/06/2016 Patient seen today for follow up in the [facility] patient seen today for psychiatric reevaluation in the morning, breathing with difficulties with CPAP, patient seemed to be sleepy, fatigue, distant, patient is oriented 3, calm, cooperative, no agitation or aggressive behavior observed. However, patient endorses visual hallucinations of people coming inside his room at night, is difficult for him to differentiate from reality and not feel scared and anxious about it. Last night nurse in charge called me because patient was agitated, very anxious, guarded, talking to himself and nonexistent people around the room , no following verbal redirection and filially needing rapid tranquilization with Haldol 2 mg and Ativan 2mg. Today patient was seen for psychiatric reevaluation, patient says that he has been feeling much better, he is basically claiming to go back home to take care of his , he reports good mood, he denies depressive symptoms, he denies anhedonia, he denies hopelessness, he denies helplessness, he denies suicidal, he denies homicidal ideation. He denies visual and auditory hallucinations, he denies paranoia, he denies delusion, he denies ideas of reference, he denies flight of ideas. Patient has been medication compliant, easy to manage in the unit, integrated and activities and interacted with staff. However, as per staff, at night patient become agitated, internally preoccupied, having visual hallucinations and at times even combative. Review of Systems Constitutional: DENIES: Diaphoretic episodes, Fatigue, Fever, Weight gain, Weight loss, Chills, Dizziness, Change in appetite, Night Sweats Endocrine: DENIES: Heat/cold intolerance, Polydipsia, Polyuria, Polyphagia Eyes: DENIES: Blurred vision, Diplopia, Eye inflammation, Eye pain, Vision loss , Photosensitivity, Double Vision Ears, nose, mouth, throat: DENIES: Tinnitus, Hearing loss, Vertigo, Nasal discharge, Oral lesions, Throat pain, Hoarseness, Ear Pain, Running Nose, Epistaxis, Sinus Pain, Toothache, Odynophagia Respiratory: DENIES: Apneas, Cough, Snoring, Wheezing, Hemoptysis, Sputum production, Shortness of breath Cardiovascular: DENIES: Chest pain, Palpitations, Syncope, Dyspnea on Exertion , PND, Lower Extremity Edema, Orthopnea, Claudication Gastrointestinal: DENIES: Abdominal pain, Black stools, Bloody stools, Constipation, Diarrhea, Nausea, Vomiting, Difficulty Swallowing, Anorexia Musculoskeletal: DENIES: Joint pain, Muscle aches, Stiffness, Joint Swelling, Back pain, Neck pain Integumentary: DENIES: Abnormal pigmentation, Nail changes, Pruritus, Rash Hematologic/lymphatic: DENIES: Bruising, Lymphadenopathy Immunologic/allergic: DENIES: Eczema, Urticaria Neurologic: DENIES: Abnormal gait, Headache, Localized weakness, Paresthesias, Seizures, Speech Problems, Tremor, Poor Balance Psychiatric: DENIES: Anxiety, Confusion, Mood changes, Depression, Hallucinations, Agitation, Suicidal Ideation, Homicidal Ideation, Delusions Past Psych History Violence risk - self (6 mos) Elevated due to nighttime psychosis Substance Abuse History Drugs/Alcohol past 12 months He denies Past Family Social History Coded Allergies: No Known Allergies (Verified , 03/19/16) Active Scripts Levofloxacin (Levaquin)750 Mg [id number] Mg PO DAILY #3 TAB Ref 0 Prov:Kelly Fontanez MD 06/08/16 Ferrous Sulfate 325 Mg Sbk041 Mg PO DAILY #60 TAB Ref 0 Prov:Kelly Fontanez MD 06/08/16 Quetiapine 100 Mg Oqu863 Mg PO HS #60 TAB Ref 0 Prov:Kelly Fontanez MD 06/08/16 Nicotine Patch 21 Mg/24 Hr Patch1 Patch TD DAILY 15 Days Ref 0 Prov:Kelly Fontanez MD 06/08/16 Metoprolol Tartrate 25 Mg Tab12.5 Mg PO Q12HR #30 TAB Ref 0 Prov:Kelly Fontanez MD 06/08/16 Reported Medications Multi-Vit/Iron-B Comp-Vit C (Integra)62.5-62.5-40-3 mg Cap Daily 05/30/16 Gabapentin 600 Mg Dhs421 Mg PO TID #90 TAB Ref 0 05/30/16 Lisinopril 10 Mg Tab10 Mg PO BID #30 TAB Ref 0 05/30/16 Escitalopram 20 Mg Tab20 Mg PO BID #30 TAB Ref 0 05/30/16 Omeprazole 20 Mg Tab20 Mg PO DAILY #30 TAB Ref 0 05/30/16 Simvastatin 40 Mg Tab40 Mg PO HS #30 TAB Ref 0 03/19/16 Discontinued Reported Medications Lorazepam 0.5 Mg Tab0.5 Mg PO BID PRN (ANXIETY) Ref 0 05/30/16 Rivaroxaban (Xarelto)20 Mg Tab20 Mg PO DAILY Ref 0 05/30/16 Metoprolol Succinate ER 24 HR 50 Mg Tab50 PO DAILY #30 TAB Ref 0 05/30/16 [Morphine Pump] No Conflict Check15 Mg DAILY 03/19/16 Gabapentin 600 Mg Exp385 Mg PO TID #90 TAB Ref 0 03/19/16 Discontinued Scripts Lorazepam 0.5 Mg Tab0.5 Mg PO BID PRN (ANXIETY) #14 TAB Ref 0 Prov:Tato Solo MD 03/22/16 Hydrocodone-Acetaminophen 10-325 mg Tab1 Tab PO Q6H PRN (PAIN) #14 TAB Ref 0 Prov:Tato Solo MD 03/22/16 Amlodipine (Norvasc)5 Mg Tab5 Mg PO DAILY #30 TAB Ref 0 Prov:Tato Solo MD 03/22/16 Current Medications Medications (Trade) Dose Ordered Sig/Bisi Route Start Time Stop Time Status Last Admin (Ativan) 0.5 mg Q12H PRN PO 06/08/16 18:45 06/09/16 00:27 (Ativan Inj) 0.5 mg Q12H PRN IM 06/08/16 18:45 (Tylenol) 650 mg Q4H PRN PO 06/08/16 18:45 06/09/16 00:27 (Milk Of Magnesia Liq) 30 ml DAILY PRN PO 06/08/16 18:45 (Mag-Al Plus Susp Liq) 30 ml Q6H PRN PO 06/08/16 18:45 (Habitrol 21 Mg Patch.24 Hr) 1 patch DAILY T-DERMAL 06/09/16 09:00 06/09/16 09:04 (Lopressor) 12.5 mg Q12H PO 06/08/16 21:00 06/09/16 09:03 (Ferrous Sulfate) 325 mg DAILY PO 06/09/16 09:00 06/09/16 09:03 Miscellaneous Information 1 HS T-DERMAL 06/09/16 21:00 (Protonix) 20 mg DAILY PO 06/09/16 09:00 06/09/16 09:03 (Lexapro) 20 mg DAILY PO 06/09/16 09:00 06/09/16 09:03 (Prinivil) 10 mg BID PO 06/08/16 21:00 06/09/16 09:03 (Pravachol) 80 mg HS PO 06/08/16 21:00 06/08/16 21:17 Gabapentin 600 mg 600 mg TID PO 06/09/16 09:00 06/09/16 14:01 (Rocephin Inj/NS Inj) 100 ml @ 200 mls/hr Q24H IV 06/08/16 21:00 06/08/16 21:16 (NS Flush) 2 ml UNSCH PRN IV FLUSH 06/08/16 18:45 (Catapres) 0.1 mg Q6H PRN PO 06/08/16 19:15 (SEROquel) 150 mg HS PO 06/09/16 21:00 UNV Family History He denies Social History Patient was born and raised in [place], he lives with his in [place] , he has 3 adult kids, is retired, his highest level of education is some college Physical Exam No psychomotor retardation, no EPS, no tremors, no rigidity or stiffness present Vital Signs Vital Signs Date Time Temp Pulse Resp B/P Pulse Ox O2 Delivery O2 Flow Rate FiO2 06/09/16 05:59 97.6 55 16 170/73 97 I/O 06/08/16 06/08/16 06/09/16 08:00 16:00 00:00 Intake Total 640 ml Balance 640 ml Mental Status Examination Appearance man, age appearing, good hygiene, calm, cooperative and pleasant Speech: Unremarkable Orientation: x3 Memory: Unremarkable Hallucination Type: Visual Suicidal Ideation: No Previous Suicide Attempts: No Homicidal Ideation: No Previous Homicide Attempts: No Insight: Fair Affect: Good Mood: Appropriate Motor Activity: Normal gait Assessment & Plan Problem List: (1) Unspecified psychosis Assessment & Plan: On psychiatric evaluation patient denies depressive symptoms, he denies anxiety, he denies manic symptoms, he denies perceptual disturbances, he denies paranoia, he denies delusions. Patient is coherent, relevant and logical in his conversation. He denies suicidal and homicidal ideation, he denies visual and auditory hallucinations. However, nurses keep describing as highly agitated, manic like responding to internal stimuli, having active visual hallucination at night. When patient is having this episodes he is very difficult to manage and needs ETOs. Patient does not seem to be insightful about this hallucinations. For this reason patient is not safe to discharge and needs psychiatric hospitalization for stabilization of psychosis. Will increase Seroquel to 150 mg at bedtime. Patient will sign voluntary admission. Extensive psycho education, support and motivation provided. propeller layout worker intervention for psychosocial evaluation, counseling, start discharge planning. Patient will participate in activities and therapy in the. ICD Code: F29 (2) Delirium due to another medical condition ICD Code: F05 Assessment & Plan Estimated LOS: Rajeev Irwin MD Jun 09, 2016 15:32
[2016-06-09 19:06] VITALS: BP 147/98; PULSE 79; RESP 18; TEMP 98.3; O2SAT 96
[2016-06-09] MEDS: PRAVASTATIN SOD 80 MG TAB PO SCH (20:14)
[2016-06-09] MEDS ORDERED: QUEtiapine FUMARATE 100 MG TAB PO SCH (21:00)
[2016-06-09] MEDS ORDERED: REMOVE OLD PATCH T-DERMAL SCH (21:00)
[2016-06-09] MEDS: cefTRIAXone 1,000 MG/NS 100 ML IV SCH ×2 (22:24)
[2016-06-10 06:07] VITALS: BP 109/55; PULSE 62; RESP 15; TEMP 98.3; O2SAT 94
[2016-06-10] MEDS: GABAPENTIN 300 MG CAP PO SCH (08:58)
[2016-06-10] MEDS: LISINOPRIL 10 MG TAB PO SCH (08:58)
[2016-06-10] MEDS: ESCITALOPRAM OXALATE 20 MG TAB PO SCH (08:58)
[2016-06-10] MEDS: FERROUS SULFATE 325 MG (65 MG ELEMENTAL IRON) TAB PO SCH (08:58)
[2016-06-10] MEDS: PANTOPRAZOLE SOD 20 MG DELAYED RELEASE TAB PO SCH (08:58)
[2016-06-10] MEDS: METOPROLOL TARTRATE 25 MG TAB PO SCH (09:00)
[2016-06-10] MEDS: NICOTINE 21 MG/24 HR PATCH T-DERMAL SCH (09:00)
[2016-06-10] MEDS ORDERED: ESCI20TA PO (10:31)
[2016-06-10] MEDS ORDERED: QUET1TAB8 PO (10:31)
--- NOTE | 2016-06-10 10:53 | HHI.DS ---
Psychiatry Discharge Summary Inpatient Psychiatric care?: Yes Advance Directive: No Reason Not Provided: did not have. Mental Health AdvanceDirective: No Health Care Proxy: Yes Admission Admission Date Jun 08, 2016 at 18:02 Admission Diagnosis: (1) Delirium due to another medical condition ICD Code: F05 Brief History 05/31/2016 The patient is a 71-year-old man, domiciled with , psychiatric history of depression, no previous hospitalizations, no previous suicidal attempts, he is on Lexapro 20 mg prescribed by PCP, medical history PE , HTN, hiatal hernia, chronic pain with pain pump who came into the hospital via ambulance status post fall at home. Patient had history of PE and was admitted to this hospital last March. He has been taking Xarelto 20 mg daily. He also has been having worsening cough x2 days, with sputum production. On hospital patient has been treated for metabolic encephalopathy was probably related with overdose of narcotics and underlying medical conditions, C2 fracture, NSG consulted and stated can d/c collar. Right proximal femur Large, stable. Anemia. Pneumonia, community acquired, possible S. pneumonia, In the ED patient was given cefepime 1 g, Zithromax 500 mg, Azithromycin and ceftriaxone IV for now, also MAGGY. Patient continues to be confused and psychotic, consulted to psychiatry to assess decision-making capacity. On significant evaluation patient is found calm, poorly cooperative due to the level of confusion. Patient is irritable, visibly guarded and paranoid, he says that he doesn't know me so "why should I told to you?". He says that the reason he is here is due to a fall, but he doesn't know where he is, he doesn't know the day , it is unclear in 1977. He does not remember the circumstances around his fall. Patient is unable to list his multiple medical conditions. He does reports "shitty mood", his affect is very irritable, he denies suicidal or homicidal ideation, he denies visual and auditory hallucinations. At times he becomes very confused and tangential, but redirectable. Patient denies the use of illicit drugs and alcohol. Collateral information from nursing charge, he states that the patient has been internally stimulated, disorganized, talking to himself, having visual hallucinations, but no agitation or aggressive behavior observed at this moment. Possible collateral information from his , Shavonne Allen, who clarifies that her doesn't have any previous psychiatric history other than a recent diagnoses of depression. She says that he has been treated for depression by her regular doctor, but he doesn't have any suicidal attempt, no previous hospitalizations, he does not use any drugs, alcohol. She clarifies that in case of the patient is unable to take decisions for himself she is the health care by proxy. 06/06/2016 Patient see for psychiatric reevaluation, he is found calm, cooperative and pleasant, he is accompanied by his son, patient reports good, mood, states he is feeling much better and ready to take a determination with his opiates abuse. He says he is going to communicate his PCP everything about his addiction so he can monitor and control his prescriptions. Patient denies depression, anxiety, santa and perceptual disturbances at this time. He says there have been occasions he has seen a farm and animals in the window, also people coming inside his room, "But I know is just visions, no real". At this moment patient is fully oriented X3, Language, repetition, recent and immediate recall, abstraction, executive function seems to be intact. No agitation or aggressive behavior observed. Son confirms patient is now at baseline. Nurse in charge, Elba, expresses son concerns about internal preoccupations and sporadic visual hallucinations 06/06/2016 Patient seen today for follow up in the [facility] patient seen today for psychiatric reevaluation in the morning, breathing with difficulties with CPAP, patient seemed to be sleepy, fatigue, distant, patient is oriented 3, calm, cooperative, no agitation or aggressive behavior observed. However, patient endorses visual hallucinations of people coming inside his room at night, is difficult for him to differentiate from reality and not feel scared and anxious about it. Last night nurse in charge called me because patient was agitated, very anxious, guarded, talking to himself and nonexistent people around the room , no following verbal redirection and filially needing rapid tranquilization with Haldol 2 mg and Ativan 2mg. Today patient was seen for psychiatric reevaluation, patient says that he has been feeling much better, he is basically claiming to go back home to take care of his , he reports good mood, he denies depressive symptoms, he denies anhedonia, he denies hopelessness, he denies helplessness, he denies suicidal, he denies homicidal ideation. He denies visual and auditory hallucinations, he denies paranoia, he denies delusion, he denies ideas of reference, he denies flight of ideas. Patient has been medication compliant, easy to manage in the unit, integrated and activities and interacted with staff. However, as per staff, at night patient become agitated, internally preoccupied, having visual hallucinations and at times even combative. Tobacco Use In Past 30 Days: 5 or More Cigarettes/Day Alcohol Use: Never Hospital Course Patient was transferred from the medical floor today MPU yesterday after being determined medically stable to continue medical and psychiatric treatment. The reason the patient was admitted in the unit was to continuous overnight episodes of visual hallucinations, agitation, manic-like behavior of new onset. Patient was accepted in the unit, he he had a psychiatric and psychosocial assessment, collateral information from was obtained from family member. Patient was engaged in individual and group activities. He was is started on psychotropics for visual hallucinations and he was continued any medication for depression. He was is starting Seroquel 100 mg that was subsequently increased to 150 mg as patient could tolerate and he showed an appropriate response without significant side effects. We continued giving him his citalopram 20 mg. During his estate in the unit patient was usually calm, cooperative and pleasant. During patient did not show any psychiatric symptom, but at night he woke up with anxiety provoking, and stressing visual hallucinations. At the moment of the discharge patient have not had any visual hallucinations in the last 24 hours, he reports good mood, he denies anxiety, he denies perceptual disturbances, no paranoia, no delusions, agitation or aggressive behavior observed, he denies suicidal and homicidal ideation. We spoke in different occasions with patient's and with his son Cameron, they were in agreement with medical treatment and with plan, they both agreed with discharge. Results Blood Pressure 109 / 55 Vital Signs Date Time Temp Pulse Resp B/P Pulse Ox O2 Delivery O2 Flow Rate FiO2 06/10/16 06:07 98.3 62 15 109/55 94 Laboratory Tests Test 06/09/16 06:48 Red Blood Count 3.34 MIL/MM3 (4.50-5.90) Hemoglobin 9.6 GM/DL (13.0-17.0) Hematocrit 28.6 % (39.0-51.0) Red Cell Distribution Width 19.3 % (11.6-17.2) Monocytes (%) (Auto) 8.3 % (0.0-8.0) Eosinophils (%) (Auto) 6.3 % (0.0-4.0) Aspartate Amino Transf 14 U/L (15-37) (AST/SGOT) Alkaline Phosphatase 42 U/L (45-117) Albumin 3.3 GM/DL (3.4-5.0) Summary of Procedures Reviewed Imaging None Pending results at discharge: No Medications # of Antipsychotic meds at D/C: 1 Appropriate >1 Antipsych meds?: 1 Approp Antipsych med options 1 - Minimum of three failed multiple trials of monotherapy. 2 - Documented plan to taper to monotherapy due to previous use of multiple meds OR cross-taper in progress at D/C. 3 - Documentation of augmentation of Clozapine. 4 - Justification other than those listed in allowable values 1-3, document here : Discharge Discharge Date: Jun 10, 2016 Discharge Diagnosis: (1) Unspecified psychosis ICD Code: F29 Mental Status Exam at Disch Elderly man, age appearing, regular clothing, good hygiene, he is calm and cooperative, also pleasant, his speech is fluent and spontaneous, his mood is euthymic, affect congruent, thought processes logical, coherent and relevant. The content is devoid of suicidal ideation, visual hallucinations, homicidal ideation, auditory hallucinations. His impulse control, judgment, insight is good, memory is intact. Pt Condition on Discharge: Stable Discharge Disposition: Discharge Home Discharge Instructions Diet Instructions: Heart Healthy Diet Activities you can perform: Weight Bearing as Alicia Scheduled Appointment: Discharge Time > 30 minutes Discharge/Advance Care Plan Health Problems: (1) Unspecified psychosis (2) Delirium due to another medical condition Goals to promote your health * To prevent worsening of your condition and complications * To maintain your health at the optimal level Directions to meet your goals Take your medications as prescribed Follow your dietary instruction Follow activity as directed Keep your appointments as scheduled Take your immunizations and boosters as scheduled If your symptoms worsen call your PCP, if no PCP go to Urgent Care Center or Emergency Room For 03/10 questions related to your inpatient stay or results of tests pending at discharge, please contact Dr. Rajeev Lyle at Smoking is Dangerous to Your Health. Avoid second hand smoking Rajeev Lyle MD Jun 10, 2016 10:52
--- NOTE | 2016-06-10 12:46 | HHI.PR ---
Subjective Remarks Follow-up visit DVT/PE, hypertension, chronic pain, hallucinations, history status post fall and altered mental status possibly secondary to pain medication use and pain pump use, right hip hematoma. Patient seen today. Reports he is doing well. Denies pain and discomfort. Denies SOB/ dyspnea. Denies chest pain, palpitations, headaches, dizziness. Denies fevers, chills, n/ v/d. Plan to DC home today discuss with patient follow-up appointments with various specialty secondary to his DVT/PE and hematoma management. Objective Vitals Vital Signs Date Time Temp Pulse Resp B/P Pulse Ox O2 Delivery O2 Flow Rate FiO2 06/10/16 06:07 98.3 62 15 109/55 94 06/09/16 19:06 98.3 79 18 147/98 96 I/O 06/09/16 06/09/16 06/09/16 06/10/16 06/10/16 06/10/16 07:00 15:00 23:00 07:00 15:00 23:00 Intake Total 840 ml 360 ml 480 ml 240 ml Balance 840 ml 360 ml 480 ml 240 ml Intake Oral 840 ml 360 ml 480 ml 240 ml # Voids 2 1 1 # Bowel Movements 0 0 Result Diagram: 06/09/1648 06/09/16 0648 Objective Remarks GENERAL: This is a well-nourished, well-developed patient, in no apparent distress. HEENT: Normocephalic. Pupils equal round and reactive. Nose without bleeding. Airway patent. NECK: Trachea midline. No JVD. Supple. CARDIOVASCULAR: Regular rate and rhythm systolic grade 3/6 murmurs, gallops, or rubs. RESPIRATORY: Clear to auscultation. Breath sounds equal bilaterally. No wheezes , rales, or rhonchi. GASTROINTESTINAL: Abdomen soft, non-tender, nondistended. Bowel Sounds normoactive x4. MUSCULOSKELETAL: Extremities without clubbing, cyanosis, or edema. NEUROLOGICAL: Awake and alert. RUIZ. Normal speech. A/P Problem List: (1) Delirium due to another medical condition ICD Code: F05 Status: Acute (2) Hematoma of thigh ICD Code: S70.10XA Status: Acute (3) Muscle ache ICD Code: M79.1 Status: Acute Assessment and Plan Patient is a 71-year-old male with primary medical history of DVT, PE on Xarelto, hypertension, and sleep apnea who came in to [facility] secondary to altered mental status, status post fall at home. Patient was admitted with right hip hematoma, community-acquired pneumonia, and evaluated for his C2 fracture which was stable and chronic. During his course of hospital stay he developed visual hallucinations. He is now admitted to medical psych unit for further evaluation. Consulted for medical management. Acute delirium versus psychosis - Management by psychiatry team - Improved Hematoma of the right thigh - Continue to monitor size - Previously on Xarelto secondary to PE/DVT will hold Xarelto for now - Dressing changes daily. Discussed with patient keep wound clean and dry and monitor size or any oozing blood. Follow-up with PCP for monitoring. History of PE/ DVT - Previously on Xarelto.CT of the head shows no acute intracranial injury. - Hematology previously following patient. Recommend bleeding from the hematoma must resolved before anticoagulation therapy can be resumed. - Discussed with patient follow-up with his cardiology rn Dr. Blake in outpatient to restart Xarelto, and how long he is going for the Xarelto treatment, hematoma monitoring. Chronic pain - Patient has pain pump and is being followed by pain management. - Patient shows signs of addiction and is taking more of his pain medication than prescribed prior to hospitalization. - Previous inpatient provider, Dr. Fontanez spoke with pain management doctor Dr. Thomas regarding concern of overmedication and addiction. will address and wean off patient on his pain medication. He also requested his son to attend the next appointment. -Continue to avoid overtreating pain. - Patient agrees with plan to see Dr. Thomas, and adjust his pain medication. Patient verbalized understanding that he became addicted to the medication and not able to notice his change in mental status and behavior including frequent falls and sleeping throughout the day. Discussed with patient needs to follow-up with Dr. Rogers for medical adjustment with his son. Agrees with plan. Acute on chronic anemia - Has worsened secondary to hematoma. - Patient has received blood transfusion in inpatient - Continue to monitor H&H Status post fall, weakness - C2 fracture stable appeared on the films in 2013 as per neurosurgery - PT/OT to evaluate and treat HTN - Continue with home meds - Monitor BP trend History of community-acquired pneumonia - Completed antibiotic dose of azithromycin and ceftriaxone - DuoNeb's when necessary Obstructive sleep apnea - May use O2 at night. Patient has been refusing CPAP at night in inpatient. DVT prop Xarelto held due to hematoma. Encourage ambulation with PT. Discussed with patient, nursing Stable from Hospitalist standpoint. May discharge to home. Written by Basilio Hu, acting as scribe for Dr. Martin on 06/10/16 at 13: 14. All or portions of this note were transcribed by scribe [Basilio Hu]. I, Dr. Luis Enrique Martin personally performed the history, physical exam, and medical decision making; and confirmed the accuracy of the information in the transcribed note. Authenticated by Dr. Luis Enrique Martin on 06/10/16 at 13:41. Basilio Andrews Jun 10, 2016 12:46 Luis Enrique Martin MD Jun 10, 2016 13:41
== END 2016-06-10 13:25 | disposition home or self-care (01) | DRG 885 ==
LOC: H4EA 18:02
PROVIDERS: ADMIT Psychiatry & Neurology Psychiatry; ATTEND Psychiatry & Neurology Psychiatry
DX: F29 Unspecified psychosis not due to a substance or known physiological condition (principal); J18.9 Pneumonia, unspecified organism; F05 Delirium due to known physiological condition; D64.9 Anemia, unspecified; R44.1 Visual hallucinations; G89.29 Other chronic pain; Z96.89 Presence of other specified functional implants; Z79.899 Other long term (current) drug therapy; S70.11XD Contusion of right thigh, subsequent encounter; Z86.711 Personal history of pulmonary embolism; Z79.02 Long term (current) use of antithrombotics/antiplatelets; Z86.718 Personal history of other venous thrombosis and embolism; I10 Essential (primary) hypertension; G47.33 Obstructive sleep apnea (adult) (pediatric); K44.9 Diaphragmatic hernia without obstruction or gangrene; G47.00 Insomnia, unspecified; M19.90 Unspecified osteoarthritis, unspecified site; F32.9 Major depressive disorder, single episode, unspecified; Z96.653 Presence of artificial knee joint, bilateral
CPT/HCPCS: 80053; 83735; 85025; J0696

== ENCOUNTER 2016-07-30 20:18 | Emergency (ER) | payer MEDICARE ==
[~2016-07-30] VITALS: Ht 170.2 cm; Wt 100.0 kg
[~2016-07-30 20:18] MED LIST changes: -AMLO5 PO; -HYDR-3583 PO; -LEVA750T PO; -LORA-373 PO; -METO50TA11 PO; -MORPHINE PUMP; -NICO21DI2 TD; -XARE20TA PO
[2016-07-30 20:26] VITALS: BP 92/51; PULSE 52; RESP 20; TEMP 98.2; O2SAT 95
[2016-07-30] MEDS ORDERED: SODIUM CHLORIDE 0.9% FLUSH 10 ML FLUSH IV FLUSH PRN (20:30)
[2016-07-30] MEDS ORDERED: TETANUS/DIPHTHERIA TOXOID ADULT 0.5 ML VIAL IM ONE (20:30)
--- NOTE | 2016-07-30 20:39 | PD ---
HPI Chief Complaint: Fall Time Seen by Provider: 20:33 Travel History International Travel<30 days: No Contact w/Intl Traveler<30days: No Traveled to known affect area: No History of Present Illness HPI Patient comes in for evaluation for witnessed fall that occurred shortly prior to arrival. Per EMS family reports patient has been drinking most of the day and was bending over to clean something off the floor when he lost his balance and fell hitting his face on the floor. Family report approximately 10 seconds brief loss of consciousness per EMS. Patient denies any complaints or concerns. Patient is uncertain of his last tetanus shot. Patient does report being on Xarelto. Denies any chest pain, shortness of breath, headache, nausea , vomiting, numbness or tingling anywhere, change in vision, double vision, dizziness, abdominal pain, loss of bowel or bladder, neck pain, or fevers. 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 HERNIA REP. (X2)) Body Medical Devices: [place] [i,[ Cholecystectomy: Yes Genitourinary Surgery: Yes (PENILE IMPLANT) Joint Replacement: Yes (NICOLE. KNEES) Oral Surgery: Yes (T & A) Pacemaker: No Tonsillectomy: Yes Other Surgery: Yes (b/l knee replacents) Social History Alcohol Use: Yes Tobacco Use: Yes Substance Use: No Allergies-Medications (Allergen,Severity, Reaction): Coded Allergies: No Known Allergies (Verified , 07/30/16) Reported Meds & Prescriptions Reported Meds & Active Scripts Active Augmentin (Amoxicillin-Clavulanate) 875-125 mg Tab 875 Mg PO BID 10 Days not for use in CrCl <30 ml/min. Quetiapine (Quetiapine Fumarate) 100 Mg Tab 150 Mg PO HS Escitalopram (Escitalopram Oxalate) 20 Mg Tab 20 Mg PO DAILY Ferrous Sulfate 325 Mg Tab 325 Mg PO DAILY Quetiapine (Quetiapine Fumarate) 100 Mg Tab 100 Mg PO HS Metoprolol Tartrate 25 Mg Tab 12.5 Mg PO Q12HR Reported Integra (Multi-Vit/Iron-B Comp-Vit C) 62.5-62.5-40-3 mg Cap DAILY Gabapentin 600 Mg Tab 600 Mg PO TID Lisinopril 10 Mg Tab 10 Mg PO BID Escitalopram (Escitalopram Oxalate) 20 Mg Tab 20 Mg PO BID Omeprazole 20 Mg Tab 20 Mg PO DAILY Simvastatin 40 Mg Tab 40 Mg PO HS Review of Systems Except as stated in HPI: all other systems reviewed are Neg Physical Exam Narrative GENERAL: Well-developed, overly nourished, in no acute distress, and non-ill appearing. SKIN: Superficial abrasion noted left nares progressively have 420 in the nares in the left periorbital. Should additional superficial abrasions of anterior right knee. There is ecchymosis left lower periorbital. HEAD: Atraumatic. Normocephalic. No bony point tenderness or crepitus noted throughout the scalp and facial bones. EYES: PERRLA. EOMI. No scleral icterus. No injection or drainage. No hyphema. Corneas are clear. No foreign body noted. No tenderness or crepitus over bilateral periorbital's. ENT: No nasal bleeding or discharge. Mucous membranes pink and moist. No septal hematoma. No tenderness over nasal bridge. No flattening of the cheeks. No tenderness or crepitus throughout facial bones. NECK: Trachea midline. Supple. No nuclear rigidity. No midline tenderness or crepitus present. CARDIOVASCULAR: Regular rate and rhythm. No murmur appreciated. RESPIRATORY: No accessory muscle use. No respiratory distress. Clear to auscultation. Breath sounds equal bilaterally. GASTROINTESTINAL: Abdomen soft, non-tender, nondistended. Hepatic and splenic margins not palpable. No pulsatile mass. MUSCULOSKELETAL: No obvious deformities. No clubbing. No cyanosis. No edema. Full range of motion. Pelvic stable. No midline tenderness or crepitus throughout spinal column. Shoulder:FROM equal BL with passive flexion, extension , Abduction, Adduction, internal/external rotation, and pronation/supination. Sensation equal BL deltoid muscles. Pulses equal BL distal to injury. Capillary refill less than 2 seconds distal to injury and equal BL. FROM distal to injury and equal BL. Strength distal to injury equal BL. NV intact distal to injury equal BL. Flexion and extension of thumb equal BL. Equal strength and movement with abduction/adductions of BL fingers. Shoe Cleaner strength equal BL. Knee: Negative patellar apprehension, varus and valgus maneuvers, anterior draw test, and Mary Ann test. Pulses equal BL distal to injury. Capillary refill less than 2 seconds distal to injury and equal BL. FROM distal to injury and equal BL. Strength distal to injury equal BL. NV intact distal to injury. Dorsal pulses equal BL. Sensation equal BL 1st web space. NEUROLOGICAL: Awake and alert. No obvious cranial nerve deficits. Motor grossly within normal limits. Normal speech. PSYCHIATRIC: Appropriate mood and affect; insight and judgment normal. Data Data Last Documented VS Vital Signs Date Time Temp Pulse Resp B/P Pulse Ox O2 Delivery O2 Flow Rate FiO2 07/30/16 23:56 84 20 120/64 97 07/30/16 20:32 Room Air 07/30/16 20:26 98.2 Orders Wound Care (07/30/16 20:29) Tetanus/Diphtheria Tox Adult (Tetanus/Di (07/30/16 20:30) Basic Metabolic Panel (Bmp) (07/30/16 20:29) Complete Blood Count With Diff (07/30/16 20:29) Prothrombin Time / Inr (Pt) (07/30/16 20:29) Act Partial Throm Time (Ptt) (07/30/16 20:29) Iv Access Insert/Monitor (07/30/16 20:29) Ecg Monitoring (07/30/16 20:29) Oximetry (07/30/16 20:29) Sodium Chloride 0.9% Flush (Ns Flush) (07/30/16 20:30) Alcohol (Ethanol) (07/30/16 20:29) Ct Brain W/O Iv Contrast(Rout) (07/30/16 ) Ct Facial Bones W/O Iv Cont (07/30/16 ) Ct Cerv Spine W/O Contrast (07/30/16 ) Knee, Complete (4vws) (07/30/16 ) Labs Laboratory Tests Test 07/30/16 20:35 White Blood Count 4.7 TH/MM3 Red Blood Count 3.90 MIL/MM3 Hemoglobin 10.9 GM/DL Hematocrit 32.9 % Mean Corpuscular Volume 84.3 FL Mean Corpuscular Hemoglobin 28.0 PG Mean Corpuscular Hemoglobin 33.3 % Concent Red Cell Distribution Width 15.5 % Platelet Count 281 TH/MM3 Mean Platelet Volume 6.9 FL Neutrophils (%) (Auto) 41.7 % Lymphocytes (%) (Auto) 46.8 % Monocytes (%) (Auto) 8.1 % Eosinophils (%) (Auto) 2.4 % Basophils (%) (Auto) 1.0 % Neutrophils # (Auto) 2.0 TH/MM3 Lymphocytes # (Auto) 2.2 TH/MM3 Monocytes # (Auto) 0.4 TH/MM3 Eosinophils # (Auto) 0.1 TH/MM3 Basophils # (Auto) 0.0 TH/MM3 CBC Comment DIFF FINAL Differential Comment Prothrombin Time 12.5 SEC Prothromb Time International 1.1 RATIO Ratio Activated Partial 33.4 SEC Thromboplast Time Sodium Level 133 MEQ/L Potassium Level 3.9 MEQ/L Chloride Level 100 MEQ/L Carbon Dioxide Level 22.8 MEQ/L Anion Gap 10 MEQ/L Blood Urea Nitrogen 14 MG/DL Creatinine 0.65 MG/DL Estimat Glomerular Filtration 121 ML/MIN Rate Random Glucose 80 MG/DL Calcium Level 7.6 MG/DL Ethyl Alcohol Level 209 MG/DL MDM Medical Decision Making Medical Screen Exam Complete: Yes Emergency Medical Condition: Yes Interpretation(s) CT the head read by the radiologist shows: 1. No acute intracranial abnormality is seen. 2. There appear to be left-sided facial injuries that will be further examined on a CT of the facial bones. 3. Age-related atrophy. X-ray the right knee read by the radiologist shows: 1. Stable appearance of a total knee prosthesis with long femoral and tibial components. An acute abnormality is not clearly seen. 2. There is chronic calcification seen at the lateral mid thigh likely related to myositis ossificans. CT cervical spine read by radiologist shows: 1. Again noted is a type II dens fracture. This was present on the prior CT examination and is unchanged. 2. Degenerative change in the cervical spine as described above. 3. Fusion at the C5-C6 disc level. There is also an anterior cervical fusion plate at the C6-C7 level. CT of the facial bones read by the radiologist shows: 1. Left orbital floor fracture with herniation of the inferolateral left orbital fat through the defect. 2. Minimal fracturing of the medial anterior-inferior aspect of the right nasal bone. Differential Diagnosis Fracture, intracranial hemorrhage, strain, retrobulbar hematoma, dislocation, alcohol intoxication, laceration, abrasion, head injury, Narrative Course Patient presents with closed head injury neck strain. There was no evidence of cranial or intracranial injury noted on CT of the head and no evidence of fracture or injury to cervical spine on C-spine CT. The patient has been behaving normally and no notable altered mental status. Bozeman score of 15. The neurologic exam is normal. The patient is awake and aware and motor sensory exams are normal. There is no clinical evidence to support intracranial injury or bleed. The patient suffered and inferior orbital wall fracture. The patient denies visual changes or diplopia. The patient has EOMI and no clinical evidence of entrapment. There is no altered sensation beneath the affected eye. The orbit itself appears intact and without hyphema or injury. The patient was given warnings to return for entrapment such as change in vision, double vision or inability to move the involved eye in all directions or as needed or directed. The patient was instructed and referred to oral maxillofacial for follow up. The patient was also discharged on prophylactic antibiotics. The patient agreed with plan and management and agreed to follow up with referred physician. The patient suffered a nasal fracture. There is no nasal (clear or bloody) discharge or bleeding and no septal hematoma. There is no evidence to suggest entrapment and there is no facial nerve palsy. There is no flattening of the cheek or altered sensation underneath the eye. The facial bones appear stable and nonmobile. The airway is intact and the patient is able to tolerate fluids. Plan of care and management was discussed with the patient as well as close follow-up this week when swelling reduced for reevaluation and possible realignment (if necessary after swelling reduced). The patient agreed with plan of care. The patient suffered abrasions. The abrasions are very superficial and non- repairable. There was no evidence to suggest foreign bodies. Visual and tactile exams were unremarkable. There was no evidence of neurovascular injury as well. The patients wounds were cleaned and dressed. The patient was given signs and symptom warnings for infection, such as increasing pain, redness, swelling, associated heat, pus or fever. The patient was given instructions for timely follow up. The patient agreed with plan of care. Patient in no obvious distress upon re-evaluation. All pertinent laboratory/ Radiology result(s) discussed with patient. Discussed patient with Dr. Carlson prior to discharge, who is in agreement with plan of care and disposition. Patient was asked if they wanted to speak to my attending, which the patient did not wish to do at this time. Any questions/concerns in reference to patient diagnosis/condition discussed and clarified prior to patient's discharge. Reinforced sheer importance of close follow up with patient 's primary physician or primary care clinic. Instructed patient to return to ED immediately, if symptoms return/worsen. Pt showed understanding of above instructions. Further instructions and recommendations were detailed in discharge paperwork. Pt ambulated without difficulty out of ED at discharge and left with his son who came and picked him up.. Physician Communication Physician Communication [phone] Washington erect was placed patient on antibiotics and outpatient follow-up Diagnosis Primary Impression: Fracture of inferior orbital wall Qualified Code: S02.32XA - Closed fracture of left orbital floor, initial encounter Additional Impressions: Nasal bone fx-closed Qualified Code: S02.2XXA - Closed fracture of nasal bone, initial encounter Alcohol intoxication Qualified Code: F10.920 - Alcohol intoxication, uncomplicated Abrasion Head injury Qualified Code: S09.90XA - Head injury, initial encounter Referrals: Harry Washington DDS Patient Instructions: Alcohol Intoxication (ED), Facial Contusion (ED), Facial Fracture (ED), General Instructions, Head Injury (ED) Additional Instructions: Follow-up with Dr. Washington there this week call for an appointment. Take all medication as prescribed. Do not blow your nose. Sneeze with an open mouth. Sleep in an angle approximately 30 or higher to decrease pain and swelling. Apply ice to affected area 20 minutes per hour as needed for pain. Keep wound dry and clean as possible using soap and water. Use Neosporin to promote healing. Return to the emergency department if symptoms get worse or change in vision. Med/Other Pt SpecificInfo: Prescription(s) given Scripts Amoxicillin-Clavulanate (Augmentin)875-125 mg [id number] Mg PO BID 10 Days Ref 0 not for use in CrCl <30 ml/min. Prov:Nghia Carlson MD 07/30/16 Disposition: 01 DISCHARGE HOME Condition: Stable Wilfredo Dumont July 30, 2016 20:39
[2016-07-30 21:03] LABS: EOSINOPHIL # 0.1 TH/MM3 (0-0.4); EOSINOPHIL % 2.4 % (0.0-4.0); HEMATOCRIT 32.9 % (39.0-51.0); HEMO FLAGS DIFF FINAL; LYMPH % 46.8 % (9.0-44.0); LYMPHOCYTE # 2.2 TH/MM3 (1.0-4.8); MEAN CELL VOLUME 84.3 FL (80.0-100.0); MEAN CORPUSCULAR HGB CONC 33.3 % (32.0-36.0); MONO % 8.1 % (0.0-8.0); NEUT % 41.7 % (16.0-70.0); PLATELET COUNT 281 TH/MM3 (150-450); RED CELL DISTRIBUTION WIDTH 15.5 % (11.6-17.2); WHITE BLOOD COUNT 4.7 TH/MM3 (4.0-11.0)
[2016-07-30 21:13] LABS: APTT (PATIENT) 33.4 SEC (24.3-30.1); INTERNATIONAL NORMALIZED RATIO 1.1 RATIO; PROTHROMBIN TIME - PATIENT 12.5 SEC (9.8-11.6)
[2016-07-30 21:25] LABS: BICARBONATE 22.8 MEQ/L (21.0-32.0); POTASSIUM 3.9 MEQ/L (3.5-5.1)
--- NOTE | 2016-07-30 22:03 | RADRPT ---
EXAM DATE/TIME: 07/30/2016 20:45 [facility] COMPARISON: KNEE RIGHT LTD (1 OR 2 VWS), October 19, 2011, 19:04. INDICATIONS : Right knee pain after fall yesterday. MEDICAL HISTORY : None. SURGICAL HISTORY : Right total knee. ENCOUNTER: Initial ACUITY: 2 days PAIN SCORE: 10/10 LOCATION: Right knee. FINDINGS: The patient is status post total knee replacement with long-stemmed femoral and tibial prosthetic com ponents. There is methyl methacrylate seen at the proximal tibia. There is some lucency between the methyl methacrylate and the remaining tibia. However, this appearance is completely unchanged from the prior postoperative film from 10/19/2011. No fracture is seen. The knee joint appears normally a ligned. There is soft tissue calcification seen at the lateral mid thigh likely related to myositis ossificans. A significant joint effusion is not clearly seen. CONCLUSION: 1. Stable appearance of a total knee prosthesis with long femoral and tibial components. An acute a bnormality is not clearly seen. 2. There is chronic calcification seen at the lateral mid thigh likely related to myositis ossifican s. Nicho Dueñas MD on July 30, 2016 at 21:46 Board Certified Radiologist. This report was verified electronically.
--- NOTE | 2016-07-30 22:29 | RADRPT ---
EXAM DATE/TIME: 07/30/2016 21:40 [facility] COMPARISON: CT BRAIN W/O CONTRAST, May 30, 2016, 14:04. INDICATIONS : Trauma, fall. Laceration to nose. RADIATION DOSE: 34.43 CTDIvol (mGy) MEDICAL HISTORY : Deep venous thrombosis. Myocardial infarction. Hernia, hiatal.Pulmonary embolism. Hypertension. SURGICAL HISTORY : Cervical fusion. ENCOUNTER: Initial ACUITY: 1 day PAIN SCALE: 0/10 LOCATION: cranial TECHNIQUE: Multiple contiguous axial images were obtained of the head. Using automated exposure control and adj ustment of the mA and/or kV according to patient size, radiation dose was kept as low as reasonably a chievable to obtain optimal diagnostic quality images. FINDINGS: CEREBRUM: The ventricles and cortical sulci are widened. There is some expansion of the extra-axial spaces. No evidence of midline shift, mass lesion, hemorrhage or acute infarction. No focal extra-axial fluid collections are seen. POSTERIOR FOSSA: The cerebellum and brainstem are intact. The 4th ventricle is midline. The cerebellopontine angle i s unremarkable. EXTRACRANIAL: The patient is to have a facial CT examination to follow. SKULL: The calvaria is intact. No evidence of skull fracture. CONCLUSION: 1. No acute intracranial abnormality is seen. 2. There appear to be left-sided facial injuries that will be further examined on a CT of the facial bones. 3. Age-related atrophy. Nicho Dueñas MD on July 30, 2016 at 22:24 Board Certified Radiologist. This report was verified electronically.
--- NOTE | 2016-07-30 22:51 | RADRPT ---
EXAM DATE/TIME: 07/30/2016 21:40 [facility] COMPARISON: CT CERVICAL SPINE W/O CONTRAST, May 30, 2016, 14:04. INDICATIONS : Trauma, fell face first. RADIATION DOSE: 24.27 CTDIvol (mGy) MEDICAL HISTORY : Deep venous thrombosis. Myocardial infarction. Hypertension. Hiatal hernia. Pulmonary embolism. SURGICAL HISTORY : Cervical fusion. ENCOUNTER: Initial ACUITY: 1 day PAIN SCALE: 0/10 LOCATION: Neck TECHNIQUE: Volumetric scanning of the cervical spine was performed. Multiplanar reconstructions in the sagittal, coronal and oblique axial planes were performed. Using automated exposure control and adjustment o f the mA and/or kV according to patient size, radiation dose was kept as low as reasonably achievable to obtain optimal diagnostic quality images. FINDINGS: VERTEBRAE: Again noted is a type II dens fracture through the base of the dens. The dens is displaced and angul ated posteriorly. It is displaced posteriorly by approximately 3 - 4 mm. The C1 ring maintains its alignment with the dens. This configuration is unchanged from the prior examination. The remaining cervical vertebral bodies are normal in height. There is some minimal anterior subluxation of C3 on C4 and C4 on C5 on the order of 2 mm. There appears to be fusion at the C5-C6 disc space. There is an anterior cervical fusion plate at the C6-C7 level. There is mild 2 mm of anterior subluxation of C7 on T1. C2-C3: The posterior disc margin appears grossly intact. Significant spinal stenosis is not appreciated. T he neural foramina are normal. There is mild facet hypertrophy. C3-C4: Again noted is the minimal anterior subluxation of C3 on C4. A significant impression on the thecal sac is not seen. There is bilateral facet hypertrophy being worse on the left. There is mild uncove rtebral hypertrophy. There is narrowing of the left neural foramen. The right neural foramen appear s grossly patent. C4-C5: Again noted is the mild anterior subluxation of C4 on C5. A significant impression on the thecal sac is not seen. There is mild uncovertebral hypertrophy. There is moderate facet hypertrophy being wo rse on the left. These changes cause mild narrowing of the left neural foramen. The right neural fo ramen appears grossly intact. C5-C6: Again noted is the fusion at the disc level. A significant impression on the thecal sac is not seen. The neural foramina are normal. C6-C7: The patient is status post fusion at this level. A significant impression on the thecal sac is not s een. There is uncovertebral hypertrophy. This causes some narrowing of the neural foramina being wo rse on the left. The facet joints are grossly intact. C7-T1: Intact. CONCLUSION: 1. Again noted is a type II dens fracture. This was present on the prior CT examination and is unch anged. 2. Degenerative change in the cervical spine as described above. 3. Fusion at the C5-C6 disc level. There is also an anterior cervical fusion plate at the C6-C7 [facility]. Nicho Dueñas MD on July 30, 2016 at 22:27 Board Certified Radiologist. This report was verified electronically.
--- NOTE | 2016-07-30 23:07 | RADRPT ---
EXAM DATE/TIME: 07/30/2016 21:40 [facility] COMPARISON: No previous studies available for comparison. INDICATIONS : Trauma, fall. Laceration on nose. RADIATION DOSE: 63.16 CTDIvol (mGy) MEDICAL HISTORY : Deep venous thrombosis. Myocardial infarction. Hypertension. Hiatal hernia. Pul monary embolism. SURGICAL HISTORY : Cervical fusion. ENCOUNTER: Initial ACUITY: 1 day PAIN SCORE: 4/10 LOCATION: Facial TECHNIQUE: Volumetric scanning of the facial bones was performed. Using automated exposure contr ol and adjustment of the mA and/or kV according to patient size, radiation dose was kept as low as re asonably achievable to obtain optimal diagnostic quality images. FINDINGS: There is a left orbital floor fracture involving the lateral aspect of the orbital floor. Orbital fa t herniates through the defect by approximately 0.8 cm. There also appears to be fracturing at the anterior right medial nasal bone. No other definite fract ures are seen. There is fluid in the left maxillary sinus. CONCLUSION: 1. Left orbital floor fracture with herniation of the inferolateral left orbital fat through the def ect. 2. Minimal fracturing of the medial anterior-inferior aspect of the right nasal bone. Nicho Dueñas MD on July 30, 2016 at 22:34 Board Certified Radiologist. This report was verified electronically.
[2016-07-30] MEDS ORDERED: AUGM875T PO (23:24)
[2016-07-30 23:56] VITALS: BP 120/64
== END 2016-07-30 23:59 | disposition home or self-care (01) ==
LOC: NEPE 20:18
DX: S02.32XA Fracture of orbital floor, left side, initial encounter for closed fracture (principal); S02.2XXA Fracture of nasal bones, initial encounter for closed fracture; F10.120 Alcohol abuse with intoxication, uncomplicated; Y90.7 Blood alcohol level of 200-239 mg/100 ml; W19.XXXA Unspecified fall, initial encounter; Z23 Encounter for immunization; Z79.899 Other long term (current) drug therapy
CPT/HCPCS: 70450; 70486; 72125; 73564; 80048; 80307; 85025; 85610; 85730; 90471; 90714

== ENCOUNTER 2017-05-17 02:23 | Emergency (ER) | payer MEDICARE ==
[~2017-05-17] VITALS: Ht 170.2 cm; Wt 95.0 kg
[2017-05-17] VITALS (8 sets, daily range): BP systolic 131–184; BP diastolic 63–90; PULSE 48–79; RESP 16–22; TEMP 98.1; O2SAT 94–97
[~2017-05-17 02:23] MED LIST changes: +AUGM875T PO; -OMEP20TA PO; +OMEP20TA93 PO
[2017-05-17] MEDS ORDERED: LORazepam 2 MG/ML VIAL IV PUSH ONE (02:45)
[2017-05-17] MEDS ORDERED: SODIUM CHLORIDE 0.9% FLUSH 10 ML FLUSH IV FLUSH PRN (02:45)
[2017-05-17 02:53] LABS: AUTOMATED NEUTROPHIL # 4.8 TH/MM3 (1.8-7.7); BASOPHIL # 0.1 TH/MM3 (0-0.2); BASOPHIL % 1.1 % (0.0-2.0); EOSINOPHIL # 0.1 TH/MM3 (0-0.4); EOSINOPHIL % 1.5 % (0.0-4.0); HEMATOCRIT 42.9 % (39.0-51.0); LYMPH % 17.8 % (9.0-44.0); LYMPHOCYTE # 1.1 TH/MM3 (1.0-4.8); MEAN CELL VOLUME 91.4 FL (80.0-100.0); MEAN PLATELET VOLUME 6.8 FL (7.0-11.0); MONO % 5.3 % (0.0-8.0); MONOCYTE # 0.3 TH/MM3 (0-0.9); NEUT % 74.3 % (16.0-70.0); PLATELET COUNT 196 TH/MM3 (150-450); RED BLOOD COUNT 4.69 MIL/MM3 (4.50-5.90); RED CELL DISTRIBUTION WIDTH 14.1 % (11.6-17.2); WHITE BLOOD COUNT 6.4 TH/MM3 (4.0-11.0)
--- NOTE | 2017-05-17 02:56 | RADRPT ---
EXAM DATE/TIME: 05/17/2017 02:41 [facility] COMPARISON: CHEST SINGLE AP, June 04, 2016, 1:16. INDICATIONS : Shortness of breath. MEDICAL HISTORY : Hypertension. Myocardial infarction. SURGICAL HISTORY : Fusion, cervical. ENCOUNTER: Initial ACUITY: 1 day PAIN SCORE: 0/10 LOCATION: Bilateral chest FINDINGS: Portable AP view of the chest demonstrates a normal-sized cardiac silhouette. Lungs are underinflated . No effusion, consolidation, or pneumothorax is identified. The bones and soft tissues demonstrate n o acute finding. Cervical spine hardware related to 2 level fusion is present. There is severe osteoa rthritis at the right glenohumeral joint. CONCLUSION: No acute cardiopulmonary abnormality is identified. Nicho Lagos MD on May 17, 2017 at 2:51 Board Certified Radiologist. This report was verified electronically.
[2017-05-17 03:04] LABS: INTERNATIONAL NORMALIZED RATIO 1.2 RATIO; PROTHROMBIN TIME - PATIENT 11.7 SEC (9.8-11.6)
[2017-05-17] MEDS ORDERED: XARE20TA PO (03:11)
[2017-05-17] MEDS ORDERED: POTA10CA PO (03:11)
[2017-05-17] MEDS ORDERED: SIMV40TA PO (03:11)
[2017-05-17] MEDS ORDERED: LISI10TA3 PO (03:11)
[2017-05-17] MEDS ORDERED: TEMA30CA PO (03:11)
[2017-05-17] MEDS ORDERED: METO1TAB9 PO (03:11)
[2017-05-17] MEDS ORDERED: ESCI20TA PO (03:11)
[2017-05-17] MEDS ORDERED: FURO40TA PO (03:11)
[2017-05-17] MEDS ORDERED: TRAM50TA PO (03:11)
[2017-05-17] MEDS ORDERED: FERRCAP6 PO (03:11)
[2017-05-17] MEDS ORDERED: ONDA8TAB7 PO (03:11)
[2017-05-17] MEDS ORDERED: ASPI-516 CHEW (03:11)
[2017-05-17] MEDS ORDERED: TIZA4CAP3 PO (03:11)
[2017-05-17] MEDS ORDERED: LORA0.5T PO (03:11)
[2017-05-17] MEDS ORDERED: OMEP20TA93 PO (03:11)
--- NOTE | 2017-05-17 03:28 | RADRPT ---
EXAM DATE/TIME: 05/17/2017 02:56 [facility] COMPARISON: CT BRAIN W/O CONTRAST, July 30, 2016, 21:40. INDICATIONS : Fall, hit left side of head. RADIATION DOSE: 66.34 CTDIvol (mGy) MEDICAL HISTORY : Hypertension. Myocardial infarction. SURGICAL HISTORY : None. ENCOUNTER: Initial ACUITY: 1 day PAIN SCALE: 2/10 LOCATION: cranial TECHNIQUE: Multiple contiguous axial images were obtained of the head. Using automated exposure control and adj ustment of the mA and/or kV according to patient size, radiation dose was kept as low as reasonably a chievable to obtain optimal diagnostic quality images. DICOM format image data is available electro nically for review and comparison. FINDINGS: CEREBRUM: There is mild generalized atrophy. Ventricles are normal. There is mild periventricular white matter low attenuation. No evidence of midline shift, mass lesion, hemorrhage or acute infarction. No extr a-axial fluid collections are seen. POSTERIOR FOSSA: The cerebellum and brainstem are intact. The 4th ventricle is midline. The cerebellopontine angle i s unremarkable. EXTRACRANIAL: Visualized sinuses demonstrate no acute finding. There is mucoperiosteal thickening within the ethmoi d sinus. SKULL: The calvaria is intact. No evidence of skull fracture. CONCLUSION: 1. No acute cardiopulmonary abnormality is identified. 2. Stable chronic findings include mild atrophy and mild periventricular white matter low attenuation characteristic of chronic microvascular ischemia. Nicho Lagos MD on May 17, 2017 at 3:25 Board Certified Radiologist. This report was verified electronically.
--- NOTE | 2017-05-17 03:40 | RADRPT ---
EXAM DATE/TIME: 05/17/2017 02:58 [facility] COMPARISON: CHEST SINGLE AP, May 17, 2017, 2:41. INDICATIONS : Fall, left rib pain. RADIATION DOSE: 16.08 CTDIvol (mGy) MEDICAL HISTORY : Hypertension. Myocardial infarction. Hernia, hiatal. PE. SURGICAL HISTORY : None. ENCOUNTER: Initial ACUITY: 1 day PAIN SCALE: 10/10 LOCATION: Left chest TECHNIQUE: Volumetric scanning of the chest was performed. Using automated exposure control and adjustment of t he mA and/or kV according to patient size, radiation dose was kept as low as reasonably achievable to obtain optimal diagnostic quality images. DICOM format image data is available electronically for r eview and comparison. Follow-up recommendations for detected pulmonary nodules are based at a minimum on nodule size and pa tient risk factors according to Fleischner Society Guidelines. FINDINGS: LUNGS: There is no consolidation or pneumothorax. There is dependent atelectasis. PLEURAE: There is no pleural thickening or pleural effusion. MEDIASTINUM: The heart and great vessels demonstrate no acute abnormality. There is coronary artery calcification and atherosclerotic disease of the aorta. There is no mediastinal or hilar lymphadenopathy. AXILLAE: Within normal limits. No lymphadenopathy. MUSCULOSKELETAL: There are acute rib fractures involving the lateral fifth through eighth ribs. There are minimally di splaced. General changes are present throughout the thoracic spine. Partially visualized lumbar spine hardware is present. There is cervical spine hardware as well. MISCELLANEOUS: The visualized upper abdominal organs demonstrate no acute abnormality. Cholecystectomy clips are pre sent. CONCLUSION: 1. There are acute minimally displaced fractures of the left fifth through eighth ribs laterally. No pneumothorax is present. 2. Coronary artery calcification. Nicho Lagos MD on May 17, 2017 at 3:35 Board Certified Radiologist. This report was verified electronically.
[2017-05-17 03:53] LABS: BILIRUBIN, URINE NEG (NEG); BLOOD, URINE SMALL (NEG); GLUCOSE,URINE NEG (NEG); KETONE, URINE NEG (NEG); NITRITE,URINE NEG (NEG); SQUAMOUS EPITHELIAL CELL URINE <1 /hpf (0-5); URINE COLOR YELLOW (YELLW/STRAW); URINE LEUKOCYTE ESTERASE NEG (NEG)
[2017-05-17 04:34] LABS: ALBUMIN 3.5 GM/DL (3.4-5.0); BLOOD UREA NITROGEN 7 MG/DL (7-18); CREATININE 0.81 MG/DL (0.60-1.30); GLOMERULAR FILTRATION RATE 93 ML/MIN (>89); GLUCOSE,RANDOM 86 MG/DL (74-106); TOTAL PROTEIN 6.8 GM/DL (6.4-8.2)
[2017-05-17 04:35] LABS: ALKALINE PHOSPHATASE 60 U/L (45-117); ALT (GPT) 19 U/L (12-78); AST (GOT) 17 U/L (15-37); CALCIUM 8.4 MG/DL (8.5-10.1); CHLORIDE 102 MEQ/L (98-107); SODIUM (NA) 136 MEQ/L (136-145); TOTAL BILIRUBIN ADULT 0.5 MG/DL (0.2-1.0); TROPONIN I LESS THAN 0.02 NG/ML (0.02-0.05)
[2017-05-17 04:36] LABS: ACETAMINOPHEN LESS THAN 2.0 MCG/ML (10.0-30.0)
--- NOTE | 2017-05-17 05:00 | PD ---
HPI . Status post fall Chief Complaint: Fall Time Seen by Provider: 02:31 Travel History International Travel<30 days: No Contact w/Intl Traveler<30days: No Traveled to known affect area: No History of Present Illness HPI 72-year-old male states he was drinking too much this evening, became lightheaded and fell hitting the right side of his head. Patient is unclear if there is positive loss of consciousness or not. Patient also notes left-sided chest wall pain possibly secondary from same fall. Patient notes mild pain upon deep inspiration, otherwise has no shortness of breath and no abdominal pain. Patient has frequent crying jags in room referencing the of his recently. Patient has had recent evaluations in the ED as per family for overdose intentional with suicidal intent secondary to the depression from above [facility] Past Medical History Narrative Medical Past medical history reviewed Arthritis: Yes Depression: Yes Heart Rhythm Problems: Yes (TACHYARRHYTHMIA) Cardiovascular Problems: Yes (2 dvt) High Cholesterol: Yes Diminished Hearing: No Endocrine: No Gastrointestinal Disorders: Yes Genitourinary: Yes (PENILE IMPLANT) Headaches: Yes Hiatal Hernia: Yes Hypertension: Yes Immune Disorder: Yes Implanted Vascular Access Dvce: Yes Insomnia: Yes Musculoskeletal: Yes Neurologic: Yes (chronic back pain, 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 HERNIA REP. (X2)) Body Medical Devices: [place] [i,[ Cholecystectomy: Yes Genitourinary Surgery: Yes (PENILE IMPLANT) Joint Replacement: Yes (NICOLE. KNEES) Oral Surgery: Yes (T & A) Pacemaker: No Tonsillectomy: Yes Other Surgery: Yes (b/l knee replacents) Social History Alcohol Use: Yes Tobacco Use: Yes (1 PPD) Substance Use: No Allergies-Medications (Allergen,Severity, Reaction): Coded Allergies: No Known Allergies (Verified , 07/30/16) Reported Meds & Prescriptions Reported Meds & Active Scripts Active Escitalopram (Escitalopram Oxalate) 20 Mg Tab 20 Mg PO DAILY Reported Temazepam 30 Mg Cap 30 Mg PO HS PRN Lorazepam 0.5 Mg Tab 0.5 Mg PO BID PRN Tizanidine (Tizanidine HCl) 4 Mg Cap 4 Mg PO TID Aspirin 81 Mg Chew 81 Mg CHEW DAILY Ondansetron (Ondansetron HCl) 8 Mg Tab 8 Mg PO TID PRN Escitalopram (Escitalopram Oxalate) 20 Mg Tab 20 Mg PO DAILY Lisinopril 10 Mg Tab 10 Mg PO DAILY Omeprazole 20 Mg Tab 20 Mg PO DAILY Metoprolol Succinate ER 24 HR (Metoprolol Succinate) 50 Mg Tab 50 Mg PO DAILY Simvastatin 40 Mg Tab 40 Mg PO DAILY Xarelto (Rivaroxaban) 20 Mg Tab 20 Mg PO DAILY Tramadol (Tramadol HCl) 50 Mg Tab 50 Mg PO Q6H PRN Potassium Chloride ER (Potassium Chloride) 10 Meq Cap 10 Meq PO DAILY Integra F 125-1 mg (Ferrous Fumarate-Iron Polysacc) 125 Mg-1 Mg-40 Mg-3 Mg Cap 1 Cap PO DAILY Furosemide 40 Mg Tab 40 Mg PO DAILY Narrative Medication Allergies and medications reviewed Review of Systems Except as stated in HPI: all other systems reviewed are Neg General / Constitutional: No: Fever Eyes: No: Visual changes HENT: No: Headaches Cardiovascular: No: Chest Pain or Discomfort Respiratory: No: Shortness of Breath Gastrointestinal: No: Abdominal Pain Genitourinary: No: Dysuria Musculoskeletal: No: Pain Skin: No Rash Neurologic: No: Weakness Psychiatric: Positive: Anxiety, Depression, Substance Abuse, No: Homicidal Ideation Endocrine: No: Polydipsia Hematologic/Lymphatic: No: Easy Bruising Physical Exam Narrative GENERAL: Awake and alert, oriented, intermittently upset and crying but otherwise cooperative, vital signs normal and stable SKIN: Warm and dry. Color is normal diaphoresis cyanosis or pallor HEAD: Right parietal contusion and right ear pinna abrasion, bleeding controlled.. Normocephalic. EYES: Pupils equal and round. No scleral icterus. No injection or drainage. ENT: No nasal bleeding or discharge. Mucous membranes pink and moist. NECK: Trachea midline. No JVD. Supple nontender full range of motion CARDIOVASCULAR: Regular rate and rhythm. S1-S2 no murmurs rubs gallops RESPIRATORY: No accessory muscle use. Clear to auscultation. Breath sounds equal bilaterally. Chest wall tender left, no crepitus no paradoxical movement GASTROINTESTINAL: Abdomen soft, non-tender, nondistended. Hepatic and splenic margins not palpable. MUSCULOSKELETAL: Extremities without clubbing, cyanosis, or edema. No obvious deformities. NEUROLOGICAL: Awake and alert. No obvious gross focal deficit PSYCHIATRIC: Intermittent crying jags with references towards his 's recent , and stating repeatedly his desire to no longer be here. Data Data Last Documented VS Vital Signs Date Time Temp Pulse Resp B/P (MAP) Pulse Ox O2 Delivery O2 Flow Rate FiO2 05/17/17 03:00 79 22 148/70 (96) 96 Nasal Cannula 2.00 05/17/17 02:30 98.1 Orders Orders Electrocardiogram (05/17/17 02:35) Complete Blood Count With Diff (05/17/17 02:35) Comprehensive Metabolic Panel (05/17/17 02:35) Prothrombin Time / Inr (Pt) (05/17/17 02:35) Act Partial Throm Time (Ptt) (05/17/17 02:35) Troponin I (05/17/17 02:35) Urinalysis - C+S If Indicated (05/17/17 02:35) Chest, Single Ap (05/17/17 02:35) Ct Brain W/O Iv Contrast(Rout) (05/17/17 02:35) Blood Glucose (05/17/17 02:35) Ecg Monitoring (05/17/17 02:35) Iv Access Insert/Monitor (05/17/17 02:35) Oximetry (05/17/17 02:35) Sodium Chloride 0.9% Flush (Ns Flush) (05/17/17 02:45) Drug Screen, Random Urine (05/17/17 02:35) Alcohol (Ethanol) (05/17/17 02:35) Tylenol (Acetaminophen) (05/17/17 02:35) Salicylates (Aspirin) (05/17/17 02:35) Lorazepam Inj (Ativan Inj) (05/17/17 02:45) Ct Thorax/ Chest Wo Iv Contras (05/17/17 ) Psych Screen (05/17/17 04:44) Labs Laboratory Tests Test 05/17/17 02:40 05/17/17 03:19 White Blood Count 6.4 TH/MM3 Red Blood Count 4.69 MIL/MM3 Hemoglobin 15.0 GM/DL Hematocrit 42.9 % Mean Corpuscular Volume 91.4 FL Mean Corpuscular Hemoglobin 32.0 PG Mean Corpuscular Hemoglobin Concent 35.0 % Red Cell Distribution Width 14.1 % Platelet Count 196 TH/MM3 Mean Platelet Volume 6.8 FL Neutrophils (%) (Auto) 74.3 % Lymphocytes (%) (Auto) 17.8 % Monocytes (%) (Auto) 5.3 % Eosinophils (%) (Auto) 1.5 % Basophils (%) (Auto) 1.1 % Neutrophils # (Auto) 4.8 TH/MM3 Lymphocytes # (Auto) 1.1 TH/MM3 Monocytes # (Auto) 0.3 TH/MM3 Eosinophils # (Auto) 0.1 TH/MM3 Basophils # (Auto) 0.1 TH/MM3 CBC Comment DIFF FINAL Differential Comment Prothrombin Time 11.7 SEC Prothromb Time International Ratio 1.2 RATIO Activated Partial Thromboplast Time 29.2 SEC Blood Urea Nitrogen 7 MG/DL Creatinine 0.81 MG/DL Random Glucose 86 MG/DL Total Protein 6.8 GM/DL Albumin 3.5 GM/DL Calcium Level 8.4 MG/DL Alkaline Phosphatase 60 U/L Aspartate Amino Transf (AST/SGOT) 17 U/L Alanine Aminotransferase (ALT/SGPT) 19 U/L Total Bilirubin 0.5 MG/DL Sodium Level 136 MEQ/L Potassium Level 3.7 MEQ/L Chloride Level 102 MEQ/L Carbon Dioxide Level 22.0 MEQ/L Anion Gap 12 MEQ/L Estimat Glomerular Filtration Rate 93 ML/MIN Troponin I LESS THAN 0.02 NG/ML Salicylates Level 5.3 MG/DL Acetaminophen Level LESS THAN 2.0 MCG/ML Ethyl Alcohol Level 210 MG/DL Urine Color YELLOW Urine Turbidity CLEAR Urine pH 6.0 Urine Specific [place] 1.007 Urine Protein NEG mg/dL Urine Glucose (UA) NEG mg/dL Urine Ketones NEG mg/dL Urine Occult Blood SMALL Urine Nitrite NEG Urine Bilirubin NEG Urine Urobilinogen LESS THAN 2.0 MG/DL Urine Leukocyte Esterase NEG Urine RBC 2 /hpf Urine WBC 1 /hpf Urine Squamous Epithelial Cells <1 /hpf Microscopic Urinalysis Comment CATH-CULT NOT IND Urine Opiates Screen POS Urine Barbiturates Screen NEG Urine Amphetamines Screen NEG Urine Benzodiazepines Screen NEG Urine Cocaine Screen NEG Urine Cannabinoids Screen NEG MDM Medical Decision Making Medical Screen Exam Complete: Yes Emergency Medical Condition: Yes Medical Record Reviewed: Yes Differential Diagnosis Rib fractures, head injury, acute depression, suicidal ideation, alcohol intoxication, alcohol abuse Narrative Course Other than alcohol intoxication, no other toxidrome presentation currently. Patient laboratory examination reviewed, patient has an elevated alcohol level. CT head normal no acute traumatic injury noted. CT chest left-sided rib fractures 4 no flail segment, single fracture. She was noted no pneumothorax noted No acute solid organ injury noted in patient's abdomen. Discussed with family regarding patient's mental status, patient is medically cleared for psychiatric evaluation Diagnosis Primary Impression: Alcohol intoxication Qualified Codes: F10.920 - Alcohol use, unspecified with intoxication, uncomplicated Additional Impressions: Head injury Qualified Codes: S09.90XA - Unspecified injury of head, initial encounter Chronic pain Qualified Codes: G89.4 - Chronic pain syndrome Depression Qualified Codes: F32.9 - Major depressive disorder, single episode, unspecified Anival Chris MD May 17, 2017 05:00
--- NOTE | 2017-05-17 10:47 | EKG ---
Date Performed: 05/17/2017 Time Performed: 02:46:17 PTAGE: 72 years EKG: SINUS BRADYCARDIA LEFT BUNDLE BRANCH BLOCK NONSPECIFIC T WAVE ABNORMALITY, LATERALLY ABNORM AL ECG PREVIOUS TRACING : 05/30/2016 11.11 DOCTOR: Kiel Nugent Interpretating Date/Time 05/17/2017 10:46:51
[2017-05-17] MEDS ORDERED: LORazepam 2 MG/ML VIAL IV PUSH PRN ×4 (14:45)
[2017-05-17] MEDS ORDERED: FLUMAZENIL 0.5 MG/5 ML VIAL IV PUSH PRN (14:45)
[2017-05-17] MEDS ORDERED: LORazepam 2 MG TAB PO PRN (14:45)
[2017-05-17] MEDS ORDERED: ACETAMINOPHEN/HYDROcodone 325 MG/5 MG TAB PO ONE (14:45)
[2017-05-17] MEDS ORDERED: LORazepam 1 MG TAB PO PRN (14:45)
--- NOTE | 2017-05-17 15:52 | PD.PSY.CON ---
Provisional Diagnosis Admission Date [place] I. Adjustment disorder with depressed mood, opiates abuse disorder, history of depression [place] II. Deferred History of Present Illness Service Psychiatry Consult Requested By ER Reason for Consult Patient is on the Bryant act Primary Care Physician Emanuel Jernigan M.D. HPI The patient is a 72-year-old man, domiciled alone, unemployed, supported by Social Security, with psychiatric history of depression, one psychiatric hospitalization in 2017, he was under my care, documentation review , has history of opiate use disorder, alcohol use disorder, states he was drinking too much this evening, became lightheaded and fell hitting the right side of his head. Patient is unclear if there is positive loss of consciousness or not. Patient also notes left-sided chest wall pain possibly secondary from same fall. Patient notes mild pain upon deep inspiration, otherwise has no shortness of breath and no abdominal pain. Patient has frequent crying jags in room referencing the of his recently. Patient has had recent evaluations in the ED as per family for overdose intentional with suicidal intent secondary to the depression from above. On psychiatric evaluation today the patient denies depressive symptoms, he denies anxiety, santa and psychosis. He denies suicidal and homicidal ideation. Past Family Social History Coded Allergies: No Known Allergies (Verified , 07/30/16) Active Scripts Escitalopram (Escitalopram) 20 Mg Tab, 20 MG PO DAILY for health, #30 TAB 0 Refills Prov:Rajeev Lyle MD 06/10/16 Reported Medications Temazepam (Temazepam) 30 Mg Cap, 30 MG PO HS Y for INSOMNIA, #30 CAP 0 Refills 05/17/17 Lorazepam (Lorazepam) 0.5 Mg Tab, 0.5 MG PO BID Y for For mild anxiety / dyspnea , TAB 0 Refills 05/17/17 Tizanidine (Tizanidine) 4 Mg Cap, 4 MG PO TID for Muscle Spasm, CAP 0 Refills 05/17/17 Aspirin (Aspirin) 81 Mg Chew, 81 MG CHEW DAILY, TAB 0 Refills 05/17/17 Ondansetron (Ondansetron) 8 Mg Tab, 8 MG PO TID Y for NAUSEA, TAB 0 Refills 05/17/17 Escitalopram (Escitalopram) 20 Mg Tab, 20 MG PO DAILY, #30 TAB 0 Refills 05/17/17 Lisinopril (Lisinopril) 10 Mg Tab, 10 MG PO DAILY, #30 TAB 0 Refills 05/17/17 Omeprazole (Omeprazole) 20 Mg Tab, 20 MG PO DAILY, #30 TAB 0 Refills 05/17/17 Metoprolol Succinate ER 24 HR (Metoprolol Succinate ER 24 HR) 50 Mg Tab, 50 MG PO DAILY, #30 TAB 0 Refills 05/17/17 Simvastatin (Simvastatin) 40 Mg Tab, 40 MG PO DAILY for Cholesterol Management, #30 TAB 0 Refills 05/17/17 Rivaroxaban (Xarelto) 20 Mg Tab, 20 MG PO DAILY for Blood Clot Prevention, TAB 0 Refills 05/17/17 Tramadol (Tramadol) 50 Mg Tab, 50 MG PO Q6H Y for PAIN, TAB 0 Refills 05/17/17 Potassium Chloride ER (Potassium Chloride ER) 10 Meq Cap, 10 MEQ PO DAILY for Electrolyte Replacement, #30 CAP 0 Refills 05/17/17 Ferrous Fumarate-Iron Polysacc (Integra F 125-1 mg) 125 Mg-1 Mg-40 Mg-3 Mg Cap, 1 CAP PO DAILY 05/17/17 Furosemide (Furosemide) 40 Mg Tab, 40 MG PO DAILY, #30 TAB 0 Refills 05/17/17 Discontinued Reported Medications Multi-Vit/Iron-B Comp-Vit C (Integra) 62.5-62.5-40-3 mg Cap, DAILY 05/30/16 Gabapentin (Gabapentin) 600 Mg Tab, 600 MG PO TID, #90 TAB 0 Refills 05/30/16 Lisinopril (Lisinopril) 10 Mg Tab, 10 MG PO BID, #30 TAB 0 Refills 05/30/16 Escitalopram (Escitalopram) 20 Mg Tab, 20 MG PO BID, #30 TAB 0 Refills 05/30/16 Omeprazole (Omeprazole) 20 Mg Tab, 20 MG PO DAILY, #30 TAB 0 Refills 05/30/16 Simvastatin (Simvastatin) 40 Mg Tab, 40 MG PO HS for Cholesterol Management, # 30 TAB 0 Refills 03/19/16 Discontinued Scripts Quetiapine (Quetiapine) 100 Mg Tab, 150 MG PO HS for health, #30 TAB 0 Refills Prov:Rajeev Lyle MD 06/10/16 Quetiapine (Quetiapine) 100 Mg Tab, 100 MG PO HS for agitation, #60 TAB 0 Refills Prov:Kelly Fontanez MD 06/08/16 Metoprolol Tartrate (Metoprolol Tartrate) 25 Mg Tab, 12.5 MG PO Q12HR for blood pressure, #30 TAB 0 Refills Prov:Kelly Fontanez MD 06/08/16 Current Medications Medications (Trade) Dose Ordered Sig/Bisi Route Start Time Stop Time Status Last Admin (NS Flush) 2 ml UNSCH PRN IV FLUSH 05/17/17 02:45 (Romazicon Inj) 0.2 mg Q1M PRN IV PUSH 05/17/17 14:45 (Ativan) 1 mg Q4H PRN PO 05/17/17 14:45 (Ativan Inj) 1 mg Q4H PRN IV PUSH 05/17/17 14:45 (Ativan) 2 mg Q2H PRN PO 05/17/17 14:45 (Ativan Inj) 2 mg Q2H PRN IV PUSH 05/17/17 14:45 (Ativan Inj) 2 mg Q1H PRN IV PUSH 05/17/17 14:45 (Ativan Inj) 2 mg Q15M PRN IV PUSH 05/17/17 14:45 Physical Exam Vital Signs Vital Signs Date Time Temp Pulse Resp B/P (MAP) Pulse Ox O2 Delivery O2 Flow Rate FiO2 05/17/17 14:00 56 18 184/83 (116) 96 Nasal Cannula 2.00 05/17/17 02:30 98.1 I/O 05/17/17 05/17/17 05/18/17 08:00 16:00 00:00 Output Total 200 ml Balance -200 ml Lab Results Test 05/17/17 02:40 05/17/17 03:19 White Blood Count 6.4 TH/MM3 Red Blood Count 4.69 MIL/MM3 Hemoglobin 15.0 GM/DL Hematocrit 42.9 % Mean Corpuscular Volume 91.4 FL Mean Corpuscular Hemoglobin 32.0 PG Mean Corpuscular Hemoglobin Concent 35.0 % Red Cell Distribution Width 14.1 % Platelet Count 196 TH/MM3 Mean Platelet Volume 6.8 FL Neutrophils (%) (Auto) 74.3 % Lymphocytes (%) (Auto) 17.8 % Monocytes (%) (Auto) 5.3 % Eosinophils (%) (Auto) 1.5 % Basophils (%) (Auto) 1.1 % Neutrophils # (Auto) 4.8 TH/MM3 Lymphocytes # (Auto) 1.1 TH/MM3 Monocytes # (Auto) 0.3 TH/MM3 Eosinophils # (Auto) 0.1 TH/MM3 Basophils # (Auto) 0.1 TH/MM3 CBC Comment DIFF FINAL Differential Comment Prothrombin Time 11.7 SEC Prothromb Time International Ratio 1.2 RATIO Activated Partial Thromboplast Time 29.2 SEC Blood Urea Nitrogen 7 MG/DL Creatinine 0.81 MG/DL Random Glucose 86 MG/DL Total Protein 6.8 GM/DL Albumin 3.5 GM/DL Calcium Level 8.4 MG/DL Alkaline Phosphatase 60 U/L Aspartate Amino Transf (AST/SGOT) 17 U/L Alanine Aminotransferase (ALT/SGPT) 19 U/L Total Bilirubin 0.5 MG/DL Sodium Level 136 MEQ/L Potassium Level 3.7 MEQ/L Chloride Level 102 MEQ/L Carbon Dioxide Level 22.0 MEQ/L Anion Gap 12 MEQ/L Estimat Glomerular Filtration Rate 93 ML/MIN Troponin I LESS THAN 0.02 NG/ML Salicylates Level 5.3 MG/DL Acetaminophen Level LESS THAN 2.0 MCG/ML Ethyl Alcohol Level 210 MG/DL Urine Color YELLOW Urine Turbidity CLEAR Urine pH 6.0 Urine Specific [place] 1.007 Urine Protein NEG mg/dL Urine Glucose (UA) NEG mg/dL Urine Ketones NEG mg/dL Urine Occult Blood SMALL Urine Nitrite NEG Urine Bilirubin NEG Urine Urobilinogen LESS THAN 2.0 MG/DL Urine Leukocyte Esterase NEG Urine RBC 2 /hpf Urine WBC 1 /hpf Urine Squamous Epithelial Cells <1 /hpf Microscopic Urinalysis Comment CATH-CULT NOT IND Urine Opiates Screen POS Urine Barbiturates Screen NEG Urine Amphetamines Screen NEG Urine Benzodiazepines Screen NEG Urine Cocaine Screen NEG Urine Cannabinoids Screen NEG Mental Status Examination Appearance: Appropriate Consciousness: Alert Orientation: x4 Motor Activity: Normal gait Speech: Unremarkable Language: Adequate Fund of Knowledge: Adequate Attention and Concentration: Adequate Memory: Unremarkable Mood: Appropriate Affect: Appropriate Thought Process & Associations: Intact Thought Content: Appropriate Hallucination Type: None Delusion Type: None Suicidal Ideation: No Suicidal Plan: No Suicidal Intention: No Homicidal Ideation: No Homicidal Plan: No Homicidal Intention: No Insight: Adequate Judgment: Adequate Assessment & Plan Problem List: (1) Alcohol abuse with alcohol-induced mood disorder ICD Codes: F10.14 - Alcohol abuse with alcohol-induced mood disorder Assessment & Plan: Patient does not present any neuropsychiatric symptoms that require an immediate psychiatric intervention at this moment, he denies suicidal and homicidal ideation, he denies visual and auditory hallucinations. Recent suicidal statement was reported as a result of acute alcohol and opiates intoxication. Stomach criteria for involuntary psychiatric admission. Bryant act will be lifted. Assessment & Plan Estimated LOS: Rajeev Lyle MD May 17, 2017 15:52
--- NOTE | 2017-05-17 16:06 | PD ---
Physical Exam Date Seen by Provider: May 17, 2017 Time Seen by Provider: 16:04 Data Data Last Documented VS Vital Signs Date Time Temp Pulse Resp B/P (MAP) Pulse Ox O2 Delivery O2 Flow Rate FiO2 05/17/17 14:00 56 18 184/83 (116) 96 Nasal Cannula 2.00 05/17/17 02:30 98.1 Orders Orders Electrocardiogram (05/17/17 02:35) Complete Blood Count With Diff (05/17/17 02:35) Comprehensive Metabolic Panel (05/17/17 02:35) Prothrombin Time / Inr (Pt) (05/17/17 02:35) Act Partial Throm Time (Ptt) (05/17/17 02:35) Troponin I (05/17/17 02:35) Urinalysis - C+S If Indicated (05/17/17 02:35) Chest, Single Ap (05/17/17 02:35) Ct Brain W/O Iv Contrast(Rout) (05/17/17 02:35) Blood Glucose (05/17/17 02:35) Ecg Monitoring (05/17/17 02:35) Iv Access Insert/Monitor (05/17/17 02:35) Oximetry (05/17/17 02:35) Sodium Chloride 0.9% Flush (Ns Flush) (05/17/17 02:45) Drug Screen, Random Urine (05/17/17 02:35) Alcohol (Ethanol) (05/17/17 02:35) Tylenol (Acetaminophen) (05/17/17 02:35) Salicylates (Aspirin) (05/17/17 02:35) Lorazepam Inj (Ativan Inj) (05/17/17 02:45) Ct Thorax/ Chest Wo Iv Contras (05/17/17 ) Psych Screen (05/17/17 04:44) Diet Regular Basic (05/17/17 Breakfast) Acetamin-Hydrocod 325-5 Mg (Cord 5-325 (05/17/17 14:45) Alcohol Withdrawal Asmt-Ciwa Q4HX18 (05/17/17 14:31) Flumazenil Inj (Romazicon Inj) (05/17/17 14:45) Lorazepam (Ativan) (05/17/17 14:45) Lorazepam Inj (Ativan Inj) (05/17/17 14:45) Lorazepam (Ativan) (05/17/17 14:45) Lorazepam Inj (Ativan Inj) (05/17/17 14:45) Lorazepam Inj (Ativan Inj) (05/17/17 14:45) Lorazepam Inj (Ativan Inj) (05/17/17 14:45) Ed Discharge Order (05/17/17 16:10) Resp Incentive Spirometry (05/17/17 ) Labs Laboratory Tests Test 05/17/17 02:40 05/17/17 03:19 White Blood Count 6.4 TH/MM3 Red Blood Count 4.69 MIL/MM3 Hemoglobin 15.0 GM/DL Hematocrit 42.9 % Mean Corpuscular Volume 91.4 FL Mean Corpuscular Hemoglobin 32.0 PG Mean Corpuscular Hemoglobin Concent 35.0 % Red Cell Distribution Width 14.1 % Platelet Count 196 TH/MM3 Mean Platelet Volume 6.8 FL Neutrophils (%) (Auto) 74.3 % Lymphocytes (%) (Auto) 17.8 % Monocytes (%) (Auto) 5.3 % Eosinophils (%) (Auto) 1.5 % Basophils (%) (Auto) 1.1 % Neutrophils # (Auto) 4.8 TH/MM3 Lymphocytes # (Auto) 1.1 TH/MM3 Monocytes # (Auto) 0.3 TH/MM3 Eosinophils # (Auto) 0.1 TH/MM3 Basophils # (Auto) 0.1 TH/MM3 CBC Comment DIFF FINAL Differential Comment Prothrombin Time 11.7 SEC Prothromb Time International Ratio 1.2 RATIO Activated Partial Thromboplast Time 29.2 SEC Blood Urea Nitrogen 7 MG/DL Creatinine 0.81 MG/DL Random Glucose 86 MG/DL Total Protein 6.8 GM/DL Albumin 3.5 GM/DL Calcium Level 8.4 MG/DL Alkaline Phosphatase 60 U/L Aspartate Amino Transf (AST/SGOT) 17 U/L Alanine Aminotransferase (ALT/SGPT) 19 U/L Total Bilirubin 0.5 MG/DL Sodium Level 136 MEQ/L Potassium Level 3.7 MEQ/L Chloride Level 102 MEQ/L Carbon Dioxide Level 22.0 MEQ/L Anion Gap 12 MEQ/L Estimat Glomerular Filtration Rate 93 ML/MIN Troponin I LESS THAN 0.02 NG/ML Salicylates Level 5.3 MG/DL Acetaminophen Level LESS THAN 2.0 MCG/ML Ethyl Alcohol Level 210 MG/DL Urine Color YELLOW Urine Turbidity CLEAR Urine pH 6.0 Urine Specific [place] 1.007 Urine Protein NEG mg/dL Urine Glucose (UA) NEG mg/dL Urine Ketones NEG mg/dL Urine Occult Blood SMALL Urine Nitrite NEG Urine Bilirubin NEG Urine Urobilinogen LESS THAN 2.0 MG/DL Urine Leukocyte Esterase NEG Urine RBC 2 /hpf Urine WBC 1 /hpf Urine Squamous Epithelial Cells <1 /hpf Microscopic Urinalysis Comment CATH-CULT NOT IND Urine Opiates Screen POS Urine Barbiturates Screen NEG Urine Amphetamines Screen NEG Urine Benzodiazepines Screen NEG Urine Cocaine Screen NEG Urine Cannabinoids Screen NEG MDM Supervised Visit with NAT: No Narrative Course This is a 72-year-old male who was initially evaluated by Dr. Chris, placed under [place] Act and medically cleared for psychiatric evaluation. He was then evaluated by Dr. Gomez and the [place] act was lifted. On my exam: This is an alert white male in no acute distress. He denies any pain, shortness of breath. GENERAL: Well-nourished, well-developed cooperative white male in no acute distress. SKIN: Focused skin assessment warm/dry. EYES: No scleral icterus. No injection or drainage. NECK: Supple, trachea midline. No JVD or lymphadenopathy. CARDIOVASCULAR: Regular rate and rhythm without murmurs, gallops, or rubs. RESPIRATORY: Breath sounds clear and equal bilaterally. No accessory muscle use. Positive tenderness palpation of the anterior lateral left ribs. GASTROINTESTINAL: Abdomen soft, non-tender, nondistended. MUSCULOSKELETAL: No cyanosis, or edema. BACK: Nontender without obvious deformity. No CVA tenderness. Patient is provided an incentive spirometer and instructed to use it 6-10 times per day. He is instructed to use OTC medications as prescribed and labile, as needed for rib pain, follow-up with Franc Cabrera his PCP. Family members at bedside to take him home. He stable and discharged home. Diagnosis Primary Impression: Alcohol intoxication Qualified Codes: F10.920 - Alcohol use, unspecified with intoxication, uncomplicated Additional Impressions: Chronic pain Qualified Codes: G89.4 - Chronic pain syndrome Depression Qualified Codes: F32.9 - Major depressive disorder, single episode, unspecified Head injury Qualified Codes: S09.90XA - Unspecified injury of head, initial encounter Ribs, multiple fractures Qualified Codes: S22.42XA - Multiple fractures of ribs, left side, initial encounter for closed fracture Referrals: Primary Care Physician Patient Instructions: General Instructions, How to Use an Incentive Spirometer (ED) Additional Instruction: Use the incentive spirometer 6-10 times a day. OTC pain medications as described on the label, as needed for pain. Follow-up with Franc Segura for treatment of alcohol abuse. Follow-up with your primary care provider as discussed with Dr. Gomez. Return to the ED for worsening symptoms or any urgent or emergent medical condition. Disposition: 01 DISCHARGE HOME Condition: Stable Ofe Tavares May 17, 2017 16:06
== END 2017-05-17 17:12 | disposition home or self-care (01) ==
LOC: NEPE 02:23
DX: S09.90XA Unspecified injury of head, initial encounter (principal); S22.42XA Multiple fractures of ribs, left side, initial encounter for closed fracture; F10.129 Alcohol abuse with intoxication, unspecified; G89.4 Chronic pain syndrome; F32.9 Major depressive disorder, single episode, unspecified; F43.21 Adjustment disorder with depressed mood; R94.31 Abnormal electrocardiogram [ECG] [EKG]; F41.8 Other specified anxiety disorders; I10 Essential (primary) hypertension; F17.210 Nicotine dependence, cigarettes, uncomplicated; F11.10 Opioid abuse, uncomplicated; Y90.7 Blood alcohol level of 200-239 mg/100 ml; W19.XXXA Unspecified fall, initial encounter
CPT/HCPCS: 70450; 71045; 71250; 80053; 80307; 81001; 84484; 85025; 85610; 85730; 93005; 96374; 99285; J2060

== ENCOUNTER 2017-07-14 10:25 | Emergency (ER) | payer OTHER, MEDICARE ==
[~2017-07-14] VITALS: Ht 170.2 cm; Wt 95.0 kg
[~2017-07-14 10:25] MED LIST changes: +ASPI-516 CHEW; -AUGM875T PO; -FE FCAP; -FERR325T PO; +FERRCAP6 PO; +FURO40TA PO; -GABA600T PO; +LORA0.5T PO; +METO1TAB9 PO; -METO25TA3 PO; +ONDA8TAB7 PO; +POTA10CA PO; -QUET1TAB8 PO; +TEMA30CA PO; +TIZA4CAP3 PO; +TRAM50TA PO; +XARE20TA PO
[2017-07-14 10:31] VITALS: BP 178/77; PULSE 56; RESP 20; TEMP 98; O2SAT 97
[2017-07-14 10:49] VITALS: BP 200/93; PULSE 62; RESP 19; O2SAT 97
[2017-07-14] MEDS ORDERED: LISI40TA PO (10:54)
[2017-07-14] MEDS ORDERED: MORPHINE PUMP (10:55)
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
== END 2017-07-14 12:46 | disposition home or self-care (01) ==
LOC: NEPC 10:25
DX: M54.2 Cervicalgia (principal); M54.9 Dorsalgia, unspecified; G89.29 Other chronic pain; M50.323 Other cervical disc degeneration at C6-C7 level; M19.90 Unspecified osteoarthritis, unspecified site; F32.9 Major depressive disorder, single episode, unspecified; E78.00 Pure hypercholesterolemia, unspecified; I10 Essential (primary) hypertension; G47.00 Insomnia, unspecified
CPT/HCPCS: 72125; 72128; 99283; L0150